=== PATIENT | female | born 1975 | race Caucasian/White ===

== ENCOUNTER 2017-01-20 07:07 | Day surgery (SDC) | payer MEDICAID ==
[2017-01-20] MEDS ORDERED: Propofol 200 MG/20 ML SDV ONE (07:09)
[2017-01-20] MEDS ORDERED: Rocuronium 50 MG/5 ML Vial ONE (07:09)
[2017-01-20] MEDS ORDERED: Lidocaine 1% 4 ML ONE (07:09)
[2017-01-20] MEDS ORDERED: Ondansetron 4 MG/2 ML SDV ONE (07:09)
[2017-01-20] MEDS ORDERED: fentaNYL 250 MCG/5 ML SDV ONE (07:09)
[2017-01-20] MEDS ORDERED: Midazolam 1 MG/ML 2 ML SDV ONE (07:09)
[2017-01-20] MEDS ORDERED: Lactated Ringers 1,000 ML IV SCH (07:15)
[2017-01-20] MEDS ORDERED: Lidocaine 1% 50 ML MDV ONE (07:31)
[2017-01-20] MEDS ORDERED: Bupivacaine 0.5% 30 ML SDV ONE (07:31)
[2017-01-20] MEDS ORDERED: Lidocaine 1% with EPINEPHrine 1:100,000 20 ML MDV ONE (07:32)
[2017-01-20] MEDS ORDERED: Bupivacaine 0.5%/EPINEPHrine 1:200,000 50 ML MDV ONE (07:33)
--- NOTE | 2017-01-20 07:35 | PCM.PREANE ---
Preanesthetic Assessment - Anesthesia/Transfusion/Family Hx Anesthesia History: Prior Anesthesia Without Reaction Family History of Anesthesia Reaction: No Transfusion History: No Prior Transfusion(s) - Review of Systems General: No Symptoms Pulmonary: No Symptoms, Cough (smoker) Cardiovascular: No Symptoms Gastrointestinal: Abdominal pain, Diarrhea, Vomiting (last night- ) Neurological: No Symptoms, Headache (migraines) Other: Reports: Depression, Anxiety - Physical Assessment NPO Status Date: 01/19/17 NPO Status Time: 23:30 Pulse: 94 O2 Sat by Pulse Oximetry: 93 Respiratory Rate: 16 Blood Pressure: 138/79 Temperature: 98.4 F Height: 5 ft 7 in Weight: 108.862 kg ASA Class: 2 Mental Status: Alert & Oriented x3 Dentition: Reports: Normal Dentition Thyro-Mental Finger Breadths: 3 Mouth Opening Finger Breadths: 3 ROM/Head Extension: Full Lungs: Clear to auscultation, Normal respiratory effort Cardiovascular: Regular Rate, Regular Rhythm, No Murmurs - Allergies Allergies/Adverse Reactions: Allergies Allergy/AdvReac Type Severity Reaction Status Date / Time cephalexin monohydrate Allergy Hives Verified 01/16/17 14:40 [From Keflex] prochlorperazine edisylate Allergy Other Verified 01/16/17 14:46 [From Compazine] prochlorperazine maleate Allergy Other Verified 01/16/17 14:46 [From Compazine] shellfish derived Allergy Anaphylactic Verified 01/16/17 14:40 Shock - Blood Blood Available: No - Anesthesia Plan Pre-Op Medication Ordered: None - Acknowledgements Anesthesia Type Planned: General Anesthesia Pt an Appropriate Candidate for the Planned Anesthesia: Yes Alternatives and Risks of Anesthesia Discussed w Pt/Guardian: Yes Pt/Guardian Understands and Agrees with Anesthesia Plan: Yes PreAnesthesia Questionnaire HEENT History: Reports: Sinusitis, Other (see below) Other HEENT History: Pharyngitis, sinus pressure Cardiovascular History: Reports: None Respiratory History: Reports: Other (see below) Other Respiratory History: Cough, hemoptysis, viral URI Gastrointestinal History: Reports: GERD, Other (see below) Other Gastrointestinal History: Hematochezia, external hemorrhoids Genitourinary History: Reports: None 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 Musculoskeletal History: Reports: Gout, Other (see below) Other Musculoskeletal History: Myalgias Neurological History: Reports: Headaches, chronic, Migraines Psychiatric History: Reports: Addiction, Anxiety, Depression, Other (see below) Other Psychiatric History: Insomnia Endocrine/Metabolic History: Reports: None Hematologic History: Reports: None Immunologic History: Reports: None Oncologic (Cancer) History: Reports: None Dermatologic History: Reports: Other (see below) Other Dermatologic History: Hidradenitis suppurativa, open wound to foot, plantar wart to left foot, facial skin lesion - Past Surgical History Head Surgeries/Procedures: Reports: None HEENT Surgical History: Reports: None Cardiovascular Surgical History: Reports: None Respiratory Surgical History: Reports: None GI Surgical History: Reports: Appendectomy Female Surgical History: Reports: Other (see below) Other Female Surgeries/Procedures: Unilateral salpingectomy Endocrine Surgical History: Reports: None Neurological Surgical History: Reports: None Musculoskeletal Surgical History: Reports: None Oncologic Surgical History: Reports: None Dermatological Surgical History: Reports: None - SUBSTANCE USE Smoking Status *Q: Current Every Day Smoker (smoked 23 years -1 ppd) Tobacco Use Within Last Twelve Months: Cigarettes Second Hand Smoke Exposure: Yes Days Per Week of Alcohol Use: 1 (twice a month) Number of Drinks Per Day: 4 Total Drinks Per Week: 4 Date of Last Drink: 01/19/17 Time of Last Drink: 11:30 Recreational Drug Use History: No - HOME MEDS Home Medications: Home Meds Ascorbic Acid [Vitamin C] 1,000 mg PO BID 03/04/15 [History] Omeprazole 20 mg PO ACBRK 03/04/15 [History] Diazepam [Diazepam] 5 mg PO TID 06/24/16 [History] Varenicline [Chantix] 1 mg PO DAILY 06/24/16 [History] Acetaminophen/HYDROcodone [[place] 325-5 MG] 1 tab PO Q6H PRN 01/16/17 [History] Cranberry Fruit Concentrate [Cranberry] 450 mg PO DAILY 01/16/17 [History] Ibuprofen 800 mg PO TID PRN 01/16/17 [History] Ondansetron HCl [Zofran] 4 mg PO Q4H PRN 01/16/17 [History] buPROPion HCl [Wellbutrin Xl] 150 mg PO DAILY 01/16/17 [History] - CURRENT (IN HOUSE) MEDS Current Meds: Current Medications Lactated Ringer's (Ringers, Lactated) 1,000 mls @ 125 mls/hr IV ASDIRECTED LIOR Stop: 01/20/17 23:59 Lidocaine/Sodium Bicarbonate (Buffered Lidocaine 1% In Ns 8.4%) 0.25 ml IV ONETIME ONE Stop: 01/20/17 08:01 Discontinued Medications Bupivacaine HCl (Marcaine 0.5%) Confirm Administered Dose 30 ml .ROUTE .STK-MED ONE Stop: 01/20/17 07:32 Bupivacaine HCl/Epinephrine Bitart (Marcaine 0.5%/Epinephrine 1:200,000) Confirm Administered Dose 50 ml .ROUTE .STK-MED ONE Stop: 01/20/17 07:34 Fentanyl (Sublimaze) Confirm Administered Dose 250 mcg .ROUTE .STK-MED ONE Stop: 01/20/17 07:10 Lidocaine HCl (Xylocaine-Mpf 1%) Confirm Administered Dose 4 mls @ as directed .ROUTE .STK-MED ONE Stop: 01/20/17 07:10 Lidocaine HCl (Xylocaine 1%) Confirm Administered Dose 50 ml .ROUTE .STK-MED ONE Stop: 01/20/17 07:32 Lidocaine/Epinephrine (Xylocaine 1% With Epinephrine 1:100,000) Confirm Administered Dose 20 ml .ROUTE .STK-MED ONE Stop: 01/20/17 07:33 Midazolam HCl (Versed 1 Mg/Ml) Confirm Administered Dose 2 mg .ROUTE .STK-MED ONE Stop: 01/20/17 07:10 Ondansetron HCl (Zofran) Confirm Administered Dose 4 mg .ROUTE .STK-MED ONE Stop: 01/20/17 07:10 Propofol (Diprivan 20 Ml) Confirm Administered Dose 200 mg .ROUTE .STK-MED ONE Stop: 01/20/17 07:10 Rocuronium [place] (Zemuron) Confirm Administered Dose 50 mg .ROUTE .STK-MED ONE Stop: 01/20/17 07:10
[2017-01-20] MEDS ORDERED: Lidocaine 1%/Sod Bicarbonate in NS 8.4% 1 ML Syringe IV ONE (08:00)
[2017-01-20] MEDS ORDERED: Ondansetron 4 MG/2 ML SDV IVPUSH PRN (08:21)
[2017-01-20] MEDS ORDERED: HYDROmorphone 1 MG/ML Syringe ONE (08:22)
[2017-01-20] MEDS ORDERED: Dexamethasone 4 MG/ML 5 ML MDV ONE (08:41)
[2017-01-20] MEDS ORDERED: Vancomycin 1 GM, Vancomycin 500 MG in Sodium Chloride 0.9% 500 ML IV SCH (09:00)
[2017-01-20] MEDS ORDERED: fentaNYL 100 MCG/2 ML SDV ONE (09:04)
[2017-01-20] MEDS ORDERED: Meperidine PF 50 MG/ML Syringe IVPUSH PRN (09:30)
--- NOTE | 2017-01-20 10:10 | PCM.POSTAN ---
POST ANESTHESIA ASSESSMENT - MENTAL STATUS Mental Status: alert, oriented - VITAL SIGNS Pulse Rate: 103 SaO2: 94 Resp Rate: 7 Blood Pressure: 142/86 Temperature: 99.6 F - RESPIRATORY Respiratory Status: respiratory rate WNL, airway patent, O2 saturation stable, supplemental oxygen - CARDIOVASCULAR CV Status: pulse rate WNL, blood pressure stable - GASTROINTESTINAL GI Status: no symptoms - PAIN Pain Score: 2 - POST OP HYDRATION Hydration Status: adequate & stable
--- NOTE | 2017-01-20 10:11 | PCM.OPNOTE ---
- General Post-Op/Procedure Note Date of Surgery/Procedure: 01/20/17 Operative Procedure(s): laparoscopic cholecystectomy Findings: Sub acute and chronic inflammation of the gallbladder. The gallbladder contained a large stone and several smaller stones. They were yellow in color. Pre Op Diagnosis: biliary colic, secondary to cholelithiasis Post-Op Diagnosis: subacute and chronic cholecystitis, secondary to cholelithiasis Anesthesia Technique: General ET tube, Local Primary Surgeon: Kaden Palencia Pathology: gall bladder and contents EBL in mLs: 100 Complications: None Condition: Good Free Text/Narrative:: After adequate general endotracheal tube anesthesia was obtained the patient's abdomen was prepped and draped sterilely for a laparoscopic cholecystectomy. After local analgesia was given above the umbilicus. A curvilinear incision was made, down to the fascia. The fascia was entered sharply, followed by insertion of a 12 mm camera port. CO2 pneumoperitoneum was obtained. Exploration revealed a few adhesions between the omentum and the body of the gallbladder. The gallbladder was slightly distended, and the wall was slightly edematous. 3 working ports were placed along the right costal margin. These ports were 5 mm in size. I grasped the gallbladder and retracted it and the liver in a cephalad direction. I the adhesions between the omentum and the gallbladder away from the body of the gallbladder with the hook cautery. I then grasped Gray's pouch then dissected out the cystic duct and cystic artery with the hook cautery. Somehow I put a hole in the cystic artery (probably because the hook cautery was on 35), which quickly retracted, causing blood loss into the field. I reduced the cautery to 25. I held direct pressure for several minutes, but this didn't slow the bleeding that much for me to safely clip the vessel. I then placed some Surgicel in the site, and held more pressure for a few more minutes. This allowed a coagulum to take, which allowed me to visualize the artery, and I safely placed a 5 mm clip to secure hemostasis. The cystic duct was clipped in continuity with 5 mm clips. This structure was divided with scissors. I irrigated out the field with 750 cc of saline to remove about 100 cc of clotted blood. After achieving hemostasis I took the gallbladder down in a retrograde fashion with the hook cautery and removed the gallbladder in the specimen bag through the umbilicus. During this process I put a hole on the body of the gallbladder wall which spilled its contents. This was irrigated out as well. I placed 3, 5 mm clips over this hole so that no stones would fall out onto the field.The gallbladder bed was hemostatic with no bleeding or bile duct leaks seen. I left the Surgicel in place. The bowel was grossly intact. Air was removed, as I finished the procedure, which she tolerated well. Manufacturing Supervisor 2Nd Shift photographs were taken for the patient and for the record. The supraumbilical port site was closed with a [id number] Vicryl. Subcutaneous tissues and skin were closed with Vicryl as well. Steri-Strips and gauze were used for the dressing.
[2017-01-20] MEDS: fentaNYL 100 MCG/2 ML SDV IVPUSH PRN ×4 (10:23→10:56)
[2017-01-20] MEDS: HYDROmorphone 0.5 MG/0.5 ML Syringe IVPUSH PRN ×2 (10:26→10:41)
[2017-01-20] MEDS ORDERED: Acetaminophen/oxyCODONE 325-5 MG Tab PO SCH (10:30)
[2017-01-20 11:52] VITALS: BP 134/65
--- NOTE | 2017-01-20 12:44 | PCM48HPAN ---
Post Anesthesia Note - EVALUATION WITHIN 48HRS OF ANESTHETIC Vital Signs in Normal Range: Yes Patient Participated in Evaluation: Yes Respiratory Function Stable: Yes Airway Patent: Yes Cardiovascular Function Stable: Yes Hydration Status Stable: Yes Pain Control Satisfactory: Yes Nausea and Vomiting Control Satisfactory: Yes Mental Status Recovered: Yes
== END 2017-01-20 13:25 | disposition home or self-care (01) ==
LOC: JD.SDS 07:07
PROVIDERS: ATTEND Surgery
PROC: 0FT44ZZ Resection of Gallbladder, Percutaneous Endoscopic Approach (ICD-10-PCS; principal; 2017-01-20)
DX: K80.10 Calculus of gallbladder with chronic cholecystitis without obstruction (principal); F41.8 Other specified anxiety disorders; M79.1 Myalgia; F17.210 Nicotine dependence, cigarettes, uncomplicated; K21.9 Gastro-esophageal reflux disease without esophagitis; M10.9 Gout, unspecified; Z88.1 Allergy status to other antibiotic agents; Z88.8 Allergy status to other drugs, medicaments and biological substances; Z91.013 Allergy to seafood; Z79.899 Other long term (current) drug therapy; Z90.49 Acquired absence of other specified parts of digestive tract; Z90.79 Acquired absence of other genital organ(s); Z68.41 Body mass index [BMI] 40.0-44.9, adult
CPT/HCPCS: 47562; 88304; A9270; J1100; J1170; J2250; J2405; J3010; J7120; 00790; J2704

== ENCOUNTER 2017-01-24 23:12 | Emergency (ER) | payer SELFPAY ==
[2017-01-24 23:18] VITALS: BP 161/119
[2017-01-24] MEDS ORDERED: LORazepam 2 MG/ML MDV IVPUSH ONE (23:23)
[2017-01-24] MEDS ORDERED: Sodium Chloride 0.9% 500 ML IV ONE (23:23)
[2017-01-24] MEDS ORDERED: Ondansetron 4 MG/2 ML SDV IVPUSH ONE (23:23)
[2017-01-24] MEDS ORDERED: HYDROmorphone 0.5 MG/0.5 ML Syringe IVPUSH ONE (23:23)
[2017-01-24] MEDS ORDERED: Sodium Chloride 0.9% 10 ML Syringe FLUSH PRN (23:24)
--- NOTE | 2017-01-24 23:28 | EDM.PDOC ---
ED HISTORY OF PRESENT ILLNESS - General Chief Complaint: Chest Pain Stated Complaint: CHEST PAIN/SOB Time Seen by Provider: 01/24/17 23:15 Source of Information: Reports: Patient, RN notes reviewed - History of Present Illness INITIAL COMMENTS - FREE TEXT/NARRATIVE: Patient arrives private vehicle with right upper quadrant abdominal pain radiating to right lower chest and also to the right lateral chest. The pain is sharp, worse with deep breathing. She does have some nausea but no vomiting with this. She did have her gallbladder out laparoscopic surgery 4 days ago. She has been having some discomfort right upper quadrant postsurgical as would be expected but that had been getting better until the onset of sharp discomfort this evening about 30-40 minutes ago. She has not been vomiting. She' s had no fever or chills. She has not been coughing or ill in any other way. No history of cardiac or known pulmonary problems - Related Data Allergies/ADRs: Allergies Allergy/AdvReac Type Severity Reaction Status Date / Time cephalexin monohydrate Allergy Hives Verified 01/24/17 23:14 [From Keflex] prochlorperazine edisylate Allergy Other Verified 01/24/17 23:14 [From Compazine] prochlorperazine maleate Allergy Other Verified 01/24/17 23:14 [From Compazine] shellfish derived Allergy Anaphylactic Verified 01/24/17 23:14 Shock Home Meds: Home Meds Ascorbic Acid [Vitamin C] 1,000 mg PO BID 03/04/15 [History] Omeprazole 20 mg PO ACBRK 03/04/15 [History] Diazepam 5 mg PO TID 06/24/16 [History] Varenicline [Chantix] 1 mg PO DAILY 06/24/16 [History] Acetaminophen/HYDROcodone [[place] 325-5 MG] 1 tab PO Q6H PRN 01/16/17 [History] Cranberry Fruit Concentrate [Cranberry] 450 mg PO DAILY 01/16/17 [History] Ibuprofen 800 mg PO TID PRN 01/16/17 [History] Ondansetron HCl [Zofran] 4 mg PO Q4H PRN 01/16/17 [History] buPROPion HCl [Wellbutrin Xl] 150 mg PO DAILY 01/16/17 [History] Past Medical History HEENT History: Reports: Sinusitis, Other (see below) Other HEENT History: Pharyngitis, sinus pressure Cardiovascular History: Reports: None Respiratory History: Reports: Other (see below) Other Respiratory History: Cough, hemoptysis, viral URI Gastrointestinal History: Reports: GERD, Other (see below) Other Gastrointestinal History: Hematochezia, external hemorrhoids Genitourinary History: Reports: None 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 Musculoskeletal History: Reports: Gout, Other (see below) Other Musculoskeletal History: Myalgias Neurological History: Reports: Headaches, chronic, Migraines Psychiatric History: Reports: Addiction, Anxiety, Depression, Other (see below) Other Psychiatric History: Insomnia Endocrine/Metabolic History: Reports: None Hematologic History: Reports: None Immunologic History: Reports: None Oncologic (Cancer) History: Reports: None Dermatologic History: Reports: Other (see below) Other Dermatologic History: Hidradenitis suppurativa, open wound to foot, plantar wart to left foot, facial skin lesion - Past Surgical History Head Surgeries/Procedures: Reports: None HEENT Surgical History: Reports: None Cardiovascular Surgical History: Reports: None Respiratory Surgical History: Reports: None GI Surgical History: Reports: Appendectomy, Cholecystectomy Female Surgical History: Reports: Other (see below) Other Female Surgeries/Procedures: Unilateral salpingectomy Endocrine Surgical History: Reports: None Neurological Surgical History: Reports: None Musculoskeletal Surgical History: Reports: None Oncologic Surgical History: Reports: None Dermatological Surgical History: Reports: None Social & Family History - Family History Family Medical History: Noncontributory - Tobacco Use Smoking Status *Q: Current Every Day Smoker Years of Tobacco use: 20 Packs/Tins Daily: 0.7 Used Tobacco, but Quit: No Second Hand Smoke Exposure: Yes - Caffeine Use Caffeine Use: Reports: None - Alcohol Use Days Per Week of Alcohol Use: 1 (twice a month) Number of Drinks Per Day: 4 Total Drinks Per Week: 4 - Recreational Drug Use Recreational Drug Use: No Drug Use in Last 12 Months: No - Living Situation & Occupation Living situation: Reports: with family (Mother) ED ROS GENERAL - Review of Systems Review Of Systems: See Below Constitutional: Denies: fever, chills, diaphoresis HEENT: Denies: Sinus problem, Throat pain Respiratory: Reports: Shortness of Breath, Wheezing, Pleuritic Chest Pain Cardiovascular: Reports: Chest pain GI/Abdominal: Reports: Abdominal pain (Right upper quadrant pain) Musculoskeletal: Denies: leg pain, joint pain Skin: Reports: no symptoms Neurological: Denies: Weakness ED EXAM, GENERAL - Physical Exam Exam: See Below Exam Limited By: No limitations General Appearance: alert, severe distress Throat/Mouth: Normal inspection, Normal oropharynx Head: atraumatic. No: facial swelling Neck: normal inspection, supple Respiratory/Chest: respiratory distress (moderate tachypnea). No: rhonchi, wheezing, stridor Cardiovascular: tachycardia GI/Abdominal: tender (RUQ). No: guarding, rebound Back Exam: No: CVA tenderness (L), CVA tenderness (R) Extremities: normal inspection, normal range of motion. No: pedal edema, leg pain Neurological: alert, oriented, no motor/sensory deficits Skin Exam: Warm, Dry, Normal color Course - Vital Signs Last Recorded V/S: Last Vital Signs Temp 97.7 F 01/24/17 23:14 Pulse 109 H 01/24/17 23:14 Resp 15 01/24/17 23:14 BP 161/119 H 01/24/17 23:14 Pulse Ox 96 01/24/17 23:14 - Orders/Labs/Meds Orders: Active Orders 24 hr Category Date Time Status EKG 12 Lead [EKG Documentation Completion] [RC] STAT Care 01/24/17 23:15 Active Peripheral IV Care [RC] . DIRECTED Care 01/24/17 23:24 Active Abdomen Ltd [US] Stat Exams 01/25/17 00:42 Taken Chest 1V Frontal [CR] Stat Exams 01/24/17 23:25 Taken Sodium Chloride 0.9% [Normal Saline] 1,000 ml Med 01/25/17 00:45 Active IV ASDIRECTED Sodium Chloride 0.9% [Saline Flush] Med 01/24/17 23:24 Active 10 ml FLUSH ASDIRECTED PRN Peripheral IV Insertion Adult [OM.PC] Stat Oth 01/24/17 23:23 Ordered Medication Orders Sodium Chloride (Normal Saline) 1,000 mls @ 75 mls/hr IV ASDIRECTED LIOR Sodium Chloride (Saline Flush) 10 ml FLUSH ASDIRECTED PRN PRN Reason: Keep Vein Open Last Admin: 01/24/17 23:38 Dose: 10 ml Labs: Laboratory Tests 01/24/17 01/24/17 01/24/17 Range/Units 23:25 23:25 23:25 WBC 20.13 H (3.98-10.04) K/mm3 RBC 4.52 (3.98-5.22) M/mm3 Hgb 14.0 (11.2-15.7) gm/L Hct 41.1 (34.1-44.9) % MCV 90.9 (79.4-94.8) fl MCH 31.0 (25.6-32.2) pg MCHC 34.1 (32.2-35.5) g/dl RDW Std Deviation 39.8 (36.4-46.3) fL Plt Count 297 (182-369) K/mm3 MPV 10.8 (9.4-12.3) fl Neut % (Auto) 66.1 (34.0-71.1) % Lymph % (Auto) 22.1 (19.3-51.7) % Parke % (Auto) 6.4 (4.7-12.5) % Eos % (Auto) 4.6 (0.7-5.8) Baso % (Auto) 0.3 (0.1-1.2) % Neut # (Auto) 13.30 H (1.56-6.13) K/mm3 Lymph # (Auto) 4.45 H (1.18-3.74) K/mm3 Parke # (Auto) 1.28 H (0.24-0.36) K/mm3 Eos # (Auto) 0.92 H (0.04-0.36) K/mm3 Baso # (Auto) 0.07 (0.01-0.08) K/mm3 Sodium 137 (136-145) mEq/L Potassium 3.9 (3.5-5.1) mEq/L Chloride 104 (98-107) mEq/L Carbon Dioxide 25 (21-32) mEq/L Anion Gap 11.9 (5-15) BUN 12 (7-18) mg/dL Creatinine 0.8 (0.55-1.02) mg/dL Est Cr Clr Drug Dosing 89.99 mL/min Estimated GFR (MDRD) > 60 (>60) mL/min BUN/Creatinine Ratio 15.0 (14-18) Glucose 116 H (74-106) mg/dL Calcium 8.6 (8.5-10.1) mg/dL Total Bilirubin 0.3 (0.2-1.0) mg/dL AST 48 H (15-37) U/L ALT 135 H (14-59) U/L Alkaline Phosphatase 170 H (46-116) U/L Troponin I < 0.017 (0.00-0.056) ng/mL Total Protein 7.5 (6.4-8.2) g/dl Albumin 3.2 L (3.4-5.0) g/dl Globulin 4.3 gm/dL Albumin/Globulin Ratio 0.7 L (1-2) Lipase 75 (73-393) U/L Meds: Medications Generic Name Dose Route Start Last Admin Trade Name Freq PRN Reason Stop Dose Admin Sodium Chloride 1,000 mls @ 75 mls/hr 01/25/17 00:45 Normal Saline IV ASDIRECTED LIOR Sodium Chloride 10 ml 01/24/17 23:24 01/24/17 23:38 Saline Flush FLUSH 10 ml ASDIRECTED PRN Administration Keep Vein Open Discontinued Medications Generic Name Dose Route Start Last Admin Trade Name Freq PRN Reason Stop Dose Admin Hydromorphone HCl 0.5 mg 01/24/17 23:23 01/24/17 23:36 Dilaudid IVPUSH 01/24/17 23:24 0.5 mg ONETIME ONE Administration Sodium Chloride 500 mls @ 999 mls/hr 01/24/17 23:23 01/24/17 23:38 Normal Saline IV 01/24/17 23:53 999 mls/hr .BOLUS ONE Administration Lorazepam 0.5 mg 01/24/17 23:23 01/24/17 23:37 Ativan IVPUSH 01/24/17 23:24 0.5 mg ONETIME ONE Administration Ondansetron HCl 4 mg 01/24/17 23:23 01/24/17 23:35 Zofran IVPUSH 01/24/17 23:24 4 mg ONETIME ONE Administration - Re-Assessments/Exams Free Text/Narrative Re-Assessment/Exam: 01/25/17 01:00. Patient did get good relief of discomfort from Dilaudid 0.5 mg, Ativan 0.5 mg Zofran 4 mg IV. However her white blood count has come back elevated in the 20,000 range, liver enzymes and alkaline phosphatase are very mildly elevated bilirubin is okay at 0.3. We'll check upper abdomen ultrasound primarily to look for any sign of stones, sludge or biliary obstruction. 01/25/17 02:51 US report comes back with no evidence for obstruction, free fluid, possible small hematoma, see report for details. Pt continues to rest comfortably after initial meds. She wants to go home and feels up to that, discharge instr. as documented. Departure - Departure Time of Disposition: 02:43 Disposition: Home, Self-Care 01 Condition: fair Clinical Impression: Abdominal pain Qualifiers: Abdominal location: upper abdomen, unspecified Qualified Code(s): R10.10 - Upper abdominal pain, unspecified Referrals: Kaden Palencia MD [Primary Care Provider] - Forms: ED Department Discharge Additional Instructions: rest, clear liquids and careful bland diet as tolerated, you may continue your pain medication as needed, See Dr Palencia as soon as possible early next week, call Friday for appt.,, return to ED as needed if sx worsening in any way. - My Orders Last 24 Hours: My Active Orders 01/24/17 23:15 EKG 12 Lead [EKG Documentation Completion] [RC] STAT 01/24/17 23:23 Peripheral IV Insertion Adult [OM.PC] Stat 01/24/17 23:24 Peripheral IV Care [RC] . DIRECTED Sodium Chloride 0.9% [Saline Flush] 10 ml FLUSH ASDIRECTED PRN 01/24/17 23:25 Chest 1V Frontal [CR] Stat 01/25/17 00:42 Abdomen Ltd [US] Stat 01/25/17 00:45 Sodium Chloride 0.9% [Normal Saline] 1,000 ml IV ASDIRECTED - Assessment/Plan Last 24 Hours: My Active Orders 01/24/17 23:15 EKG 12 Lead [EKG Documentation Completion] [RC] STAT 01/24/17 23:23 Peripheral IV Insertion Adult [OM.PC] Stat 01/24/17 23:24 Peripheral IV Care [RC] . DIRECTED Sodium Chloride 0.9% [Saline Flush] 10 ml FLUSH ASDIRECTED PRN 01/24/17 23:25 Chest 1V Frontal [CR] Stat 01/25/17 00:42 Abdomen Ltd [US] Stat 04/22/17 00:45 Sodium Chloride 0.9% [Normal Saline] 1,000 ml IV ASDIRECTED
[2017-01-25] MEDS ORDERED: Sodium Chloride 0.9% 1,000 ML IV SCH (00:45)
--- NOTE | 2017-01-26 11:59 | CR ---
Chest: Frontal view of the chest was obtained. Comparison: Previous chest x-ray of 06/24/[address] dated 06/24/16. Heart size and mediastinum are within normal limits. Lungs are clear. Bony structures show minimal scoliosis within the spine. Impression: 1. Nothing acute is seen on frontal chest x-ray. No significant change is seen from prior exam. Diagnostic code #1
--- NOTE | 2017-01-26 11:59 | US ---
Limited abdominal ultrasound: Multiple real-time images of the upper right abdomen were obtained. Comparison: Previous right upper quadrant abdominal ultrasound of 01/08/17. Liver shows no focal abnormality. Liver is slightly echogenic possibly due to mild fatty infiltration. Interval cholecystectomy is seen. There is a slightly echogenic area seen within the gallbladder fossa with hypoechoic rim possibly due to small hematoma measuring around 2.4 cm. Pancreas is within normal limits. No other fluid collections are seen. Right kidney shows no hydronephrosis or mass and has a length of 12.3 cm. Impression: 1. No free fluid is seen. 2. Hyperechoic area within the gallbladder fossa possibly due to small postoperative hematoma. 3. Interval cholecystectomy from prior exam. Agree with preliminary report issued by [employer] (preliminary report dictated on 01/25/17, 2:59 AM Central Time) Diagnostic code #3
== END 2017-01-25 02:55 | disposition home or self-care (01) ==
LOC: JD.ED 23:12
DX: R10.11 Right upper quadrant pain (principal); K21.9 Gastro-esophageal reflux disease without esophagitis; F41.9 Anxiety disorder, unspecified; F32.9 Major depressive disorder, single episode, unspecified; F17.210 Nicotine dependence, cigarettes, uncomplicated; Z79.899 Other long term (current) drug therapy; Z90.49 Acquired absence of other specified parts of digestive tract; Z91.013 Allergy to seafood
CPT/HCPCS: 36415; 71010; 76705; 80053; 83690; 84484; 85025; 93005; 96361; 96374; 96375; 99285; J1170; J2060; J2405; J7040; J7050; 99284

== ENCOUNTER 2017-08-22 22:45 | Emergency (ER) | payer SELFPAY ==
[2017-08-22 23:12] VITALS: BP 157/108
[2017-08-22] MEDS ORDERED: Ketorolac 60 MG/2 ML SDV IM ONE (23:43)
[2017-08-22] MEDS ORDERED: HYDROmorphone 1 MG/ML Syringe IM ONE (23:43)
[2017-08-22] MEDS ORDERED: Metoclopramide 10 MG/2 ML SDV IM ONE (23:43)
--- NOTE | 2017-08-22 23:45 | EDM.PDOC ---
ED HPI GENERAL MEDICAL PROBLEM - General Chief Complaint: Headache Stated Complaint: Migraine Time Seen by Provider: 08/22/17 23:30 Source of Information: Reports: Patient, RN Notes Reviewed History Limitations: Reports: No Limitations - History of Present Illness INITIAL COMMENTS - FREE TEXT/NARRATIVE: 41 year old female presents to the ED today with complaints of migraine headache to the left side with associated nausea, vomiting x3, photophobia, and phonophobia. She has a history of migraine headaches and says this is consistent with her typical headaches. She has taken two doses of 600mg of Ibuprofen and Benadryl prior to arrival with no improvement. She denies neck pain, fever, chills, sinus pressure, weakness in extremities, slurred speech. Headache Pain Score (Numeric/FACES): 10 Left Flank Pain Score (Numeric/FACES): 5 - Related Data Allergies Allergy/AdvReac Type Severity Reaction Status Date / Time cephalexin monohydrate Allergy Hives Verified 01/24/17 23:14 [From Keflex] prochlorperazine edisylate Allergy Other Verified 01/24/17 23:14 [From Compazine] prochlorperazine maleate Allergy Other Verified 01/24/17 23:14 [From Compazine] shellfish derived Allergy Anaphylactic Verified 01/24/17 23:14 Shock Home Meds: Home Meds Ascorbic Acid [Vitamin C] 1,000 mg PO BID 03/04/15 [History] Omeprazole 20 mg PO ACBRK 03/04/15 [History] Diazepam 5 mg PO DAILY 06/24/16 [History] Cranberry Fruit Concentrate [Cranberry] 450 mg PO DAILY 01/16/17 [History] Ibuprofen 800 mg PO TID PRN 01/16/17 [History] Ondansetron HCl [Zofran] 4 mg PO Q4H PRN 01/16/17 [History] buPROPion HCl [Wellbutrin Xl] 150 mg PO DAILY 01/16/17 [History] Past Medical History HEENT History: Reports: Sinusitis, Other (See Below) Other HEENT History: Pharyngitis, sinus pressure Cardiovascular History: Reports: None Respiratory History: Reports: Other (See Below) Other Respiratory History: Cough, hemoptysis, viral URI Gastrointestinal History: Reports: GERD, Other (See Below) Other Gastrointestinal History: Hematochezia, external hemorrhoids Genitourinary History: Reports: UTI, Recurrent 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 Musculoskeletal History: Reports: Gout, Other (See Below) Other Musculoskeletal History: Myalgias Neurological History: Reports: Headaches, Chronic, Migraines Psychiatric History: Reports: Addiction, Anxiety, Depression, Other (See Below) Other Psychiatric History: Insomnia Endocrine/Metabolic History: Reports: None Hematologic History: Reports: None Immunologic History: Reports: None Oncologic (Cancer) History: Reports: None Dermatologic History: Reports: Other (See Below) Other Dermatologic History: Hidradenitis suppurativa, open wound to foot, plantar wart to left foot, facial skin lesion - Infectious Disease History Infectious Disease History: Reports: Chicken Pox - Past Surgical History Head Surgeries/Procedures: Reports: None Cardiovascular Surgical History: Reports: None GI Surgical History: Reports: Appendectomy, Cholecystectomy Endocrine Surgical History: Reports: None Oncologic Surgical History: Reports: None Social & Family History - Family History Family Medical History: Noncontributory - Tobacco Use Smoking Status *Q: Current Every Day Smoker Years of Tobacco use: 20 Packs/Tins Daily: 1 Used Tobacco, but Quit: No Second Hand Smoke Exposure: Yes - Caffeine Use Caffeine Use: Reports: None - Alcohol Use Days Per Week of Alcohol Use: 1 (twice a month) Number of Drinks Per Day: 4 Total Drinks Per Week: 4 - Recreational Drug Use Recreational Drug Use: No Drug Use in Last 12 Months: No - Living Situation & Occupation Living situation: Reports: with Family ED ROS GENERAL - Review of Systems Review Of Systems: See Below Constitutional: Reports: No Symptoms. Denies: Fever, Chills HEENT: Reports: No Symptoms. Denies: Vertigo, Vision Change Respiratory: Reports: No Symptoms. Denies: Shortness of Breath Cardiovascular: Reports: No Symptoms. Denies: Chest Pain GI/Abdominal: Reports: Nausea, Vomiting. Denies: Abdominal Pain Neurological: Reports: Headache. Denies: Confusion, Dizziness, Numbness, Tingling, Difficulty Walking, Weakness - Physical Exam Exam: See Below Exam Limited By: No Limitations General Appearance: Alert, WD/WN, Other (wearing sun glasses, lights off in room ) Eye Exam: Bilateral Eye: EOMI, PERRL Head Exam: Atraumatic, Normocephalic. No: Scalp Tenderness, Sinus Tenderness Neck: Normal Inspection, Supple, Non-Tender, Full Range of Motion. No: Tender Midline Respiratory/Chest: No Respiratory Distress, Lungs Clear Cardiovascular: Regular Rate, Rhythm Neuro Exam (Abbreviated): Alert, Oriented, Normal Cognition, Normal Gait, Other (cerebellar testing intact ) Course - Vital Signs Last Recorded V/S: Last Vital Signs Temp 97.5 F 08/22/17 23:07 Pulse 91 08/22/17 23:07 Resp 18 08/22/17 23:07 BP 157/108 H 08/22/17 23:07 Pulse Ox 96 08/22/17 23:07 - Orders/Labs/Meds Meds: Medications Discontinued Medications Generic Name Dose Route Start Last Admin Trade Name Freq PRN Reason Stop Dose Admin Hydromorphone HCl 1 mg 08/22/17 23:43 08/22/17 23:54 Dilaudid IM 08/22/17 23:44 1 mg ONETIME ONE Administration Ketorolac Tromethamine 60 mg 08/22/17 23:43 08/22/17 23:57 Toradol IM 08/22/17 23:44 60 mg ONETIME ONE Administration Metoclopramide HCl 7.5 mg 08/22/17 23:43 08/22/17 23:59 Reglan IM 08/22/17 23:44 7.5 mg ONETIME ONE Administration - Re-Assessments/Exams Free Text/Narrative Re-Assessment/Exam: Neuro exam is normal. Treated with IM injections of Toradol, Reglan, and Dilaudid. This has worked well for her in the past and no adverse reactions. Patient was discharged home to rest. She has a ride home. Departure - Departure Time of Disposition: 00:15 Disposition: Home, Self-Care 01 Condition: Good Clinical Impression: Migraine - Discharge Information Instructions: Migraine Headache, [id number] Referrals: Heather Canales PA [Primary Care Provider] - Forms: ED Department Discharge Additional Instructions: Go home and rest in a dark, quiet environment Drink plenty of fluids Return to ER with worsening symptoms No driving today due to sedating medications given in the ER Continue over the counter pain relievers as needed
== END 2017-08-23 00:44 | disposition home or self-care (01) ==
LOC: JD.ED 22:45
DX: G43.909 Migraine, unspecified, not intractable, without status migrainosus (principal); F17.210 Nicotine dependence, cigarettes, uncomplicated; Z88.1 Allergy status to other antibiotic agents; Z91.013 Allergy to seafood; Z79.899 Other long term (current) drug therapy
CPT/HCPCS: 96372; 99283; J1170; J1885; J2765

== ENCOUNTER 2017-09-27 09:30 | Emergency (ER) | payer SELFPAY ==
[2017-09-27] MEDS ORDERED: Metoclopramide 10 MG/2 ML SDV IM ONE (09:56)
[2017-09-27] MEDS ORDERED: Ketorolac 60 MG/2 ML SDV IM ONE (09:56)
[2017-09-27] MEDS ORDERED: HYDROmorphone 1 MG/ML Syringe IM ONE (09:56)
--- NOTE | 2017-09-27 10:03 | EDM.PDOC ---
ED HPI GENERAL MEDICAL PROBLEM - General Chief Complaint: Headache Stated Complaint: HEADACHE Time Seen by Provider: 09/27/17 09:57 Source of Information: Reports: Patient History Limitations: Reports: No Limitations - History of Present Illness INITIAL COMMENTS - FREE TEXT/NARRATIVE: 41-year-old female presents the ED with atypical migraine headache. With right hemicranial headache with associated nausea and vomiting. Remains photophobic this morning. Headache is described as constant throbbing and pounding. Very similar to what she's experienced in the past. Emesis is morning was bilious and then dry heaving. No hematemesis. Patient reports she's had good luck with intramuscular injections in the past where she is able to go home and sleep. Last bad headache was about a month ago. Does not appear to be premenstrual. Onset: Today Onset Date: 09/27/17 Onset Time: 07:00 Duration: Hour(s): Location: Reports: Head (Right right hemicranial headache) Quality: Reports: Ache, Throbbing, Other Severity: Severe (Pounding 8 out of 10.) Improves with: Reports: Rest (In dark room.) Worsens with: Reports: Other (Exposure to light), Movement Context: Reports: Other (Awoke with severe right hemicranial headache.). Denies : Activity, Exercise, Lifting, Sick Contact, Trauma Associated Symptoms: Reports: Headaches, Nausea/Vomiting. Denies: Confusion, Chest Pain, Cough, cough w sputum, Diaphoresis, Fever/Chills, Loss of Appetite, Malaise, Rash, Seizure, Shortness of Breath, Syncope Treatments ED TEACHER: Reports: Other (see below) Right Headache Pain Score (Numeric/FACES): 9 - Related Data Allergies Allergy/AdvReac Type Severity Reaction Status Date / Time cephalexin monohydrate Allergy Hives Verified 09/27/17 09:41 [From Keflex] prochlorperazine edisylate Allergy Other Verified 08/23/17 01:52 [From Compazine] prochlorperazine maleate Allergy Other Verified 09/27/17 09:41 [From Compazine] shellfish derived Allergy Anaphylactic Verified 09/27/17 09:41 Shock Home Meds: Home Meds Ascorbic Acid [Vitamin C] 1,000 mg PO BID 03/04/15 [History] Omeprazole 20 mg PO ACBRK 03/04/15 [History] Cranberry Fruit Concentrate [Cranberry] 450 mg PO DAILY 01/16/17 [History] Ibuprofen 800 mg PO TID PRN 01/16/17 [History] buPROPion HCl [Wellbutrin Xl] 150 mg PO DAILY 01/16/17 [History] Cyanocobalamin (Vitamin B-12) [Vitamin B-12] 0 mcg SQ SA 09/27/17 [History] Past Medical History HEENT History: Reports: Sinusitis, Other (See Below) Other HEENT History: Pharyngitis, sinus pressure Cardiovascular History: Reports: None Respiratory History: Reports: Other (See Below) Other Respiratory History: Cough, hemoptysis, viral URI Gastrointestinal History: Reports: GERD, Other (See Below) Other Gastrointestinal History: Hematochezia, external hemorrhoids Genitourinary History: Reports: UTI, Recurrent 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 Musculoskeletal History: Reports: Gout, Other (See Below) Other Musculoskeletal History: Myalgias Neurological History: Reports: Headaches, Chronic, Migraines Psychiatric History: Reports: Addiction, Anxiety, Depression, Other (See Below) Other Psychiatric History: Insomnia Endocrine/Metabolic History: Reports: None Hematologic History: Reports: None Immunologic History: Reports: None Oncologic (Cancer) History: Reports: None Dermatologic History: Reports: Other (See Below) Other Dermatologic History: Hidradenitis suppurativa, open wound to foot, plantar wart to left foot, facial skin lesion - Infectious Disease History Infectious Disease History: Reports: Chicken Pox - Past Surgical History Head Surgeries/Procedures: Reports: None Cardiovascular Surgical History: Reports: None GI Surgical History: Reports: Appendectomy, Cholecystectomy Endocrine Surgical History: Reports: None Oncologic Surgical History: Reports: None Social & Family History - Family History Family Medical History: Noncontributory - Tobacco Use Smoking Status *Q: Current Every Day Smoker Years of Tobacco use: 23 Packs/Tins Daily: 0.5 Used Tobacco, but Quit: No Second Hand Smoke Exposure: No - Caffeine Use Caffeine Use: Reports: Energy Drinks - Alcohol Use Days Per Week of Alcohol Use: 2 Number of Drinks Per Day: 2 Total Drinks Per Week: 4 - Recreational Drug Use Recreational Drug Use: No Drug Use in Last 12 Months: No - Living Situation & Occupation Living situation: Reports: with Family ED ROS GENERAL - Review of Systems Review Of Systems: See Below Constitutional: Denies: Fever, Malaise, Weakness, Fatigue, Decreased Appetite, Weight Loss HEENT: Reports: No Symptoms Respiratory: Reports: No Symptoms Cardiovascular: Reports: No Symptoms Endocrine: Reports: No Symptoms GI/Abdominal: Reports: Nausea, Vomiting : Reports: No Symptoms Musculoskeletal: Reports: No Symptoms Skin: Reports: No Symptoms Neurological: Reports: Headache Psychiatric: Reports: No Symptoms (See history present illness) Hematologic/Lymphatic: Reports: No Symptoms Immunologic: Reports: No Symptoms - Physical Exam Exam: See Below Exam Limited By: No Limitations General Appearance: Mild Distress, Moderate Distress, Other (Examination dark room with dark sunglasses on.) Eye Exam: Bilateral Eye: Normal Inspection, PERRL Neck: Normal Inspection, Supple, Non-Tender, Full Range of Motion, Tender Lateral (Tender right lateral neck paraspinal musculature.). No: Lymphadenopathy (L), Lymphadenopathy (R) Neuro Exam (Abbreviated): Alert, Oriented, CN II-XII Intact, Normal Cognition, Normal Gait, No Motor/Sensory Deficits Extremities: Normal Inspection, Normal Range of Motion, Non-Tender Psychiatric: Normal Affect, Normal Mood Skin Exam: Warm, Dry, Intact, Normal Color Course - Vital Signs Last Recorded V/S: Last Vital Signs Temp 36.6 C 09/27/17 09:40 Pulse 90 09/27/17 09:40 Resp 18 09/27/17 09:40 BP 143/98 H 09/27/17 09:40 Pulse Ox 96 09/27/17 09:40 - Orders/Labs/Meds Orders: Active Orders 24 hr Category Date Time Status HYDROmorphone [Dilaudid] Med 09/27/17 09:56 Once 1 mg IM ONETIME ONE Ketorolac [Toradol] Med 09/27/17 09:56 Once 60 mg IM ONETIME ONE Metoclopramide [Reglan] Med 09/27/17 09:56 Once 10 mg IM ONETIME ONE - Radiology Interpretation Free Text/Narrative:: 41-year-old female presents the ED with a right hemicranial headache that she awoke with this morning. Associated photophobia nausea and vomiting 2 this morning. Last bad headache was about a month ago. She suffers from intermittent migraine headaches. Neurological examination is normal. Plan intramuscular Toradol 60 mg IM. Dilaudid 1 mg IM. Reglan 10 mg IM. This regime is working well for her in the past. She'll then be discharged to home to sleep for the next 4 hours. Her mom is here to drive her home. Departure - Departure Time of Disposition: 10:01 Disposition: Home, Self-Care 01 Condition: Fair Clinical Impression: Migraine headache - Discharge Information Referrals: Heather Canales PA [Primary Care Provider] - Additional Instructions: Evaluation the emergent today in regards to awakening with a severe right hemicranial headache with associated nausea and vomiting. History of migraine headaches with similar presentations. Neurological exam was normal. Therefore treated with intramuscular Toradol 60 mg and Dilaudid 1 mg and Reglan 10 mg IM. Suggest home to sleep and rest for the next 2-3 hours. May then try and resume a regular diet with plenty of fluids today to prevent rebound headache. Diet as tolerated. Avoid all red food dyes. Avoid dark chocolate. Avoid MSG which is found in Phan soups as assault and other junk foods. Avoid to Jalen found and high concentration and aged cheese and red daniela. Any kind of red fruit juice may also be a culprit due to added food dyes such as Cranberry apple , cranberry juice itself. Avoid all nitrates or troponin high concentration smoked meats particularly pepperoni's salami and other smoked meats. These often are precipitants of migraine headaches within 12 hours of ingestion. - My Orders Last 24 Hours: My Active Orders 09/27/17 09:56 HYDROmorphone [Dilaudid] 1 mg IM ONETIME ONE Ketorolac [Toradol] 60 mg IM ONETIME ONE Metoclopramide [Reglan] 10 mg IM ONETIME ONE - Assessment/Plan Last 24 Hours: My Active Orders 09/27/17 09:56 HYDROmorphone [Dilaudid] 1 mg IM ONETIME ONE Ketorolac [Toradol] 60 mg IM ONETIME ONE Metoclopramide [Reglan] 10 mg IM ONETIME ONE
[2017-09-27 10:26] VITALS: BP 120/74
== END 2017-09-27 10:25 | disposition home or self-care (01) ==
LOC: JD.ED 09:30
DX: G43.909 Migraine, unspecified, not intractable, without status migrainosus (principal); F17.210 Nicotine dependence, cigarettes, uncomplicated; Z88.1 Allergy status to other antibiotic agents; Z88.8 Allergy status to other drugs, medicaments and biological substances; Z91.013 Allergy to seafood; Z79.899 Other long term (current) drug therapy
CPT/HCPCS: 96372; 99284; J1170; J1885; J2765; 99283

== ENCOUNTER 2018-01-23 20:24 | Emergency (ER) | payer OTHER ==
[2018-01-23 20:38] VITALS: BP 144/91
[2018-01-23] MEDS ORDERED: HYDROmorphone 0.5 MG/0.5 ML SYRINGE IVPUSH ONE (21:09)
[2018-01-23] MEDS ORDERED: Ondansetron 4 MG/2 ML SDV IVPUSH ONE (21:09)
[2018-01-23] MEDS ORDERED: Alum Hydrox/Mag Hydrox/Simeth 30 ML, Lidocaine 2% 15 ML PO ONE ×2 (21:09)
[2018-01-23] MEDS ORDERED: Sodium Chloride 0.9% 10 ML Syringe FLUSH PRN (21:10)
--- NOTE | 2018-01-23 21:13 | EDM.PDOC ---
ED HPI GENERAL MEDICAL PROBLEM - General Chief Complaint: Chest Pain Stated Complaint: CHEST,JAW AND BACK PAIN Time Seen by Provider: 01/23/18 21:00 Source of Information: Reports: Patient History Limitations: Reports: No Limitations - History of Present Illness INITIAL COMMENTS - FREE TEXT/NARRATIVE: Patient is a 42-year-old female presents to the ED complaining of left-sided chest discomfort located to the left sternal border radiating between her scapula and left side and into her left side her neck and jaw. Patient was clinically medication was occurred. Pain was worse with palpation and taking a deep breath. She also complains of increasing shortness of breath with walking up stairs that evening as well. States the chest discomfort was a little tight. She has a history of anxiety and is concerned that this may related to her heart. She has no previous heart issues in the past. Nor does she states there is anything for screw relatives with heart disease. Upon admission to the ED pain is minimal and reproducible. Left-sided neck discomfort is worse with movement as well. She denies any dyspnea with exertion. There is no lightheadedness, palpitations, presyncope/syncopal episodes. No dizziness. No pain to lower extremities or swelling noted. No history of DVT or PE. 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: Reports: Other (see below) Other 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: motrin at 1730 x 3 tabs Left Chest Pain Score (Numeric/FACES): 7 - Related Data Allergies Allergy/AdvReac Type Severity Reaction Status Date / Time cephalexin monohydrate Allergy Hives Verified 09/27/17 09:41 [From Keflex] prochlorperazine edisylate Allergy Other Verified 08/23/17 01:52 [From Compazine] prochlorperazine maleate Allergy Other Verified 09/27/17 09:41 [From Compazine] shellfish derived Allergy Anaphylactic Verified 09/27/17 09:41 Shock Home Meds: Home Meds Ascorbic Acid [Vitamin C] 1,000 mg PO BID 03/04/15 [History] Omeprazole 20 mg PO ACBRK 03/04/15 [History] Cranberry Fruit Concentrate [Cranberry] 450 mg PO DAILY 01/16/17 [History] Ibuprofen 800 mg PO TID PRN 01/16/17 [History] Cyanocobalamin (Vitamin B-12) [Vitamin B-12] 0 mcg SQ SA 09/27/17 [History] Citalopram Hydrobromide [Celexa] 10 mg PO DAILY 01/23/18 [History] Past Medical History HEENT History: Reports: Sinusitis, Other (See Below) Other HEENT History: Pharyngitis, sinus pressure Cardiovascular History: Reports: None Respiratory History: Reports: Other (See Below) Other Respiratory History: Cough, hemoptysis, viral URI Gastrointestinal History: Reports: GERD, Other (See Below) Other Gastrointestinal History: Hematochezia, external hemorrhoids Genitourinary History: Reports: UTI, Recurrent 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 Musculoskeletal History: Reports: Gout, Other (See Below) Other Musculoskeletal History: Myalgias Neurological History: Reports: Headaches, Chronic, Migraines Psychiatric History: Reports: Addiction, Anxiety, Depression, Other (See Below) Other Psychiatric History: Insomnia Endocrine/Metabolic History: Reports: None Hematologic History: Reports: None Immunologic History: Reports: None Oncologic (Cancer) History: Reports: None Dermatologic History: Reports: Other (See Below) Other Dermatologic History: Hidradenitis suppurativa, open wound to foot, plantar wart to left foot, facial skin lesion - Infectious Disease History Infectious Disease History: Reports: Chicken Pox - Past Surgical History Head Surgeries/Procedures: Reports: None Cardiovascular Surgical History: Reports: None GI Surgical History: Reports: Appendectomy, Cholecystectomy Endocrine Surgical History: Reports: None Oncologic Surgical History: Reports: None Social & Family History - Family History Family Medical History: Noncontributory - Tobacco Use Smoking Status *Q: Current Every Day Smoker Years of Tobacco use: 24 Packs/Tins Daily: 2 Used Tobacco, but Quit: No Second Hand Smoke Exposure: No - Caffeine Use Caffeine Use: Reports: Coffee, Energy Drinks, Soda Other Caffeine Use: one monster daily - Alcohol Use Days Per Week of Alcohol Use: 2 Number of Drinks Per Day: 2 Total Drinks Per Week: 4 - Recreational Drug Use Recreational Drug Use: No Drug Use in Last 12 Months: No - Living Situation & Occupation Living situation: Reports: with Family ED ROS GENERAL - Review of Systems Review Of Systems: See Below Constitutional: Denies: Fever, Chills, Malaise, Decreased Appetite HEENT: Reports: No Symptoms Respiratory: Reports: Pleuritic Chest Pain. Denies: Shortness of Breath, Wheezing, Cough, Sputum, Hemoptysis Cardiovascular: Reports: Chest Pain. Denies: Dyspnea on Exertion, Lightheadedness, Palpitations, Syncope GI/Abdominal: Reports: Nausea. Denies: Abdominal Pain, Constipation, Diarrhea, Decreased Appetite, Vomiting : Reports: No Symptoms Musculoskeletal: Reports: Neck Pain (Left-sided neck discomfort) Skin: Reports: No Symptoms Neurological: Reports: No Symptoms ED EXAM, GENERAL - Physical Exam Exam: See Below Exam Limited By: No Limitations General Appearance: Alert, WD/WN, No Apparent Distress Ears: Hearing Grossly Normal Nose: Normal Inspection Throat/Mouth: Normal Voice, No Airway Compromise Neck: Normal Inspection, Supple, Non-Tender, Full Range of Motion Respiratory/Chest: No Respiratory Distress, Lungs Clear, Normal Breath Sounds, No Accessory Muscle Use, Other (Tenderness noted along the left sternal border approximately fourth through sixth intercostal space. No bruising, swelling, rash, bony abnormalities noted.) Cardiovascular: Normal Peripheral Pulses, Regular Rate, Rhythm, No Murmur Peripheral Pulses: 4+: Radial (L), Radial (R) GI/Abdominal: Normal Bowel Sounds, Soft, Non-Tender, No Organomegaly, No Distention Back Exam: Normal Inspection Extremities: Normal Inspection, Normal Range of Motion, Non-Tender, No Pedal Edema, Normal Capillary Refill Neurological: Alert, Oriented, CN II-XII Intact, Normal Cognition, No Motor/ Sensory Deficits Psychiatric: Normal Affect, Normal Mood Skin Exam: Warm, Dry, Intact, Normal Color Course - Vital Signs Last Recorded V/S: Last Vital Signs Temp 98.2 F 01/23/18 20:35 Pulse 83 01/23/18 20:35 Resp 20 01/23/18 20:35 BP 144/91 H 01/23/18 20:35 Pulse Ox 96 01/23/18 20:35 - Orders/Labs/Meds Labs: Laboratory Tests 01/23/18 01/23/18 01/23/18 Range/Units 21:18 21:18 21:18 WBC 14.40 H (3.98-10.04) K/mm3 RBC 4.76 (3.98-5.22) M/mm3 Hgb 15.0 (11.2-15.7) gm/L Hct 43.3 (34.1-44.9) % MCV 91.0 (79.4-94.8) fl MCH 31.5 (25.6-32.2) pg MCHC 34.6 (32.2-35.5) g/dl RDW Std Deviation 40.0 (36.4-46.3) fL Plt Count 242 (182-369) K/mm3 MPV 11.4 (9.4-12.3) fl Neutrophils % (Manual) 50 (40-60) % Band Neutrophils % 0 (0-10) % Lymphocytes % (Manual) 42 H (20-40) % Atypical Lymphs % 1 % Monocytes % (Manual) 4 (2-10) % Eosinophils % (Manual) 3 (0.7-5.8) % Basophils % (Manual) 0 L (0.1-1.2) Platelet Estimate Adequate Plt Morphology Comment Normal RBC Morph Comment Normal D-Dimer, Quantitative 0.20 (0.19-0.50) mg/L Sodium 139 (136-145) mEq/L Potassium 3.6 (3.5-5.1) mEq/L Chloride 103 (98-107) mEq/L Carbon Dioxide 26 (21-32) mEq/L Anion Gap 13.6 (5-15) BUN 16 (7-18) mg/dL Creatinine 1.1 H (0.55-1.02) mg/dL Est Cr Clr Drug Dosing 64.79 mL/min Estimated GFR (MDRD) 54 (>60) mL/min BUN/Creatinine Ratio 14.5 (14-18) Glucose 127 H (74-106) mg/dL Calcium 8.8 (8.5-10.1) mg/dL Total Bilirubin 0.2 (0.2-1.0) mg/dL AST 19 (15-37) U/L ALT 33 (14-59) U/L Alkaline Phosphatase 103 (46-116) U/L Troponin I < 0.017 (0.00-0.056) ng/mL C-Reactive Protein 0.7 (<1.0) mg/dL Total Protein 7.1 (6.4-8.2) g/dl Albumin 3.3 L (3.4-5.0) g/dl Globulin 3.8 gm/dL Albumin/Globulin Ratio 0.9 L (1-2) Meds: Medications Discontinued Medications Generic Name Dose Route Start Last Admin Trade Name Freq PRN Reason Stop Dose Admin Al Hydroxide/Mg Hydroxide 30 0 ml 01/23/18 21:09 01/23/18 21:17 ml/ Lidocaine HCl 15 ml PO 01/23/18 21:10 45 ml ONETIME ONE Administration Diphenhydramine HCl 25 mg 01/23/18 21:27 01/23/18 21:40 Benadryl IVPUSH 01/23/18 21:28 25 mg ONETIME ONE Administration Hydromorphone HCl 0.5 mg 01/23/18 21:09 01/23/18 21:16 Dilaudid IVPUSH 01/23/18 21:10 0.5 mg ONETIME ONE Administration Lorazepam 0.5 mg 01/23/18 23:10 01/23/18 23:20 Ativan IVPUSH 01/23/18 23:11 0.5 mg ONETIME ONE Administration Ondansetron HCl 4 mg 01/23/18 21:09 01/23/18 21:15 Zofran IVPUSH 01/23/18 21:10 4 mg ONETIME ONE Administration Sodium Chloride 10 ml 01/23/18 21:10 01/23/18 21:30 Saline Flush FLUSH 10 ml ASDIRECTED PRN Administration Keep Vein Open - Re-Assessments/Exams Free Text/Narrative Re-Assessment/Exam: Peripheral IV established with Dilaudid 0.5 mg IVP, Zofran 4 mg IVP, and GI cocktail by mouth. Initial labs and studies include CBC, chem 14, CRP, d-dimer, troponin, chest x- ray, and EKG. 01/23/18 21:51 EKG normal sinus rhythm with no acute ST changes noted. Chest x-ray revealed: reviewed with Dr. Sagastume with no acute findings. Labs reviewed: Labs reviewed: White blood cell count 14.40, hemoglobin 15.0, d- dimer 0.20, creatinine 1.1, glucose 127, troponin less than 0.017, and CRP 0.7. Reassessment, patient states symptoms are improving with the above therapies. Still has a little bit of tightness of the chest. No coughing, no wheezing, or shortness of breath. She does feel anxious which is normal for her. Similar symptoms from previous episodes. She has no heart disease. Will discharge patient home with instructions as documented. Departure - Departure Time of Disposition: 23:11 Disposition: Home, Self-Care 01 Condition: Good Clinical Impression: Chest wall pain, Anxiety Instructions: Chest Wall Pain, [id number] Referrals: Heather Canales PA [Primary Care Provider] - Forms: ED Department Discharge Additional Instructions: Chest x-ray, EKG, and labs were essentially normal. Findings on examination suggest you have chest wall discomfort which is more muscular skeletal nature. This also precipitated by your anxiety. Continue taking all your home medications as prescribed. Do not drive this evening since receiving a sedative medication while in the ED. Follow-up with primary care provider this next week for reevaluation if symptoms persist. Return to the ED if you develop any new or worsening symptoms.
[2018-01-23] MEDS ORDERED: diphenhydrAMINE 50 MG/ML SDV IVPUSH ONE (21:27)
[2018-01-23] MEDS ORDERED: LORazepam 2 MG/ML SDV IVPUSH ONE (23:10)
--- NOTE | 2018-01-25 12:54 | CR ---
Chest: Portable view of the chest was obtained. Comparison: Prior chest x-ray of 01/24/17. Heart size and mediastinum are within normal limits for portable technique. Lungs are clear. Bony structures are grossly intact. Impression: 1. Nothing acute is identified on portable chest x-ray. Diagnostic code #1
== END 2018-01-23 23:29 | disposition home or self-care (01) ==
LOC: JD.ED 20:24
DX: R07.89 Other chest pain (principal); F41.9 Anxiety disorder, unspecified; K21.9 Gastro-esophageal reflux disease without esophagitis; F17.210 Nicotine dependence, cigarettes, uncomplicated; Z88.1 Allergy status to other antibiotic agents; Z91.013 Allergy to seafood; Z88.8 Allergy status to other drugs, medicaments and biological substances; Z79.899 Other long term (current) drug therapy; Z90.49 Acquired absence of other specified parts of digestive tract; Z87.440 Personal history of urinary (tract) infections; F32.9 Major depressive disorder, single episode, unspecified
CPT/HCPCS: 36415; 71045; 80053; 84484; 85025; 85379; 86140; 93005; 99285; A9270; J1170; J1200; J2060; J2405; J7050; 96374; 96375; 99284

== ENCOUNTER 2018-05-22 14:17 | Emergency (ER) | payer MEDICAID ==
[2018-05-22 14:29] VITALS: BP 147/96
--- NOTE | 2018-05-22 14:58 | EDM.PDOC ---
ED HPI GENERAL MEDICAL PROBLEM - General Chief Complaint: Headache Stated Complaint: DIZZINESS Time Seen by Provider: 05/22/18 14:29 Source of Information: Reports: Patient History Limitations: Reports: No Limitations - History of Present Illness INITIAL COMMENTS - FREE TEXT/NARRATIVE: The patient states that she developed the sensation of pressure felt behind her face and forehead, along with a headache, that she cannot characterize, felt in her forehead, around 10:00 this morning. She also developed vertigo, which she is not sure if it is positional or not. She states that she has had both vertigo and migraines in the past, and that the sensations are different. No associated nausea or emesis. She denies recent tinnitus, ear pain, or decreased hearing. No recent tingling, numbness, or weakness. No changes in her vision. No recent illness. She has had recent rhinorrhea. The patient's PCP is Heather Canales. Head Pain Score (Numeric/FACES): 8 - Related Data Allergies Allergy/AdvReac Type Severity Reaction Status Date / Time cephalexin monohydrate Allergy Hives Verified 05/22/18 14:29 [From [email or web address]] prochlorperazine edisylate Allergy Other Verified 05/22/18 14:29 [From Compazine] prochlorperazine maleate Allergy Other Verified 05/22/18 14:29 [From Compazine] shellfish derived Allergy Anaphylactic Verified 05/22/18 14:29 Shock Home Meds: Home Meds Ascorbic Acid [Vitamin C] 1,000 mg PO BID 03/04/15 [History] Omeprazole 20 mg PO ACBRK 03/04/15 [History] Cranberry Fruit Concentrate [Cranberry] 450 mg PO DAILY 01/16/17 [History] Ibuprofen 800 mg PO TID PRN 01/16/17 [History] Escitalopram [Lexapro] 20 mg PO DAILY 05/22/18 [History] Past Medical History HEENT History: Reports: Sinusitis Gastrointestinal History: Reports: GERD, Hemorrhoids (external) 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 Musculoskeletal History: Reports: Gout Neurological History: Reports: Migraines Psychiatric History: Reports: Addiction, Anxiety, Depression, Other (See Below) (Insomnia) Endocrine/Metabolic History: Reports: Obesity/BMI 30+ - Infectious Disease History Infectious Disease History: Reports: Chicken Pox - Past Surgical History GI Surgical History: Reports: Appendectomy, Cholecystectomy (2017) Female Surgical History: Reports: Other (See Below) (Salpingectomy 2 ectopic ) Social & Family History - Family History Family Medical History: Noncontributory - Tobacco Use Smoking Status *Q: Current Some Day Smoker - Caffeine Use Caffeine Use: Reports: Energy Drinks Other Caffeine Use: one monster daily - Alcohol Use Alcohol Use History: Yes Alcohol Use Frequency: Rarely - Recreational Drug Use Recreational Drug Use: No - Living Situation & Occupation Living situation: Reports: , with Significant Other (Boyfriend), with Family (2 kids) Occupation: Employed ([employer]) ED ROS GENERAL - Review of Systems Review Of Systems: ROS reveals no pertinent complaints other than HPI. ED EXAM, DIZZINESS - Physical Exam Exam: See Below Exam Limited By: No Limitations General Appearance: Alert, WD/WN, No Apparent Distress Eye Exam: Bilateral Eye: EOMI, Normal Inspection, PERRL Nystagmus: worsens with head to R (fast component up and to the left, with counter-clockwise torsion), reproducible, reversible, short duration. No: worsens with head to L (none) Ears: Normal External Exam, Normal Canal, Hearing Grossly Normal, Normal TMs Nose: Normal Inspection, Normal Mucosa, No Blood Throat/Mouth: Normal Inspection, Normal Lips, Normal Teeth, Normal Gums, Normal Oropharynx, Normal Voice, No Airway Compromise Head Exam: Atraumatic, Normocephalic Vertigo: worsens with head to R, reproducible, reversible, constant. No: worsens with head to L (none) Neck: Normal Inspection, Supple, Non-Tender, Full Range of Motion. No: Lymphadenopathy (L), Lymphadenopathy (R) Respiratory/Chest: No Respiratory Distress, Lungs Clear, Normal Breath Sounds, No Accessory Muscle Use Cardiovascular: Normal Peripheral Pulses, Regular Rate, Rhythm, No Edema, No Gallop, No JVD, No Murmur, No Rub GI/Abdominal: Normal Bowel Sounds, Soft, Non-Tender, No Organomegaly, No Distention, No Abnormal Bruit, No Mass, Other (Obese) (Female) Exam: Deferred Rectal (Female) Exam: Deferred Neurological: Alert, Normal Dorsiflexion, CN II-XII Intact, Normal Plantar Flexion, No Motor/Sensory Deficits, Oriented x 3 Back Exam: Normal Inspection, Full Range of Motion, NT Extremities: Normal Inspection, Normal Range of Motion, No Pedal Edema, Normal Capillary Refill Psychiatric: Normal Affect Skin Exam: Warm, Dry, Intact, Normal Color, No Rash Course - Vital Signs Last Recorded V/S: Last Vital Signs Temp 36.3 C 05/22/18 14:26 Pulse 84 05/22/18 14:26 Resp 16 05/22/18 14:26 BP 147/96 H 05/22/18 14:26 Pulse Ox 96 05/22/18 14:26 - Re-Assessments/Exams Free Text/Narrative Re-Assessment/Exam: 05/22/18 14:54 The patient had a very strong reaction to Karissa-Hallpike maneuver to the right, confirming that her symptoms are due to BPPV. I offered to prescribe meclizine, however, I noted that it is very similar to Benadryl, and the patient would prefer to take that. Fortunately, the patient does not have nausea associated with her vertigo, therefore Zofran was not needed. I will refer the patient to Dr. Ty Britton for further evaluation and treatment. Departure - Departure Time of Disposition: 14:55 Disposition: Home, Self-Care 01 Condition: Good Clinical Impression: BPPV (benign paroxysmal positional vertigo) - Discharge Information *PRESCRIPTION DRUG MONITORING PROGRAM REVIEWED*: Not Applicable *COPY OF PRESCRIPTION DRUG MONITORING REPORT IN PATIENT ALINA: Not Applicable Instructions: Vertigo, [id number] Referrals: Heather Canales PA [Primary Care Provider] - Ty Britton MD [Ordering Only Provider] - Forms: ED Department Discharge Additional Instructions: You were seen in the emergency room for a pressure sensation behind her face, a headache in your forehead, and vertigo. On evaluation in the ER, you're found to have benign paroxysmal positional vertigo (BPPV), a condition caused by blockage of one of the semicircular canals in your right inner ear. You may take [id number] Benadryl to help relieve your symptoms. If you take Benadryl, you should not drive or operate heavy machinery. Follow-up with the Ear, Nose, and Throat Dr. Ty Britton at the next available appointment. If any other problems, please do not hesitate to return to the ER.
== END 2018-05-22 15:15 | disposition home or self-care (01) ==
LOC: JD.ED 14:17
DX: H81.11 Benign paroxysmal vertigo, right ear (principal); Z91.013 Allergy to seafood; Z79.899 Other long term (current) drug therapy; F17.200 Nicotine dependence, unspecified, uncomplicated; E66.9 Obesity, unspecified; Z88.1 Allergy status to other antibiotic agents; Z88.8 Allergy status to other drugs, medicaments and biological substances
CPT/HCPCS: 99284

== ENCOUNTER 2018-05-26 06:41 | Day surgery (SDC) | payer MEDICAID ==
[~2018-05-26 06:41] MED LIST: Lactated Ringers 1,000 ML IV SCH; Lidocaine 1%/Sod Bicarbonate in NS 8.4% 1 ML Syringe IDERM PRN; Sodium Chloride 0.9% 10 ML Syringe FLUSH PRN
[2018-05-26] MEDS ORDERED: Clindamycin Phosphate 600 MG in Sodium Chloride 0.9% 100 ML IV ONE (06:44)
[2018-05-26] MEDS ORDERED: Propofol 200 MG/20 ML SDV ONE (06:57)
[2018-05-26] MEDS ORDERED: Dexamethasone 4 MG/ML 5 ML MDV ONE (06:57)
[2018-05-26] MEDS ORDERED: Ketorolac 30 MG/ML SDV ONE (06:57)
[2018-05-26] MEDS ORDERED: HYDROmorphone 0.5 MG/0.5 ML Syringe ONE ×2 (06:57→11:09)
[2018-05-26] MEDS ORDERED: Lidocaine 1% 4 ML ONE (06:57)
[2018-05-26] MEDS ORDERED: Ondansetron 4 MG/2 ML SDV ONE (06:57)
[2018-05-26] MEDS ORDERED: Lactated Ringers 1,000 ML ONE (06:57)
[2018-05-26] MEDS ORDERED: Rocuronium 50 MG/5 ML Vial ONE (06:57)
[2018-05-26] MEDS ORDERED: fentaNYL 250 MCG/5 ML SDV ONE (06:58)
[2018-05-26] MEDS ORDERED: Midazolam 1 MG/ML 2 ML SDV ONE (06:58)
[2018-05-26] MEDS ORDERED: Clindamycin Phosphate 900 MG in Sodium Chloride 0.9% 100 ML IV ONE (07:23)
[2018-05-26] MEDS ORDERED: Scopolamine 1.5 MG Transdermal Patch TRDERM ONE (07:27)
[2018-05-26] MEDS ORDERED: Sodium Chloride 0.9% 50 ML SDV ONE ×2 (07:31→07:36)
[2018-05-26] MEDS ORDERED: Lidocaine 1% with EPINEPHrine 1:100,000 20 ML MDV ONE ×2 (07:31→07:36)
[2018-05-26] MEDS ORDERED: Bupivacaine 0.5% 30 ML SDV ONE ×2 (07:31→07:36)
--- NOTE | 2018-05-26 07:40 | PCM.PREANE ---
Preanesthetic Assessment - Anesthesia/Transfusion/Family Hx Anesthesia History: Prior Anesthesia Without Reaction Type of Anesthesia Reaction: Excessive Nausea/Vomiting Family History of Anesthesia Reaction: No Transfusion History: No Prior Transfusion(s) Intubation History: Unknown - Review of Systems General: No Symptoms Pulmonary: No Symptoms (quit smoking 2 months ago/ 1pk/day times 24 years.) Cardiovascular: No Symptoms Gastrointestinal: No Symptoms (GERD) Neurological: No Symptoms (Vertigo), Dizziness, Headache Other: Reports: Sinus Problem, Depression, Anxiety - Physical Assessment NPO Status Date: 05/25/18 NPO Status Time: 23:00 Pulse: 82 O2 Sat by Pulse Oximetry: 96 Respiratory Rate: 16 Blood Pressure: 145/89 Temperature: 37.5 C Height: 1.7 m Weight: 117 kg ASA Class: 2 Mental Status: Alert & Oriented x3 Airway Class: Mallampati = 3 Dentition: Reports: Normal Dentition, Caries Thyro-Mental Finger Breadths: 3 Mouth Opening Finger Breadths: 3 ROM/Head Extension: Full Lungs: Clear to Auscultation, Normal Respiratory Effort Cardiovascular: Regular Rate, Regular Rhythm, No Murmurs - Lab Values: Laboratory Last Values WBC 15.46 K/mm3 (3.98-10.04) H 05/26/18 07:10 RBC 4.44 M/mm3 (3.98-5.22) 05/26/18 07:10 Hgb 14.1 gm/L (11.2-15.7) 05/26/18 07:10 Hct 40.5 % (34.1-44.9) 05/26/18 07:10 MCV 91.2 fl (79.4-94.8) 05/26/18 07:10 MCH 31.8 pg (25.6-32.2) 05/26/18 07:10 MCHC 34.8 g/dl (32.2-35.5) 05/26/18 07:10 RDW Std Deviation 40.0 fL (36.4-46.3) 05/26/18 07:10 Plt Count 263 K/mm3 (182-369) 05/26/18 07:10 MPV 11.2 fl (9.4-12.3) 05/26/18 07:10 Neut % (Auto) 61.6 % (34.0-71.1) 05/26/18 07:10 Lymph % (Auto) 28.8 % (19.3-51.7) 05/26/18 07:10 [place] % (Auto) 7.2 % (4.7-12.5) 05/26/18 07:10 Eos % (Auto) 1.8 (0.7-5.8) 05/26/18 07:10 Baso % (Auto) 0.3 % (0.1-1.2) 05/26/18 07:10 Neut # (Auto) 9.53 K/mm3 (1.56-6.13) H 05/26/18 07:10 Lymph # (Auto) 4.45 K/mm3 (1.18-3.74) H 05/26/18 07:10 [place] # (Auto) 1.11 K/mm3 (0.24-0.36) H 05/26/18 07:10 Eos # (Auto) 0.28 K/mm3 (0.04-0.36) 05/26/18 07:10 Baso # (Auto) 0.04 K/mm3 (0.01-0.08) 05/26/18 07:10 Above labs reviewed and noted. - Imaging/EKG Impressions: EKG: NSR rate= 74, no acute ST,T changes or ischemia noted. CXR: unremarkable - Allergies Allergies/Adverse Reactions: Allergies Allergy/AdvReac Type Severity Reaction Status Date / Time cephalexin monohydrate Allergy Hives Verified 05/25/18 15:40 [From Keflex] prochlorperazine edisylate Allergy Other Verified 05/25/18 15:40 [From Compazine] prochlorperazine maleate Allergy Other Verified 05/25/18 15:40 [From Compazine] shellfish derived Allergy Anaphylactic Verified 05/25/18 15:40 Shock - Anesthesia Plan Pre-Op Medication Ordered: None - Acknowledgements Anesthesia Type Planned: General Anesthesia Pt an Appropriate Candidate for the Planned Anesthesia: Yes Alternatives and Risks of Anesthesia Discussed w Pt/Guardian: Yes Pt/Guardian Understands and Agrees with Anesthesia Plan: Yes PreAnesthesia Questionnaire HEENT History: Reports: Other (See Below) Other HEENT History: acute pharyngitis, sinus pressure Cardiovascular History: Reports: None Respiratory History: Reports: Other (See Below) Other Respiratory History: cough Gastrointestinal History: Reports: GERD, Hemorrhoids, Other (See Below) Other Gastrointestinal History: hematochezia, nausea, vomiting Genitourinary History: Reports: UTI, Recurrent [employer]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: , Other (See Below) Other OB/BYN History: , SAB, breast asymmetry, CINI, CINII, heavy menses, LGSIL Musculoskeletal History: Reports: Gout, Other (See Below) Other Musculoskeletal History: myalgia Neurological History: Reports: Headaches, Chronic, Other (See Below) Other Neuro History: dizziness Psychiatric History: Reports: Anxiety, Depression, Other (See Below) Other Psychiatric History: insomnia Endocrine/Metabolic History: Reports: Obesity/BMI 30+ Hematologic History: Reports: None Immunologic History: Reports: None Oncologic (Cancer) History: Reports: None Dermatologic History: Reports: Other (See Below) Other Dermatologic History: hidradenitis supprativa, left foot plantar wart, skin lesion, skin tag - Infectious Disease History Infectious Disease History: Reports: Chicken Pox - Past Surgical History Head Surgeries/Procedures: Reports: None Cardiovascular Surgical History: Reports: None Respiratory Surgical History: Reports: None GI Surgical History: Reports: Appendectomy, Cholecystectomy Female Surgical History: Reports: Other (See Below) Other Female Surgeries/Procedures: colposcopy Endocrine Surgical History: Reports: None Neurological Surgical History: Reports: None Musculoskeletal Surgical History: Reports: None Oncologic Surgical History: Reports: None - SUBSTANCE USE Smoking Status *Q: Never Smoker Recreational Drug Use History: No - HOME MEDS Home Medications: Home Meds Ascorbic Acid [Vitamin C] 1,000 mg PO BID 03/04/15 [History] Omeprazole 20 mg PO DAILY 03/04/15 [History] Cranberry Fruit Concentrate [Cranberry] 450 mg PO DAILY 01/16/17 [History] Ibuprofen 800 mg PO TID PRN 01/16/17 [History] Escitalopram [Lexapro] 20 mg PO DAILY 05/22/18 [History] Clindamycin Phos/Benzoyl Perox [Clinda-Benzoyl Perox 1-5% Pump] 1 dose TOP BID PRN 05/25/18 [History] EPINEPHrine [Epipen] 1 dose IM ONETIME PRN 05/25/18 [History] Varenicline Tartrate [Chantix] 1 mg PO BID 05/25/18 [History] diazePAM [Valium] 5 mg PO BID PRN 05/25/18 [History] - CURRENT (IN HOUSE) MEDS Current Meds: Current Medications Lactated Ringer's (Ringers, Lactated) 1,000 mls @ 125 mls/hr IV ASDIRECTED LIOR Stop: 05/26/18 23:00 Clindamycin Phosphate 900 mg/ (Sodium Chloride) 106 mls @ 101.923 mls/hr IV ONETIME ONE Stop: 05/26/18 07:46 Lidocaine/Sodium Bicarbonate (Buffered Lidocaine 1% In Ns 8.4%) 0.25 ml IDERM ONETIME PRN PRN Reason: Prior to IV Start Stop: 05/26/18 18:00 Sodium Chloride (Saline Flush) 10 ml FLUSH ASDIRECTED PRN PRN Reason: Keep Vein Open Stop: 05/26/18 18:00 Discontinued Medications Dexamethasone (Dexamethasone) Confirm Administered Dose 20 mg .ROUTE .STK-MED ONE Stop: 05/26/18 06:58 Fentanyl (Sublimaze) Confirm Administered Dose 250 mcg .ROUTE .STK-MED ONE Stop: 05/26/18 06:59 Hydromorphone HCl (Dilaudid) Confirm Administered Dose 0.5 mg .ROUTE .STK-MED ONE Stop: 05/26/18 06:58 Clindamycin Phosphate 600 mg/ (Sodium Chloride) 104 mls @ 100 mls/hr IV ONETIME ONE Stop: 05/26/18 07:46 Lidocaine HCl (Xylocaine-Mpf 1%) Confirm Administered Dose 4 mls @ as directed .ROUTE .STK-MED ONE Stop: 05/26/18 06:58 Lactated Ringer's (Ringers, Lactated) Confirm Administered Dose 1,000 mls @ as directed .ROUTE .STK-MED ONE Stop: 05/26/18 06:58 Ketorolac Tromethamine (Toradol) Confirm Administered Dose 30 mg .ROUTE .STK- MED ONE Stop: 05/26/18 06:58 Midazolam HCl (Versed 1 Mg/Ml) Confirm Administered Dose 2 mg .ROUTE .STK-MED ONE Stop: 05/26/18 06:59 Ondansetron HCl (Zofran) Confirm Administered Dose 4 mg .ROUTE .STK-MED ONE Stop: 05/26/18 06:58 Propofol (Diprivan 20 Ml) Confirm Administered Dose 200 mg .ROUTE .STK-MED ONE Stop: 05/26/18 06:58 Rocuronium [place] (Zemuron) Confirm Administered Dose 50 mg .ROUTE .STK-MED ONE Stop: 05/26/18 06:58 Scopolamine (Transderm-Scop) 1.5 mg TRDERM ONETIME ONE Stop: 05/26/18 07:28
[2018-05-26] MEDS ORDERED: Succinylcholine/Normal Saline 100 MG/5 ML Syringe ONE (07:54)
[2018-05-26] MEDS ORDERED: diphenhydrAMINE 50 MG/ML SDV ONE (08:11)
[2018-05-26] MEDS ORDERED: Ondansetron 4 MG/2 ML SDV IVPUSH PRN (08:24)
[2018-05-26] MEDS ORDERED: Albuterol 0.083% 2.5 MG/3 ML Neb Soln NEB PRN (08:24)
[2018-05-26] MEDS ORDERED: Midazolam 1 MG/ML 2 ML SDV IVPUSH PRN (08:24)
[2018-05-26] MEDS ORDERED: ePHEDrine 50 MG/ML SDV IVPUSH PRN (08:24)
[2018-05-26] MEDS ORDERED: Haloperidol Lactate 5 MG/ML SDV IVPUSH ONE (08:24)
[2018-05-26] MEDS ORDERED: Phenylephrine 1 MG in Sodium Chloride 0.9% 10 ML IV SCH (08:30)
[2018-05-26] MEDS ORDERED: Neostigmine Methylsulfate 1 MG/ML 5 ML Syringe ONE (08:57)
--- NOTE | 2018-05-26 09:20 | PCM.POSTAN ---
POST ANESTHESIA ASSESSMENT - MENTAL STATUS Mental Status: Alert - VITAL SIGNS Pulse Rate: 109 SaO2: 94 Resp Rate: 12 Blood Pressure: 145/86 Temperature: 37.3 C - RESPIRATORY Respiratory Status: Respiratory Rate WNL, Airway Patent, O2 Saturation Stable, Supplemental Oxygen - CARDIOVASCULAR CV Status: Pulse Rate WNL, Blood Pressure Stable - GASTROINTESTINAL GI Status: No Symptoms - POST OP HYDRATION Hydration Status: Adequate & Stable
--- NOTE | 2018-05-26 09:22 | PCM.OPNOTE ---
- General Post-Op/Procedure Note Date of Surgery/Procedure: 05/26/18 Operative Procedure(s): Total vaginal hysterectomy ( no tubal tissue identified none removed) Pre Op Diagnosis: MEMO-2, heavy menses, menometrorrhagia Post-Op Diagnosis: Same Anesthesia Technique: General ET Tube Primary Surgeon: Nick Rocha Secondary Surgeon: Juan José Figueredo Anesthesia Provider: Amanda Vega Cranberry Sorter: Esperanza Clemente (PA2) Reason Cranberry Sorter Was Necessary: Retraction, difficult surgery, decrease comorbidity and mortality. Role of Cranberry Sorter: Retraction, difficult surgery, decrease comorbidity and mortality. Fluid Replacement, Intraop: 1,400 Output, Urine Amount: 55 EBL in mLs: 150 Drain/Tube Comments:: None Complications: None Condition: Good Free Text/Narrative:: Patient was transported to the operating room and placed under general anesthesia in the low dorsal lithotomy position and prepared and draped in a sterile fashion using non-iodine preparation because of her shellfish allergy. SCDs in place and functioning prior surgery. Ancef 2 g given intravenously prior surgery. Examination under anesthesia revealed a small uterus with normal amount of descensus decision was made to not perform the laparoscope assisted vaginal hysterectomy but proceed directly with total vaginal hysterectomy. Timeout performed confirming name, date of , and procedure. The uterus was grasped and injecting 20 mL of 0.25% lidocaine with epinephrine and multiple confluent areas around the cervix. The cervix was circumscribed. Posterior colpotomy was performed without difficulty. Utilizing the Enseal crossclamping the uterosacral cardinal bundle activating and incising same procedure carried out on the opposite side and proceeding cephalad alternating sides crossclamping activating and incising until the triple pedicles approximated the uterus was inverted and the pedicles were crossclamped with Kamille clamps. The uterus removed intact along with the cervix. Both ovaries appeared normal there was no tubal tissue able to be identified thus no salpingectomy performed. Crossclamping the triple pedicles with Enseal activating and incising hemostasis was normal. The posterior vaginal cuff was closed with running locking suture of 0 Monocryl. Reevaluation of both adnexa showed no bleeding both ovaries appeared normal and no tubal tissue again identified. Sponge needle pack instrument and sharp count correct 2 and the vaginal cuff was closed anterior to posterior with running locking suture of 0 Monocryl no blood transfusions required patient transported postanesthesia care unit in satisfactory condition.
[2018-05-26] MEDS: HYDROmorphone 0.5 MG/0.5 ML Syringe IVPUSH PRN ×2 (09:41→11:10)
[2018-05-26] MEDS: fentaNYL 100 MCG/2 ML SDV IVPUSH PRN ×3 (09:51→10:13)
[2018-05-26] MEDS ORDERED: HYDROmorphone 0.5 MG/0.5 ML Syringe IVPUSH ONE (11:30)
[2018-05-26] MEDS ORDERED: Acetaminophen/oxyCODONE 325-5 MG Tab PO PRN ×2 (11:44→13:18)
[2018-05-26] MEDS ORDERED: Ibuprofen 200 MG Tab PO PRN (13:06)
[2018-05-26] MEDS: Acetaminophen/oxyCODONE 325-5 MG Tab PO PRN ×2 (13:26→18:20)
--- NOTE | 2018-05-26 15:23 | PCM.SN ---
- Free Text/Narrative Note: Will keep overnight on extended floor recovery. Having problems keeping O2 normal off oxygen. No heavy vaginal bleeding.
[2018-05-26] MEDS: Ibuprofen 600 MG Tab PO PRN (16:31)
[2018-05-26] MEDS ORDERED: hydrOXYzine HCl 25 MG Tab PO ONE (20:02)
[2018-05-26] MEDS ORDERED: Famotidine 20 MG Tab PO SCH (21:00)
[2018-05-26] MEDS ORDERED: Cyclobenzaprine 10 MG Tab PO SCH (21:00)
[2018-05-27] MEDS: Acetaminophen/oxyCODONE 325-5 MG Tab PO PRN (03:39)
[2018-05-27] MEDS: Ibuprofen 600 MG Tab PO PRN (06:15)
--- NOTE | 2018-05-27 08:30 | PCM.DCSUM1 ---
Discharge Summary - Hospital Course Free Text/Narrative:: [facility] Post-Op/Procedure Note Patient Name: ALBINO RIOJAS Date of : 75 Patient Status: Surgical Day Care Attending Provider: Nick Rohca Date: 05/26/18 09:16 Initialization Date: 05/26/18 09:16 - General Post-Op/Procedure Note Date of Surgery/Procedure: 05/26/18 Operative Procedure(s): Total vaginal hysterectomy ( no tubal tissue identified none removed) Pre Op Diagnosis: MEMO-2, heavy menses, menometrorrhagia Post-Op Diagnosis: Same Anesthesia Technique: General ET Tube Primary Surgeon: Nick Rocha Secondary Surgeon: Juan José Figueredo Anesthesia Provider: Amanda Vega Software Clerk: Esperanza Clemente (PA2) Reason Software Clerk Was Necessary: Retraction, difficult surgery, decrease comorbidity and mortality. Role of Software Clerk: Retraction, difficult surgery, decrease comorbidity and mortality. Fluid Replacement, Intraop: 1,400 Output, Urine Amount: 55 EBL in mLs: 150 Drain/Tube Comments:: None Complications: None Condition: Good Free Text/Narrative:: Patient was transported to the operating room and placed under general anesthesia in the low dorsal lithotomy position and prepared and draped in a sterile fashion using non-iodine preparation because of her shellfish allergy. SCDs in place and functioning prior surgery. Ancef 2 g given intravenously prior surgery. Examination under anesthesia revealed a small uterus with normal amount of descensus decision was made to not perform the laparoscope assisted vaginal hysterectomy but proceed directly with total vaginal hysterectomy. Timeout performed confirming name, date of , and procedure. The uterus was grasped and injecting 20 mL of 0.25% lidocaine with epinephrine and multiple confluent areas around the cervix. The cervix was circumscribed. Posterior colpotomy was performed without difficulty. Utilizing the Enseal crossclamping the uterosacral cardinal bundle activating and incising same procedure carried out on the opposite side and proceeding cephalad alternating sides crossclamping activating and incising until the triple pedicles approximated the uterus was inverted and the pedicles were crossclamped with Kamille clamps. The uterus removed intact along with the cervix. Both ovaries appeared normal there was no tubal tissue able to be identified thus no salpingectomy performed. Crossclamping the triple pedicles with Enseal activating and incising hemostasis was normal. The posterior vaginal cuff was closed with running locking suture of 0 Monocryl. Reevaluation of both adnexa showed no bleeding both ovaries appeared normal and no tubal tissue again identified. Sponge needle pack instrument and sharp count correct 2 and the vaginal cuff was closed anterior to posterior with running locking suture of 0 Monocryl no blood transfusions required patient transported postanesthesia care unit in satisfactory condition. HPI Initial Comments: [facility] Post-Op/Procedure Note Patient Name: ALBINO RIOJAS Date of : 75 Patient Status: Surgical Day Care Attending Provider: Nick Rocha Date: 05/26/18 09:16 Initialization Date: 05/26/18 09:16 - General Post-Op/Procedure Note Date of Surgery/Procedure: 05/26/18 Operative Procedure(s): Total vaginal hysterectomy ( no tubal tissue identified none removed) Pre Op Diagnosis: MEMO-2, heavy menses, menometrorrhagia Post-Op Diagnosis: Same Anesthesia Technique: General ET Tube Primary Surgeon: Nick Rocha Secondary Surgeon: Juan José Figueredo Anesthesia Provider: Amanda Vega Software Clerk: Esperanza Clemente (PA2) Reason Software Clerk Was Necessary: Retraction, difficult surgery, decrease comorbidity and mortality. Role of Software Clerk: Retraction, difficult surgery, decrease comorbidity and mortality. Fluid Replacement, Intraop: 1,400 Output, Urine Amount: 55 EBL in mLs: 150 Drain/Tube Comments:: None Complications: None Condition: Good Free Text/Narrative:: Patient was transported to the operating room and placed under general anesthesia in the low dorsal lithotomy position and prepared and draped in a sterile fashion using non-iodine preparation because of her shellfish allergy. SCDs in place and functioning prior surgery. Ancef 2 g given intravenously prior surgery. Examination under anesthesia revealed a small uterus with normal amount of descensus decision was made to not perform the laparoscope assisted vaginal hysterectomy but proceed directly with total vaginal hysterectomy. Timeout performed confirming name, date of , and procedure. The uterus was grasped and injecting 20 mL of 0.25% lidocaine with epinephrine and multiple confluent areas around the cervix. The cervix was circumscribed. Posterior colpotomy was performed without difficulty. Utilizing the Enseal crossclamping the uterosacral cardinal bundle activating and incising same procedure carried out on the opposite side and proceeding cephalad alternating sides crossclamping activating and incising until the triple pedicles approximated the uterus was inverted and the pedicles were crossclamped with Kamille clamps. The uterus removed intact along with the cervix. Both ovaries appeared normal there was no tubal tissue able to be identified thus no salpingectomy performed. Crossclamping the triple pedicles with Enseal activating and incising hemostasis was normal. The posterior vaginal cuff was closed with running locking suture of 0 Monocryl. Reevaluation of both adnexa showed no bleeding both ovaries appeared normal and no tubal tissue again identified. Sponge needle pack instrument and sharp count correct 2 and the vaginal cuff was closed anterior to posterior with running locking suture of 0 Monocryl no blood transfusions required patient transported postanesthesia care unit in satisfactory condition. Brief History: [facility] . Post-Op/Procedure Note. Patient Name: ALBINO RIOJAS [facility] Record Number: [id number]. Date of : Patient Status: Surgical Day Care. Attending Provider: Nick Rochaount Number: [id number]. Date: 05/26/18 09:16Initialization Date: 09:16. - General Post-Op/Procedure Note. Date of Surgery/Procedure: . Operative Procedure(s): Total vaginal hysterectomy ( no tubal tissue identified none removed). Pre Op Diagnosis: MEMO-2, heavy menses, menometrorrhagia. Post-Op Diagnosis: Same. Anesthesia Technique: General ET Tube. Primary Surgeon: Nick Rocha. Secondary Surgeon: Juan José Figueredo. Anesthesia Provider: Amanda Vega. Software Clerk: Esperanza Clemente (PA2). Reason Software Clerk Was Necessary: Retraction, difficult surgery, decrease comorbidity and mortality. Role of Software Clerk: Retraction, difficult surgery, decrease comorbidity and mortality. Fluid Replacement, Intraop: 1,400. Output , Urine Amount: 55. EBL in mLs: 150. Drain/Tube Comments:: None. Complications: None. Condition: Good. Free Text/Narrative:: Patient was transported to the operating room and placed under general anesthesia in the low dorsal lithotomy position and prepared and draped in a sterile fashion using non-iodine preparation because of her shellfish allergy. SCDs in place and functioning prior surgery. Ancef 2 g given intravenously prior surgery. Examination under anesthesia revealed a small uterus with normal amount of descensus decision was made to not perform the laparoscope assisted vaginal hysterectomy but proceed directly with total vaginal hysterectomy. Timeout performed confirming name, date of , and procedure. The uterus was grasped and injecting 20 mL of 0.25% lidocaine with epinephrine and multiple confluent areas around the cervix. The cervix was circumscribed. Posterior colpotomy was performed without difficulty. Utilizing the Enseal crossclamping the uterosacral cardinal bundle activating and incising same procedure carried out on the opposite side and proceeding cephalad alternating sides crossclamping activating and incising until the triple pedicles approximated the uterus was inverted and the pedicles were crossclamped with Kamille clamps. The uterus removed intact along with the cervix. Both ovaries appeared normal there was no tubal tissue able to be identified thus no salpingectomy performed. Crossclamping the triple pedicles with Enseal activating and incising hemostasis was normal. The posterior vaginal cuff was closed with running locking suture of 0 Monocryl. Reevaluation of both adnexa showed no bleeding both ovaries appeared normal and no tubal tissue again identified. Sponge needle pack instrument and sharp count correct 2 and the vaginal cuff was closed anterior to posterior with running locking suture of 0 Monocryl no blood transfusions required patient transported postanesthesia care unit in satisfactory condition. Diagnosis: Stroke: No - Discharge Data Discharge Date: 05/27/18 Discharge Disposition: Home, Self-Care 01 Condition: Good - Discharge Diagnosis/Problem(s) (1) Excessive and frequent menstruation with irregular cycle SNOMED Code(s): 841892010 ICD Code: N92.1 - EXCESSIVE AND FREQUENT MENSTRUATION WITH IRREGULAR CYCLE Status: Acute Current Visit: Yes (2) Heavy menses SNOMED Code(s): 120317660 ICD Code: N92.0 - EXCESSIVE AND FREQUENT MENSTRUATION WITH REGULAR CYCLE Status: Acute Current Visit: Yes Qualifiers: Menorrahagia type: with irregular cycle Qualified Code(s): N92.1 - Excessive and frequent menstruation with irregular cycle (3) Moderate cervical dysplasia SNOMED Code(s): 523111133 ICD Code: N87.1 - MODERATE CERVICAL DYSPLASIA Status: Acute Current Visit : Yes - Patient Summary/Data Operative Procedure(s) Performed: Total vaginal hysterectomy ( no tubal tissue identified none removed) Complications: None Consults: None Hospital Course: Uneventful - Patient Instructions Diet: Regular Diet as Tolerated Driving: Do Not Drive (48 hours or for 48 hours after last dose of Percocet) Showering/Bathing: May Shower, No Tub Bathing/Swimming (6 weeks) Notify Provider of: Fever, Increased Pain, Swelling and Redness, Drainage, Nausea and/or Vomiting - Discharge Plan *PRESCRIPTION DRUG MONITORING PROGRAM REVIEWED*: Yes *COPY OF PRESCRIPTION DRUG MONITORING REPORT IN PATIENT ALINA: Yes Prescriptions/Med Rec: Ibuprofen [Motrin] 200 - 600 mg PO Q6H PRN #50 tab PRN Reason: Pain oxyCODONE HCl/Acetaminophen [Percocet 5-325 mg Tablet] 1 each PO Q6H #15 tablet Home Medications: Home Meds Ascorbic Acid [Vitamin C] 1,000 mg PO BID 03/04/15 [History] Omeprazole 20 mg PO DAILY 03/04/15 [History] Cranberry Fruit Concentrate [Cranberry] 450 mg PO DAILY 01/16/17 [History] Ibuprofen 800 mg PO TID PRN 01/16/17 [History] Escitalopram [Lexapro] 20 mg PO DAILY 05/22/18 [History] Clindamycin Phos/Benzoyl Perox [Clinda-Benzoyl Perox 1-5% Pump] 1 dose TOP BID PRN 05/25/18 [History] EPINEPHrine [Epipen] 1 dose IM ONETIME PRN 05/25/18 [History] Varenicline Tartrate [Chantix] 1 mg PO BID 05/25/18 [History] diazePAM [Valium] 5 mg PO BID PRN 05/25/18 [History] Ibuprofen [Motrin] 200 - 600 mg PO Q6H PRN #50 tab 05/26/18 [Rx] oxyCODONE HCl/Acetaminophen [Percocet 5-325 mg Tablet] 1 each PO Q6H #15 tablet 05/26/18 [Rx] Patient Handouts: Vaginal Hysterectomy, Care After Referrals: Nick Rocha MD [Physician] - 06/09/18 3:30 pm (Has appointment in 2 weeks. Follow up appointment scheduled for Saturday, June 09, 2018 at 3:30 pm [facility] Please come 15 minutes early ) - Discharge Summary/Plan Comment DC Time >30 min.: No - Patient Data Vitals - Most Recent: Last Vital Signs Temp 97.8 F 05/27/18 04:00 Pulse 80 05/27/18 04:00 Resp 14 05/27/18 04:00 BP 104/80 05/27/18 04:00 Pulse Ox 97 05/27/18 04:00 Weight - Most Recent: 257 lb 15.053 oz I&O - Last 24 hours: Intake & Output 05/26/18 05/27/18 05/27/18 22:59 06:59 14:59 Output Total 900 Balance -900 Med Orders - Current: Current Medications Cyclobenzaprine HCl (Flexeril) 10 mg PO BID [facility] Last Admin: 05/26/18 20:15 Dose: 10 mg Famotidine (Pepcid) 20 mg PO BID [facility] Last Admin: 05/26/18 20:15 Dose: 20 mg Ibuprofen (Motrin) 600 mg PO Q6H PRN PRN Reason: Cramping Last Admin: 05/27/18 06:15 Dose: 600 mg Oxycodone/Acetaminophen (Percocet 325-5 Mg) 1 - 2 tab PO Q4H PRN PRN Reason: Pain Last Admin: 05/27/18 03:39 Dose: 2 tab Discontinued Medications Albuterol (Proventil Neb Soln) 2.5 mg NEB ONETIME PRN PRN Reason: improve oxygenation Stop: 05/26/18 20:00 Bupivacaine HCl (Marcaine 0.5%) Confirm Administered Dose 30 ml .ROUTE .STK-MED ONE Stop: 05/26/18 07:32 Bupivacaine HCl (Marcaine 0.5%) Confirm Administered Dose 30 ml .ROUTE .STK-MED ONE Stop: 05/26/18 07:37 Dexamethasone (Dexamethasone) Confirm Administered Dose 20 mg .ROUTE .STK-MED ONE Stop: 05/26/18 06:58 Diphenhydramine HCl (Benadryl) Confirm Administered Dose 50 mg .ROUTE .STK-MED ONE Stop: 05/26/18 08:12 Ephedrine Sulfate (Ephedrine Sulfate) 5 mg IVPUSH ASDIRECTED PRN PRN Reason: Hypotension Stop: 05/26/18 20:00 Fentanyl (Sublimaze) Confirm Administered Dose 250 mcg .ROUTE .STK-MED ONE Stop: 05/26/18 06:59 Fentanyl (Sublimaze) 50 mcg IVPUSH Q5M PRN PRN Reason: Pain Stop: 05/26/18 20:00 Last Admin: 05/26/18 10:13 Dose: 50 mcg Glycopyrrolate () Confirm Administered Dose 1 mg .ROUTE .STK-MED ONE Stop: 05/26/18 08:57 Haloperidol Lactate (Haldol) 1 mg IVPUSH ONETIME ONE Stop: 05/26/18 08:25 Last Admin: 05/26/18 18:22 Dose: Not Given Hydromorphone HCl (Dilaudid) Confirm Administered Dose 0.5 mg .ROUTE .STK-MED ONE Stop: 05/26/18 06:58 Hydromorphone HCl (Dilaudid) 0.5 mg IVPUSH ONETIME PRN PRN Reason: Pain Stop: 05/26/18 20:00 Last Admin: 05/26/18 11:10 Dose: 0.5 mg Hydromorphone HCl (Dilaudid) Confirm Administered Dose 0.5 mg .ROUTE .STK-MED ONE Stop: 05/26/18 11:10 Last Admin: 05/26/18 11:32 Dose: Not Given Hydromorphone HCl (Dilaudid) 0.5 mg IVPUSH ONETIME ONE Stop: 05/26/18 11:31 Last Admin: 05/26/18 18:23 Dose: Not Given Hydroxyzine HCl (Atarax) 25 mg PO ONETIME ONE Stop: 05/26/18 20:03 Last Admin: 05/26/18 21:24 Dose: 25 mg Lactated Ringer's (Ringers, Lactated) 1,000 mls @ 125 mls/hr IV ASDIRECTED LIOR Stop: 05/26/18 23:00 Last Infusion: 05/26/18 16:24 Dose: Infused Clindamycin Phosphate 600 mg/ (Sodium Chloride) 104 mls @ 100 mls/hr IV ONETIME ONE Stop: 05/26/18 07:46 Lidocaine HCl (Xylocaine-Mpf 1%) Confirm Administered Dose 4 mls @ as directed .ROUTE .STK-MED ONE Stop: 05/26/18 06:58 Lactated Ringer's (Ringers, Lactated) Confirm Administered Dose 1,000 mls @ as directed .ROUTE .STK-MED ONE Stop: 05/26/18 06:58 Clindamycin Phosphate 900 mg/ (Sodium Chloride) 106 mls @ 101.923 mls/hr IV ONETIME ONE Stop: 05/26/18 07:46 Last Admin: 05/26/18 07:30 Dose: 101.923 mls/hr Phenylephrine HCl 1 mg/ Sodium (Chloride) 10.1 mls @ 1 mls/sec IV TITRATE LIOR; Protocol Stop: 05/26/18 20:00 Ibuprofen (Motrin) 200 - 300 mg PO Q6H PRN PRN Reason: Pain Ketorolac Tromethamine (Toradol) Confirm Administered Dose 30 mg .ROUTE .STK- MED ONE Stop: 05/26/18 06:58 Lidocaine/Epinephrine (Xylocaine 1% With Epinephrine 1:100,000) Confirm Administered Dose 20 ml .ROUTE .STK-MED ONE Stop: 05/26/18 07:32 Lidocaine/Epinephrine (Xylocaine 1% With Epinephrine 1:100,000) Confirm Administered Dose 20 ml .ROUTE .STK-MED ONE Stop: 05/26/18 07:37 Last Admin: 05/26/18 08:19 Dose: 4 ml Lidocaine/Sodium Bicarbonate (Buffered Lidocaine 1% In Ns 8.4%) 0.25 ml IDERM ONETIME PRN PRN Reason: Prior to IV Start Stop: 05/26/18 18:00 Last Admin: 05/26/18 07:09 Dose: 0.25 ml Midazolam HCl (Versed 1 Mg/Ml) Confirm Administered Dose 2 mg .ROUTE .STK-MED ONE Stop: 05/26/18 06:59 Midazolam HCl (Versed 1 Mg/Ml) 2 mg IVPUSH ONETIME PRN PRN Reason: Sedation Stop: 05/26/18 20:00 Neostigmine Methylsulfate (Neostigmine) Confirm Administered Dose 5 mg .ROUTE .STK-MED ONE Stop: 05/26/18 08:58 Ondansetron HCl (Zofran) Confirm Administered Dose 4 mg .ROUTE .STK-MED ONE Stop: 05/26/18 06:58 Ondansetron HCl (Zofran) 4 mg IVPUSH ONETIME PRN PRN Reason: Nausea/Vomiting Stop: 05/26/18 20:00 Oxycodone/Acetaminophen (Percocet 325-5 Mg) 1 tab PO Q6H PRN PRN Reason: Pain Last Admin: 05/26/18 12:00 Dose: 1 tab Oxycodone/Acetaminophen (Percocet 325-5 Mg) 1 - 2 tab PO Q4H PRN PRN Reason: Pain Propofol (Diprivan 20 Ml) Confirm Administered Dose 200 mg .ROUTE .STK-MED ONE Stop: 05/26/18 06:58 Rocuronium Granite (Zemuron) Confirm Administered Dose 50 mg .ROUTE .STK-MED ONE Stop: 05/26/18 06:58 Scopolamine (Transderm-Scop) 1.5 mg TRDERM ONETIME ONE Stop: 05/26/18 07:28 Last Admin: 05/26/18 07:39 Dose: 1.5 mg Sodium Chloride (Saline Flush) 10 ml FLUSH ASDIRECTED PRN PRN Reason: Keep Vein Open Stop: 05/26/18 18:00 Last Admin: 05/26/18 16:23 Dose: 10 ml Sodium Chloride (Normal Saline) Confirm Administered Dose 50 ml .ROUTE .STK-MED ONE Stop: 05/26/18 07:32 Last Admin: 05/26/18 08:19 Dose: 11 ml Sodium Chloride (Normal Saline) Confirm Administered Dose 50 ml .ROUTE .STK-MED ONE Stop: 05/26/18 07:37 Succinylcholine Chloride (Succinylcholine In Ns Pf) Confirm Administered Dose 100 mg .ROUTE .STK-MED ONE Stop: 05/26/18 07:55
[2018-05-27 09:58] VITALS: BP 115/61
== END 2018-05-27 10:00 | disposition home or self-care (01) ==
LOC: JD.SDS 06:41 → JD.OB 06:41 → JD.SDS 05-27 10:00
PROVIDERS: ATTEND Obstetrics & Gynecology
DX: N87.0 Mild cervical dysplasia (principal); D25.9 Leiomyoma of uterus, unspecified; N80.0 Endometriosis of uterus; E66.9 Obesity, unspecified; Z68.41 Body mass index [BMI] 40.0-44.9, adult; F41.8 Other specified anxiety disorders; Z87.891 Personal history of nicotine dependence; Z79.899 Other long term (current) drug therapy; Z91.013 Allergy to seafood; Z88.1 Allergy status to other antibiotic agents; Z88.8 Allergy status to other drugs, medicaments and biological substances
CPT/HCPCS: 36415; 81001; 81025; 84702; 85025; 86850; 86900; 86901; A9270-GY; J0330; J1100; J1170; J1200; J1885; J2001; J2250; J2405; J2704; J2710; J3010; J3490; J7030; J7050; J7120

== ENCOUNTER 2018-05-29 20:01 | Emergency (ER) | payer MEDICAID ==
[2018-05-29 20:17] VITALS: BP 135/91
[2018-05-29] MEDS ORDERED: Ondansetron 4 MG/2 ML SDV IVPUSH ONE (20:34)
[2018-05-29] MEDS ORDERED: Ketorolac 30 MG/ML SDV IM ONE (20:35)
[2018-05-29] MEDS ORDERED: diphenhydrAMINE 50 MG/ML SDV IVPUSH ONE (20:35)
[2018-05-29] MEDS ORDERED: LORazepam 2 MG/ML SDV IVPUSH ONE (20:36)
[2018-05-29] MEDS ORDERED: Sodium Chloride 0.9% 1,000 ML IV SCH (20:45)
[2018-05-29] MEDS ORDERED: Sodium Chloride 0.9% 1,000 ML ONE (20:50)
[2018-05-29] MEDS ORDERED: Aluminum Hydroxide/Magnesium Hydroxide/Simethicone Susp 30 ML Cup PO ONE (21:03)
--- NOTE | 2018-05-29 21:06 | EDM.PDOC ---
ED HPI GENERAL MEDICAL PROBLEM - General Chief Complaint: Headache Stated Complaint: HEADACHE Time Seen by Provider: 05/29/18 20:17 Source of Information: Reports: Patient History Limitations: Reports: No Limitations - History of Present Illness INITIAL COMMENTS - FREE TEXT/NARRATIVE: This is a 42-year-old female. Last Friday she had a vaginal hysterectomy. They left her ovaries. She has a history of having migraine headaches just prior to having her menstrual cycle. Today she had onset of her typical migraine type headache starting on the right side top of her head about midmorning. She has been nauseated and light sensitive. She comes to the ER for evaluation. She states that her next menstrual cycle would have been no weak and this is typical of her headache cycle. Normally when she comes to the ER they give her IV medications and that normally takes care of it. She denies any other acute symptoms other than lower abdominal soreness from the surgery. She denies any urinary tract type symptoms. No cough and she has had some mild congestion but no fever no chills. When asked the patient if this was typical of her migraine she stated yes and then I asked her if there was any need for us to get a CAT scan of her head just in case this was not typical and she said no she doesn't need a CT scan of her head. Treatments PASTOR: Reports: Other (see below) Other Treatments PASTOR: percocet,motrin tylenol Right Headache Pain Score (Numeric/FACES): 9 - Related Data Allergies Allergy/AdvReac Type Severity Reaction Status Date / Time cephalexin monohydrate Allergy Hives Verified 05/25/18 15:40 [From Keflex] chlorhexidine Allergy Hives Verified 05/26/18 07:37 prochlorperazine edisylate Allergy Other Verified 05/25/18 15:40 [From Compazine] prochlorperazine maleate Allergy Other Verified 05/25/18 15:40 [From Compazine] shellfish derived Allergy Anaphylactic Verified 05/25/18 15:40 Shock Home Meds: Home Meds Ascorbic Acid [Vitamin C] 1,000 mg PO BID 03/04/15 [History] Omeprazole 20 mg PO DAILY 03/04/15 [History] Cranberry Fruit Concentrate [Cranberry] 450 mg PO DAILY 01/16/17 [History] Escitalopram [Lexapro] 20 mg PO DAILY 05/22/18 [History] Clindamycin Phos/Benzoyl Perox [Clinda-Benzoyl Perox 1-5% Pump] 1 dose TOP BID PRN 05/25/18 [History] EPINEPHrine [Epipen] 1 dose IM ONETIME PRN 05/25/18 [History] Varenicline Tartrate [Chantix] 1 mg PO BID 05/25/18 [History] diazePAM [Valium] 5 mg PO BID PRN 05/25/18 [History] Ibuprofen [Motrin] 200 - 600 mg PO Q6H PRN #50 tab 05/26/18 [Rx] oxyCODONE HCl/Acetaminophen [Percocet 5-325 mg Tablet] 1 each PO Q6H #15 tablet 05/26/18 [Rx] Ciprofloxacin HCl [Cipro] 500 mg PO DAILY 05/29/18 [History] Past Medical History HEENT History: Reports: Sinusitis Other HEENT History: Pharyngitis, sinus pressure Cardiovascular History: Reports: None Respiratory History: Reports: Other (See Below) Other Respiratory History: Cough, hemoptysis, viral URI Gastrointestinal History: Reports: GERD, Hemorrhoids Other Gastrointestinal History: Hematochezia, external hemorrhoids Genitourinary History: Reports: UTI, Recurrent MEDICAL OFFICE SPECIALIST History: Reports: Ectopic Other MEDICAL OFFICE SPECIALIST History: , SAB, breast asymmetry, CINI, CINII, heavy menses, LGSIL Musculoskeletal History: Reports: Gout Other Musculoskeletal History: Myalgias Neurological History: Reports: Migraines, Other (See Below) Other Neuro History: vertigo Psychiatric History: Reports: Addiction, Anxiety, Depression, Other (See Below) Other Psychiatric History: Insomnia Endocrine/Metabolic History: Reports: Obesity/BMI 30+ Hematologic History: Reports: None Immunologic History: Reports: None Oncologic (Cancer) History: Reports: None Dermatologic History: Reports: Other (See Below) Other Dermatologic History: Hidradenitis suppurativa, open wound to foot, plantar wart to left foot, facial skin lesion - Infectious Disease History Infectious Disease History: Reports: Chicken Pox - Past Surgical History Head Surgeries/Procedures: Reports: None Cardiovascular Surgical History: Reports: None Female Surgical History: Reports: Hysterectomy Other Female Surgeries/Procedures: Unilateral salpingectomy Endocrine Surgical History: Reports: None Oncologic Surgical History: Reports: None Social & Family History - Family History Family Medical History: Noncontributory - Tobacco Use Smoking Status *Q: Former Smoker Used Tobacco, but Quit: Yes Month/Year Tobacco Last Used: 2 months - Caffeine Use Caffeine Use: Reports: Energy Drinks Other Caffeine Use: one monster daily - Recreational Drug Use Recreational Drug Use: No - Living Situation & Occupation Living situation: Reports: , with Significant Other (Boyfriend), with Family (2 kids) Occupation: Employed ([employer]) ED ROS GENERAL - Review of Systems Review Of Systems: See Below Constitutional: Reports: Fatigue. Denies: Fever, Chills HEENT: Reports: Rhinitis Respiratory: Denies: Shortness of Breath, Cough Cardiovascular: Reports: No Symptoms Endocrine: Reports: No Symptoms GI/Abdominal: Reports: Abdominal Pain, Nausea. Denies: Vomiting : Reports: No Symptoms Musculoskeletal: Reports: No Symptoms Skin: Reports: No Symptoms Neurological: Reports: Headache Psychiatric: Reports: No Symptoms Hematologic/Lymphatic: Reports: No Symptoms - Physical Exam Exam: See Below Exam Limited By: No Limitations General Appearance: Alert, WD/WN, No Apparent Distress Eye Exam: Bilateral Eye: Normal Inspection (Mild light sensitivity) Ears: Normal External Exam Nose: Normal Inspection Throat/Mouth: Normal Inspection, Normal Lips, Normal Voice, No Airway Compromise Head Exam: Normocephalic Neck: Supple Respiratory/Chest: No Respiratory Distress, Lungs Clear, Normal Breath Sounds Cardiovascular: Regular Rate, Rhythm, No Murmur GI/Abdominal: Soft, Other (There is no palpation of her lower abdomen due to sensitivity from her surgery) Neuro Exam (Abbreviated): Alert, Oriented, Normal Cognition Back Exam: Full Range of Motion Extremities: Normal Inspection, Normal Range of Motion Psychiatric: Normal Affect, Normal Mood Skin Exam: Warm, Dry Course - Vital Signs Last Recorded V/S: Last Vital Signs Temp 100.1 F 05/29/18 20:15 Pulse 99 05/29/18 20:15 Resp 20 05/29/18 20:15 BP 135/91 H 05/29/18 20:15 Pulse Ox 95 05/29/18 20:15 - Orders/Labs/Meds Orders: Active Orders 24 hr Category Date Time Status Sodium Chloride 0.9% [Normal Saline] 1,000 ml Med 05/29/18 20:45 Active IV ASDIRECTED Medication Orders Sodium Chloride (Normal Saline) 1,000 mls @ 1,000 mls/hr IV ASDIRECTED LIOR Last Admin: 05/29/18 20:52 Dose: 1,000 mls/hr Meds: Medications Generic Name Dose Route Start Last Admin Trade Name Freq PRN Reason Stop Dose Admin Sodium Chloride 1,000 mls @ 1,000 mls/hr 05/29/18 20:45 05/29/18 20:52 Normal Saline IV 1,000 mls/hr ASDIRECTED LIOR Administration Discontinued Medications Generic Name Dose Route Start Last Admin Trade Name Freq PRN Reason Stop Dose Admin Al Hydroxide/Mg Hydroxide 30 ml 05/29/18 21:03 05/29/18 21:25 Mag-Al Plus PO 05/29/18 21:04 30 ml ONETIME ONE Administration Diphenhydramine HCl 25 mg 05/29/18 20:35 05/29/18 20:53 Benadryl IVPUSH 05/29/18 20:36 25 mg ONETIME ONE Administration Sodium Chloride Confirm 05/29/18 20:50 Normal Saline Administered 05/29/18 20:51 Dose 1,000 mls @ as directed .ROUTE .STK-MED ONE Ketorolac Tromethamine 30 mg 05/29/18 20:35 05/29/18 20:53 Toradol IM 05/29/18 20:36 30 mg ONETIME ONE Administration Lorazepam 0.5 mg 05/29/18 20:36 05/29/18 20:52 Ativan IVPUSH 05/29/18 20:37 0.5 mg ONETIME ONE Administration Ondansetron HCl 4 mg 05/29/18 20:34 05/29/18 20:53 Zofran IVPUSH 05/29/18 20:35 4 mg ONETIME ONE Administration - Re-Assessments/Exams Free Text/Narrative Re-Assessment/Exam: 05/29/18 22:06 The patient is feeling much better after the medications and the fluids and she wants to go home. Departure - Departure Time of Disposition: 22:06 Disposition: Home, Self-Care 01 Condition: Good Clinical Impression: Migraine headache Qualifiers: Migraine type: unspecified Status migrainosus presence: without status migrainosus Intractability: not intractable Qualified Code(s): G43.909 - Migraine, unspecified, not intractable, without status migrainosus - Discharge Information *PRESCRIPTION DRUG MONITORING PROGRAM REVIEWED*: Not Applicable *COPY OF PRESCRIPTION DRUG MONITORING REPORT IN PATIENT ALINA: Not Applicable Referrals: Heather Canales PA [Primary Care Provider] - Forms: ED Department Discharge Additional Instructions: When you get home do the things you normally due to resolve your headache, sleep as much as you can, recheck with your doctor this week as needed and return to the ER if needed - My Orders Last 24 Hours: My Active Orders 05/29/18 20:45 Sodium Chloride 0.9% [Normal Saline] 1,000 ml IV ASDIRECTED - Assessment/Plan Last 24 Hours: My Active Orders 05/29/18 20:45 Sodium Chloride 0.9% [Normal Saline] 1,000 ml IV ASDIRECTED
== END 2018-05-29 22:14 | disposition home or self-care (01) ==
LOC: JD.ED 20:01
DX: G43.909 Migraine, unspecified, not intractable, without status migrainosus (principal); E66.9 Obesity, unspecified; Z88.1 Allergy status to other antibiotic agents; Z88.8 Allergy status to other drugs, medicaments and biological substances; Z90.710 Acquired absence of both cervix and uterus; Z90.721 Acquired absence of ovaries, unilateral; Z91.013 Allergy to seafood; Z79.899 Other long term (current) drug therapy
CPT/HCPCS: 96361; 96372; 96374; 96375; 99283; A9270; J1200; J1885; J2060; J2405; J7040; 99284

== ENCOUNTER 2018-11-16 01:56 | Emergency (ER) | payer MEDICAID ==
[2018-11-16 02:05] VITALS: BP 166/104
[2018-11-16] MEDS ORDERED: HYDROmorphone 1 MG/ML Syringe IVPUSH ONE ×2 (02:22→03:49)
[2018-11-16] MEDS ORDERED: Metoclopramide 10 MG/2 ML SDV IVPUSH ONE (02:22)
--- NOTE | 2018-11-16 02:29 | EDM.PDOC ---
ED HPI GENERAL MEDICAL PROBLEM - General Chief Complaint: Genitourinary Problem Stated Complaint: LEFT KIDNEY PAIN Time Seen by Provider: 11/16/18 02:24 Source of Information: Reports: Patient History Limitations: Reports: No Limitations - History of Present Illness INITIAL COMMENTS - FREE TEXT/NARRATIVE: 42-year-old female presents the ED with acute onset of left flank pain since about 2030 hrs. last night. States the pain is constant with occasional colicky component radiate slightly to the upper abdomen on the left side. She's had one kidney stone in the past not identified by CT exam but identified clinically and then she found the stone i.e. when she passed it. She believes this is on the left side as well. Associated nausea without vomiting. No increased bowel function. Bowels are usually in the low side since she had her gallbladder out. Patient has had previous laparoscopic cholecystectomy laparoscopic assisted vaginal hysterectomy and an appendectomy. He has been following the ketogenic diet as of recent. Her pain is 9 out of 10. Onset: Sudden Onset Date: 11/16/18 Onset Time: 08:30 Duration: Hour(s): Location: Reports: Abdomen, Back (Left flank) Quality: Reports: Ache (Mild pain left upper abdomen starting in the left flank and radiating around), Pressure Severity: Moderate Improves with: Reports: None Worsens with: Reports: None Context: Denies: Activity, Exercise, Lifting, Sick Contact, Trauma, Other Associated Symptoms: Reports: Loss of Appetite, Nausea/Vomiting (Nausea times with no vomiting). 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 (see below) (Took diazepam 5 mg at bedtime with no relief as well as 600 mg of Motrin) Left Flank Pain Score (Numeric/FACES): 9 - Related Data Allergies Allergy/AdvReac Type Severity Reaction Status Date / Time cephalexin monohydrate Allergy Hives Verified 05/25/18 15:40 [From Keflex] chlorhexidine Allergy Hives Verified 05/26/18 07:37 prochlorperazine edisylate Allergy Other Verified 05/25/18 15:40 [From Compazine] prochlorperazine maleate Allergy Other Verified 05/25/18 15:40 [From Compazine] shellfish derived Allergy Anaphylactic Verified 05/25/18 15:40 Shock Home Meds: Home Meds Omeprazole 20 mg PO DAILY 03/04/15 [History] Cranberry Fruit Concentrate [Cranberry] 450 mg PO DAILY 01/16/17 [History] Escitalopram [Lexapro] 20 mg PO DAILY 05/22/18 [History] EPINEPHrine [Epipen] 1 dose IM ONETIME PRN 05/25/18 [History] Varenicline Tartrate [Chantix] 1 mg PO BID 05/25/18 [History] diazePAM [Valium] 5 mg PO BID PRN 05/25/18 [History] buPROPion [Wellbutrin] 100 mg PO DAILY 11/16/18 [History] oxyCODONE HCl/Acetaminophen [Percocet 5-325 mg Tablet] 1 - 2 each PO Q4H PRN # 16 tablet 11/16/18 [Rx] Past Medical History HEENT History: Reports: Sinusitis Other HEENT History: Pharyngitis, sinus pressure Cardiovascular History: Reports: None Respiratory History: Reports: Other (See Below) Other Respiratory History: Cough, hemoptysis, viral URI Gastrointestinal History: Reports: GERD, Hemorrhoids Other Gastrointestinal History: Hematochezia, external hemorrhoids Genitourinary History: Reports: Renal Calculus, UTI, Recurrent LABELER History: Reports: Ectopic Other LABELER History: , SAB, breast asymmetry, CINI, CINII, heavy menses, LGSIL Musculoskeletal History: Reports: Gout Other Musculoskeletal History: Myalgias Neurological History: Reports: Migraines, Other (See Below) Other Neuro History: vertigo Psychiatric History: Reports: Addiction, Anxiety, Depression, Other (See Below) Other Psychiatric History: Insomnia Endocrine/Metabolic History: Reports: Obesity/BMI 30+ Hematologic History: Reports: None Immunologic History: Reports: None Oncologic (Cancer) History: Reports: None Dermatologic History: Reports: Other (See Below) Other Dermatologic History: Hidradenitis suppurativa, open wound to foot, plantar wart to left foot, facial skin lesion - Infectious Disease History Infectious Disease History: Reports: Chicken Pox - Past Surgical History Head Surgeries/Procedures: Reports: None Cardiovascular Surgical History: Reports: None Female Surgical History: Reports: Hysterectomy Other Female Surgeries/Procedures: Unilateral salpingectomy Endocrine Surgical History: Reports: None Oncologic Surgical History: Reports: None Social & Family History - Family History Family Medical History: Noncontributory - Tobacco Use Smoking Status *Q: Former Smoker Used Tobacco, but Quit: Yes Month/Year Tobacco Last Used: 2018 - Caffeine Use Caffeine Use: Reports: Coffee, Energy Drinks, Soda Other Caffeine Use: one monster daily - Recreational Drug Use Recreational Drug Use: No - Living Situation & Occupation Living situation: Reports: , with Significant Other (Boyfriend), with Family (2 kids) Occupation: Employed ([employer]) ED ROS GENERAL - Review of Systems Review Of Systems: See Below Constitutional: Reports: Decreased Appetite. Denies: Fever, Chills, Malaise, Weakness, Fatigue HEENT: Reports: No Symptoms Respiratory: Reports: No Symptoms Cardiovascular: Reports: No Symptoms Endocrine: Reports: No Symptoms GI/Abdominal: Reports: Abdominal Pain (mild left upper quadrant abdominal discomfort), Diarrhea (Chronic diarrhea since having her gallbladder removed i.e. bile salt induced catharsis with anywhere between 4 and 8 bowel movements per day.) : Reports: Flank Pain ( referred from the left flank area). Denies: Frequency , Incontinence, Irregular Menses, Pain, Urgency, Urinary Retention Musculoskeletal: Reports: Back Pain Skin: Reports: No Symptoms Neurological: Reports: No Symptoms Psychiatric: Reports: No Symptoms Hematologic/Lymphatic: Reports: No Symptoms Immunologic: Reports: No Symptoms ED EXAM, GI/ABD - Physical Exam Exam: See Below Exam Limited By: No Limitations General Appearance: Alert, WD/WN, Moderate Distress Eyes: Bilateral: Normal Appearance Respiratory/Chest: No Respiratory Distress, Lungs Clear, Normal Breath Sounds, No Accessory Muscle Use Cardiovascular: Normal Peripheral Pulses, Regular Rate, Rhythm, No Edema, No Gallop, No Murmur, No Rub GI/Abdominal Exam: Normal Bowel Sounds, Soft, No Organomegaly, No Distention, No Abnormal Bruit, No Mass, Pelvis Stable, Tender Back Exam: Normal Inspection, Full Range of Motion. No: CVA Tenderness (L), CVA Tenderness (R) Extremities: Normal Inspection, Normal Range of Motion, Non-Tender, No Pedal Edema Neurological: Alert, Oriented, CN II-XII Intact, Normal Cognition, Normal Gait Psychiatric: Normal Affect, Normal Mood Skin Exam: Warm, Dry, Intact, Normal Color, No Rash Course - Vital Signs Last Recorded V/S: Last Vital Signs Temp 36.2 C 11/16/18 02:02 Pulse 81 11/16/18 02:02 Resp 18 11/16/18 02:02 BP 166/104 H 11/16/18 02:02 Pulse Ox 97 11/16/18 02:02 - Orders/Labs/Meds Orders: Active Orders 24 hr Category Date Time Status Abdomen Pelvis w Cont [CT] Stat Exams 11/16/18 03:50 Taken Abdomen Pelvis wo Cont [CT] Stat Exams 11/16/18 02:29 Taken Labs: Laboratory Tests 11/16/18 11/16/18 11/16/18 Range/Units 02:04 02:30 02:30 WBC 14.81 H (3.98-10.04) K/mm3 RBC 4.89 (3.98-5.22) M/mm3 Hgb 14.9 (11.2-15.7) gm/L Hct 43.6 (34.1-44.9) % MCV 89.2 (79.4-94.8) fl MCH 30.5 (25.6-32.2) pg MCHC 34.2 (32.2-35.5) g/dl RDW Std Deviation 40.2 (36.4-46.3) fL Plt Count 284 (182-369) K/mm3 MPV 11.0 (9.4-12.3) fl Neutrophils % (Manual) 53 (40-60) % Band Neutrophils % 0 (0-10) % Lymphocytes % (Manual) 35 (20-40) % Atypical Lymphs % 0 % Monocytes % (Manual) 8 (2-10) % Eosinophils % (Manual) 1 (0.7-5.8) % Basophils % (Manual) 3 H (0.1-1.2) Toxic Granulation 1+ slight Platelet Estimate Adequate Plt Morphology Comment Normal RBC Morph Comment Normal Sodium 138 (136-145) mEq/L Potassium 3.6 (3.5-5.1) mEq/L Chloride 100 (98-107) mEq/L Carbon Dioxide 25 (21-32) mEq/L Anion Gap 16.6 H (5-15) BUN 12 (7-18) mg/dL Creatinine 0.7 (0.55-1.02) mg/dL Est Cr Clr Drug Dosing 101.81 mL/min Estimated GFR (MDRD) > 60 (>60) mL/min BUN/Creatinine Ratio 18.6 H (14-18) Glucose 110 H (74-106) mg/dL Calcium 8.7 (8.5-10.1) mg/dL Total Bilirubin 0.2 (0.2-1.0) mg/dL AST 36 (15-37) U/L ALT 67 H (14-59) U/L Alkaline Phosphatase 129 H (46-116) U/L C-Reactive Protein 1.0 (<1.0) mg/dL Total Protein 7.9 (6.4-8.2) g/dl Albumin 3.7 (3.4-5.0) g/dl Globulin 4.2 gm/dL Albumin/Globulin Ratio 0.9 L (1-2) Lipase (73-393) U/L Urine Color Light yellow (Yellow) Urine Appearance Clear (Clear) Urine pH 6.0 (5.0-8.0) Ur Specific [place] 1.015 (1.005-1.030) Urine Protein Negative (Negative) Urine Glucose (UA) Negative (Negative) Urine Ketones 1+ H (Negative) Urine Occult Blood Trace-lysed H (Negative) Urine Nitrite Negative (Negative) Urine Bilirubin Negative (Negative) Urine Urobilinogen 0.2 (0.2-1.0) Ur Leukocyte Esterase Negative (Negative) Urine RBC 0-5 (0-5) /hpf Urine WBC Not seen (0-5) /hpf Ur Epithelial Cells 0-5 (0-5) /hpf Urine Bacteria Few (FEW) /hpf Urine Mucus Not seen (FEW) /hpf 11/16/18 Range/Units 02:30 WBC (3.98-10.04) K/mm3 RBC (3.98-5.22) M/mm3 Hgb (11.2-15.7) gm/L Hct (34.1-44.9) % MCV (79.4-94.8) fl MCH (25.6-32.2) pg MCHC (32.2-35.5) g/dl RDW Std Deviation (36.4-46.3) fL Plt Count (182-369) K/mm3 MPV (9.4-12.3) fl Neutrophils % (Manual) (40-60) % Band Neutrophils % (0-10) % Lymphocytes % (Manual) (20-40) % Atypical Lymphs % % Monocytes % (Manual) (2-10) % Eosinophils % (Manual) (0.7-5.8) % Basophils % (Manual) (0.1-1.2) Toxic Granulation Platelet Estimate Plt Morphology Comment RBC Morph Comment Sodium (136-145) mEq/L Potassium (3.5-5.1) mEq/L Chloride (98-107) mEq/L Carbon Dioxide (21-32) mEq/L Anion Gap (5-15) BUN (7-18) mg/dL Creatinine (0.55-1.02) mg/dL Est Cr Clr Drug Dosing mL/min Estimated GFR (MDRD) (>60) mL/min BUN/Creatinine Ratio (14-18) Glucose (74-106) mg/dL Calcium (8.5-10.1) mg/dL Total Bilirubin (0.2-1.0) mg/dL AST (15-37) U/L ALT (14-59) U/L Alkaline Phosphatase (46-116) U/L C-Reactive Protein (<1.0) mg/dL Total Protein (6.4-8.2) g/dl Albumin (3.4-5.0) g/dl Globulin gm/dL Albumin/Globulin Ratio (1-2) Lipase 82 (73-393) U/L Urine Color (Yellow) Urine Appearance (Clear) Urine pH (5.0-8.0) Ur Specific [place] (1.005-1.030) Urine Protein (Negative) Urine Glucose (UA) (Negative) Urine Ketones (Negative) Urine Occult Blood (Negative) Urine Nitrite (Negative) Urine Bilirubin (Negative) Urine Urobilinogen (0.2-1.0) Ur Leukocyte Esterase (Negative) Urine RBC (0-5) /hpf Urine WBC (0-5) /hpf Ur Epithelial Cells (0-5) /hpf Urine Bacteria (FEW) /hpf Urine Mucus (FEW) /hpf Meds: Medications Discontinued Medications Generic Name Dose Route Start Last Admin Trade Name Freq PRN Reason Stop Dose Admin Hydromorphone HCl 1 mg 11/16/18 02:22 11/16/18 02:39 Dilaudid IVPUSH 11/16/18 02:23 1 mg ONETIME ONE Administration Hydromorphone HCl 1 mg 11/16/18 03:49 11/16/18 04:02 Dilaudid IVPUSH 11/16/18 03:50 1 mg ONETIME ONE Administration Sodium Chloride 1,000 mls @ 150 mls/hr 11/16/18 02:30 11/16/18 02:38 Normal Saline IV 150 mls/hr ASDIRECTED LIOR Administration Iopamidol 100 ml 11/16/18 04:11 11/16/18 04:25 Isovue-300 (61%) IVPUSH 11/16/18 04:12 100 ml ONETIME ONE Administration Metoclopramide HCl 7.5 mg 11/16/18 02:22 11/16/18 02:37 Reglan IVPUSH 11/16/18 02:23 7.5 mg ONETIME ONE Administration - Radiology Interpretation Free Text/Narrative:: 42-year-old female presents the ED with acute onset of left flank pain yesterday morning which she's been putting up with all day. Her pain is 9/ 10There is constant pain with a colicky component. She's had renal colic once in the past. She believes on the left side as well. She has not noticed appreciable change in the color of her urine. She has loose stool at times since having her gallbladder removed. Associated nausea without vomiting. Benign abdominal examination benign chest examination. Plan routine labs including urinalysis. IV will be normal saline at 150 mils per hour. Given Dilaudid 1 mg IV with Reglan 10 mg IV for nausea pain relief . CT the abdomen will be done - Re-Assessments/Exams Free Text/Narrative Re-Assessment/Exam: 11/16/18 03:20 White count is elevated at 14.81 with a normal differential with 53% neutrophils and no band cells reported. Hemoglobin is 14.9 with hematocrit of 43.6. Platelet count is normal 284,000. Urinalysis shows 1+ ketones and trace of lysed occult blood. The slide does not show any red cells. 11/16/18 03:28 Chemistry shows a sodium 138 and a potassium of 3.6. Chloride 100 with bicarbonate 25. Anion gap is mildly elevated at 16.6. Creatinine is 0.7. GFR remains greater than 60. Glucose is 110 with a calcium of 8.7 bilirubin is 0.2 with an AST of 36 ALT mildly elevated at 67. Alk phosphatase is 129. C-reactive protein is 1.0. Total protein is 7.9 with an albumin fraction of 3.7. CT of the abdomen was performed per renal protocol. She is a very small hiatal hernia. Visualized portions of the lung bases are normal. Liver appears to be normal with previous evidence of cholecystectomy. Pancreas is normal slightly dilated bile duct compatible with cholecystectomy. Stomach is within normal limits. There is scattered stool throughout the transverse colon and parts of the right hemicolon. Both kidneys appear to be normal with no stones evident. Particular the left side I could find no signs of renal obstruction. There are several phleboliths in the pelvis or surrounding the bladder but I don't believe that she has any obstructing stone. There is no signs of any diverticulitis. Therefore the cause of her left flank pain is unclear. 11/16/18 03:51 patient is still having significant left flank pain. Still [address] radiology read agrees with no signs of stone in the kidney or hydro- nephrosis or hydroureter in either side. Concern is therefore for potential renal infarct. Patient clinically is in sinus rhythm however. Will pursue CT of the abdomen pelvis with IV contrast only. Repeat Dilaudid 1 mg IV for pain relief. 11/16/18 04:[address] of the abdomen was performed with IV contrast only to rule out a renal infarct since her pain seemed to be so intense in this area. No abnormalities were identified on repeat CT with IV contrast in the liver or kidneys or any other tissues. Serum lipase is now back and is normal at 82. Departure - Departure Time of Disposition: 04:43 Disposition: Home, Self-Care 01 Condition: Fair Clinical Impression: Acute left flank pain, Constipation by delayed colonic transit, Mild dehydration, History of chronic diarrhea - Discharge Information *PRESCRIPTION DRUG MONITORING PROGRAM REVIEWED*: Not Applicable *COPY OF PRESCRIPTION DRUG MONITORING REPORT IN PATIENT ALINA: Not Applicable Prescriptions: oxyCODONE HCl/Acetaminophen [Percocet 5-325 mg Tablet] 1 - 2 each PO Q4H PRN # 16 tablet PRN Reason: pain relief. Instructions: Constipation, Adult, [id number], Dehydration, Adult, Easy-to- Read Referrals: Dany Canales PA [Primary Care Provider] - Forms: ED Department Discharge, ED Return to Work/School Form Additional Instructions: Evaluation the emergency room this morning in regards to persistent left flank and low back pain for the last 20hrs. . Concern was for possible kidney stone or urinary tract infection Urinalysis proved to be negative for any infective process or signs of kidney stone. Lab work also revealed a mildly elevated white blood cell count with no signs of active systemic infection. His appears to be secondary to pain response. Kidney, liver and pancreas tests also proved to be normal. CT scan of the abdomen was done per renal protocol due to history of previous left renal stone and history and physical examination compatible with a kidney stone. However the kidney appears to be normal with no signs of stones in either kidney dilated ureter to suggest obstruction of the urinary tract system. Small left ovarian cyst identified uterus is absent. Gallbladder is absent and the only other finding was a small to moderate sized hiatal hernia which will give you quite a bit of gastroesophageal reflux at times. Due to persistence of your pain in spite of adequate analgesia will be CT scan of the abdomen was performed with IV contrast to make sure that there was no lack of blood supply to the left kidney which we call a renal infarct. The second CT also proved to be within normal limits showing no sign of abnormalities within the liver either kidney or the spleen or any other intra-abdominal organs. Lab work did suggest mild dehydration which can sometimes cause pressure discomfort in the distribution of the kidneys but this was corrected with intravenous fluids while in the ED. no specific cause could be identified for her left flank pain at this time. Positive viral illnesses there are several small lymph nodes in the mesentery defined on CT exam. This is always a viral infection. Treatment is therefore time to get better. Diet and fluids as tolerated. Continue Motrin 600 mg every 6 hours for fever and/or pain relief. May use Percocet tablets 5/325 mg one or 2 every 4-6 hours as necessary for pain not controlled by Motrin alone. If not markedly improved in 36-48 hours you should be reviewed by physician again. As we discussed she could use Colestid 1 g at bedtime and in the morning for first week and then once at bedtime only for another week to see if this will bring your chronic diarrhea under control which is likely secondary to bile salt catharsis after having her gallbladder removed. If this improves her diarrhea pattern follow-up with your personal physician for refill of medication. - My Orders Last 24 Hours: My Active Orders 11/16/18 02:29 Abdomen Pelvis wo Cont [CT] Stat 11/16/18 03:50 Abdomen Pelvis w Cont [CT] Stat - Assessment/Plan Last 24 Hours: My Active Orders 11/16/18 02:29 Abdomen Pelvis wo Cont [CT] Stat 11/16/18 03:50 Abdomen Pelvis w Cont [CT] Stat
[2018-11-16] MEDS ORDERED: Sodium Chloride 0.9% 1,000 ML IV SCH (02:30)
[2018-11-16] MEDS ORDERED: Iopamidol 612 MG/ML 100 ML Bottle IVPUSH ONE (04:11)
--- NOTE | 2018-11-16 07:25 | CT ---
CT abdomen and pelvis Technique: Multiple axial sections were obtained from above the dome of the diaphragm inferiorly through the pubic symphysis. Intravenous contrast was utilized. No oral contrast was given. Comparison: Previous study performed earlier on the same day (3:01 AM). Findings: Small portion of the visualized lung bases shows nothing acute. Liver shows mild fatty infiltration. Surgical clips are seen from prior cholecystectomy. Spleen appears within normal limits. Adrenal glands show no nodule. Kidney show symmetric contrast enhancement without hydronephrosis or mass. Pancreas is normal. Aorta shows no aneurysm. No retroperitoneal adenopathy is seen. Previous appendectomy is noted. Heterogeneous left ovary is seen most likely due to physiologic cysts and follicles. This ovary is not midline with no CT evidence of torsion. No pelvic mass or adenopathy is seen. No free fluid or inflammatory change is seen. Bone window settings were reviewed which appear within normal limits for the patient's age. Incidental note of fat-containing umbilical hernia as well as second fat-containing small hernia above the umbilicus. Impression: 1. Incidental findings. Nothing acute is seen on CT study of the abdomen and pelvis. Left ovarian findings are seen which are felt to be incidental. Diagnostic code #2 I agree with preliminary report from [facility], finalized on 11/16/18, 6:01 AM Central Time
--- NOTE | 2018-11-16 07:25 | CT ---
CT abdomen and pelvis Technique: Multiple axial sections were obtained from above the dome of the diaphragm inferiorly through the pubic symphysis. Intravenous and oral contrast was not utilized. Study has been performed as a ureteral stone protocol. Comparison: Prior noncontrast CT exam of 10/07/18. Findings: Small portion of the visualized lung bases are clear. Liver shows diffuse fatty infiltration without focal abnormality. Spleen appears within normal limits. Surgical clips noted from prior cholecystectomy. Adrenal glands show no nodule. Pancreas appears within normal limits. Aorta shows no aneurysm. No retroperitoneal adenopathy is seen. No mesenteric abnormalities are seen. Surgical material is seen next to the tip of the cecum most likely from prior appendectomy. Small cyst is noted within the left ovary believed to be physiologic. No pelvic mass or adenopathy is seen. Both kidneys show no hydronephrosis. No renal calculi or ureteral dilatation is seen. No ureteral calculi are seen. Bone window settings were reviewed which appear within normal limits for the patient's age. Impression: 1. Fatty infiltration within the liver. 2. Other incidental findings. No renal calculi, ureteral stone or hydronephrosis is seen. 3. Nothing acute is identified. Diagnostic code #2 I agree with preliminary report from [facility], finalized on 11/16/18, 4:42 AM Central Time
== END 2018-11-16 06:17 | disposition home or self-care (01) ==
LOC: JD.ED 01:56
DX: K59.01 Slow transit constipation (principal); E86.0 Dehydration; K52.9 Noninfective gastroenteritis and colitis, unspecified; K21.9 Gastro-esophageal reflux disease without esophagitis; Z88.1 Allergy status to other antibiotic agents; Z88.8 Allergy status to other drugs, medicaments and biological substances; Z79.899 Other long term (current) drug therapy; Z87.891 Personal history of nicotine dependence
CPT/HCPCS: 36415; 74176; 74177; 80053; 81001; 83690; 85007; 85027; 86140; 96361; 96374; 96375; 96376; 99284; J1170; J2765; J7040; Q9967

== ENCOUNTER 2018-12-17 10:44 | Emergency (ER) | payer MEDICAID ==
--- NOTE | 2018-12-17 11:46 | EDM.PDOC ---
ED HPI GENERAL MEDICAL PROBLEM - General Chief Complaint: Neurological Problem Stated Complaint: NUMBNESS IN BOTH ARM/LEG Time Seen by Provider: 12/17/18 11:04 Source of Information: Reports: Patient, RN Notes Reviewed History Limitations: Reports: No Limitations - History of Present Illness INITIAL COMMENTS - FREE TEXT/NARRATIVE: Patient is a 43-year-old female who presents to the ED today for the evaluation of numbness and tingling in her arms and legs. She states that she has been dealing with the numbness and tingling in her arms for around 6 months now. She states that the numbness and tingling is worse on her left forearm with some associated burning muscle pain. She states that she did see her primary care provider, Dany Canales PA-C and she said that she thought it was an ulnar neuropathy in her arms. She states that her PCP is setting her up with an appointment for Neurology. She states that around 6 or 7PM last night she noticed some numbness and tingling in her legs, with some associated lightheadedness. She states that she does have a history of vertigo and she denies any vertigo-type symptoms, she states the the room is not spinning about around, it is just lightheadedness feeling. She states that the lightheadedness is not aggravated by any certain positions or timing, she states that it is there pretty much all the time. She denies any pain in her legs, just the numbness and tingling that started last night. She further denies any weakness in either limb, however she states that last week when she was driving to or from [employer] at one point she states that she thought she had a harder time grasping the steering wheel with her left hand. She also states that she was helping her mother hanging some curtains the other day and this aggravated the numbness and tingling in her arms. 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 She states she is a former smoker, she use to smoke one pack per day since she was 18 and she quit this last September. She states that she is an occasional social drinker and denies further drug use. She has not started any new medications or supplements that she can recall. She denies any type of headache, loss of vision, blurred vision, fevers/chills, recent illness. She states that she does have a history of migraines as well. - Related Data Allergies Allergy/AdvReac Type Severity Reaction Status Date / Time cephalexin monohydrate Allergy Hives Verified 12/17/18 10:49 [From Keflex] chlorhexidine Allergy Hives Verified 12/17/18 10:49 prochlorperazine edisylate Allergy Other Verified 12/17/18 10:49 [From Compazine] prochlorperazine maleate Allergy Other Verified 12/17/18 10:49 [From Compazine] shellfish derived Allergy Anaphylactic Verified 12/17/18 10:49 Shock Home Meds: Home Meds Omeprazole 20 mg PO DAILY 03/04/15 [History] Cranberry Fruit Concentrate [Cranberry] 450 mg PO DAILY 01/16/17 [History] Escitalopram [Lexapro] 20 mg PO DAILY 05/22/18 [History] EPINEPHrine [Epipen] 1 dose IM ONETIME PRN 05/25/18 [History] Varenicline Tartrate [Chantix] 1 mg PO BID 05/25/18 [History] buPROPion [Wellbutrin] 100 mg PO DAILY 11/16/18 [History] Past Medical History HEENT History: Reports: Impaired Vision, Sinusitis Other HEENT History: Pharyngitis, sinus pressure Cardiovascular History: Reports: None Respiratory History: Reports: Other (See Below) Other Respiratory History: Cough, hemoptysis, viral URI Gastrointestinal History: Reports: GERD, Hemorrhoids Other Gastrointestinal History: Hematochezia, external hemorrhoids Genitourinary History: Reports: Renal Calculus, UTI, Recurrent QUALITY ASSURANCE ASSESSOR History: Reports: Ectopic , Other QUALITY ASSURANCE ASSESSOR History: , SAB, breast asymmetry, CINI, CINII, heavy menses, LGSIL Musculoskeletal History: Reports: Gout, Other (See Below) Other Musculoskeletal History: Myalgias Neurological History: Reports: Migraines Other Neuro History: vertigo Psychiatric History: Reports: Addiction, Anxiety, Depression Other Psychiatric History: Insomnia Endocrine/Metabolic History: Reports: Obesity/BMI 30+ Hematologic History: Reports: None Immunologic History: Reports: None Oncologic (Cancer) History: Reports: None Dermatologic History: Reports: Other (See Below) Other Dermatologic History: Hidradenitis suppurativa, open wound to foot, plantar wart to left foot, facial skin lesion - Infectious Disease History Infectious Disease History: Reports: Chicken Pox, Shingles - Past Surgical History Head Surgeries/Procedures: Reports: None HEENT Surgical History: Reports: Oral Surgery Cardiovascular Surgical History: Reports: None GI Surgical History: Reports: Cholecystectomy Female Surgical History: Reports: Hysterectomy Other Female Surgeries/Procedures: Unilateral salpingectomy Endocrine Surgical History: Reports: None Oncologic Surgical History: Reports: None Social & Family History - Family History Family Medical History: Noncontributory HEENT: Reports: None Cardiac: Reports: None Respiratory: Reports: None GI: Reports: None : Reports: None OBGYN: Reports: None Musculoskeletal: Reports: None Neurological: Reports: None Psychiatric: Reports: None Endocrine/Metabolic: Reports: Diabetes Mellitus, Type 3c Hematologic: Reports: None Oncologic: Reports: Breast - Tobacco Use Smoking Status *Q: Former Smoker Tobacco Use Within Last Twelve Months: Cigarettes Used Tobacco, but Quit: Yes Month/Year Tobacco Last Used: 09/22 - Caffeine Use Caffeine Use: Reports: Energy Drinks Other Caffeine Use: one monster daily - Alcohol Use Alcohol Use History: Yes Alcohol Use Frequency: Socially - Recreational Drug Use Recreational Drug Use: No - Living Situation & Occupation Living situation: Reports: , with Significant Other (Boyfriend), with Family (2 kids) Occupation: Employed ([employer] ED ROS GENERAL - Review of Systems Review Of Systems: See Below Constitutional: Denies: Fever, Chills, Weakness HEENT: Denies: Hearing Loss, Vertigo, Vision Change Respiratory: Reports: No Symptoms Cardiovascular: Reports: No Symptoms Endocrine: Reports: No Symptoms GI/Abdominal: Reports: No Symptoms : Reports: No Symptoms Musculoskeletal: Reports: Arm Pain (left arm > right arm, but just numbness/ tingling, not very painful) Skin: Reports: No Symptoms Neurological: Reports: Dizziness (lightheadedness), Numbness, Tingling. Denies : Headache, Paresthesia, Pre-Existing Deficit, Seizure, Difficulty Walking, Weakness, Change in Speech, Gait Disturbance Psychiatric: Reports: No Symptoms Hematologic/Lymphatic: Reports: No Symptoms Immunologic: Reports: No Symptoms ED EXAM, NEURO - Physical Exam Exam: See Below Exam Limited By: No Limitations General Appearance: Alert, WD/WN, No Apparent Distress Eye Exam: Bilateral Eye: EOMI, Normal Inspection, PERRL Ears: Normal External Exam Nose: Normal Inspection Throat/Mouth: Normal Inspection, Normal Teeth, Normal Oropharynx, No Airway Compromise Head Exam: Atraumatic, Normocephalic Neck: Normal Inspection, Supple, Non-Tender, Full Range of Motion Respiratory/Chest: No Respiratory Distress, Lungs Clear, Normal Breath Sounds, No Accessory Muscle Use, Chest Non-Tender Cardiovascular: Normal Peripheral Pulses, Regular Rate, Rhythm, No Edema, No JVD , No Murmur GI/Abdominal: Normal Bowel Sounds, Soft, Non-Tender, No Distention, No Mass Neurological: Alert, Normal Mood/Affect, Normal Dorsiflexion, CN II-XII Intact, Normal Plantar Flexion, Normal Gait, Normal Reflexes, No Motor/Sensory Deficits , Oriented x 3 Back Exam: Normal Inspection, Full Range of Motion Extremities: Normal Inspection, Normal Range of Motion, Non-Tender, No Pedal Edema, Normal Capillary Refill Psychiatric: Normal Affect, Normal Mood Skin Exam: Warm, Dry, Intact, Normal Color, No Rash Course - Vital Signs Last Recorded V/S: Last Vital Signs Temp 97.7 F 12/17/18 10:55 Pulse 99 12/17/18 10:55 Resp 16 12/17/18 10:55 BP 145/97 H 12/17/18 10:55 Pulse Ox 99 12/17/18 10:55 Orthostatic Blood Pressure [ 144/98 Standing] Orthostatic Blood Pressure [ 140/100 Sitting] Orthostatic Blood Pressure [ 145/97 Supine] - Orders/Labs/Meds Labs: Laboratory Tests 12/17/18 12/17/18 Range/Units 11:45 11:45 WBC 12.28 H (3.98-10.04) K/mm3 RBC 4.78 (3.98-5.22) M/mm3 Hgb 14.4 (11.2-15.7) gm/L Hct 43.0 (34.1-44.9) % MCV 90.0 (79.4-94.8) fl MCH 30.1 (25.6-32.2) pg MCHC 33.5 (32.2-35.5) g/dl RDW Std Deviation 41.4 (36.4-46.3) fL Plt Count 250 (182-369) K/mm3 MPV 11.1 (9.4-12.3) fl Neutrophils % (Manual) 58 (40-60) % Band Neutrophils % 0 (0-10) % Lymphocytes % (Manual) 37 (20-40) % Atypical Lymphs % 0 % Monocytes % (Manual) 2 (2-10) % Eosinophils % (Manual) 1 (0.7-5.8) % Basophils % (Manual) 1 (0.1-1.2) Promyelocytes % 1 Platelet Estimate Adequate Plt Morphology Comment Normal RBC Morph Comment Normal Sodium 139 (136-145) mEq/L Potassium 3.8 (3.5-5.1) mEq/L Chloride 105 (98-107) mEq/L Carbon Dioxide 25 (21-32) mEq/L Anion Gap 12.8 (5-15) BUN 12 (7-18) mg/dL Creatinine 0.7 (0.55-1.02) mg/dL Est Cr Clr Drug Dosing 100.77 mL/min Estimated GFR (MDRD) > 60 (>60) mL/min BUN/Creatinine Ratio 17.1 (14-18) Glucose 97 (74-106) mg/dL Calcium 9.2 (8.5-10.1) mg/dL Total Bilirubin 0.3 (0.2-1.0) mg/dL AST 38 H (15-37) U/L ALT 60 H (14-59) U/L Alkaline Phosphatase 112 (46-116) U/L Total Protein 7.6 (6.4-8.2) g/dl Albumin 3.3 L (3.4-5.0) g/dl Globulin 4.3 gm/dL Albumin/Globulin Ratio 0.8 L (1-2) TSH 3rd Generation 0.794 (0.358-3.74) uIU/mL - Re-Assessments/Exams Free Text/Narrative Re-Assessment/Exam: 12/17/18 11:54 Patient presents to the ED for the evaluation of numbness and tingling in her arms and legs. I did order a CBC, CMP, TSH for further evaluation. I am wondering however this isn't some sort of anemia causing part of her numbness. The leg numbness/tingling developing last night is suspicious for increased anxiety over having to see neurology about her upper extremity numbness/ tingling. Her neuro exam is within normal limits at this time. 12/17/18 12:46 Patient's labs have returned and are essentially within normal limits and unremarkable. Her TSH is normal her white blood cell count is slightly elevated which suggest may be a stress reaction versus any type of bacterial infection. We will recommend that she follow up with neurology as suggested by her primary care provider. There is no definite explanation as to what is causing the pain right now but she'll be educated on return precautions. Departure - Departure Time of Disposition: 12:56 Disposition: Home, Self-Care 01 Condition: Fair Clinical Impression: Tingling of both upper extremities, Numbness and tingling of both lower extremities - Discharge Information *PRESCRIPTION DRUG MONITORING PROGRAM REVIEWED*: No *COPY OF PRESCRIPTION DRUG MONITORING REPORT IN PATIENT ALINA: No Instructions: Paresthesia, [id number] Referrals: Dany Canales PA [Primary Care Provider] - Forms: ED Department Discharge Additional Instructions: You have been evaluated in the ED today for your numbness and tingling in your extremities. Your lab work was essentially within normal limits and there is no overt reason for why you're having increased numbness and tingling in your legs. Please follow up with your primary care and get your appointment scheduled with your neurologist as soon as able to further manage your symptoms. If you should develop any increased weakness, blurred vision/double vision, headaches, increased pain this would be cause for concern to return immediately for re-evaluation. You may try some exercises that can be found online for Thoracic outlet syndrome , This is not felt to be the exact cause of your numbness and tingling in your arms, but may provide some relief of the numbness/tingling. Please return to the ED if your symptoms change or worsen.
[2018-12-17 13:09] VITALS: BP 136/84
== END 2018-12-17 13:05 | disposition home or self-care (01) ==
LOC: JD.ED 10:44
DX: R20.2 Paresthesia of skin (principal); R20.0 Anesthesia of skin; K21.9 Gastro-esophageal reflux disease without esophagitis; Z87.891 Personal history of nicotine dependence; Z79.899 Other long term (current) drug therapy
CPT/HCPCS: 36415; 80053; 84443; 85007; 85027; 99283; 99284

== ENCOUNTER 2019-01-28 21:49 | Emergency (ER) | payer MEDICAID ==
[2019-01-28 22:06] VITALS: BP 146/93
[2019-01-28] MEDS ORDERED: Alum Hydrox/Mag Hydrox/Simeth 30 ML, Lidocaine 2% 15 ML PO ONE ×2 (22:18)
[2019-01-28] MEDS ORDERED: Ketorolac 30 MG/ML SDV IM ONE (22:54)
[2019-01-28] MEDS ORDERED: LORazepam 1 MG Tab PO ONE (22:54)
--- NOTE | 2019-01-28 22:54 | EDM.PDOC ---
ED HPI GENERAL MEDICAL PROBLEM - General Chief Complaint: Back Pain or Injury Stated Complaint: CHEST PAINS Time Seen by Provider: 01/28/19 22:06 Source of Information: Reports: Patient History Limitations: Reports: No Limitations - History of Present Illness INITIAL COMMENTS - FREE TEXT/NARRATIVE: 43 y/o female presents to ER with cc chest pain. She reports the pain started earlier this afternoon and has since increased and has spread to her jaw and both arms. She states she has a history of PSPD and anxiety. "She states she took Valium 5 mg a couple of hours prior to arrival but continues to have the pain. She denies SOB, fever, nausea or vomiting. She has no family history of sudden cardiac . She has had a appendectomy and cholecystectomy in the past. Onset: Today Onset Date: 01/28/19 Onset Time: 12:00 Duration: Getting Worse Location: Reports: Chest Quality: Reports: Ache Severity: Mild Improves with: Reports: None Worsens with: Reports: None Associated Symptoms: Reports: Chest Pain. Denies: Confusion, Cough, Diaphoresis , Fever/Chills, Nausea/Vomiting, Rash, Shortness of Breath, Syncope Left Chest Pain Score (Numeric/FACES): 7 - Related Data Allergies Allergy/AdvReac Type Severity Reaction Status Date / Time cephalexin monohydrate Allergy Hives Verified 12/17/18 10:49 [From Keflex] chlorhexidine Allergy Hives Verified 12/17/18 10:49 prochlorperazine edisylate Allergy Other Verified 12/17/18 10:49 [From Compazine] prochlorperazine maleate Allergy Other Verified 12/17/18 10:49 [From Compazine] shellfish derived Allergy Anaphylactic Verified 12/17/18 10:49 Shock Home Meds: Home Meds Omeprazole 20 mg PO DAILY 03/04/15 [History] Cranberry Fruit Concentrate [Cranberry] 450 mg PO DAILY 01/16/17 [History] Escitalopram [Lexapro] 20 mg PO DAILY 05/22/18 [History] EPINEPHrine [Epipen] 1 dose IM ONETIME PRN 05/25/18 [History] Varenicline Tartrate [Chantix] 1 mg PO BID 05/25/18 [History] buPROPion [Wellbutrin] 100 mg PO DAILY 11/16/18 [History] Past Medical History HEENT History: Reports: Impaired Vision, Sinusitis Other HEENT History: Pharyngitis, sinus pressure Cardiovascular History: Reports: None Respiratory History: Reports: Other (See Below) Other Respiratory History: Cough, hemoptysis, viral URI Gastrointestinal History: Reports: GERD, Hemorrhoids Other Gastrointestinal History: Hematochezia, external hemorrhoids Genitourinary History: Reports: Renal Calculus, UTI, Recurrent CORE FILER History: Reports: Ectopic , Other CORE FILER History: , SAB, breast asymmetry, CINI, CINII, heavy menses, LGSIL Musculoskeletal History: Reports: Gout, Other (See Below) Other Musculoskeletal History: Myalgias Neurological History: Reports: Migraines Other Neuro History: vertigo Psychiatric History: Reports: Addiction, Anxiety, Depression Other Psychiatric History: Insomnia Endocrine/Metabolic History: Reports: Obesity/BMI 30+ Hematologic History: Reports: None Immunologic History: Reports: None Oncologic (Cancer) History: Reports: None Dermatologic History: Reports: Other (See Below) Other Dermatologic History: Hidradenitis suppurativa, open wound to foot, plantar wart to left foot, facial skin lesion - Infectious Disease History Infectious Disease History: Reports: Chicken Pox, Shingles - Past Surgical History Head Surgeries/Procedures: Reports: None HEENT Surgical History: Reports: Oral Surgery Cardiovascular Surgical History: Reports: None GI Surgical History: Reports: Cholecystectomy Female Surgical History: Reports: Hysterectomy Other Female Surgeries/Procedures: Unilateral salpingectomy Endocrine Surgical History: Reports: None Oncologic Surgical History: Reports: None Social & Family History - Family History Family Medical History: Noncontributory HEENT: Reports: None Cardiac: Reports: None Respiratory: Reports: None GI: Reports: None : Reports: None OBGYN: Reports: None Musculoskeletal: Reports: None Neurological: Reports: None Psychiatric: Reports: None Endocrine/Metabolic: Reports: Diabetes Mellitus, Type 3c Hematologic: Reports: None Oncologic: Reports: Breast - Tobacco Use Smoking Status *Q: Never Smoker - Caffeine Use Caffeine Use: Reports: Coffee, Soda Other Caffeine Use: one monster daily - Recreational Drug Use Recreational Drug Use: No - Living Situation & Occupation Living situation: Reports: , with Significant Other (Boyfriend), with Family (2 kids) Occupation: Employed ([employer] [facility] GENERAL - Review of Systems Review Of Systems: See Below Constitutional: Denies: Fever, Chills HEENT: Reports: Glasses Respiratory: Denies: Shortness of Breath Cardiovascular: Reports: Chest Pain Endocrine: Reports: Fatigue GI/Abdominal: Denies: Abdominal Pain : Reports: No Symptoms Musculoskeletal: Reports: No Symptoms Skin: Reports: No Symptoms Neurological: Reports: No Symptoms Psychiatric: Reports: Anxiety, Other (PSPD) Hematologic/Lymphatic: Reports: No Symptoms Immunologic: Reports: No Symptoms ED EXAM,LOWER BACK PAIN/INJURY - Physical Exam Exam: See Below General Appearance: Alert, WD/WN, No Apparent Distress Neck: Normal Inspection, Supple, Non-Tender, Full Range of Motion Respiratory/Chest: No Respiratory Distress, Lungs Clear, Normal Breath Sounds, No Accessory Muscle Use, Chest Non-Tender Cardiovascular: Normal Peripheral Pulses, Regular Rate, Rhythm, No Edema, No Gallop, No JVD, No Murmur, No Rub Back Exam: Normal Inspection, Full Range of Motion Extremities: Normal Inspection, Normal Range of Motion, Non-Tender, No Pedal Edema Neurological: Alert, Normal Mood/Affect, Normal Gait, Oriented x 3 Psychiatric: Normal Affect, Normal Mood, Anxious Skin Exam: Warm, Dry, Intact, Normal Color, No Rash Lymphatic: No Adenopathy EKG INTERPRETATION EKG Date: 01/28/19 Time: 22:13 Rhythm: NSR [place]: Normal P-Wave: Present ST-T: Normal QT: Normal Course - Vital Signs Last Recorded V/S: Last Vital Signs Temp 97.8 F 01/28/19 21:55 Pulse 83 01/28/19 21:55 Resp 20 01/28/19 21:55 BP 146/93 H 01/28/19 21:55 Pulse Ox 100 01/28/19 21:55 - Orders/Labs/Meds Orders: Active Orders 24 hr Category Date Time Status EKG Documentation Completion [RC] STAT Care 01/28/19 22:17 Active Chest 1V Frontal [CR] Stat Exams 01/28/19 22:17 Taken CKMB [CHEM] Stat Lab 01/28/19 22:30 Received COMPREHENSIVE METABOLIC PN,CMP [CHEM] Stat Lab 01/28/19 22:30 Received TROPONIN I [CHEM] Stat Lab 01/28/19 22:30 Received Labs: Laboratory Tests 01/28/19 Range/Units 22:30 WBC 14.52 H (3.98-10.04) K/mm3 RBC 4.78 (3.98-5.22) M/mm3 Hgb 14.5 (11.2-15.7) gm/L Hct 42.7 (34.1-44.9) % MCV 89.3 (79.4-94.8) fl MCH 30.3 (25.6-32.2) pg MCHC 34.0 (32.2-35.5) g/dl RDW Std Deviation 40.6 (36.4-46.3) fL Plt Count 312 (182-369) K/mm3 MPV 10.6 (9.4-12.3) fl Neut % (Auto) 62.8 (34.0-71.1) % Lymph % (Auto) 27.6 (19.3-51.7) % Rock % (Auto) 6.8 (4.7-12.5) % Eos % (Auto) 2.2 (0.7-5.8) Baso % (Auto) 0.3 (0.1-1.2) % Neut # (Auto) 9.11 H (1.56-6.13) K/mm3 Lymph # (Auto) 4.01 H (1.18-3.74) K/mm3 Rock # (Auto) 0.99 H (0.24-0.36) K/mm3 Eos # (Auto) 0.32 (0.04-0.36) K/mm3 Baso # (Auto) 0.04 (0.01-0.08) K/mm3 Meds: Medications Discontinued Medications Generic Name Dose Route Start Last Admin Trade Name Freq PRN Reason Stop Dose Admin Al Hydroxide/Mg Hydroxide 30 0 ml 01/28/19 22:18 01/28/19 22:25 ml/ Lidocaine HCl 15 ml PO 01/28/19 22:19 45 ml ONETIME ONE Administration Ketorolac Tromethamine 60 mg 01/28/19 22:54 01/28/19 23:06 Toradol IM 01/28/19 22:55 60 mg ONETIME ONE Administration Lorazepam 1 mg 01/28/19 22:54 01/28/19 23:05 Ativan PO 01/28/19 22:55 1 mg ONETIME ONE Administration - Re-Assessments/Exams Free Text/Narrative Re-Assessment/Exam: 01/28/19 22:55 chest x-ray revealed no acute findings. EKG reveals NSR without ectopy. WBC 14.52 I feel this is due to stress response. RBC 4.78 H & H 14.5/42.7 plt count 312. chemistry and troponin pending. 01/28/19 23:14 Patient is resting comfortably states she feels better after receiving Toradol and Ativan. Na + 139 K + 3.4 chl 104 co2 24 bun 14 creatine 0.8 troponin 0.017 ck mb 0.5. I do not feel her pain is cardiac in nature. I will discharge home with instructions to follow up with her PCP for further evaluation and treatment of her anxiety. Instructed to return to the ER for any new or acute worsening symptoms. Patient verbalized understanding and is comfortable with plan for discharge. She is stable at time of discharge. Departure - Departure Time of Disposition: 23:28 Disposition: Home, Self-Care 01 Condition: Good Clinical Impression: Atypical chest pain - Discharge Information *PRESCRIPTION DRUG MONITORING PROGRAM REVIEWED*: Not Applicable *COPY OF PRESCRIPTION DRUG MONITORING REPORT IN PATIENT ALINA: Not Applicable Instructions: Nonspecific Chest Pain, [id number], Generalized Anxiety Disorder, Adult Forms: ED Department Discharge Additional Instructions: You have been diagnosis with atypical chest pain. Your EKG showed normal sinus rhythm. Your blood studies were unremarkable. Your chest x-ray was unremarkable. I recommend you follow up with your PCP. Return to the ER for any new or acute worsening symptoms. - My Orders Last 24 Hours: My Active Orders 01/28/19 22:17 EKG Documentation Completion [RC] STAT Chest 1V Frontal [CR] Stat 01/28/19 22:30 CKMB [CHEM] Stat COMPREHENSIVE METABOLIC PN,CMP [CHEM] Stat TROPONIN I [CHEM] Stat - Assessment/Plan Last 24 Hours: My Active Orders 01/28/19 22:17 EKG Documentation Completion [RC] STAT Chest 1V Frontal [CR] Stat 01/28/19 22:30 CKMB [CHEM] Stat COMPREHENSIVE METABOLIC PN,CMP [CHEM] Stat TROPONIN I [CHEM] Stat
--- NOTE | 2019-01-29 05:58 | CR ---
Chest: Portable view of the chest was obtained. Comparison: Prior chest x-ray of 06/24/16. Heart size and mediastinum are within normal limits for portable technique. Lungs are clear with no acute parenchymal change. Bony structures are grossly intact. Impression: 1. Nothing acute is seen on portable chest x-ray. Diagnostic code #1
== END 2019-01-28 23:37 | disposition home or self-care (01) ==
LOC: JD.ED 21:49
DX: R07.89 Other chest pain (principal); Z88.1 Allergy status to other antibiotic agents; Z88.8 Allergy status to other drugs, medicaments and biological substances; Z79.899 Other long term (current) drug therapy
CPT/HCPCS: 36415; 71045; 80053; 82553; 84484; 85025; 93005; 96372; 99285; A9270; J1885

== ENCOUNTER 2019-07-15 09:03 | Day surgery (SDC) | payer MEDICAID ==
[2019-07-15] MEDS ORDERED: Lidocaine 1% 30 ML SDV ONE (09:39)
[2019-07-15] MEDS ORDERED: Clindamycin Phosphate in D5W 900 MG in Premix Bag 1 BAG IV ONE ×2 (09:44)
[2019-07-15] MEDS ORDERED: Bupivacaine 0.25% 10 ML SDV ONE ×2 (09:45→10:27)
[2019-07-15] MEDS ORDERED: Scopolamine 1.5 MG Transdermal Patch TOP SCH (10:10)
--- NOTE | 2019-07-15 10:20 | PCM.PREANE ---
Preanesthetic Assessment - Anesthesia/Transfusion/Family Hx Anesthesia History: Prior Anesthesia Reaction Type of Anesthesia Reaction: Excessive Nausea/Vomiting Family History of Anesthesia Reaction: No Transfusion History: No Prior Transfusion(s) Intubation History: Unknown - Review of Systems General: No Symptoms Pulmonary: No Symptoms (Smokin/2 ppd 25 years off and on. Last cigarette on Friday07/13/2019), Cough (mild-seasonal allergies) Cardiovascular: No Symptoms, Dyspnea on Exertion, Edema (chronic in nature) Gastrointestinal: No Symptoms (Left sided lower back pain with sciatica history of/ GERD) Neurological: No Symptoms (history of vertigo, history of motion sickness), Headache, Tingling (Right hand) Other: Reports: Liver Problems (History of elevated liver enzymes), Sinus Problem, Depression, Anxiety (history of PTSD) - Physical Assessment NPO Status Date: 07/15/19 NPO Status Time: 23:15 Vital Signs: HR: 100 BP: 127/98 Resp: 16 Temp: 97.5F Sat: 95% Height: 1.7 m Weight: 124.284 kg ASA Class: 2 Mental Status: Alert & Oriented x3 Airway Class: Mallampati = 2 Dentition: Reports: Normal Dentition, Caries Thyro-Mental Finger Breadths: 3 Mouth Opening Finger Breadths: 3 ROM/Head Extension: Full Lungs: Clear to Auscultation, Normal Respiratory Effort Cardiovascular: Regular Rate, Regular Rhythm, No Murmurs - Lab Values: Laboratory Last Values MRSA (PCR) Negative 07/14/19 15:17 All labs reviewed and noted and within acceptable ranges to proceed with scheduled procedure. - Imaging/EKG Impressions: EKG: SR rate=91, R Wave progression anterior leads. CXR: negative. - Allergies Allergies/Adverse Reactions: Allergies Allergy/AdvReac Type Severity Reaction Status Date / Time cephalexin monohydrate Allergy Hives Verified 07/14/19 15:52 [From Keflex] chlorhexidine Allergy Hives Verified 07/14/19 15:52 prochlorperazine edisylate Allergy Other Verified 07/14/19 15:52 [From Compazine] prochlorperazine maleate Allergy Other Verified 07/14/19 15:52 [From Compazine] shellfish derived Allergy Anaphylactic Verified 07/14/19 15:52 Shock - Anesthesia Plan Pre-Op Medication Ordered: None - Acknowledgements Anesthesia Type Planned: General Anesthesia Pt an Appropriate Candidate for the Planned Anesthesia: Yes Alternatives and Risks of Anesthesia Discussed w Pt/Guardian: Yes Pt/Guardian Understands and Agrees with Anesthesia Plan: Yes PreAnesthesia Questionnaire HEENT History: Reports: Impaired Vision, Sinusitis Other HEENT History: Pharyngitis, sinus pressure Cardiovascular History: Reports: Hypertension Respiratory History: Reports: Other (See Below) Other Respiratory History: Cough, hemoptysis, viral URI Gastrointestinal History: Reports: GERD, Hemorrhoids Other Gastrointestinal History: Hematochezia, external hemorrhoids, elevated LFTs, hematochezia Genitourinary History: Reports: Renal Calculus, UTI, Recurrent, Other (See Below ) Other Genitourinary History: LGSIL, CINI, CINII, polydipsia, dense breasts [employer]GER History: Reports: Ectopic , Other OB/BYN History: , SAB, breast asymmetry, CINI, CINII, heavy menses, LGSIL Musculoskeletal History: Reports: Gout, Other (See Below) Other Musculoskeletal History: Myalgias Neurological History: Reports: Migraines, Vertigo Other Neuro History: hand numbness Psychiatric History: Reports: Addiction, Anxiety, Depression Other Psychiatric History: Insomnia Endocrine/Metabolic History: Reports: Obesity/BMI 30+ Hematologic History: Reports: None Immunologic History: Reports: None Oncologic (Cancer) History: Reports: None Dermatologic History: Reports: Other (See Below) Other Dermatologic History: Hidradenitis suppurativa, open wound to foot, plantar wart to left foot, facial skin lesion - Infectious Disease History Infectious Disease History: Reports: Chicken Pox, Shingles - Past Surgical History Head Surgeries/Procedures: Reports: None HEENT Surgical History: Reports: Oral Surgery Cardiovascular Surgical History: Reports: None Respiratory Surgical History: Reports: None GI Surgical History: Reports: Appendectomy, Cholecystectomy Female Surgical History: Reports: Hysterectomy Other Female Surgeries/Procedures: Unilateral salpingectomy Endocrine Surgical History: Reports: None Neurological Surgical History: Reports: None Musculoskeletal Surgical History: Reports: None Oncologic Surgical History: Reports: None Dermatological Surgical History: Reports: None - SUBSTANCE USE Smoking Status *Q: Former Smoker Recreational Drug Use History: No - HOME MEDS Home Medications: Home Meds Omeprazole 20 mg PO DAILY 03/04/15 [History] Cranberry Fruit Concentrate [Cranberry] 450 mg PO DAILY 01/16/17 [History] Escitalopram [Lexapro] 20 mg PO DAILY 05/22/18 [History] EPINEPHrine [Epipen] 1 dose IM ONETIME PRN 05/25/18 [History] Ascorbic Acid [Vitamin C] 250 mg PO DAILY 07/14/19 [History] Cholecalciferol (Vitamin D3) [Vitamin D3] 2,000 unit PO DAILY 07/14/19 [History] Clindamycin Phos/Benzoyl Perox [Clinda-Benzoyl Perox 1-5% Pump] 1 dose TOP BID 07/14/19 [History] Ibuprofen 800 mg PO TID PRN 07/14/19 [History] LORazepam 0.5 mg PO BEDTIME PRN 07/14/19 [History] buPROPion HCl [Wellbutrin Xl] 150 mg PO DAILY 07/14/19 [History] busPIRone HCl [Buspirone HCl] 7.5 mg PO BID 07/14/19 [History] Acetaminophen/HYDROcodone [[place] 325-5 MG] 1 - 2 tab PO Q6H PRN #30 tablet 07/15 [Rx] Ondansetron [Zofran] 4 mg PO Q6H PRN #10 tab 07/15/19 [Rx] - CURRENT (IN HOUSE) MEDS Current Meds: Current Medications Lactated Ringer's (Ringers, Lactated) 1,000 mls @ 125 mls/hr IV ASDIRECTED LIOR Stop: 07/15/19 23:00 Lidocaine/Sodium Bicarbonate (Buffered Lidocaine 1% In Ns 8.4%) 0.25 ml IDERM ONETIME PRN PRN Reason: Prior to IV Start Stop: 07/15/19 18:00 Scopolamine (Transderm-Scop) 1.5 mg TOP ONETIME LIOR Sodium Chloride (Saline Flush) 10 ml FLUSH ASDIRECTED PRN PRN Reason: Keep Vein Open Stop: 07/15/19 18:00 Discontinued Medications Bupivacaine HCl (Sensorcaine-Mpf 0.25%) Confirm Administered Dose 30 ml .ROUTE .STK-MED ONE Stop: 07/15/19 09:46 Clindamycin Phosphate 900 mg/ (Premix) 50 mls @ 100 mls/hr IV ONETIME ONE Stop: 07/15/19 10:13 Lidocaine HCl (Xylocaine-Mpf 1%) Confirm Administered Dose 30 ml .ROUTE .Apofore- Resilinc ONE Stop: 07/15/19 09:40
[2019-07-15] MEDS ORDERED: Lidocaine 1% 6 ML ONE (11:01)
[2019-07-15] MEDS ORDERED: Ondansetron 4 MG/2 ML SDV ONE (11:01)
[2019-07-15] MEDS ORDERED: Rocuronium 50 MG/5 ML Vial ONE (11:01)
[2019-07-15] MEDS ORDERED: Dexamethasone 4 MG/ML 5 ML MDV ONE (11:01)
[2019-07-15] MEDS ORDERED: diphenhydrAMINE 50 MG/ML SDV ONE (11:01)
[2019-07-15] MEDS ORDERED: HYDROmorphone 0.5 MG/0.5 ML Syringe ONE ×2 (11:01→11:19)
[2019-07-15] MEDS ORDERED: Lactated Ringers 1,000 ML ONE (11:01)
[2019-07-15] MEDS ORDERED: Ketorolac 30 MG/ML SDV ONE (11:01)
[2019-07-15] MEDS ORDERED: Propofol 200 MG/20 ML SDV ONE (11:02)
[2019-07-15] MEDS ORDERED: Midazolam 1 MG/ML 2 ML SDV ONE (11:03)
[2019-07-15] MEDS ORDERED: fentaNYL 250 MCG/5 ML SDV ONE (11:03)
[2019-07-15] MEDS ORDERED: Neostigmine Methylsulfate 1 MG/ML 5 ML Syringe ONE (11:21)
[2019-07-15] MEDS ORDERED: Phenylephrine/Normal Saline 100 MCG/ML 10 ML Syringe ONE (11:24)
[2019-07-15] MEDS ORDERED: HYDROmorphone 0.5 MG/0.5 ML Syringe IVPUSH PRN (11:25)
[2019-07-15] MEDS ORDERED: Albuterol 0.083% 2.5 MG/3 ML Neb Soln NEB PRN (11:25)
[2019-07-15] MEDS ORDERED: ePHEDrine 50 MG/ML SDV IVPUSH PRN (11:25)
[2019-07-15] MEDS ORDERED: fentaNYL 100 MCG/2 ML SDV IVPUSH PRN (11:25)
[2019-07-15] MEDS ORDERED: Ondansetron 4 MG/2 ML SDV IVPUSH PRN (11:25)
[2019-07-15] MEDS ORDERED: Phenylephrine 1 MG in Sodium Chloride 0.9% 10 ML IV SCH (11:30)
[2019-07-15] MEDS ORDERED: Haloperidol Lactate 5 MG/ML SDV IVPUSH ONE (12:00)
[2019-07-15] MEDS ORDERED: Albuterol 0.083% 2.5 MG/3 ML Neb Soln ONE (12:27)
--- NOTE | 2019-07-15 12:31 | PCM.POSTAN ---
POST ANESTHESIA ASSESSMENT - MENTAL STATUS Mental Status: Alert - VITAL SIGNS Vital Signs: Last Vital Signs Temp 98.2f 07/15/19 1219 Pulse 111 07/15/19 1219 Resp 19 07/15/19 1219 BP 135/83 07/15/19 1219 Pulse Ox 95 07/15/19 1219 - RESPIRATORY Respiratory Status: Respiratory Rate WNL, Airway Patent, O2 Saturation Stable, Supplemental Oxygen - CARDIOVASCULAR CV Status: Pulse Rate WNL, Blood Pressure Stable - GASTROINTESTINAL GI Status: No Symptoms - POST OP HYDRATION Hydration Status: Adequate & Stable
[2019-07-15] MEDS ORDERED: Acetaminophen/HYDROcodone 325-5 MG Tab PO PRN (13:19)
--- NOTE | 2019-07-15 13:54 | PCM48HPAN ---
Post Anesthesia Note - EVALUATION WITHIN 48HRS OF ANESTHETIC Vital Signs in Normal Range: Yes Patient Participated in Evaluation: Yes Respiratory Function Stable: Yes Airway Patent: Yes Cardiovascular Function Stable: Yes Hydration Status Stable: Yes Pain Control Satisfactory: Yes Nausea and Vomiting Control Satisfactory: Yes Mental Status Recovered: Yes Vital Signs: Last Vital Signs Temp 37.1 C 07/15/19 13:45 Pulse 100 07/15/19 09:55 Resp 12 07/15/19 13:45 BP 145/64 H 07/15/19 13:45 Pulse Ox 90 L 07/15/19 13:45
[2019-07-15 18:12] VITALS: BP 114/60; PULSE 105
--- NOTE | 2019-07-19 10:58 | PCM.OPNOTE ---
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
--- NOTE | 2019-07-19 11:28 | OR ---
DATE OF OPERATION: 07/15/2019 SURGEON: Gabriel James MD OPERATION PERFORMED: Right ulnar nerve decompression. 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 ANESTHESIA: General LMA with local. ANESTHESIA PROVIDER: Amanda Vega CRNA. INTAKE CLINICIAN: Sun Panchal PA-C ESTIMATED BLOOD LOSS: 5 mL. COMPLICATIONS: None. CONDITION: Stable. DESCRIPTION OF PROCEDURE: The patient was identified in the preop holding area. Proper site was marked and identified by the surgeon. The patient was taken back to the operating theater where after adequate anesthesia, the patient's right upper extremity was sterilely prepped and draped in the usual sterile fashion. OR time-out was performed. The patient received 2 g IV Ancef. Sterile tourniquet was then applied to the right upper extremity and right upper extremity was exsanguinated. Tourniquet was insufflated to 225 mmHg. A standard curvilinear incision was done centered over the cubital tunnel up to the triceps, intermuscular septum, and down distally to the flexor forearm mass. This was taken down. Then, blunt dissection was done to identify the nerve near the intermuscular septum. This was identified and the nerve was then decompressed. The patient was noted to have a significant amount of scar tissue near Frazier's ligament at the elbow which was significantly noted to have return of blood flow once this was decompressed in that region. This was taken down to the cubital tunnel under direct visualization. Using a tenotomy scissors and a Curtice blade, the scar tissue was resected over the top of the nerve. It was decompressed all the way distally to the forearm fascia making sure that there were no other tight bands. At this time, the patient's elbow was brought through a range of motion and there was no subluxation of the nerve. Adequate saline was irrigated through the wound. 2-0 Vicryl was used subcutaneously. Milad were used for the skin. The patient was placed in a sterile soft dressing and a posterior slab splint and sent to PACU in stable condition. MMODAL /[id number]
== END 2019-07-15 18:32 | disposition home or self-care (01) ==
LOC: JD.SDS 09:03
PROVIDERS: ATTEND Orthopaedic Surgery
DX: G56.21 Lesion of ulnar nerve, right upper limb (principal); F41.8 Other specified anxiety disorders; K21.9 Gastro-esophageal reflux disease without esophagitis; M10.9 Gout, unspecified; E66.01 Morbid (severe) obesity due to excess calories; Z68.41 Body mass index [BMI] 40.0-44.9, adult; Z87.891 Personal history of nicotine dependence; Z91.013 Allergy to seafood; Z88.8 Allergy status to other drugs, medicaments and biological substances; Z88.1 Allergy status to other antibiotic agents; Z79.899 Other long term (current) drug therapy
CPT/HCPCS: 64718; 87641; 94640; A9270; J1100; J1170; J1200; J1885; J2001; J2250; J2370; J2405; J2704; J2710; J3010; J3490; J7120; 01710

== ENCOUNTER 2019-09-03 12:44 | Emergency (ER) | payer MEDICAID ==
[2019-09-03 13:02] VITALS: BP 165/114; PULSE 83
[2019-09-03] MEDS ORDERED: Sodium Chloride 0.9% 10 ML Syringe FLUSH PRN (13:06)
[2019-09-03] MEDS ORDERED: diphenhydrAMINE 50 MG/ML SDV IVPUSH ONE (13:07)
[2019-09-03] MEDS ORDERED: Metoclopramide 10 MG/2 ML SDV IVPUSH ONE (13:07)
--- NOTE | 2019-09-03 13:46 | EDM.PDOC ---
ED HPI GENERAL MEDICAL PROBLEM - General Chief Complaint: Headache Stated Complaint: MIGRAINE Time Seen by Provider: 09/03/19 13:01 Source of Information: Reports: Patient History Limitations: Reports: No Limitations - History of Present Illness INITIAL COMMENTS - FREE TEXT/NARRATIVE: The patient presents with a headache. She has a history of migraines. This started yesterday and if feels like her normal migraines. The headache started in the back of her head and has extended to both sides of her head. She has photophobia. She has nausea and vomiting. She has no numbness or weakness. Onset: Gradual Duration: Day(s): (Yesterday) Location: Reports: Head Quality: Reports: Sharp Severity: Severe Improves with: Reports: None Worsens with: Reports: None Associated Symptoms: Reports: Headaches, Nausea/Vomiting. Denies: Chest Pain, Cough, Fever/Chills, Shortness of Breath Headache Pain Score (Numeric/FACES): 10 - Related Data Allergies Allergy/AdvReac Type Severity Reaction Status Date / Time cephalexin monohydrate Allergy Hives Verified 07/14/19 15:52 [From Keflex] chlorhexidine Allergy Hives Verified 07/14/19 15:52 prochlorperazine edisylate Allergy Other Verified 07/14/19 15:52 [From Compazine] prochlorperazine maleate Allergy Other Verified 07/14/19 15:52 [From Compazine] shellfish derived Allergy Anaphylactic Verified 07/14/19 15:52 Shock Home Meds: Home Meds Omeprazole 20 mg PO DAILY 03/04/15 [History] Cranberry Fruit Concentrate [Cranberry] 450 mg PO DAILY 01/16/17 [History] Escitalopram [Lexapro] 20 mg PO DAILY 05/22/18 [History] EPINEPHrine [Epipen] 1 dose IM ONETIME PRN 05/25/18 [History] Ascorbic Acid [Vitamin C] 250 mg PO DAILY 07/14/19 [History] Cholecalciferol (Vitamin D3) [Vitamin D3] 2,000 unit PO DAILY 07/14/19 [History] Clindamycin Phos/Benzoyl Perox [Clinda-Benzoyl Perox 1-5% Pump] 1 dose TOP BID 07/14/19 [History] Ibuprofen 800 mg PO TID PRN 07/14/19 [History] LORazepam 0.5 mg PO BEDTIME PRN 07/14/19 [History] buPROPion HCl [Wellbutrin Xl] 150 mg PO DAILY 07/14/19 [History] busPIRone HCl [Buspirone HCl] 7.5 mg PO BID 07/14/19 [History] Ondansetron [Zofran] 4 mg PO Q6H PRN #10 tab 07/15/19 [Rx] hydroCHLOROthiazide [Hydrochlorothiazide] 25 mg PO DAILY 09/03/19 [History] Past Medical History HEENT History: Reports: Impaired Vision, Sinusitis Other HEENT History: Pharyngitis, sinus pressure Cardiovascular History: Reports: Hypertension Respiratory History: Reports: Other (See Below) Other Respiratory History: past Cough, hemoptysis, viral URI Gastrointestinal History: Reports: GERD, Hemorrhoids Other Gastrointestinal History: Hematochezia, external hemorrhoids, elevated LFTs, hematochezia Genitourinary History: Reports: Renal Calculus, UTI, Recurrent, Other (See Below ) Other Genitourinary History: LGSIL, CINI, CINII, polydipsia, dense breasts [place] History: Reports: Ectopic , Other [place] History: , SAB, breast asymmetry, CINI, CINII, heavy menses, LGSIL Musculoskeletal History: Reports: Gout, Other (See Below) Other Musculoskeletal History: Myalgias Neurological History: Reports: Migraines, Vertigo Other Neuro History: hand numbness Psychiatric History: Reports: Addiction, Anxiety, Depression Other Psychiatric History: Insomnia Endocrine/Metabolic History: Reports: Obesity/BMI 30+ Hematologic History: Reports: None Immunologic History: Reports: None Oncologic (Cancer) History: Reports: None Dermatologic History: Reports: Other (See Below) Other Dermatologic History: Hidradenitis suppurativa, open wound to foot, plantar wart to left foot, facial skin lesion - Infectious Disease History Infectious Disease History: Reports: Chicken Pox, Shingles - Past Surgical History HEENT Surgical History: Reports: Oral Surgery GI Surgical History: Reports: Appendectomy, Cholecystectomy Female Surgical History: Reports: Hysterectomy Other Female Surgeries/Procedures: Unilateral salpingectomy Endocrine Surgical History: Reports: None Neurological Surgical History: Reports: None Other Musculoskeletal Surgeries/Procedures:: ulner transposition Dermatological Surgical History: Reports: None Social & Family History - Family History Family Medical History: Noncontributory HEENT: Reports: None Cardiac: Reports: None Respiratory: Reports: None GI: Reports: None : Reports: None OBGYN: Reports: None Musculoskeletal: Reports: None Neurological: Reports: None Psychiatric: Reports: None Endocrine/Metabolic: Reports: Diabetes Mellitus, Type 3c Hematologic: Reports: None Oncologic: Reports: Breast - Tobacco Use Smoking Status *Q: Current Some Day Smoker Years of Tobacco use: 25 Packs/Tins Daily: 0.5 - Caffeine Use Caffeine Use: Reports: Coffee Other Caffeine Use: one monster daily Caffeine Use Comment: rarely - Recreational Drug Use Recreational Drug Use: No - Living Situation & Occupation Living situation: Reports: , with Significant Other (Boyfriend), with Family (2 kids) Occupation: Employed ([employer]) ED ROS GENERAL - Review of Systems Review Of Systems: See Below Constitutional: Reports: No Symptoms HEENT: Reports: No Symptoms Respiratory: Reports: No Symptoms Cardiovascular: Reports: No Symptoms Endocrine: Reports: No Symptoms GI/Abdominal: Reports: Nausea, Vomiting. Denies: Abdominal Pain : Reports: No Symptoms Musculoskeletal: Reports: No Symptoms - Physical Exam Exam: See Below Exam Limited By: No Limitations General Appearance: Alert, No Apparent Distress Ears: Normal External Exam Nose: Normal Inspection Head Exam: Atraumatic, Normocephalic Neck: Normal Inspection Respiratory/Chest: No Respiratory Distress, Lungs Clear, Normal Breath Sounds Cardiovascular: Regular Rate, Rhythm, No Edema, No Murmur GI/Abdominal: Soft, Non-Tender, No Organomegaly, No Mass Neuro Exam (Abbreviated): Alert, Oriented, No Motor/Sensory Deficits Course - Vital Signs Last Recorded V/S: Last Vital Signs Temp 98.7 F 09/03/19 12:57 Pulse 83 09/03/19 12:57 Resp 16 09/03/19 12:57 BP 165/114 H 09/03/19 12:57 Pulse Ox 97 09/03/19 12:57 - Orders/Labs/Meds Orders: Active Orders 24 hr Category Date Time Status Peripheral IV Care [RC] . DIRECTED Care 09/03/19 13:07 Active Sodium Chloride 0.9% [Saline Flush] Med 09/03/19 13:06 Active 10 ml FLUSH ASDIRECTED PRN Peripheral IV Insertion Adult [OM.PC] Routine Oth 09/03/19 13:06 Ordered Medication Orders Sodium Chloride (Saline Flush) 10 ml FLUSH ASDIRECTED PRN PRN Reason: Keep Vein Open Last Admin: 09/03/19 13:53 Dose: 10 ml Meds: Medications Generic Name Dose Route Start Last Admin Trade Name Devorah PRN Reason Stop Dose Admin Sodium Chloride 10 ml 09/03/19 13:06 09/03/19 13:53 Saline Flush FLUSH 10 ml ASDIRECTED PRN Administration Keep Vein Open Discontinued Medications Generic Name Dose Route Start Last Admin Trade Name Freq PRN Reason Stop Dose Admin Diphenhydramine HCl 50 mg 09/03/19 13:07 09/03/19 13:52 Benadryl IVPUSH 09/03/19 13:08 50 mg ONETIME ONE Administration Hydromorphone HCl 1 mg 09/03/19 14:48 09/03/19 14:53 Dilaudid IVPUSH 09/03/19 14:49 1 mg ONETIME ONE Administration Metoclopramide HCl 10 mg 09/03/19 13:07 09/03/19 13:53 Reglan IVPUSH 09/03/19 13:08 10 mg ONETIME ONE Administration - Re-Assessments/Exams Free Text/Narrative Re-Assessment/Exam: 09/03/19 13:45 I ordered an IV saline lock, reglan 10mg IV, benadryl 50mg IV and toradol 30mg IV. 09/03/19 15:27 She still had pain earlier to I ordered some dilaudid 1m IV. She feels better now. I will discharge her home. Departure - Departure Time of Disposition: 15:30 Disposition: Home, Self-Care 01 Condition: Good Clinical Impression: Migraine - Discharge Information *PRESCRIPTION DRUG MONITORING PROGRAM REVIEWED*: No *COPY OF PRESCRIPTION DRUG MONITORING REPORT IN PATIENT ALINA: No Referrals: Radha Olmos PA-C [Primary Care Provider] - Forms: ED Department Discharge Additional Instructions: Go home and rest. Please return if you are worse. - My Orders Last 24 Hours: My Active Orders 09/03/19 13:06 Sodium Chloride 0.9% [Saline Flush] 10 ml FLUSH ASDIRECTED PRN Peripheral IV Insertion Adult [OM.PC] Routine 09/03/19 13:07 Peripheral IV Care [RC] . DIRECTED - Assessment/Plan Last 24 Hours: My Active Orders 09/03/19 13:06 Sodium Chloride 0.9% [Saline Flush] 10 ml FLUSH ASDIRECTED PRN Peripheral IV Insertion Adult [OM.PC] Routine 09/03/19 13:07 Peripheral IV Care [RC] . DIRECTED
[2019-09-03] MEDS ORDERED: HYDROmorphone 1 MG/ML Syringe IVPUSH ONE (14:48)
== END 2019-09-03 15:44 | disposition home or self-care (01) ==
LOC: JD.ED 12:44
DX: G43.909 Migraine, unspecified, not intractable, without status migrainosus (principal); I10 Essential (primary) hypertension; K21.9 Gastro-esophageal reflux disease without esophagitis; F41.9 Anxiety disorder, unspecified; F32.9 Major depressive disorder, single episode, unspecified; F17.210 Nicotine dependence, cigarettes, uncomplicated; E66.9 Obesity, unspecified; Z68.41 Body mass index [BMI] 40.0-44.9, adult; Z88.1 Allergy status to other antibiotic agents; Z88.8 Allergy status to other drugs, medicaments and biological substances; Z91.013 Allergy to seafood; Z79.899 Other long term (current) drug therapy
CPT/HCPCS: 96374; 96375; 99283; J1170; J1200; J2765

== ENCOUNTER 2019-11-17 18:13 | Emergency (ER) | payer MEDICAID ==
[2019-11-17 18:26] VITALS: PULSE 83
[2019-11-17] MEDS ORDERED: Metoclopramide 10 MG/2 ML SDV IVPUSH ONE (18:31)
[2019-11-17] MEDS ORDERED: diphenhydrAMINE 50 MG/ML SDV IVPUSH ONE (18:31)
[2019-11-17] MEDS ORDERED: Sodium Chloride 0.9% 10 ML Syringe FLUSH PRN (18:31)
[2019-11-17] MEDS ORDERED: Ketorolac 30 MG/ML SDV IVPUSH ONE (18:31)
[2019-11-17] MEDS ORDERED: Sodium Chloride 0.9% 1,000 ML IV SCH (18:45)
--- NOTE | 2019-11-17 19:02 | EDM.PDOC ---
ED HPI GENERAL MEDICAL PROBLEM - General Chief Complaint: Headache Stated Complaint: HEAD ACHE Time Seen by Provider: 11/17/19 18:22 Source of Information: Reports: Patient, Old Records, RN Notes Reviewed History Limitations: Reports: No Limitations - History of Present Illness INITIAL COMMENTS - FREE TEXT/NARRATIVE: Patient is a 43-year-old female who presents to the ED for the evaluation of her migraine headache. Patient states that this started this morning. Has progressively gotten worse throughout the day. She did take 800 mg ibuprofen at 9AM and again at 1 PM for management, she states this does not really help much. She feels as if this is a typical migraine for her, she states she is light sensitive but not sound sensitivity she does not have any spots or seeing anything in her field of vision. She is not complaining of any blurred vision or double vision. She would not characterize this as the worst headache of her life. She states that she did have 2 episodes of vomiting today as well. This headache is located mostly on the right posterior portion of her head, she states this is common for her migraines originate. She states she does not have any migraine prophylaxis medications at home, as she states there is not really anything that is worked for her, and she gets them very sporadically. 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 Pain Score (Numeric/FACES): 8 - Related Data Allergies Allergy/AdvReac Type Severity Reaction Status Date / Time cephalexin monohydrate Allergy Hives Verified 11/17/19 18:26 [From Keflex] chlorhexidine Allergy Hives Verified 11/17/19 18:26 prochlorperazine edisylate Allergy Other Verified 11/17/19 18:26 [From Compazine] prochlorperazine maleate Allergy Other Verified 11/17/19 18:26 [From Compazine] shellfish derived Allergy Anaphylactic Verified 11/17/19 18:26 Shock Home Meds: Home Meds Omeprazole 20 mg PO DAILY 03/04/15 [History] Cranberry Fruit Concentrate [Cranberry] 450 mg PO DAILY 01/16/17 [History] Escitalopram [Lexapro] 20 mg PO DAILY 05/22/18 [History] EPINEPHrine [Epipen] 1 dose IM ONETIME PRN 05/25/18 [History] Ascorbic Acid [Vitamin C] 250 mg PO DAILY 07/14/19 [History] Cholecalciferol (Vitamin D3) [Vitamin D3] 2,000 unit PO DAILY 07/14/19 [History] Clindamycin Phos/Benzoyl Perox [Clinda-Benzoyl Perox 1-5% Pump] 1 dose TOP BID 07/14/19 [History] Ibuprofen 800 mg PO TID PRN 07/14/19 [History] LORazepam 0.5 mg PO BEDTIME PRN 07/14/19 [History] busPIRone HCl [Buspirone HCl] 7.5 mg PO BID 07/14/19 [History] hydroCHLOROthiazide [Hydrochlorothiazide] 25 mg PO DAILY 09/03/19 [History] Past Medical History HEENT History: Reports: Impaired Vision, Sinusitis Other HEENT History: Pharyngitis, sinus pressure Cardiovascular History: Reports: Hypertension Respiratory History: Reports: Other (See Below) Other Respiratory History: past Cough, hemoptysis, viral URI Gastrointestinal History: Reports: GERD, Hemorrhoids Other Gastrointestinal History: Hematochezia, external hemorrhoids, elevated LFTs, hematochezia Genitourinary History: Reports: Renal Calculus, UTI, Recurrent, Other (See Below ) Other Genitourinary History: LGSIL, CINI, CINII, polydipsia, dense breasts 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 , 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: , SAB, breast asymmetry, CINI, CINII, heavy menses, LGSIL Musculoskeletal History: Reports: Gout, Other (See Below) Other Musculoskeletal History: Myalgias Neurological History: Reports: Migraines, Vertigo Other Neuro History: hand numbness Psychiatric History: Reports: Addiction, Anxiety, Depression Other Psychiatric History: Insomnia Endocrine/Metabolic History: Reports: Obesity/BMI 30+ Dermatologic History: Reports: Other (See Below) Other Dermatologic History: Hidradenitis suppurativa, open wound to foot, plantar wart to left foot, facial skin lesion - Infectious Disease History Infectious Disease History: Reports: Chicken Pox, Shingles - Past Surgical History Head Surgeries/Procedures: Reports: None HEENT Surgical History: Reports: Oral Surgery GI Surgical History: Reports: Appendectomy, Cholecystectomy Female Surgical History: Reports: Hysterectomy Other Female Surgeries/Procedures: Unilateral salpingectomy Endocrine Surgical History: Reports: None Neurological Surgical History: Reports: None Other Musculoskeletal Surgeries/Procedures:: ulner transposition Dermatological Surgical History: Reports: None Social & Family History - Family History Family Medical History: Noncontributory HEENT: Reports: None Cardiac: Reports: None Respiratory: Reports: None GI: Reports: None : Reports: None OBGYN: Reports: None Musculoskeletal: Reports: None Neurological: Reports: None Psychiatric: Reports: None Endocrine/Metabolic: Reports: Diabetes Mellitus, Type 3c Hematologic: Reports: None Oncologic: Reports: Breast - Tobacco Use Smoking Status *Q: Current Every Day Smoker Years of Tobacco use: 25 Packs/Tins Daily: 0.5 - Caffeine Use Caffeine Use: Reports: Soda Other Caffeine Use: one monster daily Caffeine Use Comment: rarely - Recreational Drug Use Recreational Drug Use: No - Living Situation & Occupation Living situation: Reports: , with Significant Other (Boyfriend), with Family (2 kids) Occupation: Employed ([employer]) ED ROS GENERAL - Review of Systems Review Of Systems: See Below Constitutional: Reports: Chills. Denies: Fever HEENT: Denies: Eye Pain, Rhinitis, Vision Change Respiratory: Denies: Shortness of Breath Cardiovascular: Denies: Chest Pain GI/Abdominal: Reports: Nausea, Vomiting. Denies: Abdominal Pain Musculoskeletal: Denies: Back Pain Neurological: Reports: Headache. Denies: Confusion, Numbness, Tingling, Trouble Speaking, Difficulty Walking - Physical Exam Exam: See Below Exam Limited By: No Limitations General Appearance: Alert, WD/WN, No Apparent Distress Eye Exam: Bilateral Eye: EOMI, Normal Inspection, PERRL Ears: Normal External Exam Nose: Normal Inspection Throat/Mouth: Normal Inspection, Normal Lips, Normal Teeth, Normal Gums, Normal Oropharynx, Normal Voice, No Airway Compromise Head Exam: Atraumatic, Normocephalic Respiratory/Chest: No Respiratory Distress, Lungs Clear, Normal Breath Sounds, No Accessory Muscle Use, Chest Non-Tender Cardiovascular: Normal Peripheral Pulses, Regular Rate, Rhythm, No Edema, No Murmur GI/Abdominal: Normal Bowel Sounds, Soft, Non-Tender, No Distention, No Mass Neuro Exam (Abbreviated): Alert, Oriented, Normal Cognition, No Motor/Sensory Deficits Extremities: Normal Inspection, Normal Capillary Refill Psychiatric: Normal Affect, Normal Mood Skin Exam: Warm, Dry, Intact, Normal Color, No Rash Course - Vital Signs Last Recorded V/S: Last Vital Signs Temp 96 F L 11/17/19 18:21 Pulse 83 11/17/19 18:21 Resp 20 11/17/19 18:21 BP Pulse Ox 94 L 11/17/19 18:21 - Orders/Labs/Meds Orders: Active Orders 24 hr Category Date Time Status Peripheral IV Care [RC] . DIRECTED Care 11/17/19 18:31 Ordered Sodium Chloride 0.9% @ 125 MLS/HR (1000ml Bag) Med 11/17/19 18:45 Ordered Sodium Chloride 0.9% [Normal Saline] 1,000 ml IV ASDIRECTED Sodium Chloride 0.9% [Saline Flush] Med 11/17/19 18:31 Ordered 10 ml FLUSH ASDIRECTED PRN Peripheral IV Insertion Adult [OM.PC] Routine Oth 11/17/19 18:31 Ordered Medication Orders Sodium Chloride (Normal Saline) 1,000 mls @ 125 mls/hr IV ASDIRECTED LIOR Last Admin: 11/17/19 18:48 Dose: 125 mls/hr Sodium Chloride (Saline Flush) 10 ml FLUSH ASDIRECTED PRN PRN Reason: Keep Vein Open Last Admin: 11/17/19 18:49 Dose: 10 ml Meds: Medications Generic Name Dose Route Start Last Admin Trade Name Freq PRN Reason Stop Dose Admin Sodium Chloride 1,000 mls @ 125 mls/hr 11/17/19 18:45 11/17/19 18:48 Normal Saline IV 125 mls/hr ASDIRECTED LIOR Administration Sodium Chloride 10 ml 11/17/19 18:31 11/17/19 18:49 Saline Flush FLUSH 10 ml ASDIRECTED PRN Administration Keep Vein Open Discontinued Medications Generic Name Dose Route Start Last Admin Trade Name Freq PRN Reason Stop Dose Admin Diphenhydramine HCl 25 mg 11/17/19 18:31 11/17/19 18:49 Benadryl IVPUSH 11/17/19 18:32 25 mg ONETIME ONE Administration Ketorolac Tromethamine 30 mg 11/17/19 18:31 11/17/19 18:48 Toradol IVPUSH 11/17/19 18:32 30 mg ONETIME ONE Administration Metoclopramide HCl 10 mg 11/17/19 18:31 11/17/19 18:50 Reglan IVPUSH 11/17/19 18:32 10 mg ONETIME ONE Administration - Re-Assessments/Exams Free Text/Narrative Re-Assessment/Exam: 11/17/19 19:13 Patient presents to the ED for the evaluation of a migraine headache. I did order IV to be placed with some IV fluids, 10 mg of Reglan, 25 mg Benadryl and 30 mg Toradol for nausea management. Will reassess after the patient has gotten his medications and fluids. Departure - Departure Time of Disposition: 20:05 Disposition: Home, Self-Care 01 Condition: Fair Clinical Impression: Headache Qualifiers: Headache type: other headache syndrome Qualified Code(s): G44.89 - Other headache syndrome - Discharge Information *PRESCRIPTION DRUG MONITORING PROGRAM REVIEWED*: No *COPY OF PRESCRIPTION DRUG MONITORING REPORT IN PATIENT ALINA: No Instructions: Migraine Headache, [id number] Referrals: Radha Olmos PA-C [Primary Care Provider] - Forms: ED Department Discharge Additional Instructions: You were evaluated in the ED for your headache. You were given a combination of medications and IV fluid for management. This did seem to provide you pretty good relief of your symptoms. Recommend that you go home and rest in a quiet, darkened room. Try also to keep well hydrated. Please return to the ED if your symptoms should change or worsen. Sepsis Event Note - Evaluation Sepsis Screening Result: No Definite Risk - Focused Exam Vital Signs: Vital Signs Temp Pulse Resp Pulse Ox 11/17/19 18:21 96 F L 83 20 94 L Date Exam was Performed: 11/17/19 Time Exam was Performed: 20:05 - My Orders Last 24 Hours: My Active Orders 11/17/19 18:31 Peripheral IV Care [RC] . DIRECTED Sodium Chloride 0.9% [Saline Flush] 10 ml FLUSH ASDIRECTED PRN Peripheral IV Insertion Adult [OM.PC] Routine 11/17/19 18:45 Sodium Chloride 0.9% @ 125 MLS/HR (1000ml Bag) Sodium Chloride 0.9% [Normal Saline] 1,000 ml IV ASDIRECTED - Assessment/Plan Last 24 Hours: My Active Orders 11/17/19 18:31 Peripheral IV Care [RC] . DIRECTED Sodium Chloride 0.9% [Saline Flush] 10 ml FLUSH ASDIRECTED PRN Peripheral IV Insertion Adult [OM.PC] Routine 02/12/20 18:45 Sodium Chloride 0.9% @ 125 MLS/HR (1000ml Bag) Sodium Chloride 0.9% [Normal Saline] 1,000 ml IV ASDIRECTED
== END 2019-11-17 20:20 | disposition home or self-care (01) ==
LOC: JD.ED 18:13
DX: I10 Essential (primary) hypertension (principal); K21.9 Gastro-esophageal reflux disease without esophagitis; E66.9 Obesity, unspecified; F41.9 Anxiety disorder, unspecified; F32.9 Major depressive disorder, single episode, unspecified; F17.210 Nicotine dependence, cigarettes, uncomplicated; Z79.899 Other long term (current) drug therapy; Z88.1 Allergy status to other antibiotic agents; Z88.3 Allergy status to other anti-infective agents; Z91.013 Allergy to seafood
CPT/HCPCS: 96361; 96374; 96375; 99284; J1200; J1885; J2765; J7030

== ENCOUNTER 2019-11-20 19:45 | Emergency (ER) | payer MEDICAID ==
[2019-11-20 20:08] VITALS: BP 155/95; PULSE 84
[2019-11-20] MEDS ORDERED: Sodium Chloride 0.9% 1,000 ML IV STA (20:21)
[2019-11-20] MEDS ORDERED: Metoclopramide 10 MG/2 ML SDV IVPUSH ONE (20:21)
[2019-11-20] MEDS ORDERED: Sodium Chloride 0.9% 10 ML Syringe FLUSH PRN (20:21)
[2019-11-20] MEDS ORDERED: HYDROmorphone 1 MG/ML Syringe IVPUSH ONE (20:22)
[2019-11-20] MEDS ORDERED: diphenhydrAMINE 50 MG/ML SDV IVPUSH ONE (20:22)
[2019-11-20] MEDS ORDERED: Ketorolac 30 MG/ML SDV IVPUSH ONE (20:22)
--- NOTE | 2019-11-20 20:47 | EDM.PDOC ---
ED HPI GENERAL MEDICAL PROBLEM - General Chief Complaint: Headache Stated Complaint: MIGRAINE Time Seen by Provider: 11/20/19 20:03 Source of Information: Reports: Patient History Limitations: Reports: No Limitations - History of Present Illness INITIAL COMMENTS - FREE TEXT/NARRATIVE: The patient presents with a migraine. This has been going on for a few days. She was seen here a few days ago. She did get a little better. The pain came back yesterday and it is bad. She as nausea and vomiting. She has photophobia. She has no numbness or weakness. She has a history of migraines. Onset: Gradual Duration: Day(s): Location: Reports: Head Quality: Reports: Sharp Severity: Severe Improves with: Reports: None Worsens with: Reports: None Associated Symptoms: Reports: Headaches, Nausea/Vomiting. Denies: Chest Pain, Cough, Fever/Chills, Shortness of Breath Headache Pain Score (Numeric/FACES): 8 - Related Data Allergies Allergy/AdvReac Type Severity Reaction Status Date / Time cephalexin monohydrate Allergy Hives Verified 11/20/19 20:03 [From eMeter] chlorhexidine Allergy Hives Verified 11/20/19 20:03 prochlorperazine edisylate Allergy Other Verified 11/20/19 20:03 [From Compazine] prochlorperazine maleate Allergy Other Verified 11/20/19 20:03 [From Compazine] shellfish derived Allergy Anaphylactic Verified 11/20/19 20:03 Shock Home Meds: Home Meds Omeprazole 20 mg PO DAILY 03/04/15 [History] Cranberry Fruit Concentrate [Cranberry] 450 mg PO DAILY 01/16/17 [History] Escitalopram [Lexapro] 20 mg PO DAILY 05/22/18 [History] EPINEPHrine [Epipen] 1 dose IM ONETIME PRN 05/25/18 [History] Ascorbic Acid [Vitamin C] 250 mg PO DAILY 07/14/19 [History] Cholecalciferol (Vitamin D3) [Vitamin D3] 2,000 unit PO DAILY 07/14/19 [History] Clindamycin Phos/Benzoyl Perox [Clinda-Benzoyl Perox 1-5% Pump] 1 dose TOP BID 07/14/19 [History] Ibuprofen 800 mg PO TID PRN 07/14/19 [History] LORazepam 0.5 mg PO BEDTIME PRN 07/14/19 [History] busPIRone HCl [Buspirone HCl] 7.5 mg PO BID 07/14/19 [History] hydroCHLOROthiazide [Hydrochlorothiazide] 25 mg PO DAILY 09/03/19 [History] Past Medical History HEENT History: Reports: Impaired Vision, Sinusitis Other HEENT History: Pharyngitis, sinus pressure Cardiovascular History: Reports: Hypertension Respiratory History: Reports: Other (See Below) Other Respiratory History: past Cough, hemoptysis, viral URI Gastrointestinal History: Reports: GERD, Hemorrhoids Other Gastrointestinal History: Hematochezia, external hemorrhoids, elevated LFTs, hematochezia Genitourinary History: Reports: Renal Calculus, UTI, Recurrent, Other (See Below ) Other Genitourinary History: LGSIL, CINI, CINII, polydipsia, dense breasts 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 , 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: , SAB, breast asymmetry, CINI, CINII, heavy menses, LGSIL Musculoskeletal History: Reports: Gout, Other (See Below) Other Musculoskeletal History: Myalgias Neurological History: Reports: Migraines, Vertigo Other Neuro History: hand numbness Psychiatric History: Reports: Addiction, Anxiety, Depression Other Psychiatric History: Insomnia Endocrine/Metabolic History: Reports: Obesity/BMI 30+ Hematologic History: Reports: None Immunologic History: Reports: None Oncologic (Cancer) History: Reports: None Dermatologic History: Reports: Other (See Below) Other Dermatologic History: Hidradenitis suppurativa, open wound to foot, plantar wart to left foot, facial skin lesion - Infectious Disease History Infectious Disease History: Reports: Chicken Pox, Shingles - Past Surgical History Head Surgeries/Procedures: Reports: None HEENT Surgical History: Reports: Oral Surgery GI Surgical History: Reports: Appendectomy, Cholecystectomy Female Surgical History: Reports: Hysterectomy Other Female Surgeries/Procedures: Unilateral salpingectomy Endocrine Surgical History: Reports: None Neurological Surgical History: Reports: None Other Musculoskeletal Surgeries/Procedures:: ulner transposition Dermatological Surgical History: Reports: None Social & Family History - Family History Family Medical History: Noncontributory HEENT: Reports: None Cardiac: Reports: None Respiratory: Reports: None GI: Reports: None : Reports: None OBGYN: Reports: None Musculoskeletal: Reports: None Neurological: Reports: None Psychiatric: Reports: None Endocrine/Metabolic: Reports: Diabetes Mellitus, Type 3c Hematologic: Reports: None Oncologic: Reports: Breast - Tobacco Use Smoking Status *Q: Current Every Day Smoker Years of Tobacco use: 25 Packs/Tins Daily: 0.5 - Caffeine Use Caffeine Use: Reports: Soda Other Caffeine Use: one monster daily Caffeine Use Comment: rarely - Recreational Drug Use Recreational Drug Use: No - Living Situation & Occupation Living situation: Reports: , with Significant Other (Boyfriend), with Family (2 kids) Occupation: Employed ([employer]) ED ROS GENERAL - Review of Systems Review Of Systems: See Below Constitutional: Reports: No Symptoms HEENT: Reports: No Symptoms Respiratory: Reports: No Symptoms Cardiovascular: Reports: No Symptoms Endocrine: Reports: No Symptoms GI/Abdominal: Reports: Nausea, Vomiting. Denies: Abdominal Pain : Reports: No Symptoms Musculoskeletal: Reports: No Symptoms Skin: Reports: No Symptoms Neurological: Reports: Headache - Physical Exam Exam: See Below Exam Limited By: No Limitations General Appearance: Alert, No Apparent Distress Ears: Normal External Exam Nose: Normal Inspection Head Exam: Atraumatic, Normocephalic Neck: Normal Inspection, Supple, Non-Tender Respiratory/Chest: No Respiratory Distress, Lungs Clear, Normal Breath Sounds Cardiovascular: Regular Rate, Rhythm, No Edema, No Murmur GI/Abdominal: Soft, Non-Tender, No Organomegaly, No Mass Neuro Exam (Abbreviated): Alert, Oriented, No Motor/Sensory Deficits Course - Vital Signs Last Recorded V/S: Last Vital Signs Temp 98.0 F 11/20/19 20:05 Pulse 84 11/20/19 20:05 Resp 18 11/20/19 20:05 BP 155/95 H 11/20/19 20:05 Pulse Ox 94 L 11/20/19 20:05 - Orders/Labs/Meds Orders: Active Orders 24 hr Category Date Time Status Peripheral IV Care [RC] . DIRECTED Care 11/20/19 20:21 Active Sodium Chloride 0.9% [Saline Flush] Med 11/20/19 20:21 Active 10 ml FLUSH ASDIRECTED PRN Peripheral IV Insertion Adult [OM.PC] Stat Oth 11/20/19 20:21 Ordered Medication Orders Sodium Chloride (Saline Flush) 10 ml FLUSH ASDIRECTED PRN PRN Reason: Keep Vein Open Last Admin: 11/20/19 21:11 Dose: 10 ml Meds: Medications Generic Name Dose Route Start Last Admin Trade Name Devorah PRN Reason Stop Dose Admin Sodium Chloride 10 ml 11/20/19 20:21 11/20/19 21:11 Saline Flush FLUSH 10 ml ASDIRECTED PRN Administration Keep Vein Open Discontinued Medications Generic Name Dose Route Start Last Admin Trade Name Freq PRN Reason Stop Dose Admin Diphenhydramine HCl 50 mg 11/20/19 20:22 11/20/19 21:09 Benadryl IVPUSH 11/20/19 20:23 50 mg ONETIME ONE Administration Hydromorphone HCl 1 mg 11/20/19 20:22 11/20/19 21:10 Dilaudid IVPUSH 11/20/19 20:23 1 mg ONETIME ONE Administration Sodium Chloride 1,000 mls @ 1,000 mls/hr 11/20/19 20:21 11/20/19 21:07 Normal Saline IV 11/20/19 21:20 1,000 mls/hr .BOLUS STA Administration Ketorolac Tromethamine 30 mg 11/20/19 20:22 11/20/19 21:09 Toradol IVPUSH 11/20/19 20:23 30 mg ONETIME ONE Administration Metoclopramide HCl 10 mg 11/20/19 20:21 11/20/19 21:07 Reglan IVPUSH 11/20/19 20:22 10 mg ONETIME ONE Administration - Re-Assessments/Exams Free Text/Narrative Re-Assessment/Exam: 11/20/19 20:47 I ordered an IV NS 1L bolus, reglan 10mg IV, toradol 30mg IV, benadryl 50mg IV and dilaudid 1mg IV. 11/20/19 21:37 She feels much better and would like to go. I will discharge her home. Departure - Departure Time of Disposition: 21:40 Disposition: Home, Self-Care 01 Condition: Good Clinical Impression: Migraine - Discharge Information *PRESCRIPTION DRUG MONITORING PROGRAM REVIEWED*: Not Applicable *COPY OF PRESCRIPTION DRUG MONITORING REPORT IN PATIENT ALINA: Not Applicable Referrals: Radha Olmos PA-C [Primary Care Provider] - 1 Week Forms: ED Department Discharge Additional Instructions: Go home and rest. Please return if you are worse. Sepsis Event Note - Evaluation Sepsis Screening Result: No Definite Risk - Focused Exam Vital Signs: Vital Signs Temp Pulse Resp BP Pulse Ox 11/20/19 20:05 98.0 F 84 18 155/95 H 94 L Date Exam was Performed: 11/20/19 Time Exam was Performed: 21:37 - My Orders Last 24 Hours: My Active Orders 11/20/19 20:21 Peripheral IV Care [RC] . DIRECTED Sodium Chloride 0.9% [Saline Flush] 10 ml FLUSH ASDIRECTED PRN Peripheral IV Insertion Adult [OM.PC] Stat - Assessment/Plan Last 24 Hours: My Active Orders 11/20/19 20:21 Peripheral IV Care [RC] . DIRECTED Sodium Chloride 0.9% [Saline Flush] 10 ml FLUSH ASDIRECTED PRN Peripheral IV Insertion Adult [OM.PC] Stat
== END 2019-11-20 21:53 | disposition home or self-care (01) ==
LOC: JD.ED 19:45
DX: G43.909 Migraine, unspecified, not intractable, without status migrainosus (principal); I10 Essential (primary) hypertension; K21.9 Gastro-esophageal reflux disease without esophagitis; M10.9 Gout, unspecified; F41.9 Anxiety disorder, unspecified; F32.9 Major depressive disorder, single episode, unspecified; E66.9 Obesity, unspecified; Z68.41 Body mass index [BMI] 40.0-44.9, adult; F17.210 Nicotine dependence, cigarettes, uncomplicated; Z88.1 Allergy status to other antibiotic agents; Z88.8 Allergy status to other drugs, medicaments and biological substances; Z91.013 Allergy to seafood; Z79.899 Other long term (current) drug therapy
CPT/HCPCS: 96361; 96374; 96375; 99283; J1170; J1200; J1885; J2765; J7030

== ENCOUNTER 2019-12-02 14:30 | Emergency (ER) | payer MEDICAID ==
[2019-12-02 15:04] VITALS: BP 176/106; PULSE 91
[2019-12-02] MEDS ORDERED: Metoclopramide 10 MG/2 ML SDV IVPUSH ONE (15:12)
[2019-12-02] MEDS ORDERED: diphenhydrAMINE 50 MG/ML SDV IVPUSH ONE (15:12)
[2019-12-02] MEDS ORDERED: Ketorolac 30 MG/ML SDV IVPUSH ONE (15:12)
[2019-12-02] MEDS ORDERED: HYDROmorphone 1 MG/ML Syringe IVPUSH ONE (15:12)
[2019-12-02] MEDS ORDERED: Sodium Chloride 0.9% 10 ML Syringe FLUSH PRN (15:12)
--- NOTE | 2019-12-02 16:34 | EDM.PDOC ---
ED HPI GENERAL MEDICAL PROBLEM - General Chief Complaint: Headache Stated Complaint: MIGRAINE Time Seen by Provider: 12/02/19 14:59 Source of Information: Reports: Patient History Limitations: Reports: No Limitations - History of Present Illness INITIAL COMMENTS - FREE TEXT/NARRATIVE: The patient presents with a migraine. This started at 1pm today. She has light sensitivity, nausea and vomiting. She has a history of migraines. She has no numbness or weakness. Onset: Gradual Duration: Hour(s): Location: Reports: Head Quality: Reports: Sharp Severity: Severe Improves with: Reports: None Worsens with: Reports: None Associated Symptoms: Reports: Headaches, Nausea/Vomiting. Denies: Chest Pain, Cough, Fever/Chills, Shortness of Breath Posterior Headache Pain Score (Numeric/FACES): 8 - Related Data Allergies Allergy/AdvReac Type Severity Reaction Status Date / Time cephalexin monohydrate Allergy Hives Verified 12/02/19 14:57 [From Keflex] chlorhexidine Allergy Hives Verified 12/02/19 14:57 prochlorperazine edisylate Allergy Other Verified 12/02/19 14:57 [From Compazine] prochlorperazine maleate Allergy Other Verified 12/02/19 14:57 [From Compazine] shellfish derived Allergy Anaphylactic Verified 12/02/19 14:57 Shock Home Meds: Home Meds Omeprazole 20 mg PO DAILY 03/04/15 [History] Cranberry Fruit Concentrate [Cranberry] 450 mg PO DAILY 01/16/17 [History] Escitalopram [Lexapro] 20 mg PO DAILY 05/22/18 [History] EPINEPHrine [Epipen] 1 dose IM ONETIME PRN 05/25/18 [History] Ascorbic Acid [Vitamin C] 250 mg PO DAILY 07/14/19 [History] Cholecalciferol (Vitamin D3) [Vitamin D3] 2,000 unit PO DAILY 07/14/19 [History] Clindamycin Phos/Benzoyl Perox [Clinda-Benzoyl Perox 1-5% Pump] 1 dose TOP BID 07/14/19 [History] Ibuprofen 800 mg PO TID PRN 07/14/19 [History] LORazepam 0.5 mg PO BEDTIME PRN 07/14/19 [History] busPIRone HCl [Buspirone HCl] 7.5 mg PO BID 07/14/19 [History] hydroCHLOROthiazide [Hydrochlorothiazide] 25 mg PO DAILY 09/03/19 [History] Past Medical History HEENT History: Reports: Impaired Vision, Sinusitis Other HEENT History: Pharyngitis, sinus pressure Cardiovascular History: Reports: Hypertension Respiratory History: Reports: Sleep Apnea, Other (See Below) Other Respiratory History: past Cough, hemoptysis, viral URI Gastrointestinal History: Reports: GERD, Hemorrhoids Other Gastrointestinal History: Hematochezia, external hemorrhoids, elevated LFTs, hematochezia Genitourinary History: Reports: Renal Calculus, UTI, Recurrent, Other (See Below ) Other Genitourinary History: LGSIL, CINI, CINII, polydipsia, dense breasts 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 , Other BORDER PATROL OFFICER History: , SAB, breast asymmetry, CINI, CINII, heavy menses, LGSIL Musculoskeletal History: Reports: Gout, Other (See Below) Other Musculoskeletal History: Myalgias Neurological History: Reports: Migraines, Vertigo Other Neuro History: hand numbness Psychiatric History: Reports: Addiction, Anxiety, Depression Other Psychiatric History: Insomnia Endocrine/Metabolic History: Reports: Obesity/BMI 30+ Hematologic History: Reports: None Immunologic History: Reports: None Oncologic (Cancer) History: Reports: None Dermatologic History: Reports: Other (See Below) Other Dermatologic History: Hidradenitis suppurativa, open wound to foot, plantar wart to left foot, facial skin lesion - Infectious Disease History Infectious Disease History: Reports: Chicken Pox, Shingles - Past Surgical History Head Surgeries/Procedures: Reports: None HEENT Surgical History: Reports: Oral Surgery GI Surgical History: Reports: Appendectomy, Cholecystectomy Female Surgical History: Reports: Hysterectomy Other Female Surgeries/Procedures: Unilateral salpingectomy Endocrine Surgical History: Reports: None Neurological Surgical History: Reports: None Other Musculoskeletal Surgeries/Procedures:: ulner transposition Dermatological Surgical History: Reports: None Social & Family History - Family History Family Medical History: Noncontributory HEENT: Reports: None Cardiac: Reports: None Respiratory: Reports: None GI: Reports: None : Reports: None OBGYN: Reports: None Musculoskeletal: Reports: None Neurological: Reports: None Psychiatric: Reports: None Endocrine/Metabolic: Reports: Diabetes Mellitus, Type 3c Hematologic: Reports: None Oncologic: Reports: Breast - Tobacco Use Smoking Status *Q: Current Every Day Smoker Years of Tobacco use: 25 Packs/Tins Daily: 0.5 - Caffeine Use Caffeine Use: Reports: None Other Caffeine Use: one monster daily Caffeine Use Comment: rarely - Recreational Drug Use Recreational Drug Use: No - Living Situation & Occupation Living situation: Reports: , with Significant Other (Boyfriend), with Family (2 kids) Occupation: Employed ([employer]) ED ROS GENERAL - Review of Systems Review Of Systems: See Below Constitutional: Reports: No Symptoms HEENT: Reports: No Symptoms Respiratory: Reports: No Symptoms Cardiovascular: Reports: No Symptoms Endocrine: Reports: No Symptoms GI/Abdominal: Reports: Nausea, Vomiting. Denies: Abdominal Pain : Reports: No Symptoms Musculoskeletal: Reports: No Symptoms Neurological: Reports: Headache - Physical Exam Exam: See Below Exam Limited By: No Limitations General Appearance: Alert, No Apparent Distress Ears: Normal External Exam Nose: Normal Inspection Head Exam: Atraumatic, Normocephalic Neck: Normal Inspection Respiratory/Chest: No Respiratory Distress, Lungs Clear, Normal Breath Sounds Cardiovascular: Regular Rate, Rhythm, No Edema, No Murmur GI/Abdominal: Soft, Non-Tender, No Organomegaly, No Mass Neuro Exam (Abbreviated): Alert, Oriented, No Motor/Sensory Deficits Course - Vital Signs Last Recorded V/S: Last Vital Signs Temp 97.6 F 12/02/19 15:00 Pulse 91 12/02/19 15:00 Resp 16 12/02/19 15:00 BP 176/106 H 12/02/19 15:00 Pulse Ox 95 12/02/19 15:00 - Orders/Labs/Meds Orders: Active Orders 24 hr Category Date Time Status Peripheral IV Care [RC] . DIRECTED Care 12/02/19 15:12 Active Sodium Chloride 0.9% [Saline Flush] Med 12/02/19 15:12 Active 10 ml FLUSH ASDIRECTED PRN Peripheral IV Insertion Adult [OM.PC] Routine Oth 12/02/19 15:12 Ordered Medication Orders Sodium Chloride (Saline Flush) 10 ml FLUSH ASDIRECTED PRN PRN Reason: Keep Vein Open Last Admin: 12/02/19 16:02 Dose: 10 ml Meds: Medications Generic Name Dose Route Start Last Admin Trade Name Freq PRN Reason Stop Dose Admin Sodium Chloride 10 ml 02/27/20 15:12 12/02/19 16:02 Saline Flush FLUSH 10 ml ASDIRECTED PRN Administration Keep Vein Open Discontinued Medications Generic Name Dose Route Start Last Admin Trade Name Devorah PRN Reason Stop Dose Admin Diphenhydramine HCl 50 mg 12/02/19 15:12 12/02/19 15:59 Benadryl IVPUSH 12/02/19 15:13 50 mg ONETIME ONE Administration Hydromorphone HCl 1 mg 12/02/19 15:12 12/02/19 15:53 Dilaudid IVPUSH 12/02/19 15:13 1 mg ONETIME ONE Administration Ketorolac Tromethamine 30 mg 12/02/19 15:12 12/02/19 15:55 Toradol IVPUSH 12/02/19 15:13 30 mg ONETIME ONE Administration Metoclopramide HCl 10 mg 12/02/19 15:12 12/02/19 15:57 Reglan IVPUSH 12/02/19 15:13 10 mg ONETIME ONE Administration - Re-Assessments/Exams Free Text/Narrative Re-Assessment/Exam: 12/02/19 16:33 I ordered an IV saline lock, dilaudid 1mg IV, toradol 30mg IV, reglan 10mg IV, and benadryl 50mg IV. She feels better. I will discharge her home. Departure - Departure Time of Disposition: 16:35 Disposition: Home, Self-Care 01 Condition: Good Clinical Impression: Migraine - Discharge Information *PRESCRIPTION DRUG MONITORING PROGRAM REVIEWED*: Not Applicable *COPY OF PRESCRIPTION DRUG MONITORING REPORT IN PATIENT ALINA: Not Applicable Referrals: Radha Olmos PA-C [Primary Care Provider] - Additional Instructions: Go home and rest in a quiet, dark room. Please return if you are worse. Sepsis Event Note - Evaluation Sepsis Screening Result: No Definite Risk - Focused Exam Vital Signs: Vital Signs Temp Pulse Resp BP Pulse Ox 12/02/19 15:00 97.6 F 91 16 176/106 H 95 Date Exam was Performed: 12/02/19 Time Exam was Performed: 16:30 - My Orders Last 24 Hours: My Active Orders 12/02/19 15:12 Peripheral IV Care [RC] . DIRECTED Sodium Chloride 0.9% [Saline Flush] 10 ml FLUSH ASDIRECTED PRN Peripheral IV Insertion Adult [OM.PC] Routine - Assessment/Plan Last 24 Hours: My Active Orders 12/02/19 15:12 Peripheral IV Care [RC] . DIRECTED Sodium Chloride 0.9% [Saline Flush] 10 ml FLUSH ASDIRECTED PRN Peripheral IV Insertion Adult [OM.PC] Routine
== END 2019-12-02 17:00 | disposition home or self-care (01) ==
LOC: JD.ED 14:30
DX: G43.909 Migraine, unspecified, not intractable, without status migrainosus (principal); I10 Essential (primary) hypertension; K21.9 Gastro-esophageal reflux disease without esophagitis; F41.9 Anxiety disorder, unspecified; F32.9 Major depressive disorder, single episode, unspecified; F17.210 Nicotine dependence, cigarettes, uncomplicated; E66.9 Obesity, unspecified; Z91.040 Latex allergy status; Z88.1 Allergy status to other antibiotic agents; Z68.41 Body mass index [BMI] 40.0-44.9, adult
CPT/HCPCS: 96374; 96375; 99283; J1170; J1200; J1885; J2765

== ENCOUNTER 2020-06-28 16:09 | Emergency (ER) | payer MEDICAID ==
[2020-06-28] MEDS ORDERED: Metoclopramide 10 MG/2 ML SDV IVPUSH ONE (16:51)
[2020-06-28] MEDS ORDERED: Ketorolac 30 MG/ML SDV IVPUSH ONE (16:51)
[2020-06-28] MEDS ORDERED: HYDROmorphone 0.5 MG/0.5 ML Syringe IVPUSH ONE (16:51)
[2020-06-28] MEDS ORDERED: Sodium Chloride 0.9% 1,000 ML IV STA (16:51)
[2020-06-28] MEDS ORDERED: diphenhydrAMINE 50 MG/ML SDV IVPUSH ONE (16:52)
--- NOTE | 2020-06-28 17:10 | EDM.PDOC ---
ED HPI GENERAL MEDICAL PROBLEM - General Chief Complaint: Headache Stated Complaint: MIGRAINE Time Seen by Provider: 06/28/20 16:21 Source of Information: Reports: Patient History Limitations: Reports: No Limitations - History of Present Illness INITIAL COMMENTS - FREE TEXT/NARRATIVE: Patient is a 44-year-old female presenting to the emergency department with complaints of a migraine headache for the last 2 days. She describes photosensitivity, nausea, and vomiting. She is also had a cough for the last week. She was tested for COVID 2 days ago, however she has not received results thus far. Patient has a long history of migraines and states that this feels like a typical. She has been seen in this emergency department previously for migraines as well. She states that she has tried a number of migraine medications, however they have not found one that works for her. She took Motrin around 230 with no relief. Treatments ASSISTANT CENTER DIRECTOR: Reports: NSAIDS Other Treatments ASSISTANT CENTER DIRECTOR: 1430 Headache Pain Score (Numeric/FACES): 8 - Related Data Allergies Allergy/AdvReac Type Severity Reaction Status Date / Time cephalexin monohydrate Allergy Hives Verified 06/28/20 16:21 [From Keflex] chlorhexidine Allergy Hives Verified 06/28/20 16:21 prochlorperazine edisylate Allergy Other Verified 06/28/20 16:21 [From Compazine] prochlorperazine maleate Allergy Other Verified 06/28/20 16:21 [From Compazine] shellfish derived Allergy Anaphylactic Verified 06/28/20 16:21 Shock Home Meds: Home Meds Cranberry Fruit Concentrate [Cranberry] 450 mg PO DAILY 01/16/17 [History] EPINEPHrine [Epipen] 1 dose IM ONETIME PRN 05/25/18 [History] Ascorbic Acid [Vitamin C] 250 mg PO DAILY 07/14/19 [History] Cholecalciferol (Vitamin D3) [Vitamin D3] 2,000 unit PO DAILY 07/14/19 [History] Clindamycin Phos/Benzoyl Perox [Clinda-Benzoyl Perox 1-5% Pump] 1 dose TOP BID 07/14/19 [History] Ibuprofen 800 mg PO TID PRN 07/14/19 [History] LORazepam 0.5 mg PO BEDTIME PRN 07/14/19 [History] busPIRone HCl [Buspirone HCl] 7.5 mg PO BID 07/14/19 [History] hydroCHLOROthiazide [Hydrochlorothiazide] 25 mg PO DAILY 09/03/19 [History] FLUoxetine HCl [Prozac] 20 mg PO DAILY 06/28/20 [History] Past Medical History HEENT History: Reports: Impaired Vision, Sinusitis Other HEENT History: Pharyngitis, sinus pressure Cardiovascular History: Reports: Hypertension Respiratory History: Reports: Sleep Apnea, Other (See Below) Other Respiratory History: past Cough, hemoptysis, viral URI Gastrointestinal History: Reports: GERD, Hemorrhoids Other Gastrointestinal History: Hematochezia, external hemorrhoids, elevated LFTs, hematochezia Genitourinary History: Reports: Renal Calculus, UTI, Recurrent, Other (See Below) Other Genitourinary History: LGSIL, CINI, CINII, polydipsia, dense breasts 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 , Other IN STORE 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: , SAB, breast asymmetry, CINI, CINII, heavy menses, LGSIL Musculoskeletal History: Reports: Gout, Other (See Below) Other Musculoskeletal History: Myalgias Neurological History: Reports: Migraines, Vertigo Other Neuro History: hand numbness Psychiatric History: Reports: Addiction, Anxiety, Depression Other Psychiatric History: Insomnia Endocrine/Metabolic History: Reports: Obesity/BMI 30+ Hematologic History: Reports: None Immunologic History: Reports: None Oncologic (Cancer) History: Reports: None Dermatologic History: Reports: Other (See Below) Other Dermatologic History: Hidradenitis suppurativa, open wound to foot, plantar wart to left foot, facial skin lesion - Infectious Disease History Infectious Disease History: 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 Other Infectious Disease History: [id number] - Past Surgical History Head Surgeries/Procedures: Reports: None HEENT Surgical History: Reports: Oral Surgery GI Surgical History: Reports: Appendectomy, Cholecystectomy Female Surgical History: Reports: Hysterectomy Other Female Surgeries/Procedures: Unilateral salpingectomy Endocrine Surgical History: Reports: None Neurological Surgical History: Reports: None Other Musculoskeletal Surgeries/Procedures:: ulner transposition Dermatological Surgical History: Reports: None Social & Family History - Family History Family Medical History: Noncontributory HEENT: Reports: None Cardiac: Reports: None Respiratory: Reports: None GI: Reports: None : Reports: None OBGYN: Reports: None Musculoskeletal: Reports: None Neurological: Reports: None Psychiatric: Reports: None Endocrine/Metabolic: Reports: Diabetes Mellitus, Type 3c Hematologic: Reports: None Oncologic: Reports: Breast - Tobacco Use Smoking Status *Q: Former Smoker Used Tobacco, but Quit: Yes Month/Year Tobacco Last Used: 2019 - Caffeine Use Caffeine Use: Reports: Energy Drinks Other Caffeine Use: one monster daily Caffeine Use Comment: rarely - Recreational Drug Use Recreational Drug Use: No - Living Situation & Occupation Living situation: Reports: , with Significant Other (Boyfriend), with Family (2 kids) Occupation: Employed ([employer]) ED ROS GENERAL - Review of Systems Review Of Systems: See Below Constitutional: Reports: No Symptoms. Denies: Fever, Chills, Weakness HEENT: Reports: No Symptoms Respiratory: Reports: Cough. Denies: Shortness of Breath, Wheezing Cardiovascular: Reports: No Symptoms Endocrine: Reports: No Symptoms GI/Abdominal: Reports: Diarrhea, Nausea, Vomiting : Reports: No Symptoms Musculoskeletal: Reports: No Symptoms Skin: Reports: No Symptoms Neurological: Reports: Headache, Other (Photosensitivity) Psychiatric: Reports: No Symptoms Hematologic/Lymphatic: Reports: No Symptoms Immunologic: Reports: No Symptoms - Physical Exam Exam: See Below General Appearance: Alert, WD/WN, No Apparent Distress Eye Exam: Bilateral Eye: Normal Inspection, PERRL Respiratory/Chest: No Respiratory Distress, Lungs Clear, Normal Breath Sounds, No Accessory Muscle Use, Chest Non-Tender Cardiovascular: Normal Peripheral Pulses, Regular Rate, Rhythm, No Edema, No Gallop, No JVD, No Murmur, No Rub Neuro Exam (Abbreviated): Alert, Oriented, CN II-XII Intact, Normal Cognition, Normal Gait, Normal Reflexes, No Motor/Sensory Deficits Psychiatric: Normal Affect, Normal Mood Skin Exam: Warm, Dry, Intact, Normal Color, No Rash Course - Vital Signs Last Recorded V/S: Last Vital Signs Temp 98.0 F 06/28/20 16:17 Pulse 95 06/28/20 16:17 Resp 18 06/28/20 16:17 BP 148/106 H 06/28/20 16:17 Pulse Ox 95 06/28/20 16:17 - Orders/Labs/Meds Meds: Medications Discontinued Medications Generic Name Dose Route Start Last Admin Trade Name Devorah PRN Reason Stop Dose Admin Diphenhydramine HCl 50 mg 06/28/20 16:52 06/28/20 17:25 Benadryl IVPUSH 06/28/20 16:53 50 mg ONETIME ONE Administration Hydromorphone HCl 0.5 mg 06/28/20 16:51 06/28/20 17:24 Dilaudid IVPUSH 06/28/20 16:52 0.5 mg ONETIME ONE Administration Sodium Chloride 1,000 mls @ 999 mls/hr 06/28/20 16:51 06/28/20 17:18 Normal Saline IV 06/28/20 17:51 999 mls/hr NOW STA Administration Ketorolac Tromethamine 30 mg 06/28/20 16:51 06/28/20 17:22 Toradol IVPUSH 06/28/20 16:52 30 mg ONETIME ONE Administration Metoclopramide HCl 7.5 mg 06/28/20 16:51 06/28/20 17:19 Reglan IVPUSH 06/28/20 16:52 7.5 mg ONETIME ONE Administration - Re-Assessments/Exams Free Text/Narrative Re-Assessment/Exam: 06/28/20 18:30 Pt is feeling much better better after the medications given. She is ready to go home. Discharge instruction as documented. Departure - Departure Time of Disposition: 18:30 Disposition: Home, Self-Care 01 Condition: Good Clinical Impression: Migraine - Discharge Information *PRESCRIPTION DRUG MONITORING PROGRAM REVIEWED*: No *COPY OF PRESCRIPTION DRUG MONITORING REPORT IN PATIENT ALINA: No Instructions: Migraine Headache, [id number] Referrals: Radha Olmos PA-C [Primary Care Provider] - Forms: ED Department Discharge Additional Instructions: You were seen in the emergency department today for a migraine headache the last 2 days. While in the ER, you received a liter of IV fluids, Reglan, Toradol, Dilaudid, and Benadryl. This did significantly improve your headache. Recommend that you go home and rest in a quiet dark room. Continue to use [id number] Tylenol and ibuprofen as needed for pain. Return to the ER as needed. Sepsis Event Note (ED) - Evaluation Sepsis Screening Result: No Definite Risk - Focused Exam Vital Signs: Vital Signs Temp Pulse Resp BP Pulse Ox 06/28/20 16:17 98.0 F 95 18 148/106 H 95
[2020-06-28 18:37] VITALS: BP 154/107; PULSE 83
== END 2020-06-28 18:50 | disposition home or self-care (01) ==
LOC: JD.ED 16:09
DX: G43.909 Migraine, unspecified, not intractable, without status migrainosus (principal); I10 Essential (primary) hypertension; F41.9 Anxiety disorder, unspecified; F32.9 Major depressive disorder, single episode, unspecified; E66.9 Obesity, unspecified; Z88.1 Allergy status to other antibiotic agents; Z91.013 Allergy to seafood; Z88.8 Allergy status to other drugs, medicaments and biological substances; Z79.899 Other long term (current) drug therapy; Z90.49 Acquired absence of other specified parts of digestive tract; Z90.710 Acquired absence of both cervix and uterus; Z87.891 Personal history of nicotine dependence; Z68.41 Body mass index [BMI] 40.0-44.9, adult
CPT/HCPCS: 96361; 96374; 96375; 99283; J1170; J1200; J1885; J2765; J7030

== ENCOUNTER 2020-07-01 13:20 | Emergency (ER) | payer MEDICAID ==
[2020-07-01 13:38] VITALS: BP 155/116; PULSE 82
[2020-07-01] MEDS ORDERED: Metoclopramide 10 MG/2 ML SDV IVPUSH ONE (13:40)
[2020-07-01] MEDS ORDERED: diphenhydrAMINE 50 MG/ML SDV IVPUSH ONE (13:40)
[2020-07-01] MEDS ORDERED: Sodium Chloride 0.9% 1,000 ML IV ONE (13:40)
[2020-07-01] MEDS ORDERED: Sodium Chloride 0.9% 10 ML Syringe FLUSH PRN (13:40)
[2020-07-01] MEDS ORDERED: Ketorolac 30 MG/ML SDV IVPUSH ONE (13:40)
--- NOTE | 2020-07-01 13:56 | EDM.PDOC ---
ED HPI GENERAL MEDICAL PROBLEM - General Chief Complaint: Headache Stated Complaint: HEADACHE Time Seen by Provider: 07/01/20 13:40 Source of Information: Reports: Patient, RN Notes Reviewed History Limitations: Reports: No Limitations - History of Present Illness INITIAL COMMENTS - FREE TEXT/NARRATIVE: Patient is a 44-year-old female who presents to the ED for evaluation of her ongoing headache, and cold-like symptoms. Patient notes she has been having these symptoms for about a week now. She states that she was seen at the walk- in clinic on Friday, was tested for COVID-19, and was made aware that it was negative this last . She was diagnosed with a viral bronchitis, and given some promethazine and codeine cough syrup and sent home. She was also seen in the ER, for a migraine on Friday, given some medications and that seemed to help. She states however the migraine has returned again, and these migraines are typical for her, and this does feel like her typical migraine that she is having. She notes that it is in the left occiput of her head, she is feeling nauseous has no appetite no energy, has nasal congestion chest congestion she states that her nasal secretions are now yellow. She also states that she had a chest x-ray done on Friday, this was negative for without acute findings. She has not had any fevers or chills, she does have a cough, mild shortness of breath, sore throat, chest congestion, nasal congestion. She has tried [id number] cold/flu remedies, with little to no relief. 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: cold and sinus; promethazine with codeine Headache Pain Score (Numeric/FACES): 8 - Related Data Allergies Allergy/AdvReac Type Severity Reaction Status Date / Time cephalexin monohydrate Allergy Severe Hives Verified 07/01/20 13:46 [From Keflex] chlorhexidine Allergy Severe Hives Verified 07/01/20 13:46 prochlorperazine edisylate Allergy Severe Other Verified 07/01/20 13:46 [From Compazine] prochlorperazine maleate Allergy Severe Other Verified 07/01/20 13:46 [From Compazine] shellfish derived Allergy Severe Anaphylactic Verified 07/01/20 13:46 Shock Home Meds: Home Meds Cranberry Fruit Concentrate [Cranberry] 450 mg PO DAILY 01/16/17 [History] EPINEPHrine [Epipen] 1 dose IM ONETIME PRN 05/25/18 [History] Ascorbic Acid [Vitamin C] 250 mg PO DAILY 07/14/19 [History] Cholecalciferol (Vitamin D3) [Vitamin D3] 2,000 unit PO DAILY 07/14/19 [History] Clindamycin Phos/Benzoyl Perox [Clinda-Benzoyl Perox 1-5% Pump] 1 dose TOP BID 07/14/19 [History] Ibuprofen 800 mg PO TID PRN 07/14/19 [History] LORazepam 0.5 mg PO BEDTIME PRN 07/14/19 [History] busPIRone HCl [Buspirone HCl] 7.5 mg PO BID 07/14/19 [History] hydroCHLOROthiazide [Hydrochlorothiazide] 25 mg PO DAILY 09/03/19 [History] FLUoxetine HCl [Prozac] 20 mg PO DAILY 06/28/20 [History] Azithromycin 250 mg PO ASDIRECTED #6 tablet 07/01/20 [Rx] Promethazine HCl/Codeine [Prometh-Codein 6.25-10 mg/5 ml] 5 ml PO Q4H PRN #120 ml 07/01/20 [Rx] Past Medical History HEENT History: Reports: Impaired Vision, Sinusitis Other HEENT History: Pharyngitis, sinus pressure Cardiovascular History: Reports: Hypertension Respiratory History: Reports: Sleep Apnea, Other (See Below) Other Respiratory History: past Cough, hemoptysis, viral URI Gastrointestinal History: Reports: GERD, Hemorrhoids Other Gastrointestinal History: Hematochezia, external hemorrhoids, elevated LFTs, hematochezia Genitourinary History: Reports: Renal Calculus, UTI, Recurrent, Other (See Below) Other Genitourinary History: LGSIL, CINI, CINII, polydipsia, dense breasts WEB KNITTER History: Reports: Ectopic , Other WEB KNITTER History: , SAB, breast asymmetry, CINI, CINII, heavy menses, LGSIL Musculoskeletal History: Reports: Gout, Other (See Below) Other Musculoskeletal History: Myalgias Neurological History: Reports: Migraines, Vertigo Other Neuro History: hand numbness Psychiatric History: Reports: Addiction, Anxiety, Depression Other Psychiatric History: Insomnia Endocrine/Metabolic History: Reports: Obesity/BMI 30+ Hematologic History: Reports: None Immunologic History: Reports: None Oncologic (Cancer) History: Reports: None Dermatologic History: Reports: Other (See Below) Other Dermatologic History: Hidradenitis suppurativa, open wound to foot, plantar wart to left foot, facial skin lesion - Infectious Disease History Infectious Disease History: 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 Other Infectious Disease History: [id number] - Past Surgical History Head Surgeries/Procedures: Reports: None HEENT Surgical History: Reports: Oral Surgery GI Surgical History: Reports: Appendectomy, Cholecystectomy Female Surgical History: Reports: Hysterectomy Other Female Surgeries/Procedures: Unilateral salpingectomy Endocrine Surgical History: Reports: None Neurological Surgical History: Reports: None Other Musculoskeletal Surgeries/Procedures:: ulner transposition Dermatological Surgical History: Reports: None Social & Family History - Family History Family Medical History: Noncontributory HEENT: Reports: None Cardiac: Reports: None Respiratory: Reports: None GI: Reports: None : Reports: None OBGYN: Reports: None Musculoskeletal: Reports: None Neurological: Reports: None Psychiatric: Reports: None Endocrine/Metabolic: Reports: Diabetes Mellitus, Type 3c Hematologic: Reports: None Oncologic: Reports: Breast - Tobacco Use Smoking Status *Q: Former Smoker Used Tobacco, but Quit: Yes Month/Year Tobacco Last Used: 3 months - Caffeine Use Caffeine Use: Reports: Energy Drinks Other Caffeine Use: one monster daily Caffeine Use Comment: rarely - Recreational Drug Use Recreational Drug Use: No - Living Situation & Occupation Living situation: Reports: , with Significant Other (Boyfriend), with Family (2 kids) Occupation: Employed ([employer]) ED ROS GENERAL - Review of Systems Review Of Systems: Comprehensive ROS is negative, except as noted in HPI. - Physical Exam Exam: See Below Exam Limited By: No Limitations General Appearance: Alert, WD/WN, No Apparent Distress Nose: Normal Inspection, No Blood, Other (bilateral injected turbinates) Respiratory/Chest: No Respiratory Distress, Lungs Clear, Normal Breath Sounds, No Accessory Muscle Use, Chest Non-Tender Cardiovascular: Normal Peripheral Pulses, Regular Rate, Rhythm, No Murmur GI/Abdominal: Normal Bowel Sounds, Soft, Non-Tender, No Distention, No Mass Neuro Exam (Abbreviated): Alert, Oriented, Normal Cognition, No Motor/Sensory Deficits Extremities: Normal Inspection, Normal Capillary Refill Psychiatric: Normal Affect, Normal Mood Skin Exam: Warm, Dry, Intact, Normal Color, No Rash Course - Vital Signs Last Recorded V/S: Last Vital Signs Temp 97.8 F 07/01/20 13:51 Pulse 82 07/01/20 13:37 Resp 20 07/01/20 13:37 BP 155/116 H 07/01/20 13:37 Pulse Ox 96 07/01/20 13:37 - Orders/Labs/Meds Orders: Active Orders 24 hr Category Date Time Status Peripheral IV Care [RC] . DIRECTED Care 07/01/20 13:40 Ordered HYDROmorphone [Dilaudid] Med 07/01/20 15:48 Once 0.5 mg IVPUSH ONETIME ONE Sodium Chloride 0.9% [Saline Flush] Med 07/01/20 13:40 Ordered 10 ml FLUSH ASDIRECTED PRN Peripheral IV Insertion Adult [OM.PC] Routine Oth 07/01/20 13:40 Ordered Medication Orders Hydromorphone HCl (Dilaudid) 0.5 mg IVPUSH ONETIME ONE Stop: 07/01/20 15:49 Sodium Chloride (Saline Flush) 10 ml FLUSH ASDIRECTED PRN PRN Reason: Keep Vein Open Last Admin: 07/01/20 14:03 Dose: 10 ml Documented by: TY Labs: Laboratory Tests 07/01/20 07/01/20 07/01/20 Range/Units 14:23 14:23 14:23 WBC 12.11 H (3.98-10.04) K/mm3 RBC 4.80 (3.98-5.22) M/mm3 Hgb 15.2 (11.2-15.7) gm/dl Hct 43.8 (34.1-44.9) % MCV 91.3 (79.4-94.8) fl MCH 31.7 (25.6-32.2) pg MCHC 34.7 (32.2-35.5) g/dl RDW Std Deviation 40.1 (36.4-46.3) fL Plt Count 281 (182-369) K/mm3 MPV 10.5 (9.4-12.3) fl Neut % (Auto) 66.9 (34.0-71.1) % Lymph % (Auto) 23.1 (19.3-51.7) % Benton % (Auto) 7.3 (4.7-12.5) % Eos % (Auto) 2.0 (0.7-5.8) Baso % (Auto) 0.4 (0.1-1.2) % Neut # (Auto) 8.09 H (1.56-6.13) K/mm3 Lymph # (Auto) 2.80 (1.18-3.74) K/mm3 Benton # (Auto) 0.89 H (0.24-0.36) K/mm3 Eos # (Auto) 0.24 (0.04-0.36) K/mm3 Baso # (Auto) 0.05 (0.01-0.08) K/mm3 Manual Slide Review Normal smear Sodium 138 (136-145) mEq/L Potassium 3.3 L (3.5-5.1) mEq/L Chloride 101 (98-107) mEq/L Carbon Dioxide 26 (21-32) mEq/L Anion Gap 14.3 (5-15) BUN 9 (7-18) mg/dL Creatinine 0.6 (0.55-1.02) mg/dL Est Cr Clr Drug Dosing 116.35 mL/min Estimated GFR (MDRD) > 60 (>60) mL/min BUN/Creatinine Ratio 15.0 (14-18) Glucose 84 (74-106) mg/dL Calcium 8.3 L (8.5-10.1) mg/dL Magnesium 1.8 (1.8-2.4) mg/dl Ferritin 203 (8-252) ng/ml Total Bilirubin 0.3 (0.2-1.0) mg/dL AST 39 H (15-37) U/L ALT 57 (14-59) U/L Alkaline Phosphatase 111 (46-116) U/L Lactate Dehydrogenase 161 (81-234) U/L C-Reactive Protein 2.6 H* (<1.0) mg/dL Total Protein 7.6 (6.4-8.2) g/dl Albumin 3.3 L (3.4-5.0) g/dl Globulin 4.3 gm/dL Albumin/Globulin Ratio 0.8 L (1-2) Meds: Medications Generic Name Dose Route Start Last Admin Trade Name Freq PRN Reason Stop Dose Admin Hydromorphone HCl 0.5 mg 07/01/20 15:48 Dilaudid IVPUSH 07/01/20 15:49 ONETIME ONE Sodium Chloride 10 ml 07/01/20 13:40 07/01/20 14:03 Saline Flush FLUSH 10 ml ASDIRECTED PRN Administration Keep Vein Open Discontinued Medications Generic Name Dose Route Start Last Admin Trade Name Freq PRN Reason Stop Dose Admin Diphenhydramine HCl 25 mg 07/01/20 13:40 07/01/20 14:00 Benadryl IVPUSH 07/01/20 13:41 25 mg ONETIME ONE Administration Sodium Chloride 1,000 mls @ 999 mls/hr 07/01/20 13:40 07/01/20 14:00 Normal Saline IV 07/01/20 14:40 999 mls/hr ASDIRECTED ONE Administration Ketorolac Tromethamine 30 mg 07/01/20 13:40 07/01/20 14:02 Toradol IVPUSH 07/01/20 13:41 30 mg ONETIME ONE Administration Metoclopramide HCl 10 mg 07/01/20 13:40 07/01/20 14:01 Reglan IVPUSH 07/01/20 13:41 10 mg ONETIME ONE Administration - Re-Assessments/Exams Free Text/Narrative Re-Assessment/Exam: 07/01/20 13:56 Patient presents to the ED for the evaluation of her headache, and cold-like symptoms. She was COVID negative, and her oxygen level is 96% on room air, she appears to be in no respiratory distress, but she does appear as if she is not feeling very well. I do likely believe she is suffering from viral bronchitis. Patient will have a repeat chest x-ray, will be given some medications for her headache, and some baseline labs will be taken for further evaluation. 07/01/20 14:30 Chest x-ray demonstrates no acute changes, this was compared to a chest x-ray done on June 26, 2020. Is more likely that she is suffering from the viral bronchitis as noted above. Which is reassuring. Departure - Departure Time of Disposition: 15:50 Disposition: Home, Self-Care 01 Condition: Good Clinical Impression: Bronchitis Migraine Qualifiers: Migraine type: unspecified Status migrainosus presence: without status migrainosus Intractability: not intractable Qualified Code(s): G43.909 - Migraine, unspecified, not intractable, without status migrainosus - Discharge Information *PRESCRIPTION DRUG MONITORING PROGRAM REVIEWED*: Yes *COPY OF PRESCRIPTION DRUG MONITORING REPORT IN PATIENT ALINA: No Prescriptions: Azithromycin 250 mg PO ASDIRECTED #6 tablet Promethazine HCl/Codeine [Prometh-Codein 6.25-10 mg/5 ml] 5 ml PO Q4H PRN #120 ml PRN Reason: Cough Instructions: Migraine Headache, [id number] Referrals: Radha Olmos PA-C [Primary Care Provider] - Forms: ED Department Discharge Additional Instructions: You were evaluated in the ED for your headache/ ongoing respiratory symptoms. You were given a combination of medications and IV fluid for management. This did seem to provide you pretty good relief of your symptoms. Recommend that you go home and rest in a quiet, darkened room. Try also to keep well hydrated. You were given a refill of your cough medicine, and some oral antibiotics, please take these as directed for further relief of symptoms. You may continue the other [id number] medications for further symptomatic relief. Please return to the ED if your symptoms should change or worsen. Sepsis Event Note (ED) - Evaluation Sepsis Screening Result: No Definite Risk - Focused Exam Vital Signs: Vital Signs Temp Pulse Resp BP Pulse Ox 07/01/20 13:51 97.8 F 07/01/20 13:37 9.8 F L 82 20 155/116 H 96 - My Orders Last 24 Hours: My Active Orders 07/01/20 13:40 Peripheral IV Care [RC] . DIRECTED Sodium Chloride 0.9% [Saline Flush] 10 ml FLUSH ASDIRECTED PRN Peripheral IV Insertion Adult [OM.PC] Routine 07/01/20 15:48 HYDROmorphone [Dilaudid] 0.5 mg IVPUSH ONETIME ONE - Assessment/Plan Last 24 Hours: My Active Orders 07/01/20 13:40 Peripheral IV Care [RC] . DIRECTED Sodium Chloride 0.9% [Saline Flush] 10 ml FLUSH ASDIRECTED PRN Peripheral IV Insertion Adult [OM.PC] Routine 07/01/20 15:48 HYDROmorphone [Dilaudid] 0.5 mg IVPUSH ONETIME ONE
--- NOTE | 2020-07-01 14:28 | CR ---
Chest: Portable view of the chest was obtained. Comparison: Prior chest x-ray of 06/26/20. Heart size and mediastinum are normal. Lungs are clear with no acute parenchymal change. Bony structures are grossly intact. Impression: 1. Nothing acute is seen on portable chest x-ray. Diagnostic code #1 This report was dictated in MDT
[2020-07-01] MEDS ORDERED: HYDROmorphone 0.5 MG/0.5 ML Syringe IVPUSH ONE (15:48)
== END 2020-07-01 16:42 | disposition home or self-care (01) ==
LOC: JD.ED 13:20
DX: G43.909 Migraine, unspecified, not intractable, without status migrainosus (principal); J40 Bronchitis, not specified as acute or chronic; I10 Essential (primary) hypertension; F41.9 Anxiety disorder, unspecified; F32.9 Major depressive disorder, single episode, unspecified; E66.9 Obesity, unspecified; Z68.41 Body mass index [BMI] 40.0-44.9, adult; Z90.49 Acquired absence of other specified parts of digestive tract; Z90.710 Acquired absence of both cervix and uterus; Z88.1 Allergy status to other antibiotic agents; Z91.013 Allergy to seafood; Z88.8 Allergy status to other drugs, medicaments and biological substances; Z79.899 Other long term (current) drug therapy; Z87.891 Personal history of nicotine dependence; Z20.828 Contact with and (suspected) exposure to other viral communicable diseases
CPT/HCPCS: 36415; 71045; 80053; 82728; 83615; 83735; 85025; 86140; 96361; 96374; 96375; 99284; J1170; J1200; J1885; J2765; J7030; 99283

== ENCOUNTER 2020-12-18 23:03 | Emergency (ER) | payer MEDICAID ==
[2020-12-18 23:29] VITALS: PULSE 73
--- NOTE | 2020-12-18 23:39 | EDM.PDOC ---
ED HPI GENERAL MEDICAL PROBLEM - General Chief Complaint: Headache Stated Complaint: HEADACHE Time Seen by Provider: 12/18/20 23:29 Source of Information: Reports: Patient History Limitations: Reports: No Limitations - History of Present Illness INITIAL COMMENTS - FREE TEXT/NARRATIVE: 45-year-old female presents to the ED with a severe headache which she gets quite frequently. She suffers from migraines. She awoke with this headache this morning. At present it is bilateral and bitemporal and retrobulbar. Feels like her head is in a vice. Associated intermittent nausea and vomiting throughout the day with inability keep down any solids or fluids. Photophobic and sensitive to sound. This headache is no different than what she has experienced several times in the past. Just that she cannot keep down any of her oral medications due to the vomiting. She has been lying in a dark room most of the day. Onset: Today Onset Date: 12/18/20 Onset Time: 07:00 Duration: Hour(s):, Constant Location: Reports: Head (Underlies severe headache.) Quality: Reports: Ache, Throbbing, Other (Setting both occipital and temporal aspects of the skull.) Severity: Severe (No neck pain 10 out of 10) Improves with: Reports: Other (I am very still in a dark room with her eyes closed helps a bit.) Worsens with: Reports: Other, Movement Context: Denies: Activity, Exercise, Lifting (Exposure to bright light or loud sounds), Sick Contact, Trauma, Other Associated Symptoms: Reports: Loss of Appetite, Nausea/Vomiting. Denies: Confusion, Chest Pain, cough w sputum, Diaphoresis, Fever/Chills, Headaches, Malaise, Rash, Seizure (Has not kept anything down today.), Shortness of Breath, Syncope Treatments HOG HANDLER: Reports: Other (see below) (Nothing will stay down.) Headache Pain Score (Numeric/FACES): 9 - Related Data Allergies Allergy/AdvReac Type Severity Reaction Status Date / Time cephalexin monohydrate Allergy Severe Hives Verified 12/18/20 23:24 [From Keflex] chlorhexidine Allergy Severe Hives Verified 12/18/20 23:24 prochlorperazine edisylate Allergy Severe Other Verified 12/18/20 23:24 [From Compazine] prochlorperazine maleate Allergy Severe Other Verified 12/18/20 23:24 [From Compazine] shellfish derived Allergy Severe Anaphylactic Verified 12/18/20 23:24 Shock Home Meds: Home Meds Ibuprofen 800 mg PO TID PRN 07/14/19 [History] FLUoxetine HCl [Prozac] 20 mg PO DAILY 06/28/20 [History] Pantoprazole [ProTONIX] 40 mg PO DAILY 12/18/20 [History] Past Medical History HEENT History: Reports: Impaired Vision, Sinusitis Other HEENT History: Pharyngitis, sinus pressure Cardiovascular History: Reports: Hypertension Respiratory History: Reports: Sleep Apnea, Other (See Below) Other Respiratory History: past Cough, hemoptysis, viral URI Gastrointestinal History: Reports: GERD, Hemorrhoids Other Gastrointestinal History: Hematochezia, external hemorrhoids, elevated LFTs, hematochezia Genitourinary History: Reports: Renal Calculus, UTI, Recurrent, Other (See Below) Other Genitourinary History: LGSIL, CINI, CINII, polydipsia, dense breasts GRANTS OFFICER History: Reports: Ectopic , Other GRANTS OFFICER History: , SAB, breast asymmetry, CINI, CINII, heavy menses, LGSIL Musculoskeletal History: Reports: Gout, Other (See Below) Other Musculoskeletal History: Myalgias Neurological History: Reports: Migraines, Vertigo Other Neuro History: hand numbness Psychiatric History: Reports: Addiction, Anxiety, Depression Other Psychiatric History: Insomnia Endocrine/Metabolic History: Reports: Obesity/BMI 30+ Hematologic History: Reports: None Immunologic History: Reports: None Oncologic (Cancer) History: Reports: None Dermatologic History: Reports: Other (See Below) Other Dermatologic History: Hidradenitis suppurativa, open wound to foot, plantar wart to left foot, facial skin lesion - Infectious Disease History Infectious Disease History: 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 Other Infectious Disease History: [id number] - Past Surgical History Head Surgeries/Procedures: Reports: None HEENT Surgical History: Reports: Oral Surgery Cardiovascular Surgical History: Reports: None Respiratory Surgical History: Reports: None GI Surgical History: Reports: Appendectomy, Cholecystectomy Female Surgical History: Reports: Hysterectomy Other Female Surgeries/Procedures: Unilateral salpingectomy Endocrine Surgical History: Reports: None Neurological Surgical History: Reports: None Musculoskeletal Surgical History: Reports: None Other Musculoskeletal Surgeries/Procedures:: ulner transposition Oncologic Surgical History: Reports: None Dermatological Surgical History: Reports: None - History Comment History Comment: Apparently suffered a severe dystonic reaction to Compazine in the past. Social & Family History - Family History Family Medical History: No Pertinent Family History HEENT: Reports: None Cardiac: Reports: None Respiratory: Reports: None GI: Reports: None : Reports: None OBGYN: Reports: None Musculoskeletal: Reports: None Neurological: Reports: None Psychiatric: Reports: None Endocrine/Metabolic: Reports: Diabetes Mellitus, Type 3c Hematologic: Reports: None Oncologic: Reports: Breast - Tobacco Use Tobacco Use Status *Q: Never Tobacco User - Caffeine Use Caffeine Use: Reports: Energy Drinks Other Caffeine Use: one monster daily Caffeine Use Comment: rarely - Recreational Drug Use Recreational Drug Use: No - Living Situation & Occupation Living situation: Reports: , with Significant Other (Boyfriend), with Family (2 kids) Occupation: Employed ([employer]) ED ROS GENERAL - Review of Systems Review Of Systems: See Below Constitutional: Reports: Fatigue, Decreased Appetite. Denies: Fever, Chills HEENT: Reports: Glasses, Other (Is her sense of delayed with the associated headache.) Respiratory: Reports: No Symptoms Cardiovascular: Reports: No Symptoms Endocrine: Reports: Fatigue GI/Abdominal: Reports: Diarrhea (Occasional loose stools after gastric bypass surgery.) : Reports: No Symptoms Musculoskeletal: Reports: Back Pain Skin: Reports: No Symptoms Neurological: Reports: Headache Psychiatric: Reports: Anxiety, Depression Hematologic/Lymphatic: Reports: No Symptoms Immunologic: Reports: No Symptoms - Physical Exam Exam: See Below Exam Limited By: No Limitations General Appearance: Alert, WD/WN, Mild Distress, Other ([place] in a darkened exam room. She is alert oriented answers all questions quite appropriately. Temperature is 36.3 with a heart rate of 73 and sinus. Respiratory 16 with an O2 sat of 99% room air BP mildly elevated at 179 111.) Eye Exam: Bilateral Eye: Normal Inspection, PERRL (Scleral icterus or blepharal pallor.) Throat/Mouth: Normal Inspection, Normal Lips, Normal Teeth, Normal Oropharynx Head Exam: Atraumatic, Normocephalic Neck: Normal Inspection, Supple, Non-Tender, Full Range of Motion. No: Lymphadenopathy (L), Lymphadenopathy (R) Respiratory/Chest: No Respiratory Distress, Lungs Clear, Normal Breath Sounds, No Accessory Muscle Use Cardiovascular: Normal Peripheral Pulses, Regular Rate, Rhythm, No Edema, No Gallop, No Murmur, No Rub Neuro Exam (Abbreviated): Alert, Oriented, CN II-XII Intact, Normal Cognition, No Motor/Sensory Deficits Extremities: Normal Inspection, Normal Range of Motion, Non-Tender, No Pedal Edema Psychiatric: Normal Affect, Normal Mood Skin Exam: Warm, Dry, Intact, Normal Color, No Rash Course - Vital Signs Last Recorded V/S: Last Vital Signs Temp 36.3 C 12/18/20 23:26 Pulse 73 12/18/20 23:26 Resp 16 12/18/20 23:26 BP 179/111 H 12/18/20 23:26 Pulse Ox 99 12/18/20 23:26 - Orders/Labs/Meds Orders: Active Orders 24 hr Category Date Time Status Dextrose 5%-0.9% NaCl [Dextrose 5%-Normal Saline] 1,000 Med 12/18/20 23:45 Active ml IV ASDIRECTED Medication Orders Dextrose/Sodium Chloride (Dextrose 5%-Normal Saline) 1,000 mls @ 999 mls/hr IV ASDIRECTED LIOR Last Admin: 12/19/20 00:03 Dose: 999 mls/hr Documented by: LESTER Meds: Medications Generic Name Dose Route Start Last Admin Trade Name Freq PRN Reason Stop Dose Admin Dextrose/Sodium Chloride 1,000 mls @ 999 mls/hr 12/18/20 23:45 12/19/20 00:03 Dextrose 5%-Normal Saline IV 999 mls/hr ASDIRECTED LIOR Administration Discontinued Medications Generic Name Dose Route Start Last Admin Trade Name Freq PRN Reason Stop Dose Admin Diphenhydramine HCl 50 mg 12/18/20 23:38 12/19/20 00:02 Diphenhydramine 50 Mg/Ml Sdv IVPUSH 12/18/20 23:39 50 mg ONETIME ONE Administration Hydromorphone HCl 1 mg 12/18/20 23:38 12/18/20 23:52 Hydromorphone 1 Mg/Ml Syringe IVPUSH 12/18/20 23:39 Not Given ONETIME ONE Hydromorphone HCl 0.5 mg 12/18/20 23:40 12/19/20 00:02 Hydromorphone 0.5 Mg/0.5 Ml Syringe IVPUSH 12/18/20 23:41 0.5 mg ONETIME ONE Administration Ketorolac Tromethamine 30 mg 12/18/20 23:45 Ketorolac 30 Mg/Ml Sdv IVPUSH ONETIME LIOR Metoclopramide HCl 7.5 mg 12/18/20 23:38 12/19/20 00:02 Metoclopramide 10 Mg/2 Ml Sdv IVPUSH 12/18/20 23:39 7.5 mg ONETIME ONE Administration - Radiology Interpretation Free Text/Narrative:: 45-year-old female presents to the ED with a generalized severe headache. Associated nausea and vomiting. She known to suffer from recurrent migraine headaches often 2/week. Awoke with this headache and is unable to keep down any food fluids or medication today. Neuro exam is otherwise normal. She reports this headache is no different than what she is experienced many times in the past. Plan IV D5 normal saline at open. Will give Toradol 30 mg IV with Reglan 7.5 mg IV Benadryl 50 mg IV and Dilaudid 0.5 mg IV. - Re-Assessments/Exams Free Text/Narrative Re-Assessment/Exam: 12/19/20 00:20 patient declined the Toradol intravenously due to history of gastric bypass in the past. It is relatively contraindicated on a long-term basis but short-term it would not be of any significance. 12/19/20 00:23 blood pressure is currently down to 149/95. 12/19/20 00:29 and firm questioning her headache is 80% better at this time. Going to let her have a little bit more IV fluids since she is only had about 500 mils so far before discharge. Departure - Departure Time of Disposition: 00:48 Disposition: Home, Self-Care 01 Condition: Fair Clinical Impression: Migraine headache Qualifiers: Migraine type: unspecified Status migrainosus presence: without status migrainosus Intractability: not intractable Qualified Code(s): G43.909 - Migraine, unspecified, not intractable, without status migrainosus - Discharge Information *PRESCRIPTION DRUG MONITORING PROGRAM REVIEWED*: No *COPY OF PRESCRIPTION DRUG MONITORING REPORT IN PATIENT ALINA: No Instructions: Recurrent Migraine Headache, [id number] Referrals: Radha Olmos PA-C [Primary Care Provider] - Forms: ED Department Discharge Additional Instructions: Evaluation in the emergency room tonight in regards to a persistent diffuse headache all day long today associate with nausea and vomiting and inability to retain food or fluids or medications. You were therefore treated with intravenous fluids i.e. D5 normal saline x1 L. You received medications Dilaudid 0.5 mg IV with Benadryl 50 mg IV and Reglan 7.5 mg IV for headache relief. You could receive Toradol on intermittent basis intravenously in spite of having gastric bypass surgery. NSAIDs are relatively contraindicated from this type of surgery especially if taken on a daily basis they can cause ulceration. Just home to rest/sleep. If you are hungry try a few soda crackers or bread with jam on it prior to going to bed. Sepsis Event Note (ED) - Evaluation Sepsis Screening Result: No Definite Risk - Focused Exam Vital Signs: Vital Signs Temp Pulse Resp BP Pulse Ox 12/18/20 23:26 36.3 C 73 16 179/111 H 99 - My Orders Last 24 Hours: My Active Orders 12/18/20 23:45 Dextrose 5%-0.9% NaCl [Dextrose 5%-Normal Saline] 1,000 ml IV ASDIRECTED - Assessment/Plan Last 24 Hours: My Active Orders 12/18/20 23:45 Dextrose 5%-0.9% NaCl [Dextrose 5%-Normal Saline] 1,000 ml IV ASDIRECTED
[2020-12-18] MEDS ORDERED: Ketorolac 30 MG/ML SDV IVPUSH SCH (23:45)
[2020-12-18] MEDS: HYDROmorphone 1 MG/ML Syringe IVPUSH ONE (23:52)
[2020-12-19] MEDS: diphenhydrAMINE 50 MG/ML SDV IVPUSH ONE (00:02)
[2020-12-19] MEDS: HYDROmorphone 0.5 MG/0.5 ML Syringe IVPUSH ONE (00:02)
[2020-12-19] MEDS: Metoclopramide 10 MG/2 ML SDV IVPUSH ONE (00:02)
[2020-12-19] MEDS: Dextrose 5%-0.9% NaCl 1,000 ML IV SCH (00:03)
[2020-12-19 01:04] VITALS: BP 145/91
== END 2020-12-19 01:03 | disposition home or self-care (01) ==
LOC: SUPCPDRO 23:03 → JD.ED 23:03
DX: G43.909 Migraine, unspecified, not intractable, without status migrainosus (principal); I10 Essential (primary) hypertension; K21.9 Gastro-esophageal reflux disease without esophagitis; E66.9 Obesity, unspecified; Z88.1 Allergy status to other antibiotic agents; Z88.8 Allergy status to other drugs, medicaments and biological substances; Z91.013 Allergy to seafood; Z79.899 Other long term (current) drug therapy
CPT/HCPCS: 96374; 96375; 99283; J1170; J1200; J2765; J7042; 99284

== ENCOUNTER 2021-01-25 08:57 | Day surgery (SDC) | payer MEDICAID ==
[~2021-01-25 08:57] MED LIST changes: +Clindamycin Phosphate in D5W 900 MG in Premix Bag 1 BAG IV SCH; +Lidocaine 1% 4 ML ONE; +Midazolam 1 MG/ML 2 ML SDV ONE; +Propofol 200 MG/20 ML SDV ONE; +fentaNYL 100 MCG/2 ML SDV ONE
[2021-01-25] MEDS ORDERED: Bupivacaine 0.25% 10 ML SDV ONE (09:02)
--- NOTE | 2021-01-25 09:11 | PCM.PREANE ---
Preanesthetic Assessment - Anesthesia/Transfusion/Family Hx Anesthesia History: Prior Anesthesia Reaction (LUIS ENRIQUE) Family History of Anesthesia Reaction: No Transfusion History: No Prior Transfusion(s) Intubation History: Unknown - Review of Systems General: No Symptoms Pulmonary: No Symptoms Cardiovascular: No Symptoms Gastrointestinal: No Symptoms Neurological: No Symptoms Other: Reports: None - Physical Assessment NPO Status Date: 01/24/21 NPO Status Time: 23:30 ASA Class: 2 Mental Status: Alert & Oriented x3 Airway Class: Mallampati = 2 Dentition: Reports: Normal Dentition Thyro-Mental Finger Breadths: 3 Mouth Opening Finger Breadths: 3 ROM/Head Extension: Full Lungs: Clear to Auscultation, Normal Respiratory Effort Cardiovascular: Regular Rate, Regular Rhythm - Lab Values: Laboratory Last Values MRSA (PCR) Negative 01/19/21 09:46 - Allergies Allergies/Adverse Reactions: Allergies Allergy/AdvReac Type Severity Reaction Status Date / Time shellfish derived Allergy Severe Anaphylactic Verified 01/24/21 16:45 Shock cephalexin monohydrate Allergy Intermediate Hives Verified 01/24/21 16:45 [From Keflex] chlorhexidine Allergy Intermediate Hives Verified 01/24/21 16:45 prochlorperazine edisylate AdvReac Intermediate Other Verified 01/24/21 16:45 [From Compazine] prochlorperazine maleate AdvReac Intermediate Other Verified 01/24/21 16:45 [From Compazine] - Acknowledgements Anesthesia Type Planned: General Anesthesia Pt an Appropriate Candidate for the Planned Anesthesia: Yes Alternatives and Risks of Anesthesia Discussed w Pt/Guardian: Yes Pt/Guardian Understands and Agrees with Anesthesia Plan: Yes PreAnesthesia Questionnaire HEENT History: Reports: Impaired Vision, Sinusitis Other HEENT History: Pharyngitis, sinus pressure, nasal congestion Cardiovascular History: Reports: Hypertension Respiratory History: Reports: Sleep Apnea (No CPAP since gastric sleeve surgery in August), Other (See Below) Other Respiratory History: cough, snoring, wheezing, hemoptysis Gastrointestinal History: Reports: Chronic Diarrhea, GERD, Hemorrhoids, Other (See Below) Other Gastrointestinal History: Hematochezia, external hemorrhoids, elevated LFTs, hematochezia, c diff Genitourinary History: Reports: Renal Calculus, UTI, Recurrent, Other (See Below) Other Genitourinary History: LGSIL, CINI, CINII, polydipsia, dense breasts, breast abcess and asymmetry, cloudy urine, dysuria FOOD BROKER History: Reports: Ectopic , Other OB/BYN History: , SAB, breast asymmetry, CINI, CINII, heavy menses, LGSIL, vagina cuff granulation tissue Musculoskeletal History: Reports: Gout, Other (See Below) Other Musculoskeletal History: Myalgias, carpal tunnel syndrome, cubital tunnel syndrome, lumbago, right knee pain, weakness Neurological History: Reports: Migraines, Vertigo Other Neuro History: hand numbness Psychiatric History: Reports: Addiction, Anxiety, Depression, Panic Attack, PTSD Other Psychiatric History: Insomnia Endocrine/Metabolic History: Reports: Obesity/BMI 30+ Hematologic History: Reports: None Immunologic History: Reports: None Oncologic (Cancer) History: Reports: None Dermatologic History: Reports: Other (See Below) Other Dermatologic History: Hidradenitis suppurativa, open wound to foot, plantar wart to left foot, facial skin lesion, cold sores - Infectious Disease History Infectious Disease History: 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 Other Infectious Disease History: [id number] - Past Surgical History Head Surgeries/Procedures: Reports: None HEENT Surgical History: Reports: Oral Surgery Cardiovascular Surgical History: Reports: None Respiratory Surgical History: Reports: None GI Surgical History: Reports: Appendectomy, Bariatric Procedure, Cholecystectomy Female Surgical History: Reports: Hysterectomy Other Female Surgeries/Procedures: Unilateral salpingectomy Endocrine Surgical History: Reports: None Neurological Surgical History: Reports: None Musculoskeletal Surgical History: Reports: None Other Musculoskeletal Surgeries/Procedures:: ulner transposition Oncologic Surgical History: Reports: None Dermatological Surgical History: Reports: None - History Comment History Comment: Apparently suffered a severe dystonic reaction to Compazine in the past. - SUBSTANCE USE Tobacco Use Status *Q: Current Every Day Tobacco User Recreational Drug Use History: No - HOME MEDS Home Medications: Home Meds Ascorbate Calcium [Vitamin C] 500 mg PO DAILY 01/24/21 [History] Biotin 10 mg PO DAILY 01/24/21 [History] Cholecalciferol (Vitamin D3) [Vitamin D3] 2,000 unit PO DAILY 01/24/21 [History] Clindamycin Phos/Benzoyl Perox [Clindamycin-Benzoyl Perox 1-5%] 1 dose TOP BID 01/24/21 [History] EPINEPHrine [Epipen] 1 dose IM ONETIME PRN 01/24/21 [History] FLUoxetine [PROzac] 40 mg PO DAILY 01/24/21 [History] Multivit-Min/Iron/Folic Acid/K [Bariatric Mv-Iron 45 mg Cap] 1 tab PO DAILY 01/24/21 [History] Pantoprazole Sodium [Protonix] 20 mg PO DAILY 01/24/21 [History] Prazosin [Minpress] 1 mg PO BEDTIME 01/24/21 [History] busPIRone [Buspar] 7.5 mg PO BID 01/24/21 [History] diazePAM [Valium.] 5 mg PO BEDTIME PRN 01/24/21 [History] oxyCODONE 5 - 10 mg PO Q6H PRN #24 tab 01/25/21 [Rx] - CURRENT (IN HOUSE) MEDS Current Meds: Current Medications Lactated Ringer's (Ringers, Lactated) 1,000 mls @ 125 mls/hr IV ASDIRECTED LIOR Stop: 01/25/21 23:00 Clindamycin Phosphate 900 mg/ (Premix) 50 mls @ 100 mls/hr IV ONETIME LIOR Stop: 01/25/21 12:00 Lidocaine/Sodium Bicarbonate (Lidocaine 1%/Sod Bicarbonate In Ns 8.4% 1 Ml Syringe) 0.25 ml IDERM ONETIME PRN PRN Reason: Prior to IV Start Stop: 01/25/21 18:00 Sodium Chloride (Sodium Chloride 0.9% 10 Ml Syringe) 10 ml FLUSH ASDIRECTED PRN PRN Reason: Keep Vein Open Stop: 01/25/21 18:00 Discontinued Medications Bupivacaine HCl (Bupivacaine 0.25% 10 Ml Sdv) Confirm Administered Dose 20 ml .ROUTE .STK-MED ONE Stop: 01/25/21 09:03 Fentanyl (Fentanyl 100 Mcg/2 Ml Sdv) Confirm Administered Dose 100 mcg .ROUTE .STK-MED ONE Stop: 01/25/21 08:49 Lidocaine HCl (Xylocaine-Mpf 1%) Confirm Administered Dose 4 mls @ as directed .ROUTE .STK-MED ONE Stop: 01/25/21 08:48 Midazolam HCl (Midazolam 1 Mg/Ml 2 Ml Sdv) Confirm Administered Dose 2 mg .ROUTE .STK-MED ONE Stop: 01/25/21 08:48 Propofol (Propofol 200 Mg/20 Ml Sdv) Confirm Administered Dose 200 mg .ROUTE .[facility] ONE Stop: 01/25/21 08:48
[2021-01-25] MEDS ORDERED: Scopolamine 1.5 MG Transdermal Patch TOP ONE (09:14)
[2021-01-25] MEDS ORDERED: fentaNYL 100 MCG/2 ML SDV ONE ×2 (09:54→11:15)
--- NOTE | 2021-01-25 10:57 | PCM.POSTAN ---
POST ANESTHESIA ASSESSMENT - MENTAL STATUS Mental Status: Alert, Oriented - RESPIRATORY Respiratory Status: Respiratory Rate WNL, Airway Patent, O2 Saturation Stable - CARDIOVASCULAR CV Status: Pulse Rate WNL, Blood Pressure Stable - GASTROINTESTINAL GI Status: No Symptoms - PAIN Pain Score: 0 - POST OP HYDRATION Hydration Status: Adequate & Stable
[2021-01-25] MEDS ORDERED: Ondansetron 4 MG/2 ML SDV IVPUSH PRN (11:12)
[2021-01-25] MEDS ORDERED: HYDROmorphone 0.5 MG/0.5 ML Syringe IVPUSH PRN (11:12)
[2021-01-25] MEDS ORDERED: diphenhydrAMINE 50 MG/ML SDV IVPUSH PRN (11:12)
--- NOTE | 2021-01-25 11:14 | PCM.POSTAN ---
POST ANESTHESIA ASSESSMENT - MENTAL STATUS Mental Status: Alert, Oriented - VITAL SIGNS Vital Signs: Last Vital Signs Temp 36.2 C 01/25/21 10:52 Pulse 81 01/25/21 08:50 Resp 14 01/25/21 11:00 BP 134/88 01/25/21 11:00 Pulse Ox 94 L 01/25/21 11:07 - RESPIRATORY Respiratory Status: Respiratory Rate WNL, Airway Patent, O2 Saturation Stable - CARDIOVASCULAR CV Status: Pulse Rate WNL, Blood Pressure Stable - GASTROINTESTINAL GI Status: No Symptoms - POST OP HYDRATION Hydration Status: Adequate & Stable
--- NOTE | 2021-01-25 11:14 | PCM48HPAN ---
Post Anesthesia Note - EVALUATION WITHIN 48HRS OF ANESTHETIC Vital Signs in Normal Range: Yes Patient Participated in Evaluation: Yes Respiratory Function Stable: Yes Airway Patent: Yes Cardiovascular Function Stable: Yes Hydration Status Stable: Yes Pain Control Satisfactory: Yes Nausea and Vomiting Control Satisfactory: Yes Mental Status Recovered: Yes Vital Signs: Last Vital Signs Temp 36.2 C 01/25/21 10:52 Pulse 81 01/25/21 08:50 Resp 14 01/25/21 11:00 BP 134/88 01/25/21 11:00 Pulse Ox 94 L 01/25/21 11:07
[2021-01-25] MEDS: fentaNYL 100 MCG/2 ML SDV IVPUSH PRN ×2 (11:17→11:45)
[2021-01-25] MEDS ORDERED: oxyCODONE 5 MG Tab PO PRN (11:47)
[2021-01-25 13:15] VITALS: BP 137/79; PULSE 69
--- NOTE | 2021-02-01 07:51 | PCM.OPNOTE ---
- General Post-Op/Procedure Note Date of Surgery/Procedure: 01/25/21 Operative Procedure(s): revision right ulnar nerve decompression with transposition Pre Op Diagnosis: right ulnar nerve neuropathy Post-Op Diagnosis: Same Anesthesia Technique: General LMA, Local Primary Surgeon: Gabriel James Anesthesia Provider: Mechelle Ricardo Glucose And Syrup Weigher: Sun Panchal in mLs: 5 Complications: None Condition: Good
--- NOTE | 2021-02-01 08:15 | OR ---
DATE OF OPERATION: 01/25/2021 SURGEON: Gabriel James MD OPERATION PERFORMED: Revision right ulnar nerve decompression with transposition. PREOPERATIVE DIAGNOSIS: Right ulnar nerve neuropathy. POSTOPERATIVE DIAGNOSIS: Right ulnar nerve neuropathy. ANESTHESIA: General LMA with local. ANESTHESIA PROVIDER: Mechelle Ricardo CRNA WEB APPLICATION DEVELOPER: Sun Panchal PA-C ESTIMATED BLOOD LOSS: Less than 5 mL. COMPLICATIONS: None. CONDITION: Stable. DESCRIPTION OF PROCEDURE: The patient was identified in the preoperative holding area. Proper site was marked and identified by the surgeon. The patient was taken back to the operative theater, where after adequate anesthesia, the patient's right upper extremity was sterilely prepped and draped in the usual sterile fashion. OR time-out was performed. The patient received 2 g IV Ancef. At this time, a sterile tourniquet was applied to the right upper extremity. Right upper extremity was exsanguinated. Tourniquet was insufflated to 220 mmHg. The previous curvilinear incision was incised through the skin throughout all the way down to finding the nerve up at the triceps. The patient had severe scar tissue with tight bands all over from severe scar tissue. It was very tedious trying to get to the nerve, and then once I was at the nerve working from the triceps fascia down to the ulnar nerve groove, it was very tedious and much more difficult than normal secondary to the amount of scar tissue the patient had formed. At this time, I was able to get vessel loops around the backside of the ulnar nerve up near the triceps fascia, and working with a tenotomy as well as a Lathrop blade, I was able to release all the scar tissue as well as soft tissue from the nerve all the way through the fossa distally to the forearm flexors making sure to protect the motor branch of the ulnar nerve. Once I was able to freely mobilize it, the small flap was made of the fascia from the forearm flexors on the medial epicondylar region. This was then moved anteriorly and a small sling of tissue was used to tie with 0 Vicryl very loosely the ulnar nerve. It was found to have no tension throughout range of motion to full flexion, extension, pronation, or supination on the nerve. At this time, adequate saline was irrigated through the wound. 0.25% Marcaine was injected subcutaneously. 2-0 Vicryl was used subcutaneously, and annmarie were used for closure of the skin. The patient was placed in a sterile soft dressing and a posterior slab splint and sent to the PACU in stable condition. ARA /[id number]
== END 2021-01-25 13:00 | disposition home or self-care (01) ==
LOC: JD.SDS 08:57
PROVIDERS: ATTEND Orthopaedic Surgery
DX: G56.21 Lesion of ulnar nerve, right upper limb (principal); I10 Essential (primary) hypertension; G47.33 Obstructive sleep apnea (adult) (pediatric); E66.9 Obesity, unspecified; Z68.33 Body mass index [BMI] 33.0-33.9, adult; F17.210 Nicotine dependence, cigarettes, uncomplicated; Z88.8 Allergy status to other drugs, medicaments and biological substances; Z91.013 Allergy to seafood; Z79.899 Other long term (current) drug therapy; Z98.890 Other specified postprocedural states
CPT/HCPCS: 64718; 87641; A9270; J1170; J2250; J2704; J3010; J3490; J7120; 01810

== ENCOUNTER 2021-03-08 08:38 | Emergency (ER) | payer MEDICAID ==
[2021-03-08] MEDS ORDERED: Sodium Chloride 0.9% 10 ML Syringe FLUSH PRN ×2 (08:56→10:41)
--- NOTE | 2021-03-08 09:27 | CR ---
Chest: PA and lateral views of the chest were obtained. Comparison: Prior chest x-ray of 07/01/20. Heart size and mediastinum are within normal limits. Lungs are clear with no acute parenchymal change. Bony structures appear within normal limits for the patient's age. Surgical clips are seen from prior cholecystectomy. Impression: 1. Nothing acute is appreciated on 2 view chest x-ray. Diagnostic code #2
[2021-03-08] MEDS ORDERED: Iopamidol 755 Mg/ML 100 ML Bottle IVPUSH ONE (10:41)
[2021-03-08] MEDS ORDERED: Sodium Chloride 0.9% 100 ML IV SCH (10:45)
--- NOTE | 2021-03-08 11:25 | CT ---
Head CT Technique: Multiple axial sections through the brain were obtained. Intravenous contrast was not utilized. Reconstructed coronal and sagittal images were obtained. Comparison: Prior head CT study of 03/04/15. Findings: Ventricles along with basal cisterns and sulci over the convexities appear within normal limits for the patient's age. No abnormal parenchymal densities are seen. No evidence of intracranial hemorrhage. No midline shift or mass-effect is seen. Bone window settings were reviewed which show no acute calvarial abnormality. Visualized mastoid sinuses and paranasal sinuses show nothing acute. Impression: 1. Nothing acute is appreciated on noncontrast head CT study. 2. No significant change is seen from prior head CT exam. Diagnostic code #1
--- NOTE | 2021-03-08 11:58 | CT ---
CT angiogram of the brain Technique: Multiple axial sections through the brain were obtained. Intravenous contrast was utilized. Study has been performed as a CT angiogram protocol. Multiple MIP images were also obtained. Comparison: Head CT study performed on the same day. Findings: Visualized vertebral arteries and basilar arteries are patent. Right posterior cerebral artery originates off the basilar artery. Left posterior cerebral artery originates off the anterior circulation which is a normal variant. Anterior and middle cerebral arteries are within normal limits. There is no focal stenosis or mass-effect being seen. No discrete aneurysm is seen. Impression: 1. Nothing acute is seen on CT angiogram of the brain. Diagnostic code #1
--- NOTE | 2021-03-08 12:21 | EDM.PDOC ---
ED HPI GENERAL MEDICAL PROBLEM - General Chief Complaint: General Stated Complaint: NECK AND SHOULDER PAIN /SOB Time Seen by Provider: 03/08/21 08:46 Source of Information: Reports: Patient History Limitations: Reports: No Limitations - History of Present Illness INITIAL COMMENTS - FREE TEXT/NARRATIVE: The patient presents with dizziness, back pain, neck pain, and reflux. This started just prior to arrival. She was out watering her lawn. She has no fever, chills, cough, abdominal pain, nausea or vomiting. She has no history of heart problems. She has no history of PE or DVT. She does smoke. She describes the dizziness as being lightheaded. She does have some dizziness. Onset: Gradual Duration: Minutes: Location: Reports: Neck, Back Quality: Reports: Sharp Severity: Moderate Improves with: Reports: None Worsens with: Reports: None Associated Symptoms: Reports: Headaches, Nausea/Vomiting. Denies: Chest Pain, Cough, Fever/Chills, Shortness of Breath Back Pain Score (Numeric/FACES): 7 - Related Data Allergies Allergy/AdvReac Type Severity Reaction Status Date / Time shellfish derived Allergy Severe Anaphylactic Verified 03/08/21 08:57 Shock cephalexin monohydrate Allergy Intermediate Hives Verified 03/08/21 08:57 [From Keflex] chlorhexidine Allergy Intermediate Hives Verified 03/08/21 08:57 prochlorperazine edisylate AdvReac Intermediate Other Verified 03/08/21 08:57 [From Compazine] prochlorperazine maleate AdvReac Intermediate Other Verified 03/08/21 08:57 [From Compazine] Home Meds: Home Meds Ascorbate Calcium [Vitamin C] 500 mg PO DAILY 01/24/21 [History] Biotin 10 mg PO DAILY 01/24/21 [History] Cholecalciferol (Vitamin D3) [Vitamin D3] 2,000 unit PO DAILY 01/24/21 [History] EPINEPHrine [Epipen] 1 dose IM ONETIME PRN 01/24/21 [History] FLUoxetine [PROzac] 40 mg PO DAILY 01/24/21 [History] Multivit-Min/Iron/Folic Acid/K [Bariatric Mv-Iron 45 mg Cap] 1 tab PO DAILY 01/24/21 [History] Pantoprazole Sodium [Protonix] 20 mg PO DAILY 01/24/21 [History] diazePAM [Valium.] 5 mg PO BEDTIME PRN 01/24/21 [History] Past Medical History HEENT History: Reports: Impaired Vision, Sinusitis Other HEENT History: Pharyngitis, sinus pressure, nasal congestion Cardiovascular History: Reports: Hypertension Respiratory History: Reports: Sleep Apnea, Other (See Below) Other Respiratory History: cough, snoring, wheezing, hemoptysis Gastrointestinal History: Reports: Chronic Diarrhea, GERD, Hemorrhoids, Other (See Below) Other Gastrointestinal History: Hematochezia, external hemorrhoids, elevated LFTs, hematochezia, c diff Genitourinary History: Reports: Renal Calculus, UTI, Recurrent, Other (See Below) Other Genitourinary History: LGSIL, CINI, CINII, polydipsia, dense breasts, breast abcess and asymmetry, cloudy urine, dysuria 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 History: Reports: Ectopic , Other BREAD DISTRIBUTOR History: , SAB, breast asymmetry, CINI, CINII, heavy menses, LGSIL, vagina cuff granulation tissue Musculoskeletal History: Reports: Gout, Other (See Below) Other Musculoskeletal History: Myalgias, carpal tunnel syndrome, cubital tunnel syndrome, lumbago, right knee pain, weakness Neurological History: Reports: Migraines, Vertigo Other Neuro History: hand numbness Psychiatric History: Reports: Addiction, Anxiety, Depression, Panic Attack, PTSD Other Psychiatric History: Insomnia Endocrine/Metabolic History: Reports: Obesity/BMI 30+ Hematologic History: Reports: None Immunologic History: Reports: None Oncologic (Cancer) History: Reports: None Dermatologic History: Reports: Other (See Below) Other Dermatologic History: Hidradenitis suppurativa, open wound to foot, plantar wart to left foot, facial skin lesion, cold sores - Infectious Disease History Infectious Disease History: 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 Other Infectious Disease History: [id number] - Past Surgical History HEENT Surgical History: Reports: Oral Surgery Respiratory Surgical History: Reports: None GI Surgical History: Reports: Appendectomy, Bariatric Procedure, Cholecystectomy, Other (See Below) Other GI Surgeries/Procedures: gastric sleeve Female Surgical History: Reports: Hysterectomy Other Female Surgeries/Procedures: Unilateral salpingectomy Other Musculoskeletal Surgeries/Procedures:: ulner transposition - History Comment History Comment: Apparently suffered a severe dystonic reaction to Compazine in the past. Social & Family History - Family History Family Medical History: No Pertinent Family History HEENT: Reports: None Cardiac: Reports: None Respiratory: Reports: None GI: Reports: None : Reports: None OBGYN: Reports: None Musculoskeletal: Reports: None Neurological: Reports: None Psychiatric: Reports: None Endocrine/Metabolic: Reports: Diabetes Mellitus, Type 3c Hematologic: Reports: None Oncologic: Reports: Breast - Tobacco Use Tobacco Use Status *Q: Current Every Day Tobacco User Years of Tobacco use: 27 Packs/Tins Daily: 0.5 - Caffeine Use Caffeine Use: Reports: None Other Caffeine Use: one monster daily Caffeine Use Comment: rarely - Recreational Drug Use Recreational Drug Use: No - Living Situation & Occupation Living situation: Reports: , with Significant Other (Boyfriend), with Family (2 kids) Occupation: Employed ([employer]) ED ROS GENERAL - Review of Systems Review Of Systems: See Below Constitutional: Reports: No Symptoms HEENT: Reports: No Symptoms Respiratory: Reports: No Symptoms Cardiovascular: Reports: No Symptoms Endocrine: Reports: No Symptoms GI/Abdominal: Reports: Nausea. Denies: Abdominal Pain, Vomiting Musculoskeletal: Reports: Neck Pain, Back Pain ED EXAM, GENERAL - Physical Exam Exam: See Below Exam Limited By: No Limitations General Appearance: Alert, No Apparent Distress Ears: Normal External Exam Nose: Normal Inspection Throat/Mouth: Normal Inspection Head: Atraumatic, Normocephalic Neck: Normal Inspection Respiratory/Chest: No Respiratory Distress, Lungs Clear, Normal Breath Sounds Cardiovascular: Regular Rate, Rhythm, No Edema, No Murmur GI/Abdominal: Soft, Non-Tender, No Organomegaly, No Mass Back Exam: Normal Inspection Extremities: Normal Inspection #1 Interpretation EKG Date: 03/08/21 Time: 08:43 Rhythm: NSR Rate (Beats/Min): 80 Pooler: Normal P-Wave: Present QRS: Normal ST-T: Normal QT: Normal EKG Interpretation Comments: PVC Course - Vital Signs Last Recorded V/S: Last Vital Signs Temp 97.7 F 03/08/21 08:45 Pulse 73 03/08/21 08:45 Resp 16 03/08/21 08:45 BP 150/96 H 03/08/21 08:45 Pulse Ox 96 03/08/21 08:45 - Orders/Labs/Meds Orders: Active Orders 24 hr Category Date Time Status Cardiac Monitoring [RC] . DIRECTED Care 03/08/21 08:56 Active EKG Documentation Completion [RC] STAT Care 03/08/21 08:56 Active Peripheral IV Care [RC] . DIRECTED Care 03/08/21 08:56 Active Sodium Chloride 0.9% [Normal Saline] 100 ml Med 03/08/21 10:45 Active IV ASDIRECTED Sodium Chloride 0.9% [Saline Flush] Med 03/08/21 08:56 Active 10 ml FLUSH ASDIRECTED PRN Sodium Chloride 0.9% [Saline Flush] Med 03/08/21 10:41 Active 10 ml FLUSH ONETIME PRN Peripheral IV Insertion Adult [OM.PC] Stat Oth 03/08/21 08:56 Ordered Medication Orders Sodium Chloride (Normal Saline) 100 mls @ 75 mls/hr IV ASDIRECTED LIOR Last Admin: 03/08/21 11:30 Dose: 75 mls/hr Documented by: BUTCH Sodium Chloride (Sodium Chloride 0.9% 10 Ml Syringe) 10 ml FLUSH ASDIRECTED PRN PRN Reason: Keep Vein Open Last Admin: 03/08/21 09:27 Dose: 10 ml Documented by: KRISTIN Sodium Chloride (Sodium Chloride 0.9% 10 Ml Syringe) 10 ml FLUSH ONETIME PRN PRN Reason: IV FLUSH Last Admin: 03/08/21 11:30 Dose: 10 ml Documented by: BUTCH Labs: Laboratory Tests 03/08/21 03/08/21 03/08/21 Range/Units 08:54 08:54 08:54 WBC 10.29 H (3.98-10.04) K/mm3 RBC 5.00 (3.98-5.22) M/mm3 Hgb 15.6 (11.2-15.7) gm/dl Hct 46.1 H (34.1-44.9) % MCV 92.2 (79.4-94.8) fl MCH 31.2 (25.6-32.2) pg MCHC 33.8 (32.2-35.5) g/dl RDW Std Deviation 42.6 (36.4-46.3) fL Plt Count 260 (182-369) K/mm3 MPV 11.4 (9.4-12.3) fl Neut % (Auto) 65.1 (34.0-71.1) % Lymph % (Auto) 26.6 (19.3-51.7) % [place] % (Auto) 6.1 (4.7-12.5) % Eos % (Auto) 1.7 (0.7-5.8) Baso % (Auto) 0.3 (0.1-1.2) % Neut # (Auto) 6.69 H (1.56-6.13) K/mm3 Lymph # (Auto) 2.74 (1.18-3.74) K/mm3 [place] # (Auto) 0.63 H (0.24-0.36) K/mm3 Eos # (Auto) 0.18 (0.04-0.36) K/mm3 Baso # (Auto) 0.03 (0.01-0.08) K/mm3 D-Dimer, Quantitative 0.24 (0.19-0.50) mg/L Sodium 140 (136-145) mEq/L Potassium 3.3 L (3.5-5.1) mEq/L Chloride 105 (98-107) mEq/L Carbon Dioxide 25 (21-32) mEq/L Anion Gap 13.3 (5-15) BUN 14 (7-18) mg/dL Creatinine 0.7 (0.55-1.02) mg/dL Est Cr Clr Drug Dosing 98.69 mL/min Estimated GFR (MDRD) > 60 (>60) mL/min BUN/Creatinine Ratio 20.0 H (14-18) Glucose 89 (70-99) mg/dL Calcium 8.4 L (8.5-10.1) mg/dL Total Bilirubin 0.4 (0.2-1.0) mg/dL AST 27 (15-37) U/L ALT 36 (14-59) U/L Alkaline Phosphatase 109 (46-116) U/L Troponin I < 0.017 (0.00-0.056) ng/mL C-Reactive Protein 0.9 (<1.0) mg/dL Total Protein 7.4 (6.4-8.2) g/dl Albumin 3.5 (3.4-5.0) g/dl Globulin 3.9 gm/dL Albumin/Globulin Ratio 0.9 L (1-2) Meds: Medications Generic Name Dose Route Start Last Admin Trade Name Freq PRN Reason Stop Dose Admin Sodium Chloride 100 mls @ 75 mls/hr 03/08/21 10:45 03/08/21 11:30 Normal Saline IV 75 mls/hr ASDIRECTED LIOR Administration Sodium Chloride 10 ml 03/08/21 08:56 03/08/21 09:27 Sodium Chloride 0.9% 10 Ml Syringe FLUSH 10 ml ASDIRECTED PRN Administration Keep Vein Open Sodium Chloride 10 ml 03/08/21 10:41 03/08/21 11:30 Sodium Chloride 0.9% 10 Ml Syringe FLUSH 10 ml ONETIME PRN Administration IV FLUSH Discontinued Medications Generic Name Dose Route Start Last Admin Trade Name Devorah PRN Reason Stop Dose Admin Iopamidol 100 ml 03/08/21 10:41 03/08/21 11:30 Iopamidol 755 Mg/Ml 100 Ml Bottle IVPUSH 03/08/21 10:42 100 ml ONETIME ONE Administration Meclizine HCl 25 mg 03/08/21 09:12 03/08/21 09:27 Meclizine 25 Mg Tab.Chew PO 03/08/21 09:13 25 mg ONETIME ONE Administration - Re-Assessments/Exams Free Text/Narrative Re-Assessment/Exam: 03/08/21 12:18 I ordered an IV saline lock, EKG, CXR, labs and antivert 25mg IV. Her EKG shows a NSR with no acute changes. Her CXR looks good. Her WBC is elevated at 10.29 . Her D-dimer is negative. Her K is low at 3.3. Her troponin is negative. Her CRP is negative. I ordered a CT of her head and an angio of her head. Both CTs look good. She feels a little better. She did have some PVCs in her tracing. I will go a holter monitor 48. Departure - Departure Time of Disposition: 12:30 Disposition: Home, Self-Care 01 Condition: Good Clinical Impression: Neck pain, Upper back pain, Dizziness Headache Qualifiers: Headache type: other headache syndrome Qualified Code(s): G44.89 - Other headache syndrome - Discharge Information *PRESCRIPTION DRUG MONITORING PROGRAM REVIEWED*: Not Applicable *COPY OF PRESCRIPTION DRUG MONITORING REPORT IN PATIENT ALINA: Not Applicable Referrals: Radha Olmos PA-C [Primary Care Provider] - 1 Week Additional Instructions: Wear the holter monitor for 48 hours. Follow up with Bri Olmos within a week. Take tylenol or motrin for pain. Please return if you are worse. Sepsis Event Note (ED) - Evaluation Sepsis Screening Result: No Definite Risk - Focused Exam Vital Signs: Vital Signs Temp Pulse Resp BP Pulse Ox 03/08/21 08:45 97.7 F 73 16 150/96 H 96 - My Orders Last 24 Hours: My Active Orders 03/08/21 08:56 Cardiac Monitoring [RC] . DIRECTED EKG Documentation Completion [RC] STAT Peripheral IV Care [RC] . DIRECTED Sodium Chloride 0.9% [Saline Flush] 10 ml FLUSH ASDIRECTED PRN Peripheral IV Insertion Adult [OM.PC] Stat 03/08/21 10:41 Sodium Chloride 0.9% [Saline Flush] 10 ml FLUSH ONETIME PRN 03/08/21 10:45 Sodium Chloride 0.9% [Normal Saline] 100 ml IV ASDIRECTED - Assessment/Plan Last 24 Hours: My Active Orders 03/08/21 08:56 Cardiac Monitoring [RC] . DIRECTED EKG Documentation Completion [RC] STAT Peripheral IV Care [RC] . DIRECTED Sodium Chloride 0.9% [Saline Flush] 10 ml FLUSH ASDIRECTED PRN Peripheral IV Insertion Adult [OM.PC] Stat 03/08/21 10:41 Sodium Chloride 0.9% [Saline Flush] 10 ml FLUSH ONETIME PRN 03/08/21 10:45 Sodium Chloride 0.9% [Normal Saline] 100 ml IV ASDIRECTED
[2021-03-08 12:36] VITALS: BP 139/84; PULSE 86
== END 2021-03-08 12:52 | disposition home or self-care (01) ==
LOC: JD.ED 08:38
DX: M54.6 Pain in thoracic spine (principal); G44.89 Other headache syndrome; M54.2 Cervicalgia; R42 Dizziness and giddiness; I10 Essential (primary) hypertension; K21.9 Gastro-esophageal reflux disease without esophagitis; E66.9 Obesity, unspecified; Z68.30 Body mass index [BMI] 30.0-30.9, adult; Z79.899 Other long term (current) drug therapy; Z91.013 Allergy to seafood; Z88.1 Allergy status to other antibiotic agents; Z88.8 Allergy status to other drugs, medicaments and biological substances
CPT/HCPCS: 36415; 70450; 70496; 71046; 80053; 84484; 85025; 85379; 86140; 93005; 93225; 93226; 99284; A9270; Q9967; 93010

== ENCOUNTER 2021-03-31 14:48 | Emergency (ER) | payer MEDICAID ==
[2021-03-31 15:15] VITALS: BP 127/85; PULSE 68
[2021-03-31] MEDS ORDERED: HYDROmorphone 0.5 MG/0.5 ML Syringe IVPUSH ONE ×2 (15:20→16:51)
[2021-03-31] MEDS ORDERED: Ketorolac 30 MG/ML SDV IVPUSH ONE (15:20)
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
[2021-03-31] MEDS ORDERED: Sodium Chloride 0.9% 1,000 ML IV STA (15:54)
[2021-03-31] MEDS ORDERED: diphenhydrAMINE 50 MG/ML SDV IVPUSH ONE (15:54)
--- NOTE | 2021-04-01 08:39 | CR ---
Right elbow: 4 views of the right elbow were obtained. Comparison: No prior elbow study is available. No joint effusion is seen. No acute fracture, dislocation or other bony abnormality is appreciated. Minimal soft tissue swelling is noted. Impression: 1. Minimal soft tissue swelling. 2. No acute osseous abnormality is seen on right elbow study. Diagnostic code #2
== END 2021-03-31 17:25 | disposition home or self-care (01) ==
LOC: SUPCPDRO 14:48 → JD.ED 14:48
DX: M25.521 Pain in right elbow (principal); I10 Essential (primary) hypertension; K21.9 Gastro-esophageal reflux disease without esophagitis; E66.9 Obesity, unspecified; Z68.31 Body mass index [BMI] 31.0-31.9, adult; Z88.1 Allergy status to other antibiotic agents; Z88.8 Allergy status to other drugs, medicaments and biological substances; Z91.013 Allergy to seafood; Z79.899 Other long term (current) drug therapy
CPT/HCPCS: 73080; 96374; 96375; 96376; 99283; J1170; J1200; J1885; J7030

== ENCOUNTER 2021-05-17 23:17 | Emergency (ER) | payer MEDICAID ==
[2021-05-17 23:37] VITALS: BP 173/100; PULSE 87
--- NOTE | 2021-05-17 23:37 | EDM.PDOC ---
ED HPI GENERAL MEDICAL PROBLEM - General Chief Complaint: Upper Extremity Injury/Pain Stated Complaint: SEVERE PAIN IN RIGHT ELBOW Time Seen by Provider: 05/17/21 23:34 - History of Present Illness INITIAL COMMENTS - FREE TEXT/NARRATIVE: 45-year-old female presents the emergency room with right elbow pain. Back in January the patient had a relocation of the right ulnar nerve. She has had a lot of problems since this. She has been informed that it will take roughly a year for this to completely heal up and know what she is got. At times the pain gets so severe she can hardly handle it. She is very careful not to apply any pressure to it. Tonight the pain is abdomen normally worse for her. Right Elbow Pain Score (Numeric/FACES): 9 - Related Data Allergies Allergy/AdvReac Type Severity Reaction Status Date / Time cephalexin monohydrate Allergy Severe Hives Verified 05/17/21 23:37 [From Keflex] chlorhexidine Allergy Severe Hives Verified 05/17/21 23:37 shellfish derived Allergy Severe Anaphylactic Verified 05/17/21 23:37 Shock prochlorperazine edisylate AdvReac Severe Other Verified 05/17/21 23:37 [From Compazine] prochlorperazine maleate AdvReac Severe Other Verified 05/17/21 23:37 [From Compazine] Home Meds: Home Meds Ascorbate Calcium [Vitamin C] 500 mg PO DAILY 01/24/21 [History] Biotin 10 mg PO DAILY 01/24/21 [History] Cholecalciferol (Vitamin D3) [Vitamin D3] 2,000 unit PO DAILY 01/24/21 [History] EPINEPHrine [Epipen] 1 dose IM ONETIME PRN 01/24/21 [History] FLUoxetine [PROzac] 40 mg PO DAILY 01/24/21 [History] Multivit-Min/Iron/Folic Acid/K [Bariatric Mv-Iron 45 mg Cap] 1 tab PO DAILY 01/24/21 [History] Pantoprazole Sodium [Protonix] 20 mg PO DAILY 01/24/21 [History] diazePAM [Valium.] 5 mg PO BEDTIME PRN 01/24/21 [History] oxyCODONE 5 - 10 mg PO Q6H PRN #15 tab 03/31/21 [Rx] oxyCODONE 5 mg PO DAILY PRN #15 tab 05/18/21 [Rx] Past Medical History HEENT History: Reports: Impaired Vision, Sinusitis Other HEENT History: Pharyngitis, sinus pressure, nasal congestion Cardiovascular History: Reports: Hypertension Respiratory History: Reports: Sleep Apnea, Other (See Below) Other Respiratory History: cough, snoring, wheezing, hemoptysis;uses C-PAP Gastrointestinal History: Reports: GERD, Hemorrhoids, Other (See Below) Other Gastrointestinal History: Hematochezia, external hemorrhoids, elevated LFTs, hematochezia, c diff Genitourinary History: Reports: Renal Calculus, UTI, Recurrent, Other (See Below) Other Genitourinary History: LGSIL, CINI, CINII, polydipsia, dense breasts, breast abcess and asymmetry, cloudy urine, dysuria CLINICAL DOCUMENTATION DEVELOPER History: Reports: Ectopic , Other CLINICAL DOCUMENTATION DEVELOPER History: , SAB, breast asymmetry, CINI, CINII, heavy menses, LGSIL, vagina cuff granulation tissue Musculoskeletal History: Reports: Gout, Other (See Below) Other Musculoskeletal History: Myalgias, carpal tunnel syndrome, cubital tunnel syndrome, lumbago, right knee pain, weakness Neurological History: Reports: Migraines, Vertigo Other Neuro History: hand numbness Psychiatric History: Reports: Addiction, Anxiety, Depression, Panic Attack, PTSD Other Psychiatric History: Insomnia Endocrine/Metabolic History: Reports: Obesity/BMI 30+ Hematologic History: Reports: None Immunologic History: Reports: None Oncologic (Cancer) History: Reports: None Dermatologic History: Reports: Other (See Below) Other Dermatologic History: Hidradenitis suppurativa, open wound to foot, plantar wart to left foot, facial skin lesion, cold sores - Infectious Disease History Infectious Disease History: 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 Other Infectious Disease History: [id number] - Past Surgical History Head Surgeries/Procedures: Reports: None HEENT Surgical History: Reports: Oral Surgery Cardiovascular Surgical History: Reports: None Respiratory Surgical History: Reports: None GI Surgical History: Reports: Appendectomy, Bariatric Procedure, Cholecystectomy, Other (See Below) Other GI Surgeries/Procedures: gastric sleeve Female Surgical History: Reports: Hysterectomy Other Female Surgeries/Procedures: Unilateral salpingectomy Endocrine Surgical History: Reports: None Neurological Surgical History: Reports: None Musculoskeletal Surgical History: Reports: None Other Musculoskeletal Surgeries/Procedures:: ulner transposition Oncologic Surgical History: Reports: None Dermatological Surgical History: Reports: None - History Comment History Comment: Apparently suffered a severe dystonic reaction to Compazine in the past. Social & Family History - Family History Family Medical History: No Pertinent Family History HEENT: Reports: None Cardiac: Reports: None Respiratory: Reports: None GI: Reports: None : Reports: None OBGYN: Reports: None Musculoskeletal: Reports: None Neurological: Reports: None Psychiatric: Reports: None Endocrine/Metabolic: Reports: Diabetes Mellitus, Type 3c Hematologic: Reports: None Oncologic: Reports: Breast - Caffeine Use Caffeine Use: Reports: Energy Drinks Other Caffeine Use: one monster daily Caffeine Use Comment: rarely - Living Situation & Occupation Living situation: Reports: , with Significant Other (Boyfriend), with Family (2 kids) Occupation: Employed ([employer]) Review of Systems - Review of Systems Review Of Systems: See Below Constitutional: Reports: No Symptoms Respiratory: Reports: No Symptoms Cardiovascular: Reports: No Symptoms GI/Abdominal: Reports: No Symptoms ED EXAM, GENERAL - Physical Exam Exam: See Below Exam Limited By: No Limitations General Appearance: Alert, No Apparent Distress Respiratory/Chest: No Respiratory Distress, Lungs Clear, Normal Breath Sounds Cardiovascular: Regular Rate, Rhythm, No Edema, No Murmur Extremities: Other (Lamination of the right elbow reveals well healed surgery site but the area is exquisitely tender over the course of the ulnar nerve) Course - Vital Signs Last Recorded V/S: Last Vital Signs Temp 36.6 C 05/17/21 23:32 Pulse 87 05/17/21 23:32 Resp 18 05/17/21 23:32 BP 173/100 H 05/17/21 23:32 Pulse Ox 99 05/17/21 23:32 - Re-Assessments/Exams Free Text/Narrative Re-Assessment/Exam: 05/17/21 23:57 We will give the patient a few Percocet. I explained to the patient that if she has these it will help with the anxiety of knowing that she can do something about it. Is is and put to sedated that she will use 1 on bad nights 1-3 times a week. Patient verbalizes understanding with this. 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 Follow-up with your regular healthcare provider this next week. I have given you prescription for oxycodone 5 mg #15 use 1 on the really bad nights. Allow 12 hours after using this medication before driving or returning to work. Sepsis Event Note (ED) - Focused Exam Vital Signs: Vital Signs Temp Pulse Resp BP Pulse Ox 05/17/21 23:32 36.6 C 87 18 173/100 H 99
[2021-05-17] MEDS ORDERED: Acetaminophen/oxyCODONE 325-5 MG Tab PO ONE (23:55)
== END 2021-05-18 00:10 | disposition home or self-care (01) ==
LOC: JD.ED 23:17
DX: G58.8 Other specified mononeuropathies (principal); I10 Essential (primary) hypertension; K21.9 Gastro-esophageal reflux disease without esophagitis; M10.9 Gout, unspecified; E66.9 Obesity, unspecified; Z68.30 Body mass index [BMI] 30.0-30.9, adult; Z88.1 Allergy status to other antibiotic agents; Z88.8 Allergy status to other drugs, medicaments and biological substances; Z91.013 Allergy to seafood; Z79.899 Other long term (current) drug therapy
CPT/HCPCS: 99283; A9270

== ENCOUNTER 2021-07-28 22:29 | Emergency (ER) | payer MEDICAID ==
[2021-07-28 22:48] VITALS: BP 156/88; PULSE 86
[2021-07-28] MEDS ORDERED: Acetaminophen/Butalbital/Caffeine 325-50-40 MG Tab PO ONE (23:15)
--- NOTE | 2021-07-28 23:17 | EDM.PDOC ---
ED HPI GENERAL MEDICAL PROBLEM - General Chief Complaint: Respiratory Problem Stated Complaint: COUGH/HEADACHE/BODY ACHE Time Seen by Provider: 07/28/21 22:47 Source of Information: Reports: Patient History Limitations: Reports: No Limitations - History of Present Illness INITIAL COMMENTS - FREE TEXT/NARRATIVE: Ms. Cavanaugh is a pleasant 45-year-old woman who now presents the ED stating that she developed generalized body aches, chills without a fever, a sore throat, nasal congestion, a headache, and a nonproductive cough around 19:00 tonight. No recent fever, nausea, vomiting, constipation, diarrhea, or urinary symptoms. The patient states that she took a generic cold and sinus medicine, and some acetaminophen, which have not helped her symptoms. Here in the ED, the patient's initial BP is found to be modestly elevated at 156/88, otherwise, she is hemodynamically stable, afebrile, saturating 97% on room air. She appears to be somewhat anxious, although in no acute distress. Prior to this evening, the patient denies having a recent fever, chills, sore throat, ear pain, nasal or sinus congestion, cough, dyspnea, chest pain, palpitations, nausea, vomiting, constipation, diarrhea, abdominal pain, urinary symptoms, recent weight gain or weight loss, recent bloody bowel movements or black bowel movements, recent joint aches, headaches, or rashes. The patient's PCP is FATIMAH Duran. She has not received a COVID vaccination or an influenza vaccination this season. Generalized Pain Score (Numeric/FACES): 6 - Related Data Allergies Allergy/AdvReac Type Severity Reaction Status Date / Time shellfish derived Allergy Severe Anaphylactic Verified 07/28/21 22:48 Shock cephalexin monohydrate Allergy Intermediate Hives Verified 07/28/21 22:48 [From Keflex] chlorhexidine Allergy Intermediate Hives Verified 07/28/21 22:48 prochlorperazine edisylate AdvReac Intermediate Other Verified 07/28/21 22:48 [From Compazine] prochlorperazine maleate AdvReac Intermediate Other Verified 07/28/21 22:48 [From Compazine] Home Meds: Home Meds Ascorbate Calcium [Vitamin C] 500 mg PO DAILY 01/24/21 [History] Biotin 10 mg PO DAILY 01/24/21 [History] Cholecalciferol (Vitamin D3) [Vitamin D3] 2,000 unit PO DAILY 01/24/21 [History] FLUoxetine [PROzac] 40 mg PO DAILY 01/24/21 [History] Multivit-Min/Iron/Folic Acid/K [Bariatric Mv-Iron 45 mg Cap] 1 tab PO DAILY 01/24/21 [History] Pantoprazole Sodium [Protonix] 20 mg PO DAILY 01/24/21 [History] oxyCODONE 5 mg PO DAILY PRN #15 tab 05/18/21 [Rx] Past Medical History HEENT History: Reports: Impaired Vision Cardiovascular History: Reports: Hypertension (untreated) Respiratory History: Reports: Sleep Apnea (resolved after weight loss) Gastrointestinal History: Reports: GERD, Hemorrhoids Genitourinary History: Reports: Renal Calculus 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: Ectopic (x 1) Musculoskeletal History: Reports: Gout (suspected, not confirmed) Psychiatric History: Reports: Addiction (opioids), Anxiety, Depression, Panic Attack, PTSD, Other (See Below) (Insomnia) - Infectious Disease History Infectious Disease History: 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, Herpes - Past Surgical History HEENT Surgical History: Reports: Oral Surgery (dental extractions) GI Surgical History: Reports: Appendectomy, Bariatric Procedure (laparoscopic sleeve gastrectomy Aug 2020), Cholecystectomy (2018) Female Surgical History: Reports: Hysterectomy (partial), Other (See Below) (Unilateral salpingectomy) Musculoskeletal Surgical History: Reports: Other (See Below) (Right ulner transposition) - History Comment History Comment: Apparently suffered a severe dystonic reaction to Compazine in the past. Social & Family History - Tobacco Use Tobacco Use Status *Q: Current Every Day Tobacco User Years of Tobacco use: 27 Packs/Tins Daily: 0.5 Packs/Tins Daily Comment: Down from 1 ppd Tobacco Use Comment: Started smoking 1993 - Caffeine Use Caffeine Use: Reports: Energy Drinks Other Caffeine Use: one monster daily Caffeine Use Comment: rarely - Alcohol Use Alcohol Use History: Yes Alcohol Use Frequency: Rarely - Recreational Drug Use Recreational Drug Use: No - Living Situation & Occupation Living situation: Reports: , with Family (2 kids) Occupation: Unemployed ED ROS GENERAL - Review of Systems Review Of Systems: Comprehensive ROS is negative, except as noted in HPI. ED EXAM, GENERAL - Physical Exam Exam: See Below Exam Limited By: No Limitations General Appearance: Alert, WD/WN, No Apparent Distress Eye Exam: Bilateral Eye: EOMI, Normal Inspection Ears: Normal External Exam, Normal Canal, Hearing Grossly Normal, Normal TMs Nose: Normal Inspection, Normal Mucosa, No Blood Throat/Mouth: Normal Inspection, Normal Lips, Normal Teeth, Normal Gums, Normal Oropharynx (No erythema or swelling. Tonsils anatomically small, with no erythema or exudate.), Normal Voice, No Airway Compromise Head: Atraumatic, Normocephalic Neck: Normal Inspection, Supple, Non-Tender, Full Range of Motion. No: Limited Range of Motion, Lymphadenopathy (L) Respiratory/Chest: No Respiratory Distress, Lungs Clear, Normal Breath Sounds, No Accessory Muscle Use. No: Decreased Breath Sounds, Crackles, Rhonchi, Wheezing, Stridor, Prolonged Expiration Cardiovascular: Normal Peripheral Pulses, Regular Rate, Rhythm, No Edema, No Gallop, No JVD, No Murmur, No Rub Peripheral Pulses: 3+: Radial (L), Radial (R) GI/Abdominal: Normal Bowel Sounds, Soft, Non-Tender, No Organomegaly, No Distention, No Abnormal Bruit, No Mass Back Exam: Normal Inspection, Full Range of Motion, NT Extremities: Normal Inspection, Normal Range of Motion, No Pedal Edema, Normal Capillary Refill Neurological: Alert, Oriented, Normal Cognition, No Motor/Sensory Deficits Psychiatric: Normal Affect Skin Exam: Warm, Dry, Intact, Normal Color, No Rash Course - Vital Signs Last Recorded V/S: Last Vital Signs Temp 37.0 C 07/28/21 22:45 Pulse 86 07/28/21 22:45 Resp 18 07/28/21 22:45 BP 156/88 H 07/28/21 22:45 Pulse Ox 97 07/28/21 22:45 - Orders/Labs/Meds Orders: Active Orders 24 hr Category Date Time Status Chest 1V Frontal [CR] Stat Exams 07/28/21 23:13 Taken Isolation [COMM] Routine Oth 07/28/21 23:12 Ordered Labs: Laboratory Tests 07/28/21 07/28/21 07/28/21 Range/Units 22:43 23:08 23:27 WBC 18.68 H (3.98-10.04) K/mm3 RBC 4.78 (3.98-5.22) M/mm3 Hgb 15.2 (11.2-15.7) gm/dl Hct 44.0 (34.1-44.9) % MCV 92.1 (79.4-94.8) fl MCH 31.8 (25.6-32.2) pg MCHC 34.5 (32.2-35.5) g/dl RDW Std Deviation 40.5 (36.4-46.3) fL Plt Count 212 (182-369) K/mm3 MPV 11.2 (9.4-12.3) fl Neutrophils % (Manual) 70 H (40-60) % Band Neutrophils % 0 (0-10) % Lymphocytes % (Manual) 21 (20-40) % Atypical Lymphs % 0 % Monocytes % (Manual) 6 (2-10) % Eosinophils % (Manual) 2 (0.7-5.8) % Basophils % (Manual) 1 (0.1-1.2) Platelet Estimate Adequate RBC Morph Comment Normal Sodium (136-145) mEq/L Potassium (3.5-5.1) mEq/L Chloride (98-107) mEq/L Carbon Dioxide (21-32) mEq/L Anion Gap (5-15) BUN (7-18) mg/dL Creatinine (0.55-1.02) mg/dL Est Cr Clr Drug Dosing Estimated GFR (MDRD) (>60) mL/min BUN/Creatinine Ratio (14-18) Glucose (70-99) mg/dL Calcium (8.5-10.1) mg/dL Total Bilirubin (0.2-1.0) mg/dL AST (15-37) U/L ALT (14-59) U/L Alkaline Phosphatase (46-116) U/L C-Reactive Protein (<1.0) mg/dL Total Protein (6.4-8.2) g/dl Albumin (3.4-5.0) g/dl Globulin gm/dL Albumin/Globulin Ratio (1-2) SARS-CoV-2 RNA (RANDY) Positive H (NEGATIVE) Group A Strep (PCR) Not detected (NOT DETECT) 07/28/21 Range/Units 23:27 WBC (3.98-10.04) K/mm3 RBC (3.98-5.22) M/mm3 Hgb (11.2-15.7) gm/dl Hct (34.1-44.9) % MCV (79.4-94.8) fl MCH (25.6-32.2) pg MCHC (32.2-35.5) g/dl RDW Std Deviation (36.4-46.3) fL Plt Count (182-369) K/mm3 MPV (9.4-12.3) fl Neutrophils % (Manual) (40-60) % Band Neutrophils % (0-10) % Lymphocytes % (Manual) (20-40) % Atypical Lymphs % % Monocytes % (Manual) (2-10) % Eosinophils % (Manual) (0.7-5.8) % Basophils % (Manual) (0.1-1.2) Platelet Estimate RBC Morph Comment Sodium 140 (136-145) mEq/L Potassium 3.4 L (3.5-5.1) mEq/L Chloride 105 (98-107) mEq/L Carbon Dioxide 25 (21-32) mEq/L Anion Gap 13.4 (5-15) BUN 11 (7-18) mg/dL Creatinine 0.7 (0.55-1.02) mg/dL Est Cr Clr Drug Dosing TNP Estimated GFR (MDRD) > 60 (>60) mL/min BUN/Creatinine Ratio 15.7 (14-18) Glucose 101 H (70-99) mg/dL Calcium 8.5 (8.5-10.1) mg/dL Total Bilirubin 0.4 (0.2-1.0) mg/dL AST 59 H (15-37) U/L ALT 72 H (14-59) U/L Alkaline Phosphatase 139 H (46-116) U/L C-Reactive Protein <0.2 (<1.0) mg/dL Total Protein 7.5 (6.4-8.2) g/dl Albumin 3.7 (3.4-5.0) g/dl Globulin 3.8 gm/dL Albumin/Globulin Ratio 1.0 (1-2) SARS-CoV-2 RNA (RANDY) (NEGATIVE) Group A Strep (PCR) (NOT DETECT) Meds: Medications Discontinued Medications Generic Name Dose Route Start Last Admin Trade Name Freq PRN Reason Stop Dose Admin Acetaminophen/Butalbital/Caffeine 1 tab 07/28/21 23:15 07/28/21 23:40 Acetaminophen/Butalbital/Caffeine 325-50-40 Mg Tab PO 07/28/21 23:16 1 tab ONETIME ONE Administration - Re-Assessments/Exams Free Text/Narrative Re-Assessment/Exam: 07/28/21 23:14 A swab for the SARS-CoV-2 virus was obtained at triage. I have added influenza A + B viruses. I swabbed the patient for a group A strep by PCR test. I have additionally ordered several blood tests and a portable chest x-ray. In the meantime, the patient will be given a tablet of Fioricet to treat her headache. 07/28/21 23:33 Portable chest radiograph appears to be grossly normal. The cardiac silhouette is within normal limits. No pulmonary vascular congestion. No pleural effusions seen on this AP view. No focal infiltrate. No pneumothorax. Surgical clips in the right upper quadrant consistent with prior cholecystectomy. Formal read per the Radiologist pending. 07/29/21 00:02 The patient's CBC is remarkable for leukocytosis of 18.68, but with 0% bandemia, and the remainder of her CBC being unremarkable. Her CMP is remarkable for slight hypokalemia 3.4, slight hyperglycemia of 101, and AST/ALT elevated at 59/72, respectively, and a mildly elevated alkaline phosphatase of 139, with remainder of her CMP being unremarkable. Her CRP is undetectably low. Her swab for the SARS-CoV-2 virus is positive. Her swab for influenza A + B viruses is negative. 07/29/21 00:08 Test results discussed with the patient. As above, because the patient's CRP is so low, that is a good prognostic indicator that she will not likely suffer severe consequences from COVID-19, therefore I am not recommending treatment with monoclonal antibodies at this time. The patient states that she completely understands and agrees. For the patient's symptoms, I recommended that she stay adequately hydrated and take OTC ibuprofen as needed for discomfort. She stated that she is not supposed to take ibuprofen due to her laparoscopic sleeve gastrectomy, therefore I recommended acetaminophen, even though it will not likely work as well. I advised against her taking any pebv-mrr-gntvnty cough or cold remedies, as they have been shown to be of no benefit, but do have side effects, such as an upset stomach. The patient will need to strictly isolate for 10 days before getting retested. She stated that her boyfriend is not COVID vaccinated, but that he has previously had COVID-19. I explained that a person can reacquire COVID, and that, because they live together, he is at high risk of being reinfected. I therefore recommended that both of them strictly isolate, preferably separately. Departure - Departure Time of Disposition: 00:11 Disposition: Home, Self-Care 01 Condition: Good Clinical Impression: COVID-19 - Discharge Information *PRESCRIPTION DRUG MONITORING PROGRAM REVIEWED*: Not Applicable *COPY OF PRESCRIPTION DRUG MONITORING REPORT IN PATIENT ALINA: Not Applicable Referrals: Radha Olmos PA-C [Primary Care Provider] - Forms: ED Department Discharge Additional Instructions: You were seen in the emergency room after developing generalized body aches, chills, sore throat, nasal congestion, headache, and a dry cough. Work-up in the ER included several blood tests, a swab for the SARS-CoV-2 virus and influenza A + B viruses, a swab for strep throat, and a chest x-ray. Your swab for the SARS-CoV-2 virus returned positive, meaning that you have COVID-19. The remainder of your work-up was unremarkable. Because your CRP, a measure of inflammation, was undetectably low, that is a good prognostic indicator that you will not likely suffer severe consequences from COVID-19. For that reason, treatment with monoclonal antibodies was not offered. We recommend that you stay adequately hydrated and take cxib-ldp-kqgxovy acetaminophen (Tylenol) as needed for discomfort. We do not recommend that you take any dsrj-fcl-ozhvyqq cough or cold remedies, as they have been shown to be of no benefit, but do have side effects, such as an upset stomach. As discussed, it is imperative that you strictly isolate for 10 days, before getting retested for the SARS-CoV-2 virus. As discussed, we recommend that you and your boyfriend isolate separately. If you are still positive after 10 days, you need to continue to isolate until you test negative. If any other problems, please do not hesitate to return to the ER. Sepsis Event Note (ED) - Evaluation Sepsis Screening Result: No Definite Risk - Focused Exam Vital Signs: Vital Signs Temp Pulse Resp BP Pulse Ox 07/28/21 22:45 37.0 C 86 18 156/88 H 97 - My Orders Last 24 Hours: My Active Orders 07/28/21 23:12 Isolation [COMM] Routine 07/28/21 23:13 Chest 1V Frontal [CR] Stat - Assessment/Plan Last 24 Hours: My Active Orders 07/28/21 23:12 Isolation [COMM] Routine 07/28/21 23:13 Chest 1V Frontal [CR] Stat
--- NOTE | 2021-07-29 07:13 | CR ---
Chest: Frontal view of the chest was obtained. Comparison: Prior chest x-ray of 03/08/21. Heart size and mediastinum are within normal limits. Lungs show no acute parenchymal change. Bony structures show nothing acute. Impression: 1. Nothing acute is seen on frontal chest x-ray. Diagnostic code #1
== END 2021-07-29 00:20 | disposition home or self-care (01) ==
LOC: JD.ED 22:29
DX: U07.1 COVID-19 (principal); I10 Essential (primary) hypertension; K21.9 Gastro-esophageal reflux disease without esophagitis; F17.210 Nicotine dependence, cigarettes, uncomplicated; Z91.013 Allergy to seafood; Z88.1 Allergy status to other antibiotic agents; Z88.8 Allergy status to other drugs, medicaments and biological substances; Z79.899 Other long term (current) drug therapy
CPT/HCPCS: 36415; 71045; 80053; 85007; 85027; 86140; 87635; 87651; 87804; 99283; A9270; U0002

== ENCOUNTER 2021-07-29 18:01 | Emergency (ER) | payer MEDICAID ==
[2021-07-29 18:23] VITALS: BP 122/91; PULSE 94
[2021-07-29] MEDS ORDERED: diphenhydrAMINE 50 MG/ML SDV IVPUSH ONE (19:07)
[2021-07-29] MEDS ORDERED: Sodium Chloride 0.9% 10 ML Syringe FLUSH PRN (19:07)
[2021-07-29] MEDS ORDERED: Famotidine 20 MG/2 ML SDV IVPUSH PRN (19:08)
[2021-07-29] MEDS ORDERED: Ketorolac 30 MG/ML SDV IVPUSH ONE (19:08)
[2021-07-29] MEDS ORDERED: Metoclopramide 10 MG/2 ML SDV IVPUSH ONE (19:08)
[2021-07-29] MEDS ORDERED: methylPREDNISolone Sodium Succinate 125 MG/2 ML SDV IVPUSH PRN (19:08)
[2021-07-29] MEDS ORDERED: HYDROmorphone 0.5 MG/0.5 ML Syringe IVPUSH ONE (19:08)
[2021-07-29] MEDS ORDERED: EPINEPHrine 1 MG/ML SDV IM PRN (19:08)
[2021-07-29] MEDS ORDERED: diphenhydrAMINE 50 MG/ML SDV IVPUSH PRN (19:08)
[2021-07-29] MEDS ORDERED: Sodium Chloride 0.9% 10 ML Syringe FLUSH SCH (19:15)
[2021-07-29] MEDS ORDERED: Sodium Chloride 0.9% 1,000 ML IV SCH (19:15)
--- NOTE | 2021-07-29 19:18 | EDM.PDOC ---
ED HPI GENERAL MEDICAL PROBLEM - General Chief Complaint: Headache Stated Complaint: covid+ HEADACHE Time Seen by Provider: 07/29/21 18:54 Source of Information: Reports: Patient History Limitations: Reports: No Limitations - History of Present Illness INITIAL COMMENTS - FREE TEXT/NARRATIVE: The patient presents with a migraine and COVID. She was seen here last night into transmitter engineer in charge and she was found to have COVID. She developed a headache a couple days ago. She does have a history of migraines and this feels like her other migraines. She also has a fever, chills, cough, nausea but no diarrhea. She has not have any numbness or weakness. She has a history of hypertension. Onset: Gradual Duration: Day(s): Location: Reports: Head Quality: Reports: Sharp Severity: Severe Improves with: Reports: None Worsens with: Reports: None Associated Symptoms: Reports: Cough, Headaches, Nausea/Vomiting. Denies: Chest Pain, Fever/Chills, Shortness of Breath Headache Pain Score (Numeric/FACES): 9 - Related Data Allergies Allergy/AdvReac Type Severity Reaction Status Date / Time shellfish derived Allergy Severe Anaphylactic Verified 07/29/21 18:24 Shock cephalexin monohydrate Allergy Intermediate Hives Verified 07/29/21 18:24 [From Keflex] chlorhexidine Allergy Intermediate Hives Verified 07/29/21 18:24 prochlorperazine edisylate AdvReac Intermediate Other Verified 07/29/21 18:24 [From Compazine] prochlorperazine maleate AdvReac Intermediate Other Verified 07/29/21 18:24 [From Compazine] Home Meds: Home Meds Ascorbate Calcium [Vitamin C] 500 mg PO DAILY 01/24/21 [History] Biotin 10 mg PO DAILY 01/24/21 [History] Cholecalciferol (Vitamin D3) [Vitamin D3] 2,000 unit PO DAILY 01/24/21 [History] FLUoxetine [PROzac] 40 mg PO DAILY 01/24/21 [History] Multivit-Min/Iron/Folic Acid/K [Bariatric Mv-Iron 45 mg Cap] 1 tab PO DAILY 0 01/24/21 [History] Pantoprazole Sodium [Protonix] 20 mg PO DAILY 01/24/21 [History] oxyCODONE 5 mg PO DAILY PRN #15 tab 05/18/21 [Rx] dexAMETHasone [Dexamethasone] 6 mg PO Q6H #12 tab 07/29/21 [Rx] Past Medical History HEENT History: Reports: Impaired Vision Other HEENT History: Pharyngitis, sinus pressure, nasal congestion Cardiovascular History: Reports: Hypertension Respiratory History: Reports: Sleep Apnea Other Respiratory History: cough, snoring, wheezing, hemoptysis;uses C-PAP Gastrointestinal History: Reports: GERD, Hemorrhoids Other Gastrointestinal History: Hematochezia, external hemorrhoids, elevated LFTs, hematochezia, c diff Genitourinary History: Reports: Renal Calculus Other Genitourinary History: LGSIL, CINI, CINII, polydipsia, dense breasts, breast abcess and asymmetry, cloudy urine, dysuria ENGINEERING AID History: Reports: Ectopic Other ENGINEERING AID History: , SAB, breast asymmetry, CINI, CINII, heavy menses, LGSIL, vagina cuff granulation tissue Musculoskeletal History: Reports: Gout Other Musculoskeletal History: Myalgias, carpal tunnel syndrome, cubital tunnel syndrome, lumbago, right knee pain, weakness Neurological History: Reports: Migraines, Vertigo Other Neuro History: hand numbness Psychiatric History: Reports: Addiction, Anxiety, Depression, Panic Attack, PTSD, Other (See Below) Other Psychiatric History: Insomnia Endocrine/Metabolic History: Reports: Obesity/BMI 30+ Hematologic History: Reports: None Immunologic History: Reports: None Oncologic (Cancer) History: Reports: None Dermatologic History: Reports: Other (See Below) Other Dermatologic History: Hidradenitis suppurativa, open wound to foot, plantar wart to left foot, facial skin lesion, cold sores - Infectious Disease History Infectious Disease History: 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, Herpes, Novel Coronavirus Other Infectious Disease History: [id number] - Past Surgical History Head Surgeries/Procedures: Reports: None HEENT Surgical History: Reports: Oral Surgery Cardiovascular Surgical History: Reports: None Respiratory Surgical History: Reports: None GI Surgical History: Reports: Appendectomy, Bariatric Procedure, Cholecystectomy Other GI Surgeries/Procedures: gastric sleeve Female Surgical History: Reports: Hysterectomy, Other (See Below) Other Female Surgeries/Procedures: Unilateral salpingectomy Endocrine Surgical History: Reports: None Neurological Surgical History: Reports: None Musculoskeletal Surgical History: Reports: Other (See Below) Other Musculoskeletal Surgeries/Procedures:: ulner transposition Oncologic Surgical History: Reports: None Dermatological Surgical History: Reports: None - History Comment History Comment: Apparently suffered a severe dystonic reaction to Compazine in the past. Social & Family History - Family History Family Medical History: No Pertinent Family History HEENT: Reports: None Cardiac: Reports: None Respiratory: Reports: None GI: Reports: None : Reports: None OBGYN: Reports: None Musculoskeletal: Reports: None Neurological: Reports: None Psychiatric: Reports: None Endocrine/Metabolic: Reports: Diabetes Mellitus, Type 3c Hematologic: Reports: None Oncologic: Reports: Breast - Tobacco Use Tobacco Use Status *Q: Current Every Day Tobacco User Years of Tobacco use: 28 Packs/Tins Daily: 0.5 - Caffeine Use Caffeine Use: Reports: Energy Drinks Other Caffeine Use: one monster daily Caffeine Use Comment: rarely - Recreational Drug Use Recreational Drug Use: No - Living Situation & Occupation Living situation: Reports: , with Family (2 kids) Occupation: Unemployed ED ROS GENERAL - Review of Systems Review Of Systems: See Below Constitutional: Reports: Fever, Chills, Malaise, Weakness, Fatigue HEENT: Reports: No Symptoms Respiratory: Reports: Cough. Denies: Shortness of Breath Cardiovascular: Reports: No Symptoms Endocrine: Reports: No Symptoms GI/Abdominal: Reports: Nausea. Denies: Abdominal Pain, Vomiting : Reports: No Symptoms Musculoskeletal: Reports: No Symptoms - Physical Exam Exam: See Below Exam Limited By: No Limitations General Appearance: Alert, No Apparent Distress Ears: Normal External Exam Nose: Normal Inspection Head Exam: Atraumatic, Normocephalic Neck: Normal Inspection Respiratory/Chest: No Respiratory Distress, Lungs Clear, Normal Breath Sounds Cardiovascular: Regular Rate, Rhythm, No Edema, No Murmur GI/Abdominal: Soft, Non-Tender, No Organomegaly, No Mass Neuro Exam (Abbreviated): Alert, Oriented, No Motor/Sensory Deficits Course - Vital Signs Last Recorded V/S: Last Vital Signs Temp 98.6 F 07/29/21 18:22 Pulse 94 07/29/21 18:22 Resp 18 07/29/21 18:22 BP 122/91 H 07/29/21 18:22 Pulse Ox 97 07/29/21 18:22 - Orders/Labs/Meds Orders: Active Orders 24 hr Category Date Time Status Cardiac Monitoring [RC] . DIRECTED Care 07/29/21 19:07 Active Peripheral IV Care [RC] . DIRECTED Care 07/29/21 19:07 Active Vital Signs [RC] Q15M Care 07/29/21 19:09 Active EPINEPHrine [Adrenalin] Med 07/29/21 19:08 Active 0.3 mg IM ASDIRECTED PRN Famotidine [Pepcid] Med 07/29/21 19:08 Active 20 mg IVPUSH ASDIRECTED PRN Sodium Chloride 0.9% [Normal Saline] 1,000 ml Med 07/29/21 19:15 Active IV .BOLUS Sodium Chloride 0.9% [Saline Flush] Med 07/29/21 19:07 Active 10 ml FLUSH ASDIRECTED PRN Sodium Chloride 0.9% [Saline Flush] Med 07/29/21 19:15 Active 30 ml FLUSH ASDIRECTED diphenhydrAMINE [Benadryl] Med 07/29/21 19:08 Active 50 mg IVPUSH ASDIRECTED PRN methylPREDNISolone Sod Succ [Solu-MEDROL] Med 07/29/21 19:08 Active 125 mg IVPUSH ASDIRECTED PRN Peripheral IV Insertion Adult [OM.PC] Stat Oth 07/29/21 19:07 Ordered Medication Orders Diphenhydramine HCl (Diphenhydramine 50 Mg/Ml Sdv) 50 mg IVPUSH ASDIRECTED PRN PRN Reason: hypersensitivity reaction Epinephrine HCl (Epinephrine 1 Mg/Ml Sdv) 0.3 mg IM ASDIRECTED PRN PRN Reason: hypersensitivity reaction Famotidine (Famotidine 20 Mg/2 Ml Sdv) 20 mg IVPUSH ASDIRECTED PRN PRN Reason: hypersensitivity reaction Sodium Chloride (Normal Saline) 1,000 mls @ 1,000 mls/hr IV .BOLUS LIOR Last Admin: 07/29/21 19:23 Dose: 1,000 mls/hr Documented by: LESTER Methylprednisolone Sodium Succinate (Methylprednisolone Sodium Succinate 125 Mg/2 Ml Sdv) 125 mg IVPUSH ASDIRECTED PRN PRN Reason: hypersensitivity reaction Sodium Chloride (Sodium Chloride 0.9% 10 Ml Syringe) 30 ml FLUSH ASDIRECTED LIOR Sodium Chloride (Sodium Chloride 0.9% 10 Ml Syringe) 10 ml FLUSH ASDIRECTED PRN PRN Reason: Keep Vein Open Meds: Medications Generic Name Dose Route Start Last Admin Trade Name Freq PRN Reason Stop Dose Admin Diphenhydramine HCl 50 mg 07/29/21 19:08 Diphenhydramine 50 Mg/Ml Sdv IVPUSH ASDIRECTED PRN hypersensitivity reaction Epinephrine HCl 0.3 mg 07/29/21 19:08 Epinephrine 1 Mg/Ml Sdv IM ASDIRECTED PRN hypersensitivity reaction Famotidine 20 mg 07/29/21 19:08 Famotidine 20 Mg/2 Ml Sdv IVPUSH ASDIRECTED PRN hypersensitivity reaction Sodium Chloride 1,000 mls @ 1,000 mls/hr 07/29/21 19:15 07/29/21 19:23 Normal Saline IV 1,000 mls/hr .BOLUS LIOR Administration Methylprednisolone Sodium Succinate 125 mg 07/29/21 19:08 Methylprednisolone Sodium Succinate 125 Mg/2 Ml Sdv IVPUSH ASDIRECTED PRN hypersensitivity reaction Sodium Chloride 30 ml 07/29/21 19:15 Sodium Chloride 0.9% 10 Ml Syringe FLUSH ASDIRECTED LIOR Sodium Chloride 10 ml 07/29/21 19:07 Sodium Chloride 0.9% 10 Ml Syringe FLUSH ASDIRECTED PRN Keep Vein Open Discontinued Medications Generic Name Dose Route Start Last Admin Trade Name Freq PRN Reason Stop Dose Admin Diphenhydramine HCl 50 mg 07/29/21 19:07 07/29/21 19:23 Diphenhydramine 50 Mg/Ml Sdv IVPUSH 07/29/21 19:08 50 mg ONETIME ONE Administration Hydromorphone HCl 0.5 mg 07/29/21 19:08 07/29/21 19:44 Hydromorphone 0.5 Mg/0.5 Ml Syringe IVPUSH 07/29/21 19:09 0.5 mg ONETIME ONE Administration CASIRIVIMAB/IMDEVIMAB 10 ml/ 110 mls @ 220 mls/hr 07/29/21 19:08 07/29/21 19:44 Sodium Chloride IV 07/29/21 19:37 220 mls/hr ONETIME ONE Administration Ketorolac Tromethamine 30 mg 07/29/21 19:08 07/29/21 19:23 Ketorolac 30 Mg/Ml Sdv IVPUSH 07/29/21 19:09 30 mg ONETIME ONE Administration Metoclopramide HCl 10 mg 07/29/21 19:08 07/29/21 19:23 Metoclopramide 10 Mg/2 Ml Sdv IVPUSH 07/29/21 19:09 10 mg ONETIME ONE Administration - Re-Assessments/Exams Free Text/Narrative Re-Assessment/Exam: 07/29/21 19:17 I ordered an IV NS 1L bolus, reglan 10mg IV, benadryl 50mg IV, toradol 30mg IV, dilaudid 0.5mg IV and Regeneron. 07/29/21 21:10 She feels better. I will discharge her home on some dexamethasone. Departure - Departure Time of Disposition: 21:15 Disposition: Home, Self-Care 01 Condition: Good Clinical Impression: COVID-19 Migraine headache Qualifiers: Migraine type: unspecified Status migrainosus presence: without status migrainosus Intractability: not intractable Qualified Code(s): G43.909 - Migraine, unspecified, not intractable, without status migrainosus - Discharge Information *PRESCRIPTION DRUG MONITORING PROGRAM REVIEWED*: Not Applicable *COPY OF PRESCRIPTION DRUG MONITORING REPORT IN PATIENT ALINA: Not Applicable Prescriptions: dexAMETHasone [Dexamethasone] 6 mg PO Q6H #12 tab Referrals: Radha Olmos PA-C [Primary Care Provider] - 1 Week Forms: ED Department Discharge Additional Instructions: Drink plenty of fluids. Take tylenol or motrin as needed for pain or fever. Take the dexamethasone 1.5 pills daily until gone. Try to lay on your stomach. That will help oxygenate more lung tissue. Please return if you are worse. Sepsis Event Note (ED) - Focused Exam Vital Signs: Vital Signs Temp Pulse Resp BP Pulse Ox 07/29/21 18:22 98.6 F 94 18 122/91 H 97 - My Orders Last 24 Hours: My Active Orders 07/29/21 19:07 Cardiac Monitoring [RC] . DIRECTED Peripheral IV Care [RC] . DIRECTED Sodium Chloride 0.9% [Saline Flush] 10 ml FLUSH ASDIRECTED PRN Peripheral IV Insertion Adult [OM.PC] Stat 07/29/21 19:08 EPINEPHrine [Adrenalin] 0.3 mg IM ASDIRECTED PRN Famotidine [Pepcid] 20 mg IVPUSH ASDIRECTED PRN diphenhydrAMINE [Benadryl] 50 mg IVPUSH ASDIRECTED PRN methylPREDNISolone Sod Succ [Solu-MEDROL] 125 mg IVPUSH ASDIRECTED PRN 07/29/21 19:09 Vital Signs [RC] Q15M 07/29/21 19:15 Sodium Chloride 0.9% [Normal Saline] 1,000 ml IV .BOLUS Sodium Chloride 0.9% [Saline Flush] 30 ml FLUSH ASDIRECTED - Assessment/Plan Last 24 Hours: My Active Orders 07/29/21 19:07 Cardiac Monitoring [RC] . DIRECTED Peripheral IV Care [RC] . DIRECTED Sodium Chloride 0.9% [Saline Flush] 10 ml FLUSH ASDIRECTED PRN Peripheral IV Insertion Adult [OM.PC] Stat 07/29/21 19:08 EPINEPHrine [Adrenalin] 0.3 mg IM ASDIRECTED PRN Famotidine [Pepcid] 20 mg IVPUSH ASDIRECTED PRN diphenhydrAMINE [Benadryl] 50 mg IVPUSH ASDIRECTED PRN methylPREDNISolone Sod Succ [Solu-MEDROL] 125 mg IVPUSH ASDIRECTED PRN 07/29/21 19:09 Vital Signs [RC] Q15M 07/29/21 19:15 Sodium Chloride 0.9% [Normal Saline] 1,000 ml IV .BOLUS Sodium Chloride 0.9% [Saline Flush] 30 ml FLUSH ASDIRECTED
== END 2021-07-29 21:23 | disposition home or self-care (01) ==
LOC: JD.ED 18:01
DX: G43.909 Migraine, unspecified, not intractable, without status migrainosus (principal); U07.1 COVID-19; I10 Essential (primary) hypertension; E66.9 Obesity, unspecified; Z88.1 Allergy status to other antibiotic agents; Z91.013 Allergy to seafood; Z88.8 Allergy status to other drugs, medicaments and biological substances; Z72.0 Tobacco use; Z68.1 Body mass index [BMI] 19.9 or less, adult
CPT/HCPCS: 96374; 96375; 99283; J1170; J1200; J1885; J2765; J7030; M0243; Q0243

== ENCOUNTER 2021-07-31 09:20 | Emergency (ER) | payer MEDICAID ==
[2021-07-31 10:07] VITALS: BP 137/91; PULSE 85
--- NOTE | 2021-07-31 11:44 | EDM.PDOC ---
ED HPI GENERAL MEDICAL PROBLEM - General Chief Complaint: Headache Stated Complaint: COVID + \ VISION LOSS Time Seen by Provider: 07/31/21 11:44 - History of Present Illness INITIAL COMMENTS - FREE TEXT/NARRATIVE: 45-year-old female presents the emergency room with a migraine, however, now she is developing some vision changes. Patient was recently diagnosed with Covid she has received monoclonal antibody treatment. She has developed recurrent migraine and now has some vision changes associated with this this is been going on for almost 24 hours. The vision changes include fuzziness in the peripheral soriano. Patient has not had vision changes with her migraines in the past. She has some nausea no significant vomiting she is not drinking adequate fluids and her urine is getting dark. Patient has not had the vaccine. She has had no shortness of breath does have a cough that is nonproductive. She has been feverish. She is taking dexamethasone. Headache Pain Score (Numeric/FACES): 9 - Related Data Allergies Allergy/AdvReac Type Severity Reaction Status Date / Time cephalexin monohydrate Allergy Severe Hives Verified 07/31/21 10:08 [From Keflex] chlorhexidine Allergy Severe Hives Verified 07/31/21 10:08 shellfish derived Allergy Severe Anaphylactic Verified 07/31/21 10:08 Shock prochlorperazine edisylate AdvReac Severe Other Verified 07/31/21 10:08 [From Compazine] prochlorperazine maleate AdvReac Severe Other Verified 07/31/21 10:08 [From Compazine] Home Meds: Home Meds Ascorbate Calcium [Vitamin C] 500 mg PO DAILY 01/24/21 [History] Biotin 10 mg PO DAILY 01/24/21 [History] Cholecalciferol (Vitamin D3) [Vitamin D3] 2,000 unit PO DAILY 01/24/21 [History] FLUoxetine [PROzac] 40 mg PO DAILY 01/24/21 [History] Multivit-Min/Iron/Folic Acid/K [Bariatric Mv-Iron 45 mg Cap] 1 tab PO DAILY 01/24/21 [History] Pantoprazole Sodium [Protonix] 20 mg PO DAILY 01/24/21 [History] oxyCODONE 5 mg PO DAILY PRN #15 tab 05/18/21 [Rx] dexAMETHasone [Dexamethasone] 6 mg PO Q6H #12 tab 07/29/21 [Rx] Past Medical History HEENT History: Reports: Impaired Vision Other HEENT History: Pharyngitis, sinus pressure, nasal congestion Cardiovascular History: Reports: Hypertension Respiratory History: Reports: Sleep Apnea Other Respiratory History: cough, snoring, wheezing, hemoptysis;uses C-PAP Gastrointestinal History: Reports: GERD, Hemorrhoids Other Gastrointestinal History: Hematochezia, external hemorrhoids, elevated LFTs, hematochezia, c diff Genitourinary History: Reports: Renal Calculus Other Genitourinary History: LGSIL, CINI, CINII, polydipsia, dense breasts, breast abcess and asymmetry, cloudy urine, dysuria 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 Other SIGNALING DESIGN ENGINEER History: , SAB, breast asymmetry, CINI, CINII, heavy menses, LGSIL, vagina cuff granulation tissue Musculoskeletal History: Reports: Gout Other Musculoskeletal History: Myalgias, carpal tunnel syndrome, cubital tunnel syndrome, lumbago, right knee pain, weakness Neurological History: Reports: Migraines, Vertigo Other Neuro History: hand numbness Psychiatric History: Reports: Addiction, Anxiety, Depression, Panic Attack, PTSD, Other (See Below) Other Psychiatric History: Insomnia Endocrine/Metabolic History: Reports: Obesity/BMI 30+ Hematologic History: Reports: None Immunologic History: Reports: None Oncologic (Cancer) History: Reports: None Dermatologic History: Reports: Other (See Below) Other Dermatologic History: Hidradenitis suppurativa, open wound to foot, plantar wart to left foot, facial skin lesion, cold sores - Infectious Disease History Infectious Disease History: 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, Herpes, Novel Coronavirus Other Infectious Disease History: [id number] - Past Surgical History HEENT Surgical History: Reports: Oral Surgery GI Surgical History: Reports: Appendectomy, Bariatric Procedure, Cholecystectomy Other GI Surgeries/Procedures: gastric sleeve Female Surgical History: Reports: Hysterectomy, Other (See Below) Other Female Surgeries/Procedures: Unilateral salpingectomy Musculoskeletal Surgical History: Reports: Other (See Below) Other Musculoskeletal Surgeries/Procedures:: ulner transposition - History Comment History Comment: Apparently suffered a severe dystonic reaction to Compazine in the past. Social & Family History - Family History Family Medical History: No Pertinent Family History HEENT: Reports: None Cardiac: Reports: None Respiratory: Reports: None GI: Reports: None : Reports: None OBGYN: Reports: None Musculoskeletal: Reports: None Neurological: Reports: None Psychiatric: Reports: None Endocrine/Metabolic: Reports: Diabetes Mellitus, Type 3c Hematologic: Reports: None Oncologic: Reports: Breast - Tobacco Use Tobacco Use Status *Q: Current Every Day Tobacco User Years of Tobacco use: 27 Packs/Tins Daily: 0.5 - Caffeine Use Caffeine Use: Reports: Energy Drinks Other Caffeine Use: one monster daily Caffeine Use Comment: rarely - Recreational Drug Use Recreational Drug Use: No - Living Situation & Occupation Living situation: Reports: , with Family (2 kids) Occupation: Unemployed ED ROS GENERAL - Review of Systems Review Of Systems: See Below Constitutional: Reports: Fever, Chills HEENT: Reports: No Symptoms Respiratory: Reports: Cough. Denies: Sputum, Hemoptysis Cardiovascular: Denies: Chest Pain Endocrine: Reports: No Symptoms GI/Abdominal: Reports: Nausea. Denies: Abdominal Pain, Diarrhea, Vomiting : Reports: No Symptoms Musculoskeletal: Reports: No Symptoms Skin: Reports: No Symptoms Neurological: Reports: No Symptoms Psychiatric: Reports: No Symptoms ED EXAM, GENERAL - Physical Exam Exam: See Below Exam Limited By: No Limitations General Appearance: Alert, No Apparent Distress Eye Exam: Bilateral Eye: Normal Inspection, PERRL Ears: Normal External Exam, Normal Canal, Hearing Grossly Normal, Normal TMs Nose: Normal Inspection, Normal Mucosa, No Blood Throat/Mouth: Normal Inspection, Normal Lips, Normal Teeth, Normal Gums, Normal Oropharynx, Normal Voice, No Airway Compromise Head: Atraumatic, Normocephalic Neck: Normal Inspection, Supple, Non-Tender, Full Range of Motion Respiratory/Chest: No Respiratory Distress, Lungs Clear, Normal Breath Sounds, No Accessory Muscle Use, Chest Non-Tender Cardiovascular: Regular Rate, Rhythm, No Edema, No Murmur GI/Abdominal: Normal Bowel Sounds, Soft, Non-Tender Back Exam: Normal Inspection. No: CVA Tenderness (L), CVA Tenderness (R) Extremities: Normal Inspection, No Pedal Edema Neurological: Alert, Oriented, CN II-XII Intact, Normal Cognition, No Motor/Sensory Deficits Skin Exam: Warm, Dry, Intact Course - Vital Signs Last Recorded V/S: Last Vital Signs Temp 36.4 C 07/31/21 10:04 Pulse 85 07/31/21 10:04 Resp 16 07/31/21 10:04 BP 137/91 H 07/31/21 10:04 Pulse Ox 95 07/31/21 10:04 - Orders/Labs/Meds Labs: Laboratory Tests 07/31/21 07/31/21 07/31/21 Range/Units 12:49 12:49 12:49 WBC 17.22 H (3.98-10.04) K/mm3 RBC 5.05 (3.98-5.22) M/mm3 Hgb 16.1 H (11.2-15.7) gm/dl Hct 46.8 H (34.1-44.9) % MCV 92.7 (79.4-94.8) fl MCH 31.9 (25.6-32.2) pg MCHC 34.4 (32.2-35.5) g/dl RDW Std Deviation 41.3 (36.4-46.3) fL Plt Count 241 (182-369) K/mm3 MPV 11.4 (9.4-12.3) fl Neut % (Auto) 76.7 H (34.0-71.1) % Lymph % (Auto) 17.1 L (19.3-51.7) % [place] % (Auto) 5.4 (4.7-12.5) % Eos % (Auto) 0.3 L (0.7-5.8) Baso % (Auto) 0.2 (0.1-1.2) % Neut # (Auto) 13.21 H (1.56-6.13) K/mm3 Lymph # (Auto) 2.94 (1.18-3.74) K/mm3 [place] # (Auto) 0.93 H (0.24-0.36) K/mm3 Eos # (Auto) 0.06 (0.04-0.36) K/mm3 Baso # (Auto) 0.03 (0.01-0.08) K/mm3 D-Dimer, Quantitative 0.25 (0.19-0.50) mg/L Sodium (136-145) mEq/L Potassium (3.5-5.1) mEq/L Chloride (98-107) mEq/L Carbon Dioxide (21-32) mEq/L Anion Gap (5-15) BUN (7-18) mg/dL Creatinine (0.55-1.02) mg/dL Est Cr Clr Drug Dosing mL/min Estimated GFR (MDRD) (>60) mL/min BUN/Creatinine Ratio (14-18) Glucose (70-99) mg/dL Calcium (8.5-10.1) mg/dL Ferritin (8-252) ng/ml Total Bilirubin (0.2-1.0) mg/dL AST (15-37) U/L ALT (14-59) U/L Alkaline Phosphatase (46-116) U/L Lactate Dehydrogenase (81-234) U/L C-Reactive Protein (<1.0) mg/dL Total Protein (6.4-8.2) g/dl Albumin (3.4-5.0) g/dl Globulin gm/dL Albumin/Globulin Ratio (1-2) Urine Color Yellow (Yellow) Urine Appearance Clear (Clear) Urine pH 6.5 (5.0-8.0) Ur Specific [place] > or = 1.030 (1.005-1.030) Urine Protein Trace H (Negative) Urine Glucose (UA) Negative (Negative) Urine Ketones Trace H (Negative) Urine Occult Blood Negative (Negative) Urine Nitrite Negative (Negative) Urine Bilirubin Negative (Negative) Urine Urobilinogen 0.2 (0.2-1.0) Ur Leukocyte Esterase Negative (Negative) Urine RBC 0-5 (0-5) /hpf Urine WBC 0-5 (0-5) /hpf Ur Squamous Epith Cells 0-5 (0-5) /hpf Urine Bacteria Few (FEW) /hpf Urine Mucus Few (FEW) /hpf 07/31/21 07/31/21 Range/Units 12:49 12:49 WBC (3.98-10.04) K/mm3 RBC (3.98-5.22) M/mm3 Hgb (11.2-15.7) gm/dl Hct (34.1-44.9) % MCV (79.4-94.8) fl MCH (25.6-32.2) pg MCHC (32.2-35.5) g/dl RDW Std Deviation (36.4-46.3) fL Plt Count (182-369) K/mm3 MPV (9.4-12.3) fl Neut % (Auto) (34.0-71.1) % Lymph % (Auto) (19.3-51.7) % [place] % (Auto) (4.7-12.5) % Eos % (Auto) (0.7-5.8) Baso % (Auto) (0.1-1.2) % Neut # (Auto) (1.56-6.13) K/mm3 Lymph # (Auto) (1.18-3.74) K/mm3 [place] # (Auto) (0.24-0.36) K/mm3 Eos # (Auto) (0.04-0.36) K/mm3 Baso # (Auto) (0.01-0.08) K/mm3 D-Dimer, Quantitative (0.19-0.50) mg/L Sodium 141 (136-145) mEq/L Potassium 3.8 (3.5-5.1) mEq/L Chloride 107 (98-107) mEq/L Carbon Dioxide 27 (21-32) mEq/L Anion Gap 10.8 (5-15) BUN 15 (7-18) mg/dL Creatinine 0.6 (0.55-1.02) mg/dL Est Cr Clr Drug Dosing 115.14 mL/min Estimated GFR (MDRD) > 60 (>60) mL/min BUN/Creatinine Ratio 25.0 H (14-18) Glucose 85 (70-99) mg/dL Calcium 9.0 (8.5-10.1) mg/dL Ferritin 240 (8-252) ng/ml Total Bilirubin 0.3 (0.2-1.0) mg/dL AST 42 H (15-37) U/L ALT 90 H (14-59) U/L Alkaline Phosphatase 200 H (46-116) U/L Lactate Dehydrogenase 163 (81-234) U/L C-Reactive Protein 2.0 H* (<1.0) mg/dL Total Protein 7.9 (6.4-8.2) g/dl Albumin 3.6 (3.4-5.0) g/dl Globulin 4.3 gm/dL Albumin/Globulin Ratio 0.8 L (1-2) Urine Color (Yellow) Urine Appearance (Clear) Urine pH (5.0-8.0) Ur Specific [place] (1.005-1.030) Urine Protein (Negative) Urine Glucose (UA) (Negative) Urine Ketones (Negative) Urine Occult Blood (Negative) Urine Nitrite (Negative) Urine Bilirubin (Negative) Urine Urobilinogen (0.2-1.0) Ur Leukocyte Esterase (Negative) Urine RBC (0-5) /hpf Urine WBC (0-5) /hpf Ur Squamous Epith Cells (0-5) /hpf Urine Bacteria (FEW) /hpf Urine Mucus (FEW) /hpf Meds: Medications Discontinued Medications Generic Name Dose Route Start Last Admin Trade Name Jamarq PRN Reason Stop Dose Admin Diphenhydramine HCl 50 mg 07/31/21 12:09 07/31/21 12:34 Diphenhydramine 50 Mg/Ml Sdv IVPUSH 07/31/21 12:10 50 mg ONETIME ONE Administration Hydromorphone HCl 0.5 mg 07/31/21 12:09 07/31/21 12:35 Hydromorphone 0.5 Mg/0.5 Ml Syringe IVPUSH 07/31/21 12:10 0.5 mg ONETIME ONE Administration Lactated Ringer's 1,000 mls @ 999 mls/hr 07/31/21 12:09 07/31/21 12:33 Ringers, Lactated IV 07/31/21 13:09 999 mls/hr .BOLUS ONE Administration Metoclopramide HCl 10 mg 07/31/21 12:09 07/31/21 12:34 Metoclopramide 10 Mg/2 Ml Sdv IVPUSH 07/31/21 12:10 10 mg ONETIME ONE Administration - Re-Assessments/Exams Free Text/Narrative Re-Assessment/Exam: 07/31/21 12:21 We will check labs and I will check a head CT with this change in vision. I wi ll treat her headache will give Dilaudid 0.5 also will not give Toradol as she is on dexamethasone we will give Benadryl 50 Reglan 10 and a liter of LR. I will check a urine to make sure this is not an issue for her as well. 07/31/21 13:53 Patient is doing much better on a headache standpoint however vision changes have not changed. She does give a history of having optic involvement with shingles in the past but this is not acting like that. Her peripheral vision changes are noted bilaterally pupil reacts normally bilaterally. Case was discussed with Dr. Ramírez, neurologist at [facility] [place] given that the only thing we can get today is of brain without we will go ahead and check this and this would demonstrate a demyelinating lesion or something large going on. There is a good possibility that this vision change is related to her migraines. We can do more fine detail images tomorrow if her symptoms do not improve. It would be difficult to get her in to see an carpenter refrigerator or miller head wet process with her positive Covid status. The patient understands that it is a difficult time with the Covid situation and there is just no hospital beds available for her at this time. 07/31/21 16:13 MRI does not show anything acute. At this point the patient feels a lot better her vision has not completely normalized. Patient agrees to return tomorrow if this does not occur or to follow-up with her regular healthcare provider. Departure - Departure Time of Disposition: 16:14 Disposition: Home, Self-Care 01 Clinical Impression: Vision changes Migraine headache Qualifiers: Migraine type: unspecified Status migrainosus presence: without status migrainosus Intractability: not intractable Qualified Code(s): G43.909 - Migraine, unspecified, not intractable, without status migrainosus - Discharge Information Referrals: Radha Olmos PA-C [Primary Care Provider] - Forms: ED Department Discharge Additional Instructions: Return to the emergency room with any questions problems or worsening symptoms. Follow-up in the clinic tomorrow for recheck. Go straight home and get some good sleep and rest. Sepsis Event Note (ED) - Focused Exam Vital Signs: Vital Signs Temp Pulse Resp BP Pulse Ox 07/31/21 10:04 36.4 C 85 16 137/91 H 95
[2021-07-31] MEDS ORDERED: Lactated Ringers 1,000 ML IV ONE (12:09)
[2021-07-31] MEDS ORDERED: diphenhydrAMINE 50 MG/ML SDV IVPUSH ONE (12:09)
[2021-07-31] MEDS ORDERED: Metoclopramide 10 MG/2 ML SDV IVPUSH ONE (12:09)
[2021-07-31] MEDS ORDERED: HYDROmorphone 0.5 MG/0.5 ML Syringe IVPUSH ONE (12:09)
--- NOTE | 2021-07-31 12:44 | CT ---
Head CT Technique: Multiple axial sections through the brain were obtained. Intravenous contrast was not utilized. Reconstructed coronal and sagittal images were obtained. Comparison: Prior head CT study of 03/08/21. Findings: Ventricles along with basal cisterns and sulci over the convexities are within normal limits for the patient's age. No abnormal parenchymal densities are seen. No evidence of intracranial hemorrhage is seen. No midline shift or mass-effect is seen. Bone window settings were reviewed. Minimal mucosal thickening is seen within the ethmoid sinuses. Mastoid sinuses are clear. No acute calvarial abnormality is appreciated. Impression: 1. Minimal mucosal thickening within the ethmoid sinuses which is felt to be incidental. 2. No acute intracranial abnormality is seen on noncontrast head CT study. Diagnostic code #2
--- NOTE | 2021-07-31 15:38 | MR ---
MRI brain Technique: T1 sagittal; T2, T2 FLAIR, T1 and diffusion axial; T1 and gradient echo coronal images were obtained. Comparison: Prior head CT study performed earlier on the same day (12:18 PM). Findings: Ventricles along with basal cisterns and sulci over the convexities are within normal limits. Mild areas of mucosal thickening are seen within the ethmoid sinuses. Normal signal void is seen within the major cerebral arteries within the skull base. There are no acute diffusion abnormalities being seen. Minimal areas of increased signal are seen on the FLAIR sequence in several areas within the subcortical white matter. No other abnormal signal is seen. No midline shift or mass-effect is seen. Impression: 1. Several minimal areas of increased signal within the subcortical white matter within both sides of the brain. These are most likely old. 2. Minimal mucosal thickening within the ethmoid sinuses. 3. Other portions of the MRI study of the brain appear unremarkable. Diagnostic code #2
== END 2021-07-31 16:35 | disposition home or self-care (01) ==
LOC: JD.ED 09:20
DX: G43.909 Migraine, unspecified, not intractable, without status migrainosus (principal); H53.9 Unspecified visual disturbance; I10 Essential (primary) hypertension; K21.9 Gastro-esophageal reflux disease without esophagitis; E66.9 Obesity, unspecified; Z72.0 Tobacco use; Z68.29 Body mass index [BMI] 29.0-29.9, adult; Z88.1 Allergy status to other antibiotic agents; Z88.8 Allergy status to other drugs, medicaments and biological substances; Z91.048 Other nonmedicinal substance allergy status; Z91.013 Allergy to seafood; Z79.899 Other long term (current) drug therapy
CPT/HCPCS: 36415; 70450; 70551; 80053; 81001; 82728; 83615; 85025; 85379; 86140; 96374; 96375; 99284; J1170; J1200; J2765; J7120

== ENCOUNTER 2021-08-04 13:26 | Emergency (ER) | payer MEDICAID ==
--- NOTE | 2021-08-04 14:23 | EDM.PDOC ---
ED HPI GENERAL MEDICAL PROBLEM - General Chief Complaint: Headache Stated Complaint: COVID +/HEADACHE Time Seen by Provider: 08/04/21 14:22 Source of Information: Reports: Patient History Limitations: Reports: No Limitations - History of Present Illness INITIAL COMMENTS - FREE TEXT/NARRATIVE: 45-year-old female presents to the ED with a severe headache aggravated by COVID-19 illness. She started with symptoms last Friday, July 28. She did receive monoclonal antibodies intravenously on July 31 while in the ED. She has generalized myalgias still does running a fever and a severe headache. She is prone to migraines in the Covid has really made things worse. Associated nausea and vomiting of dark coffee-ground like emesis. Questionable hematemesis. Sore throat nasal congestion. Paroxysmal cough nonproductive nausea vomiting starting this morning with mild diarrhea. She is unvaccinated. Last took acetaminophen at 1300 hrs. today. Patient states she suffered a syncopal event this morning she believes she was in the bathroom and found her lying in the hallway. She states she bumped her elbow but has full range of motion. Onset: Sudden Onset Date: 07/28/21 Duration: Day(s):, Constant, Getting Worse (8 days ago) Location: Reports: Head, Face (Severe headache), Chest (Minimally productive cough), Generalized (Generalized myalgia and persistent fever), Other (Nausea and vomiting with questionable hematemesis. Mild diarrhea) Quality: Reports: Ache (Generalized myalgia particularly neck and low back muscles.) Severity: Severe Improves with: Reports: Medication (Tylenol brings the fever down for short period of time) Worsens with: Reports: Movement Context: Reports: Other (Confirmed COVID-19 positive on Friday, July 30). Denies: Activity, Exercise, Lifting, Sick Contact, Trauma Associated Symptoms: Reports: Cough, cough w sputum, Fever/Chills, Headaches, Loss of Appetite, Malaise, Nausea/Vomiting, Shortness of Breath, Weakness, Other (X3 this morning mild diarrhea). Denies: Confusion, Chest Pain, Diaphoresis, Rash, Seizure, Syncope Treatments OFFICE CLINICIAN: Reports: Acetaminophen Other Treatments OFFICE CLINICIAN: Pt self administered APAP 1 gm each 0300, 0800, and 1330 today Generalized Pain Score (Numeric/FACES): 8 - Related Data Allergies Allergy/AdvReac Type Severity Reaction Status Date / Time cephalexin monohydrate Allergy Severe Hives Verified 07/31/21 10:08 [From Keflex] chlorhexidine Allergy Severe Hives Verified 07/31/21 10:08 shellfish derived Allergy Severe Anaphylactic Verified 07/31/21 10:08 Shock prochlorperazine edisylate AdvReac Severe Other Verified 07/31/21 10:08 [From Compazine] prochlorperazine maleate AdvReac Severe Other Verified 07/31/21 10:08 [From Compazine] Home Meds: Home Meds Ascorbate Calcium [Vitamin C] 500 mg PO DAILY 01/24/21 [History] Biotin 10 mg PO DAILY 01/24/21 [History] Cholecalciferol (Vitamin D3) [Vitamin D3] 2,000 unit PO DAILY 01/24/21 [History] FLUoxetine [PROzac] 40 mg PO DAILY 01/24/21 [History] Multivit-Min/Iron/Folic Acid/K [Bariatric Mv-Iron 45 mg Cap] 1 tab PO DAILY 01/24/21 [History] Pantoprazole Sodium [Protonix] 20 mg PO DAILY 01/24/21 [History] oxyCODONE 5 mg PO DAILY PRN #15 tab 05/18/21 [Rx] dexAMETHasone [Dexamethasone] 6 mg PO Q6H #12 tab 07/29/21 [Rx] Ondansetron [Zofran] 4 mg BUCCAL Q6H PRN #10 tab 08/04/21 [Rx] oxyCODONE HCl/Acetaminophen [Percocet 5-325 mg Tablet] 1 - 2 each PO Q4H PRN #20 tablet 08/04/21 [Rx] Past Medical History HEENT History: Reports: Impaired Vision Other HEENT History: Pharyngitis, sinus pressure, nasal congestion Cardiovascular History: Reports: Hypertension Respiratory History: Reports: Sleep Apnea Other Respiratory History: cough, snoring, wheezing, hemoptysis;uses C-PAP Gastrointestinal History: Reports: GERD, Hemorrhoids Other Gastrointestinal History: Hematochezia, external hemorrhoids, elevated LFTs, hematochezia, c diff Genitourinary History: Reports: Renal Calculus Other Genitourinary History: LGSIL, CINI, CINII, polydipsia, dense breasts, breast abcess and asymmetry, cloudy urine, dysuria 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 Other ROAD ENGINEER History: , SAB, breast asymmetry, CINI, CINII, heavy menses, LGSIL, vagina cuff granulation tissue Musculoskeletal History: Reports: Gout Other Musculoskeletal History: Myalgias, carpal tunnel syndrome, cubital tunnel syndrome, lumbago, right knee pain, weakness Neurological History: Reports: Migraines, Vertigo Other Neuro History: hand numbness Psychiatric History: Reports: Addiction, Anxiety, Depression, Panic Attack, PTSD, Other (See Below) Other Psychiatric History: Insomnia Endocrine/Metabolic History: Reports: Obesity/BMI 30+ Hematologic History: Reports: None Immunologic History: Reports: None Oncologic (Cancer) History: Reports: None Dermatologic History: Reports: Other (See Below) Other Dermatologic History: Hidradenitis suppurativa, open wound to foot, plantar wart to left foot, facial skin lesion, cold sores - Infectious Disease History Infectious Disease History: 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, Herpes, Novel Coronavirus Other Infectious Disease History: [id number] - Past Surgical History HEENT Surgical History: Reports: Oral Surgery GI Surgical History: Reports: Appendectomy, Bariatric Procedure, Cholecystectomy Other GI Surgeries/Procedures: gastric sleeve Female Surgical History: Reports: Hysterectomy, Other (See Below) Other Female Surgeries/Procedures: Unilateral salpingectomy Musculoskeletal Surgical History: Reports: Other (See Below) Other Musculoskeletal Surgeries/Procedures:: ulner transposition - History Comment History Comment: Apparently suffered a severe dystonic reaction to Compazine in the past. Social & Family History - Family History Family Medical History: No Pertinent Family History HEENT: Reports: None Cardiac: Reports: None Respiratory: Reports: None GI: Reports: None : Reports: None OBGYN: Reports: None Musculoskeletal: Reports: None Neurological: Reports: None Psychiatric: Reports: None Endocrine/Metabolic: Reports: Diabetes Mellitus, Type 3c Hematologic: Reports: None Oncologic: Reports: Breast - Caffeine Use Caffeine Use: Reports: Energy Drinks Other Caffeine Use: one monster daily Caffeine Use Comment: rarely - Living Situation & Occupation Living situation: Reports: , with Family (2 kids) Occupation: Unemployed ED ROS GENERAL - Review of Systems Review Of Systems: See Below Constitutional: Reports: Fever, Chills, Malaise, Weakness, Fatigue, Decreased Appetite HEENT: Reports: Sinus Problem, Throat Pain Respiratory: Reports: Cough Cardiovascular: Denies: Chest Pain, Blood Pressure Problem, Claudication, Edema, Lightheadedness, Orthopnea, Palpitations Endocrine: Reports: Fatigue GI/Abdominal: Reports: Diarrhea (mild ), Decreased Appetite. Denies: Nausea, Vomiting : Reports: No Symptoms Musculoskeletal: Reports: Neck Pain, Back Pain, Muscle Pain (generalized myalgia) Skin: Reports: No Symptoms Neurological: Reports: Dizziness, Headache Psychiatric: Reports: No Symptoms Hematologic/Lymphatic: Reports: No Symptoms Immunologic: Reports: No Symptoms - Physical Exam Exam: See Below Exam Limited By: No Limitations General Appearance: Alert, No Apparent Distress, Other ( temp of 36.1. heart rate of 75. respiratory rate of 16. 02 sats of 95% and BP is 138/92) Eye Exam: Bilateral Eye: Normal Inspection (No blepharal pallor or scleral icterus. ), PERRL (moderate photosensitivity. ) Throat/Mouth: Normal Inspection, Normal Lips, Normal Oropharynx Head Exam: Atraumatic, Normocephalic Neck: Normal Inspection, Supple, Non-Tender, Full Range of Motion. No: Carotid Bruit, Lymphadenopathy (L), Lymphadenopathy (R) Respiratory/Chest: No Respiratory Distress, Lungs Clear, Normal Breath Sounds, No Accessory Muscle Use Cardiovascular: Normal Peripheral Pulses, Regular Rate, Rhythm, No Edema, No Gallop, No Murmur, No Rub GI/Abdominal: Normal Bowel Sounds, Soft, Non-Tender, No Organomegaly, No Abnormal Bruit, No Mass, Pelvis Stable Neuro Exam (Abbreviated): Alert, Oriented, CN II-XII Intact, Normal Cognition, No Motor/Sensory Deficits Back Exam: Normal Inspection, Full Range of Motion. No: CVA Tenderness (L), CVA Tenderness (R) Extremities: Normal Inspection, Normal Range of Motion, Non-Tender, No Pedal Edema Psychiatric: Normal Affect, Normal Mood Skin Exam: Warm, Dry, Intact, Normal Color, No Rash Course - Vital Signs Last Recorded V/S: Last Vital Signs Temp 36.3 C 08/04/21 16:10 Pulse 76 08/04/21 16:10 Resp 20 08/04/21 16:10 BP 136/85 08/04/21 16:10 Pulse Ox 96 08/04/21 16:10 - Orders/Labs/Meds Meds: Medications Discontinued Medications Generic Name Dose Route Start Last Admin Trade Name Devorah PRN Reason Stop Dose Admin Diphenhydramine HCl 25 mg 08/04/21 14:35 08/04/21 14:58 Diphenhydramine 50 Mg/Ml Sdv IVPUSH 08/04/21 14:36 25 mg ONETIME ONE Administration Hydromorphone HCl 1 mg 08/04/21 14:35 08/04/21 15:02 Hydromorphone 1 Mg/Ml Syringe IVPUSH 08/04/21 14:36 1 mg ONETIME ONE Administration Dextrose/Sodium Chloride 1,000 mls @ 999 mls/hr 08/04/21 14:45 08/04/21 15:07 Dextrose 5%-Normal Saline IV 999 mls/hr ASDIRECTED LIOR Administration Ketorolac Tromethamine 30 mg 08/04/21 14:45 08/04/21 15:04 Ketorolac 30 Mg/Ml Sdv IVPUSH 30 mg ONETIME LIOR Administration Metoclopramide HCl 7.5 mg 08/04/21 14:35 08/04/21 15:00 Metoclopramide 10 Mg/2 Ml Sdv IVPUSH 08/04/21 14:36 7.5 mg ONETIME ONE Administration - Radiology Interpretation Free Text/Narrative:: 45-year-old female presents to the ED with a severe pounding throbbing headache. She is prone to migraine headaches. Since she has developed COVID- 19 illness July 28 she has had a headache almost continuously and today it is unbearable. It is causing nausea and vomiting of coffee-ground like emesis which is likely dark bile due to inability to eat. She is lightheaded dizzy and weak. She had a fainting episode at home walking out of the bathroom she awoke in the hallway this morning. She injured her right elbow but otherwise has full range of motion. She is still febrile. She did receive monoclonal antibody infusion on July 31. Diagnosed + July 30. Plan D5 normal saline at open. Dilaudid 1 mg IV with Reglan 10 mg IV and Benadryl 25 mg IV and Toradol 30 mg IV for headache and body ache relief. She did take Tylenol to 1 g approximately 1300 hrs. today. She will have a chest x-ray done to look for pneumonia. - Re-Assessments/Exams Free Text/Narrative Re-Assessment/Exam: 10/30/21 15:09 chest x-ray reveals normal cardiac silhouette and mediastinum. She does have mild Covid pneumonia involving the right middle lobe of lung field adjacent to the right heart border. 08/04/21 15:52 patient is feeling much better. She will finish up her IV fluids in about. Headache is down to a 2 out of 10. Going to discharge her home on Zofran 4 mg sublingual every 4 hours as needed for nausea relief. Percocet tabs 5/325 mg strength one or two every 4-6 hours necessary for pain relief including headache body ache and cough suppressant. Departure - Departure Time of Disposition: 15:53 Disposition: Home, Self-Care 01 Condition: Fair Clinical Impression: COVID-19 determined by clinical diagnostic criteria, Syncope and collapse Headache Qualifiers: Headache type: other headache syndrome Qualified Code(s): G44.89 - Other headache syndrome Fever Qualifiers: Fever type: unspecified Qualified Code(s): R50.9 - Fever, unspecified Nausea and vomiting Qualifiers: Vomiting type: unspecified Vomiting Intractability: non-intractable Qualified Code(s): R11.2 - Nausea with vomiting, unspecified - Discharge Information *PRESCRIPTION DRUG MONITORING PROGRAM REVIEWED*: Not Applicable *COPY OF PRESCRIPTION DRUG MONITORING REPORT IN PATIENT ALINA: Not Applicable Prescriptions: oxyCODONE HCl/Acetaminophen [Percocet 5-325 mg Tablet] 1 - 2 each PO Q4H PRN #20 tablet PRN Reason: pain relief. Ondansetron [Zofran] 4 mg BUCCAL Q6H PRN #10 tab PRN Reason: nausea or vomiting Instructions: COVID-19 Frequently Asked Questions, Migraine Headache, [id number], 10 Things You Can Do to Manage Your COVID-19 Symptoms at Home - [facility] (04/20/2021), Frequently Asked Questions About COVID-19 Vaccination - [facility] (03/20/2021), COVID-19: Quarantine vs. Isolation - [facility] (09/21/2020) Referrals: Radha Olmos PA-C [Primary Care Provider] - Forms: ED Department Discharge Additional Instructions: Evaluation in the emergency room today in regards to persistent symptoms of COVID-19 illness which started last week Friday. You would consider to be therefore on day eight of illness. Illness typically is worse between day eight and eleven. You have a primary problem with migraine headaches which is made much worse by the COVID-19 illness which causes headache is part of it syndrome as well as generalized muscle aches and pains with loss of appetite nausea vomiting diarrhea sore throat and paroxysmal cough. Associated mild nasal congestion. You received a liter of IV fluids in the emergency room to rehydrate you as you had a syncopal event or fainting spell at home this morning. You received a combination of medications Reglan, Dilaudid, Benadryl, and Toradol for headache relief. You have previously received monoclonal antibody therapy on Friday this week. Treatment at home is plenty of fluids such as Gatorade or Powerade which is very similar to IV fluids replacement. This will maintain hydration. Use Zofran 4 mg under the tongue every 4-6 hours necessary for nausea relief. Percocet tabs 5/325 mg strength one or two every 4-6 hours necessary for body ache and/or headache relief. Chest x-ray done today reveals very early mild pneumonia in the right lung base adjacent to the right heart border. This would be considered very mild illness at this time. You are considered contagious to others for at least another three and probably 4 days. Return to medical care as needed.
[2021-08-04] MEDS ORDERED: diphenhydrAMINE 50 MG/ML SDV IVPUSH ONE (14:35)
[2021-08-04] MEDS ORDERED: HYDROmorphone 1 MG/ML Syringe IVPUSH ONE (14:35)
[2021-08-04] MEDS ORDERED: Metoclopramide 10 MG/2 ML SDV IVPUSH ONE (14:35)
[2021-08-04] MEDS ORDERED: Dextrose 5%-0.9% NaCl 1,000 ML IV SCH (14:45)
[2021-08-04] MEDS ORDERED: Ketorolac 30 MG/ML SDV IVPUSH SCH (14:45)
[2021-08-04 16:18] VITALS: BP 136/85; PULSE 76
--- NOTE | 2021-08-05 07:55 | CR ---
Chest: Frontal view of the chest was obtained. Comparison: Prior chest x-ray of 07/28/21. Heart size and mediastinum are normal. Lungs are clear with no acute parenchymal change. Bony structures show nothing acute. Impression: 1. Nothing acute is seen on portable chest x-ray. Diagnostic code #1
== END 2021-08-04 16:15 | disposition home or self-care (01) ==
LOC: JD.ED 13:26
DX: U07.1 COVID-19 (principal); R55 Syncope and collapse; G44.89 Other headache syndrome; I10 Essential (primary) hypertension; K21.9 Gastro-esophageal reflux disease without esophagitis; E66.9 Obesity, unspecified; Z68.29 Body mass index [BMI] 29.0-29.9, adult; Z88.1 Allergy status to other antibiotic agents; Z88.8 Allergy status to other drugs, medicaments and biological substances; Z91.013 Allergy to seafood; Z79.899 Other long term (current) drug therapy
CPT/HCPCS: 71045; 96374; 96375; 99284; J1170; J1200; J1885; J2765; J7042

== ENCOUNTER 2021-10-01 21:09 | Emergency (ER) | payer MEDICAID ==
[2021-10-01 22:35] VITALS: BP 153/104; PULSE 71
[2021-10-02] MEDS ORDERED: Lactated Ringers 1,000 ML IV ONE (00:08)
[2021-10-02] MEDS ORDERED: diphenhydrAMINE 50 MG/ML SDV IVPUSH ONE (00:08)
[2021-10-02] MEDS ORDERED: Metoclopramide 10 MG/2 ML SDV IVPUSH ONE (00:08)
[2021-10-02] MEDS ORDERED: Ketorolac 15 MG/ML SDV IVPUSH ONE (00:08)
[2021-10-02] MEDS ORDERED: Morphine 4 MG/ML Syringe IVPUSH ONE (01:22)
--- NOTE | 2021-10-02 01:52 | EDM.PDOC ---
ED HPI GENERAL MEDICAL PROBLEM - General Chief Complaint: Headache Stated Complaint: HEADACHE Time Seen by Provider: 10/02/21 01:51 Source of Information: Reports: Patient History Limitations: Reports: No Limitations - History of Present Illness INITIAL COMMENTS - FREE TEXT/NARRATIVE: Patient is a 45-year-old female presenting to the emergency room with a chief complaint of headache. Headache is right-sided. Headache ongoing for several days now. Patient reports headache similar to prior. Patient reports photophobia and nausea. Similar to prior migraines. Patient reports [id number] medication at home does not help. She states only thing that helps is what is been given to her in the emergency room in the past. Denies any head trauma, neck pain, fevers. Treatments BOOT TRIMMER: Reports: Acetaminophen Right Headache Pain Score (Numeric/FACES): 9 - Related Data Allergies Allergy/AdvReac Type Severity Reaction Status Date / Time cephalexin monohydrate Allergy Severe Hives Verified 07/31/21 10:08 [From [employer]] chlorhexidine Allergy Severe Hives Verified 07/31/21 10:08 shellfish derived Allergy Severe Anaphylactic Verified 07/31/21 10:08 Shock prochlorperazine edisylate AdvReac Severe Other Verified 07/31/21 10:08 [From Compazine] prochlorperazine maleate AdvReac Severe Other Verified 07/31/21 10:08 [From Compazine] Home Meds: Home Meds Ascorbate Calcium [Vitamin C] 500 mg PO DAILY 01/24/21 [History] Biotin 10 mg PO DAILY 01/24/21 [History] Cholecalciferol (Vitamin D3) [Vitamin D3] 2,000 unit PO DAILY 01/24/21 [History] FLUoxetine [PROzac] 40 mg PO DAILY 01/24/21 [History] Multivit-Min/Iron/Folic Acid/K [Bariatric Mv-Iron 45 mg Cap] 1 tab PO DAILY 01/24/21 [History] Pantoprazole Sodium [Protonix] 20 mg PO DAILY 01/24/21 [History] oxyCODONE 5 mg PO DAILY PRN #15 tab 05/18/21 [Rx] Past Medical History HEENT History: Reports: Impaired Vision Other HEENT History: Pharyngitis, sinus pressure, nasal congestion Cardiovascular History: Reports: Hypertension Respiratory History: Reports: Sleep Apnea Other Respiratory History: cough, snoring, wheezing, hemoptysis;uses C-PAP Gastrointestinal History: Reports: GERD, Hemorrhoids Other Gastrointestinal History: Hematochezia, external hemorrhoids, elevated LFTs, hematochezia, c diff Genitourinary History: Reports: Renal Calculus Other Genitourinary History: LGSIL, CINI, CINII, polydipsia, dense breasts, breast abcess and asymmetry, cloudy urine, dysuria 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 CIRCULATION TECHNICIAN History: , SAB, breast asymmetry, CINI, CINII, heavy menses, LGSIL, vagina cuff granulation tissue Musculoskeletal History: Reports: Gout Other Musculoskeletal History: Myalgias, carpal tunnel syndrome, cubital tunnel syndrome, lumbago, right knee pain, weakness Neurological History: Reports: Migraines, Vertigo Other Neuro History: hand numbness Psychiatric History: Reports: Addiction, Anxiety, Depression, Panic Attack, PTSD, Other (See Below) Other Psychiatric History: Insomnia Endocrine/Metabolic History: Reports: Obesity/BMI 30+ Hematologic History: Reports: None Immunologic History: Reports: None Oncologic (Cancer) History: Reports: None Dermatologic History: Reports: Other (See Below) Other Dermatologic History: Hidradenitis suppurativa, open wound to foot, plantar wart to left foot, facial skin lesion, cold sores - Infectious Disease History Infectious Disease History: 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, Herpes, Novel Coronavirus Other Infectious Disease History: [id number] - Past Surgical History Head Surgeries/Procedures: Reports: None HEENT Surgical History: Reports: Oral Surgery Cardiovascular Surgical History: Reports: None Respiratory Surgical History: Reports: None GI Surgical History: Reports: Appendectomy, Bariatric Procedure, Cholecystectomy Other GI Surgeries/Procedures: gastric sleeve Female Surgical History: Reports: Hysterectomy, Other (See Below) Other Female Surgeries/Procedures: Unilateral salpingectomy Endocrine Surgical History: Reports: None Neurological Surgical History: Reports: None Musculoskeletal Surgical History: Reports: Other (See Below) Other Musculoskeletal Surgeries/Procedures:: ulner transposition Oncologic Surgical History: Reports: None Dermatological Surgical History: Reports: None - History Comment History Comment: Apparently suffered a severe dystonic reaction to Compazine in the past. Social & Family History - Family History Family Medical History: No Pertinent Family History HEENT: Reports: None Cardiac: Reports: None Respiratory: Reports: None GI: Reports: None : Reports: None OBGYN: Reports: None Musculoskeletal: Reports: None Neurological: Reports: None Psychiatric: Reports: None Endocrine/Metabolic: Reports: Diabetes Mellitus, Type 3c Hematologic: Reports: None Oncologic: Reports: Breast - Tobacco Use Tobacco Use Status *Q: Unknown Ever Used Tobacco - Caffeine Use Caffeine Use: Reports: None Other Caffeine Use: one monster daily Caffeine Use Comment: rarely - Living Situation & Occupation Living situation: Reports: , with Family (2 kids) Occupation: Unemployed ED ROS GENERAL - Review of Systems Review Of Systems: See Below Free Text/Narrative/Comment: In addition to that documented in the HPI above, the additional ROS was obtained: Constitutional: Denies fevers or chills Eyes: Denies vision changes ENMT: Denies sore throat CV: Denies chest pain Resp: Denies SOB GI: Denies vomiting or diarrhea : Denies painful urination MSK: Denies recent trauma Skin: Denies new rashes Neuro: Denies new numbness or tingling or weakness Endocrine: Denies unexpected weight loss Heme: Denies bleeding disorders - Physical Exam Exam: See Below Text/Narrative:: I have reviewed the triage vital signs Const: Well nourished, well developed, appears stated age Eyes: Pupils Equal and reactive to light bilaterally, no conjunctival injection HENT: No signs of trauma or swelling, Neck supple without meningismus CV: Regular Rate Rhythm, Warm, well-perfused extremities RESP: Unlabored respiratory effort GI: soft, non-tender, non-distended, no masses MSK: No gross deformities appreciated Skin: Warm, dry. No rashes Neuro: Alert, gold leaf gilder II-XII grossly intact. Sensation and motor function of extremities grossly intact. Psych: Appropriate mood and affect. Course - Vital Signs Last Recorded V/S: Last Vital Signs Temp 36.7 C 10/01/21 22:34 Pulse 71 10/01/21 22:34 Resp 20 10/01/21 22:34 BP 153/104 H 10/01/21 22:34 Pulse Ox 97 10/01/21 22:34 - Orders/Labs/Meds Meds: Medications Discontinued Medications Generic Name Dose Route Start Last Admin Trade Name Freq PRN Reason Stop Dose Admin Diphenhydramine HCl 25 mg 10/02/21 00:08 10/02/21 00:19 Diphenhydramine 50 Mg/Ml Sdv IVPUSH 10/02/21 00:09 25 mg ONETIME ONE Administration Lactated Ringer's 1,000 mls @ 1,000 mls/hr 10/02/21 00:08 10/02/21 00:18 Ringers, Lactated IV 10/02/21 01:07 1,000 mls/hr .BOLUS ONE Administration Ketorolac Tromethamine 15 mg 10/02/21 00:08 10/02/21 00:18 Ketorolac 15 Mg/Ml Sdv IVPUSH 10/02/21 00:09 15 mg ONETIME ONE Administration Metoclopramide HCl 10 mg 10/02/21 00:08 10/02/21 00:18 Metoclopramide 10 Mg/2 Ml Sdv IVPUSH 10/02/21 00:09 10 mg ONETIME ONE Administration Morphine Sulfate 4 mg 10/02/21 01:22 10/02/21 01:41 Morphine 4 Mg/Ml Syringe IVPUSH 10/02/21 01:23 4 mg ONETIME ONE Administration Departure - Departure Time of Disposition: 01:55 Disposition: Home, Self-Care 01 Clinical Impression: Migraine - Discharge Information Instructions: Migraine Headache, [id number] Referrals: Radha Olmos PA-C [Primary Care Provider] - Forms: ED Department Discharge Sepsis Event Note (ED) - Focused Exam Vital Signs: Vital Signs Temp Pulse Resp BP Pulse Ox 10/01/21 22:34 36.7 C 71 20 153/104 H 97 - Assessment/Plan Assessment:: Patient is a 45-year-old female presented to the emergency room with migraine headache. Typical migraine syndrome. Normal neurologic exam. No evidence of subarachnoid hemorrhage or infectious process. Patient feels entirely better with medication in the emergency room. She was to go home. No indication for emergent imaging or laboratory testing at this time. Patient be discharged in stable condition.
== END 2021-10-02 02:02 | disposition home or self-care (01) ==
LOC: JD.ED 21:09
DX: G43.909 Migraine, unspecified, not intractable, without status migrainosus (principal); I10 Essential (primary) hypertension; K21.9 Gastro-esophageal reflux disease without esophagitis; E66.9 Obesity, unspecified; Z68.34 Body mass index [BMI] 34.0-34.9, adult; Z86.16 Personal history of COVID-19; Z79.899 Other long term (current) drug therapy; Z88.1 Allergy status to other antibiotic agents; Z88.8 Allergy status to other drugs, medicaments and biological substances
CPT/HCPCS: 96374; 96375; 99283; J1200; J1885; J2270; J2765; J7120; 99284

== ENCOUNTER 2021-11-10 22:17 | Emergency (ER) | payer MEDICAID ==
[2021-11-10 22:31] VITALS: BP 168/107; PULSE 79
[2021-11-10] MEDS ORDERED: Metoclopramide 10 MG/2 ML SDV IM ONE (22:44)
[2021-11-10] MEDS ORDERED: diphenhydrAMINE 50 MG/ML SDV IM ONE (22:44)
[2021-11-10] MEDS ORDERED: Ketorolac 30 MG/ML SDV IM ONE (22:44)
[2021-11-10] MEDS ORDERED: Haloperidol Lactate 5 MG/ML SDV IM ONE (23:45)
== END 2021-11-11 00:30 | disposition home or self-care (01) ==
LOC: JD.ED 22:17
DX: G43.909 Migraine, unspecified, not intractable, without status migrainosus (principal); I10 Essential (primary) hypertension; K21.9 Gastro-esophageal reflux disease without esophagitis; E66.9 Obesity, unspecified; Z88.1 Allergy status to other antibiotic agents; Z88.8 Allergy status to other drugs, medicaments and biological substances; Z91.013 Allergy to seafood; Z79.899 Other long term (current) drug therapy; Z68.30 Body mass index [BMI] 30.0-30.9, adult
CPT/HCPCS: 96372; 99283; J1200; J1630; J1885; J2765; 99284

== ENCOUNTER 2021-12-23 12:07 | Emergency (ER) | payer MEDICAID ==
[2021-12-23 12:26] VITALS: BP 153/108; PULSE 68
[2021-12-23] MEDS ORDERED: Sodium Chloride 0.9% 1,000 ML IV STA (12:51)
[2021-12-23] MEDS ORDERED: HYDROmorphone 0.5 MG/0.5 ML Syringe IVPUSH ONE (12:51)
[2021-12-23] MEDS ORDERED: Metoclopramide 10 MG/2 ML SDV IVPUSH ONE (12:51)
[2021-12-23] MEDS ORDERED: diphenhydrAMINE 50 MG/ML SDV IVPUSH ONE (12:52)
[2021-12-23] MEDS ORDERED: Ketorolac 30 MG/ML SDV IVPUSH ONE (12:52)
== END 2021-12-23 14:35 | disposition home or self-care (01) ==
LOC: JD.ED 12:07
DX: G43.909 Migraine, unspecified, not intractable, without status migrainosus (principal); I10 Essential (primary) hypertension; K21.9 Gastro-esophageal reflux disease without esophagitis; E66.9 Obesity, unspecified; Z68.30 Body mass index [BMI] 30.0-30.9, adult; Z88.1 Allergy status to other antibiotic agents; Z91.013 Allergy to seafood; Z88.8 Allergy status to other drugs, medicaments and biological substances; Z72.0 Tobacco use
CPT/HCPCS: 96374; 96375; 99283; J1170; J1200; J1885; J2765; J7030; 99284

== ENCOUNTER 2021-12-28 17:10 | Emergency (ER) | payer MEDICAID ==
[2021-12-28 17:54] VITALS: BP 146/110; PULSE 86
[2021-12-28] MEDS ORDERED: Sodium Chloride 0.9% 10 ML Syringe FLUSH PRN (17:56)
[2021-12-28] MEDS ORDERED: HYDROmorphone 0.5 MG/0.5 ML Syringe IVPUSH ONE (18:02)
[2021-12-28] MEDS ORDERED: Ondansetron 4 MG/2 ML SDV IVPUSH ONE (18:02)
[2021-12-28 19:18] LABS: CORONAVIRUS COVID-19 NAA NEGATIVE (NEGATIVE)
== END 2021-12-28 19:40 | disposition home or self-care (01) ==
LOC: JD.ED 17:10
DX: R07.89 Other chest pain (principal); I10 Essential (primary) hypertension; E66.9 Obesity, unspecified; Z68.30 Body mass index [BMI] 30.0-30.9, adult; Z91.013 Allergy to seafood; Z88.1 Allergy status to other antibiotic agents; Z88.8 Allergy status to other drugs, medicaments and biological substances; Z20.822 Contact with and (suspected) exposure to COVID-19
CPT/HCPCS: 0240U; 36415; 71045; 80053; 83735; 83880; 84484; 85025; 85610; 85730; 93005; 96374; 96375; 99285; J1170; J2405; 93010

== ENCOUNTER 2022-02-24 21:20 | Emergency (ER) | payer MEDICAID ==
[2022-02-24 21:48] VITALS: BP 134/82; PULSE 83
[2022-02-24] MEDS ORDERED: Doxycycline 100 MG Cap PO STA (22:33)
[2022-02-24] MEDS ORDERED: HYDROmorphone 0.5 MG/0.5 ML Syringe IVPUSH ONE ×2 (22:35→23:59)
[2022-02-24] MEDS ORDERED: Sodium Chloride 0.9% 1,000 ML IV SCH (22:45)
[2022-02-25] MEDS ORDERED: Orphenadrine 100 MG Tab.ER PO STA (00:36)
== END 2022-02-25 00:59 | disposition home or self-care (01) ==
LOC: JD.ED 21:20
DX: T81.49XA Infection following a procedure, other surgical site, initial encounter (principal); M54.50 Low back pain, unspecified; I10 Essential (primary) hypertension; Z86.16 Personal history of COVID-19; Z90.49 Acquired absence of other specified parts of digestive tract; Z90.710 Acquired absence of both cervix and uterus; Z87.891 Personal history of nicotine dependence; Z91.013 Allergy to seafood; Z88.1 Allergy status to other antibiotic agents; Z88.2 Allergy status to sulfonamides; Z88.8 Allergy status to other drugs, medicaments and biological substances; Z79.899 Other long term (current) drug therapy
CPT/HCPCS: 36415; 71275; 85610; 85730; 96374; 96376; 99284; A9270; J1170; J7030

== ENCOUNTER 2022-03-03 12:39 | Emergency (ER) | payer MEDICAID ==
[2022-03-03] MEDS ORDERED: cefTRIAXone 2 GM in Sodium Chloride 0.9% 100 ML IV ONE (13:40)
[2022-03-03] MEDS ORDERED: Vancomycin 2 GM in Sodium Chloride 0.9% 500 ML IV ONE (13:41)
[2022-03-03] MEDS ORDERED: Ondansetron 4 MG/2 ML SDV IVPUSH ONE (13:42)
[2022-03-03] MEDS ORDERED: HYDROmorphone 0.5 MG/0.5 ML Syringe IVPUSH ONE (13:43)
[2022-03-03] MEDS ORDERED: Dextrose 5%-0.9% NaCl 1,000 ML IV SCH (13:45)
[2022-03-03 14:26] LABS: ESTIMATED GFR > 60 mL/min (>60)
[2022-03-03] MEDS ORDERED: HYDROmorphone 1 MG/ML Syringe IVPUSH ONE ×2 (16:17→18:56)
[2022-03-03] MEDS ORDERED: Iopamidol 612 MG/ML 100 ML Bottle IVPUSH ONE (16:44)
[2022-03-03] MEDS ORDERED: Sodium Chloride 0.9% 100 ML IV SCH (16:45)
[2022-03-03 19:18] VITALS: BP 114/68; PULSE 99
== END 2022-03-03 20:15 ==
LOC: JD.ED 12:39
DX: T81.49XA Infection following a procedure, other surgical site, initial encounter (principal); D72.829 Elevated white blood cell count, unspecified; I10 Essential (primary) hypertension; E66.9 Obesity, unspecified; Z68.29 Body mass index [BMI] 29.0-29.9, adult; Z86.16 Personal history of COVID-19; Z90.49 Acquired absence of other specified parts of digestive tract; Z90.710 Acquired absence of both cervix and uterus; Z87.891 Personal history of nicotine dependence; Z79.899 Other long term (current) drug therapy; Z91.013 Allergy to seafood; Z88.1 Allergy status to other antibiotic agents; Z88.8 Allergy status to other drugs, medicaments and biological substances
CPT/HCPCS: 36415; 74177; 80053; 81001; 83605; 83735; 85007; 85027; 85610; 85730; 86140; 87040; 87070; 87075; 87205; 96365; 96366; 96367; 96375; 96376; 99285; J0696; J1170; J2405; J3370; J7040; J7042; Q9967; 87077; 87186; 99284

== ENCOUNTER 2022-03-31 17:54 | Emergency (ER) | payer MEDICAID ==
[2022-03-31 18:17] VITALS: BP 150/101; PULSE 88
[2022-03-31] MEDS ORDERED: HYDROmorphone 0.5 MG/0.5 ML Syringe IVPUSH ONE (19:21)
[2022-03-31] MEDS ORDERED: Ketorolac 30 MG/ML SDV IVPUSH STA (19:21)
[2022-03-31 19:43] LABS: ESTIMATED GFR 92 mL/min (>60)
== END 2022-03-31 20:57 | disposition home or self-care (01) ==
LOC: JD.ED 17:54
DX: J06.9 Acute upper respiratory infection, unspecified (principal); G89.18 Other acute postprocedural pain; R10.30 Lower abdominal pain, unspecified; G44.89 Other headache syndrome; I10 Essential (primary) hypertension; K21.9 Gastro-esophageal reflux disease without esophagitis; Z28.310 Unvaccinated for COVID-19; Z91.013 Allergy to seafood; Z88.1 Allergy status to other antibiotic agents; Z86.16 Personal history of COVID-19; Z87.891 Personal history of nicotine dependence
CPT/HCPCS: 36415; 71046; 80053; 85007; 85027; 86140; 96374; 96375; 99284; J1170; J1885

== ENCOUNTER 2022-04-24 19:12 | Emergency (ER) | payer MEDICAID ==
[2022-04-24] MEDS ORDERED: Ondansetron 4 MG/2 ML SDV IVPUSH ONE (19:57)
[2022-04-24] MEDS ORDERED: Sodium Chloride 0.9% 10 ML Syringe FLUSH PRN ×2 (19:57→20:24)
[2022-04-24] MEDS ORDERED: HYDROmorphone 0.5 MG/0.5 ML Syringe IVPUSH ONE (19:57)
[2022-04-24] MEDS ORDERED: Sodium Chloride 0.9% 1,000 ML IV SCH (20:00)
[2022-04-24] MEDS ORDERED: Iopamidol 612 MG/ML 100 ML Bottle IVPUSH ONE (20:24)
[2022-04-24 22:04] VITALS: BP 163/104; PULSE 82
== END 2022-04-24 22:00 | disposition home or self-care (01) ==
LOC: JD.ED 19:12
DX: R10.10 Upper abdominal pain, unspecified (principal); I10 Essential (primary) hypertension; E66.9 Obesity, unspecified; Z68.30 Body mass index [BMI] 30.0-30.9, adult; Z91.013 Allergy to seafood; Z88.1 Allergy status to other antibiotic agents; Z88.8 Allergy status to other drugs, medicaments and biological substances; Z79.899 Other long term (current) drug therapy; Z86.16 Personal history of COVID-19; Z90.49 Acquired absence of other specified parts of digestive tract; Z90.710 Acquired absence of both cervix and uterus
CPT/HCPCS: 36415; 74177; 80053; 83690; 85025; 86140; 96361; 96374; 96375; 99284; J1170; J2405; J3490; J7030; Q9967

== ENCOUNTER 2022-06-27 21:24 | Emergency (ER) | payer MEDICAID ==
[2022-06-27 21:54] VITALS: BP 165/97; PULSE 75
[2022-06-27] MEDS ORDERED: Metoclopramide 10 MG/2 ML SDV IVPUSH ONE (21:56)
[2022-06-27] MEDS ORDERED: Sodium Chloride 0.9% 1,000 ML IV STA (21:56)
[2022-06-27] MEDS ORDERED: HYDROmorphone 0.5 MG/0.5 ML Syringe IVPUSH ONE (21:56)
[2022-06-27] MEDS ORDERED: diphenhydrAMINE 50 MG/ML SDV IVPUSH ONE (21:56)
[2022-06-27] MEDS ORDERED: Ketorolac 30 MG/ML SDV IVPUSH ONE (21:56)
== END 2022-06-27 23:15 | disposition home or self-care (01) ==
LOC: JD.ED 21:24
DX: G43.009 Migraine without aura, not intractable, without status migrainosus (principal); I10 Essential (primary) hypertension; F17.210 Nicotine dependence, cigarettes, uncomplicated; E66.9 Obesity, unspecified; Z68.29 Body mass index [BMI] 29.0-29.9, adult; Z91.013 Allergy to seafood; Z88.1 Allergy status to other antibiotic agents; Z88.8 Allergy status to other drugs, medicaments and biological substances; Z79.899 Other long term (current) drug therapy; Z86.16 Personal history of COVID-19; Z90.49 Acquired absence of other specified parts of digestive tract; Z90.710 Acquired absence of both cervix and uterus
CPT/HCPCS: 96361; 96374; 96375; 99283; J1170; J1200; J1885; J2765; J7030

== ENCOUNTER 2022-08-29 18:52 | Inpatient (IN) | payer MEDICAID ==
[2022-08-29] MEDS ORDERED: HYDROmorphone 0.5 MG/0.5 ML Syringe IVPUSH ONE (19:50)
[2022-08-29] MEDS ORDERED: Ondansetron 4 MG/2 ML SDV IVPUSH ONE (19:50)
[2022-08-29] MEDS ORDERED: Sodium Chloride 0.9% 10 ML Syringe FLUSH ONE (19:54)
[2022-08-29] MEDS ORDERED: Iopamidol 612 MG/ML 100 ML Bottle IVPUSH ONE (19:54)
[2022-08-29] MEDS ORDERED: Sodium Chloride 0.9% 1,000 ML IV SCH (20:00)
[2022-08-29] MEDS ORDERED: Sodium Chloride 0.9% 100 ML IV SCH (20:00)
[2022-08-29] MEDS ORDERED: HYDROmorphone 1 MG/ML Syringe IVPUSH ONE (20:56)
[2022-08-29] MEDS ORDERED: LORazepam 2 MG/ML SDV IVPUSH ONE (20:57)
[2022-08-29] MEDS ORDERED: Lidocaine 1% with EPINEPHrine 1:100,000 20 ML MDV INJECT ONE (20:57)
[2022-08-29] MEDS ORDERED: Lidocaine 1% with EPINEPHrine 1:100,000 10 ML MDV ONE (21:02)
[2022-08-29] MEDS ORDERED: Polyethylene Glycol 3350 Powder 17 GM Packet PO PRN (22:00)
[2022-08-29] MEDS ORDERED: Heparin Sodium 5,000 Units/ML Vial SUBCUT SCH (22:00)
[2022-08-29] MEDS ORDERED: Ondansetron 4 MG/2 ML SDV IV PRN (22:00)
[2022-08-29] MEDS ORDERED: HYDROmorphone 0.5 MG/0.5 ML Syringe IVPUSH PRN (22:05)
[2022-08-29] MEDS ORDERED: HYDROmorphone 1 MG/ML Syringe IVPUSH PRN (22:05)
[2022-08-29] MEDS ORDERED: Piperacillin/Tazobactam 4.5 GM in Sodium Chloride 0.9% 100 ML IV ONE (22:15)
[2022-08-29] MEDS ORDERED: VANCOmycin 1.25 GM/250 ML 1.25 GM in Premix Bag 1 BAG IV ONE (22:30)
[2022-08-29] MEDS ORDERED: Ketorolac 15 MG/ML SDV IVPUSH SCH (23:00)
[2022-08-30] MEDS: Ketorolac 15 MG/ML SDV IVPUSH SCH ×4 (01:43→20:01)
[2022-08-30] MEDS: Heparin Sodium 5,000 Units/ML Vial SUBCUT SCH ×4 (01:48→23:12)
[2022-08-30] MEDS ORDERED: Ketorolac 15 MG/ML SDV IVPUSH SCH (02:00)
[2022-08-30] MEDS ORDERED: Piperacillin/Tazobactam 4.5 GM in Sodium Chloride 0.9% 100 ML IV ONE (02:00)
[2022-08-30] MEDS ORDERED: VANCOmycin 1.25 GM/250 ML 1.25 GM in Premix Bag 1 BAG IV ONE (02:30)
[2022-08-30] MEDS: Pantoprazole 40 MG Tab.CR PO SCH (07:53)
[2022-08-30] MEDS: Acetaminophen 325 MG Tab PO SCH ×4 (08:46→20:02)
[2022-08-30] MEDS: amLODIPine 5 MG Tab PO SCH (08:47)
[2022-08-30] MEDS: Piperacillin/Tazobactam 4.5 GM in Sodium Chloride 0.9% 100 ML IV SCH ×3 (08:54→23:12)
[2022-08-30] MEDS ORDERED: Calcium Carbonate 500 MG Tab.Chew PO PRN (10:24)
[2022-08-30] MEDS: FLUoxetine 20 MG Cap PO SCH (13:32)
[2022-08-30] MEDS: Propranolol 60 MG Cap.ER PO SCH (13:32)
[2022-08-30] MEDS: Potassium Chloride 10 MEQ in Premix Bag 1 BAG IV SCH ×3 (13:33→16:33)
[2022-08-30] MEDS ORDERED: Sodium Chloride 0.9% 500 ML IV STA (13:54)
[2022-08-30] MEDS ORDERED: Sodium Chloride 0.9% 500 ML IV ONE (14:10)
[2022-08-30] MEDS: VANCOmycin 1.25 GM/250 ML 1.25 GM in Premix Bag 1 BAG IV SCH (14:41)
[2022-08-30] MEDS: oxyCODONE 5 MG Tab PO PRN (23:10)
[2022-08-31] MEDS ORDERED: ALPRAZolam 0.25 MG Tab PO PRN (01:25)
[2022-08-31] MEDS: Ketorolac 15 MG/ML SDV IVPUSH SCH ×3 (01:42→14:19)
[2022-08-31] MEDS: VANCOmycin 1.25 GM/250 ML 1.25 GM in Premix Bag 1 BAG IV SCH (03:00)
[2022-08-31] MEDS: Pantoprazole 40 MG Tab.CR PO SCH (05:54)
[2022-08-31] MEDS: Heparin Sodium 5,000 Units/ML Vial SUBCUT SCH ×2 (05:54→14:19)
[2022-08-31] MEDS: Piperacillin/Tazobactam 4.5 GM in Sodium Chloride 0.9% 100 ML IV SCH ×2 (08:08→16:43)
[2022-08-31] MEDS: Propranolol 60 MG Cap.ER PO SCH (08:08)
[2022-08-31] MEDS: Acetaminophen 325 MG Tab PO SCH (08:09)
[2022-08-31] MEDS: FLUoxetine 20 MG Cap PO SCH (08:09)
[2022-08-31] MEDS: amLODIPine 5 MG Tab PO SCH (08:09)
[2022-08-31] MEDS ORDERED: METHYLPHENIDATE 27 MG PO SCH (09:00)
[2022-08-31] MEDS ORDERED: VANCOmycin 1.5 GM/300 ML 1.5 GM in Premix Bag 1 BAG IV SCH (14:00)
[2022-08-31] MEDS: oxyCODONE 5 MG Tab PO PRN (14:18)
[2022-08-31] MEDS ORDERED: Lidocaine 1% 20 ML MDV INJECT ONE (15:49)
[2022-08-31] MEDS ORDERED: Lidocaine 1% 30 ML SDV ONE (16:00)
[2022-08-31 16:34] VITALS: BP 146/93; PULSE 65
== END 2022-08-31 17:37 | disposition home or self-care (01) | DRG 863 ==
LOC: JD.ED 18:52 → JD.MS 22:00
PROVIDERS: ADMIT Surgery; ATTEND Surgery
PROC: 0J980ZZ Drainage of Abdomen Subcutaneous Tissue and Fascia, Open Approach (ICD-10-PCS; principal; 2022-08-29)
DX: T81.41XA Infection following a procedure, superficial incisional surgical site, initial encounter (principal); L02.211 Cutaneous abscess of abdominal wall; F90.9 Attention-deficit hyperactivity disorder, unspecified type; F41.9 Anxiety disorder, unspecified; G43.009 Migraine without aura, not intractable, without status migrainosus; H54.7 Unspecified visual loss; I10 Essential (primary) hypertension; K21.9 Gastro-esophageal reflux disease without esophagitis; F17.210 Nicotine dependence, cigarettes, uncomplicated; G47.30 Sleep apnea, unspecified; F41.0 Panic disorder [episodic paroxysmal anxiety]; F43.10 Post-traumatic stress disorder, unspecified; M10.9 Gout, unspecified; Z86.16 Personal history of COVID-19; Z91.013 Allergy to seafood; Z88.1 Allergy status to other antibiotic agents; Z88.8 Allergy status to other drugs, medicaments and biological substances; Z79.899 Other long term (current) drug therapy; Z90.49 Acquired absence of other specified parts of digestive tract; Z98.84 Bariatric surgery status; Z90.710 Acquired absence of both cervix and uterus
CPT/HCPCS: 36415; 74177; 74177-26; 80053; 80202; 83735; 85007; 85025; 85027; 87040; 87070; 87075; 87077; 87186; 87205; 96374; 96375; 96376; 99284-25; A9270-GY; J1170; J1644; J1885; J2060; J2405; J2543; J3370; J3480; J3490; J7030; J7040; Q9967

== ENCOUNTER 2022-09-19 07:56 | Day surgery (SDC) | payer MEDICAID ==
[~2022-09-19 07:56] MED LIST changes: -Clindamycin Phosphate in D5W 900 MG in Premix Bag 1 BAG IV SCH; -Lidocaine 1% 4 ML ONE; +Lidocaine 1% 6 ML ONE; +Sodium Chloride 0.9% 10 ML Syringe FLUSH SCH
[2022-09-19] MEDS ORDERED: Midazolam 1 MG/ML 2 ML SDV ONE (08:09)
[2022-09-19] MEDS ORDERED: Bupivacaine 0.5%/EPINEPHrine 1:200,000 50 ML MDV ONE (08:25)
[2022-09-19] MEDS ORDERED: Lidocaine 1% 30 ML SDV ONE (08:25)
[2022-09-19] MEDS ORDERED: Ketamine 500 mg/10 ML MDV ONE (08:26)
[2022-09-19] MEDS ORDERED: Clindamycin Phosphate in D5W 50 ML IV ONE (08:52)
[2022-09-19] MEDS ORDERED: Lactated Ringers 1,000 ML ONE (08:53)
[2022-09-19] MEDS ORDERED: Propofol 200 MG/20 ML SDV ONE (09:17)
[2022-09-19] MEDS ORDERED: Gabapentin 300 MG Cap PO ONE (10:43)
[2022-09-19] MEDS ORDERED: Ketorolac 30 MG/ML SDV IVPUSH ONE ×2 (10:43)
[2022-09-19] MEDS ORDERED: Acetaminophen 325 MG Tab PO ONE (10:43)
[2022-09-19] MEDS ORDERED: oxyCODONE 5 MG Tab PO ONE (10:45)
[2022-09-19 11:49] VITALS: BP 124/86; PULSE 60
== END 2022-09-19 12:10 | disposition home or self-care (01) ==
LOC: JD.SDS 07:56
PROVIDERS: ATTEND Surgery
DX: K29.50 Unspecified chronic gastritis without bleeding (principal); F41.9 Anxiety disorder, unspecified; F90.9 Attention-deficit hyperactivity disorder, unspecified type; D64.9 Anemia, unspecified; F32.A Depression, unspecified; K21.9 Gastro-esophageal reflux disease without esophagitis; G47.33 Obstructive sleep apnea (adult) (pediatric); E66.01 Morbid (severe) obesity due to excess calories; I10 Essential (primary) hypertension; E87.6 Hypokalemia; G43.909 Migraine, unspecified, not intractable, without status migrainosus; Z79.899 Other long term (current) drug therapy; Z91.013 Allergy to seafood; Z88.4 Allergy status to anesthetic agent; Z88.6 Allergy status to analgesic agent; Z88.1 Allergy status to other antibiotic agents; Z90.710 Acquired absence of both cervix and uterus; Z87.891 Personal history of nicotine dependence; Z68.30 Body mass index [BMI] 30.0-30.9, adult
CPT/HCPCS: 20102; A9270; J1885; J2250; J2704; J3010; J3490; J7120; 00400

== ENCOUNTER 2022-10-27 13:36 | Emergency (ER) | payer MEDICAID ==
[2022-10-27 14:07] VITALS: BP 153/96; PULSE 93
[2022-10-27] MEDS ORDERED: HYDROmorphone 1 MG/ML Syringe IVPUSH STA (14:16)
[2022-10-27] MEDS ORDERED: Sodium Chloride 0.9% 1,000 ML IV ONE (14:16)
[2022-10-27] MEDS ORDERED: Sodium Chloride 0.9% 10 ML Syringe FLUSH PRN (14:16)
[2022-10-27] MEDS ORDERED: Ondansetron 4 MG/2 ML SDV IVPUSH ONE (14:16)
[2022-10-27 16:02] LABS: ESTIMATED GFR 108 mL/min (>60)
[2022-10-27] MEDS ORDERED: Clindamycin Phosphate in D5W 900 MG in Premix Bag 1 BAG IV ONE ×2 (16:42)
[2022-10-27] MEDS ORDERED: HYDROmorphone 0.5 MG/0.5 ML Syringe IVPUSH ONE (16:49)
== END 2022-10-27 17:45 | disposition home or self-care (01) ==
LOC: JD.ED 13:36
DX: L02.211 Cutaneous abscess of abdominal wall (principal); I10 Essential (primary) hypertension; F17.210 Nicotine dependence, cigarettes, uncomplicated; E66.9 Obesity, unspecified; Z68.30 Body mass index [BMI] 30.0-30.9, adult; Z91.013 Allergy to seafood; Z88.1 Allergy status to other antibiotic agents; Z86.16 Personal history of COVID-19
CPT/HCPCS: 36415; 80053; 85025; 86140; 96361; 96365; 96375; 96376; 99283; J1170; J2405; J3490; J7030

== ENCOUNTER 2022-12-02 15:57 | Day surgery (SDC) | payer MEDICAID ==
[2022-12-02] MEDS ORDERED: Sodium Chloride 0.9% 1,000 ML IV ONE (16:45)
[2022-12-02] MEDS ORDERED: Sodium Chloride 0.9% 10 ML Syringe FLUSH PRN (16:45)
[2022-12-02] MEDS ORDERED: HYDROmorphone 0.5 MG/0.5 ML Syringe IVPUSH ONE (16:47)
[2022-12-02] MEDS ORDERED: Acetaminophen 325 MG Tab PO ONE (16:48)
[2022-12-02] MEDS ORDERED: Ondansetron 4 MG/2 ML SDV IVPUSH ONE (17:22)
[2022-12-02 19:31] LABS: CORONAVIRUS COVID-19 NAA NEGATIVE (NEGATIVE)
[2022-12-02] MEDS ORDERED: Piperacillin/Tazobactam 4.5 GM in Sodium Chloride 0.9% 100 ML IV ONE (19:41)
[2022-12-02] MEDS ORDERED: Sodium Chloride 0.9% 1,000 ML IV SCH (21:00)
[2022-12-02] MEDS: Ondansetron 4 MG/2 ML SDV IVPUSH PRN (21:38)
[2022-12-02] MEDS: HYDROmorphone 1 MG/ML Syringe IVPUSH PRN (21:38)
[2022-12-02] MEDS ORDERED: metroNIDAZOLE/Normal Saline 500 MG in Premix Bag 1 BAG IV ONE (22:54)
[2022-12-03] MEDS: HYDROmorphone 1 MG/ML Syringe IVPUSH PRN ×3 (02:31→09:24)
[2022-12-03] MEDS ORDERED: SODIUM CHLORIDE 0.9% IV SCH (06:00)
[2022-12-03] MEDS ORDERED: PIPERACILLIN IV SCH (06:00)
[2022-12-03] MEDS ORDERED: TAZOBACTAM IV SCH (06:00)
[2022-12-03] MEDS: Ondansetron 4 MG/2 ML SDV IVPUSH PRN (06:54)
[2022-12-03] MEDS ORDERED: Pantoprazole 40 MG in Sodium Chloride 0.9% 100 ML IV ONE (07:34)
[2022-12-03] MEDS ORDERED: Pantoprazole 40 MG Vial IV ONE (08:00)
[2022-12-03] MEDS ORDERED: Scopolamine 1.5 MG Transdermal Patch TOP SCH (08:20)
[2022-12-03] MEDS ORDERED: Albuterol 0.083% 2.5 MG/3 ML Neb Soln NEB SCH (08:32)
[2022-12-03] MEDS ORDERED: Ondansetron 4 MG/2 ML SDV ONE ×2 (08:58→12:45)
[2022-12-03] MEDS ORDERED: Propofol 200 MG/20 ML SDV ONE (08:58)
[2022-12-03] MEDS ORDERED: Midazolam 1 MG/ML 2 ML SDV ONE ×2 (08:58→11:58)
[2022-12-03] MEDS ORDERED: fentaNYL 100 MCG/2 ML SDV ONE (08:58)
[2022-12-03] MEDS ORDERED: Lidocaine 1% 4 ML ONE (09:01)
[2022-12-03] MEDS ORDERED: VANCOmycin 1.5 GM/300 ML 1.5 GM in Premix Bag 1 BAG IV SCH (10:00)
[2022-12-03] MEDS ORDERED: HYDROmorphone 1 MG/ML Syringe IVPUSH ONE (10:07)
[2022-12-03] MEDS ORDERED: Rocuronium 50 MG/5 ML Vial ONE (10:29)
[2022-12-03] MEDS ORDERED: Dexamethasone 4 MG/ML 5 ML MDV ONE (10:29)
[2022-12-03] MEDS ORDERED: Lactated Ringers 1,000 ML IV ONE (12:30)
[2022-12-03] MEDS ORDERED: Ketorolac 30 MG/ML SDV ONE (12:45)
[2022-12-03] MEDS: Bupivacaine 0.5%/EPINEPHrine 1:200,000 50 ML MDV ONE ×2 (12:47→14:00)
[2022-12-03] MEDS ORDERED: Neostigmine Methylsulfate 10 MG/10 ML MDV ONE (12:51)
[2022-12-03] MEDS ORDERED: Ondansetron 4 MG/2 ML SDV IVPUSH PRN (12:56)
[2022-12-03] MEDS ORDERED: fentaNYL 100 MCG/2 ML SDV IVPUSH PRN (12:56)
[2022-12-03] MEDS: HYDROmorphone 0.5 MG/0.5 ML Syringe IVPUSH PRN ×2 (13:42→13:55)
[2022-12-03 14:17] VITALS: BP 129/79; PULSE 76
[2022-12-03] MEDS ORDERED: Vancomycin 125 MG Cap PO SCH (17:00)
[2022-12-04] MEDS ORDERED: Doxycycline Monohydrate 50 MG Tab PO SCH (09:00)
== END 2022-12-03 14:44 | disposition home or self-care (01) ==
LOC: JD.ED 15:57 → JD.SDS 12-03 06:40
PROVIDERS: ATTEND Surgery
DX: L02.211 Cutaneous abscess of abdominal wall (principal); I10 Essential (primary) hypertension; K21.9 Gastro-esophageal reflux disease without esophagitis; M10.9 Gout, unspecified; G43.909 Migraine, unspecified, not intractable, without status migrainosus; F41.0 Panic disorder [episodic paroxysmal anxiety]; F32.A Depression, unspecified; F43.10 Post-traumatic stress disorder, unspecified; G47.00 Insomnia, unspecified; E11.9 Type 2 diabetes mellitus without complications; F17.210 Nicotine dependence, cigarettes, uncomplicated; Z88.1 Allergy status to other antibiotic agents; Z91.013 Allergy to seafood; Z88.8 Allergy status to other drugs, medicaments and biological substances
CPT/HCPCS: 0241U; 10061; 36415; 76705; 80053; 81001; 83605; 85007; 85027; 85610; 86140; 87040; 87045; 87046; 87070; 87075; 87205; 87324; 87493; 87899; 96361; 96365; 96366; 96367; 96375; 96376; 99285; A9270; C9113; J1100; J1170; J1885; J2250; J2405; J2543; J2704; J2710; J3010; J3370; J3490; J7030; J7120; J7620-GY

== ENCOUNTER 2023-02-06 16:14 | Emergency (ER) | payer MEDICAID ==
[2023-02-06] MEDS ORDERED: Sodium Chloride 0.9% 10 ML Syringe FLUSH PRN (16:53)
[2023-02-06] MEDS ORDERED: Sodium Chloride 0.9% 1,000 ML IV STA (17:15)
[2023-02-06] MEDS ORDERED: HYDROmorphone 0.5 MG/0.5 ML Syringe IVPUSH ONE (17:15)
[2023-02-06] MEDS ORDERED: Ondansetron 4 MG/2 ML SDV IVPUSH ONE (17:15)
[2023-02-06] MEDS ORDERED: Iopamidol 612 MG/ML 100 ML Bottle IVPUSH ONE (17:52)
[2023-02-06 18:31] LABS: ESTIMATED GFR 91 mL/min (>60)
[2023-02-06] MEDS ORDERED: Acetaminophen/oxyCODONE 325-5 MG Tab PO ONE (18:41)
[2023-02-06 22:30] VITALS: BP 153/100; PULSE 84
== END 2023-02-06 19:27 | disposition home or self-care (01) ==
LOC: JD.ED 16:14
DX: R10.10 Upper abdominal pain, unspecified (principal); I10 Essential (primary) hypertension; E66.9 Obesity, unspecified; Z91.013 Allergy to seafood; Z88.1 Allergy status to other antibiotic agents; Z88.8 Allergy status to other drugs, medicaments and biological substances; Z79.899 Other long term (current) drug therapy; Z86.16 Personal history of COVID-19; W10.9XXA Fall (on) (from) unspecified stairs and steps, initial encounter
CPT/HCPCS: 36415; 74177; 80053; 85025; 86140; 96361; 96374; 96375; 99284; A9270; J1170; J2405; J3490; J7030; Q9967

== ENCOUNTER 2023-03-20 19:17 | Emergency (ER) | payer MEDICAID ==
[2023-03-20] MEDS ORDERED: Amoxicillin/Clavulanate K 875-125 MG Tab PO ONE (20:24)
[2023-03-20 20:47] VITALS: BP 156/94; PULSE 69
== END 2023-03-20 20:40 | disposition home or self-care (01) ==
LOC: JD.ED 19:17
DX: S61.257A Open bite of left little finger without damage to nail, initial encounter (principal); I10 Essential (primary) hypertension; E66.9 Obesity, unspecified; Z68.33 Body mass index [BMI] 33.0-33.9, adult; Z88.8 Allergy status to other drugs, medicaments and biological substances; Z91.013 Allergy to seafood; Z88.1 Allergy status to other antibiotic agents; Z79.899 Other long term (current) drug therapy; W54.0XXA Bitten by dog, initial encounter
CPT/HCPCS: 73140; 99283; A9270

== ENCOUNTER 2023-04-19 20:11 | Emergency (ER) | payer MEDICAID ==
[2023-04-19] MEDS ORDERED: HYDROmorphone 1 MG/ML Syringe IVPUSH ONE (21:25)
[2023-04-19] MEDS ORDERED: Sodium Chloride 0.9% 10 ML Syringe FLUSH PRN (21:25)
[2023-04-19] MEDS ORDERED: Sodium Chloride 0.9% 1,000 ML IV SCH (21:30)
[2023-04-19 23:08] VITALS: BP 165/99; PULSE 88
== END 2023-04-19 22:50 | disposition home or self-care (01) ==
LOC: JD.ED 20:11
DX: G56.21 Lesion of ulnar nerve, right upper limb (principal); M25.521 Pain in right elbow; I10 Essential (primary) hypertension; K21.9 Gastro-esophageal reflux disease without esophagitis; E66.9 Obesity, unspecified; Z86.16 Personal history of COVID-19; Z91.013 Allergy to seafood; Z88.1 Allergy status to other antibiotic agents; Z88.8 Allergy status to other drugs, medicaments and biological substances; Z79.899 Other long term (current) drug therapy
CPT/HCPCS: 36415; 85379; 96361; 96374; 99283; J1170; J3490; J7030

== ENCOUNTER 2023-07-16 18:28 | Emergency (ER) | payer MEDICAID ==
[2023-07-16] MEDS ORDERED: HYDROmorphone 0.5 MG/0.5 ML Syringe IVPUSH ONE (20:03)
[2023-07-16] MEDS ORDERED: Metoclopramide 10 MG/2 ML SDV IVPUSH ONE (20:04)
[2023-07-16] MEDS ORDERED: diphenhydrAMINE 50 MG/ML SDV IVPUSH ONE (20:04)
[2023-07-16] MEDS ORDERED: Sodium Chloride 0.9% 1,000 ML IV SCH (20:15)
[2023-07-16] MEDS ORDERED: Sodium Chloride 0.9% 1,000 ML IV ONE (20:15)
[2023-07-16] MEDS ORDERED: Ketorolac 15 MG/ML SDV IVPUSH ONE (21:40)
[2023-07-16 22:04] VITALS: BP 148/100; PULSE 67
== END 2023-07-16 22:35 | disposition home or self-care (01) ==
LOC: JD.ED 18:28
DX: G43.909 Migraine, unspecified, not intractable, without status migrainosus (principal); E66.9 Obesity, unspecified; I10 Essential (primary) hypertension; Z87.891 Personal history of nicotine dependence; Z86.16 Personal history of COVID-19; Z79.899 Other long term (current) drug therapy; Z88.1 Allergy status to other antibiotic agents; Z88.8 Allergy status to other drugs, medicaments and biological substances; Z91.013 Allergy to seafood; Z68.34 Body mass index [BMI] 34.0-34.9, adult
CPT/HCPCS: 96361; 96374; 96375; 99283; J1170; J1200; J1885; J2765; J7030; 99284

== ENCOUNTER 2023-09-29 15:10 | Emergency (ER) | payer MEDICAID ==
[2023-09-29] MEDS ORDERED: Ketorolac 30 MG/ML SDV IVPUSH ONE (15:53)
[2023-09-29] MEDS ORDERED: diphenhydrAMINE 50 MG/ML SDV IVPUSH ONE (15:53)
[2023-09-29] MEDS ORDERED: Metoclopramide 10 MG/2 ML SDV IVPUSH ONE (15:53)
[2023-09-29] MEDS ORDERED: Lactated Ringers 1,000 ML IV SCH (16:00)
[2023-09-29 16:22] LABS: CORONAVIRUS COVID-19 NAA NEGATIVE (NEGATIVE); INFLUENZA A NAA NEGATIVE (NEGATIVE); RESPIRATORY SYNCYTIAL VIR NAA NEGATIVE (NEGATIVE)
[2023-09-29] MEDS ORDERED: Naloxone 0.4 MG/ML SDV IVPUSH PRN (17:04)
[2023-09-29] MEDS ORDERED: HYDROmorphone 0.5 MG/0.5 ML Syringe IVPUSH ONE (17:04)
[2023-09-29] MEDS ORDERED: Amoxicillin/Clavulanate K 875-125 MG Tab PO ONE (18:13)
[2023-09-29 18:55] VITALS: BP 148/91; PULSE 81
== END 2023-09-29 18:50 | disposition home or self-care (01) ==
LOC: JD.ED 15:10
DX: G43.909 Migraine, unspecified, not intractable, without status migrainosus (principal); J01.90 Acute sinusitis, unspecified; I10 Essential (primary) hypertension; K21.9 Gastro-esophageal reflux disease without esophagitis; E66.9 Obesity, unspecified; Z90.49 Acquired absence of other specified parts of digestive tract; Z90.710 Acquired absence of both cervix and uterus; Z79.899 Other long term (current) drug therapy; Z91.013 Allergy to seafood; Z88.1 Allergy status to other antibiotic agents; Z88.8 Allergy status to other drugs, medicaments and biological substances
CPT/HCPCS: 0241U; 96361; 96374; 96375; 99283; A9270; J1170; J1200; J1885; J2765; J7120

== ENCOUNTER 2024-06-08 18:12 | Emergency (ER) | payer MEDICAID ==
[2024-06-08] MEDS: methylPREDNISolone Sodium Succinate 40 MG/1 ML SDV IVPUSH ONE (20:29)
[2024-06-08] MEDS: Ketorolac 30 MG/ML SDV IVPUSH ONE (20:29)
[2024-06-08] MEDS: Sodium Chloride 0.9% 1,000 ML IV ONE (20:29)
[2024-06-08 21:39] VITALS: BP 150/90; PULSE 88
[2024-06-08] MEDS: Acetaminophen/oxyCODONE 325-5 MG Tab PO ONE (21:48)
== END 2024-06-08 21:39 | disposition home or self-care (01) ==
LOC: JD.ED 18:12
DX: M54.50 Low back pain, unspecified (principal); R41.0 Disorientation, unspecified; M54.6 Pain in thoracic spine; I10 Essential (primary) hypertension; K21.9 Gastro-esophageal reflux disease without esophagitis; E66.9 Obesity, unspecified; Z79.899 Other long term (current) drug therapy; Z91.013 Allergy to seafood; Z88.1 Allergy status to other antibiotic agents; Z88.8 Allergy status to other drugs, medicaments and biological substances
CPT/HCPCS: 96361; 96374; 96375; 99283; A9270; J1885; J2919; J7030; 99284

== ENCOUNTER 2024-10-06 22:05 | Emergency (ER) | payer MEDICAID ==
[2024-10-06 22:22] VITALS: BP 136/79; PULSE 89
[2024-10-06 23:17] LABS: APPEARANCE,URINE CLEAR (Clear); BILIRUBIN,URINE NEGATIVE (Negative); COLOR,URINE YELLOW (Yellow); GLUCOSE,URINE NEGATIVE (Negative); KETONES,URINE NEGATIVE (Negative); LEUKOCYTE ESTERASE,URINE NEGATIVE (Negative); NITRITE,URINE NEGATIVE (Negative); OCCULT BLOOD,URINE TRACE-LYSED (Negative); PROTEIN,URINE TRACE (Negative); UROBILINOGEN,URINE 0.2 (0.2-1.0)
[2024-10-06 23:43] LABS: BASOPHILS PERCENT AUTO 0.4 % (0.0-1.0); EOSINOPHILS ABSOLUTE AUTO 0.1 K/mm3 (0.0-0.4); EOSINOPHILS PERCENT AUTO 1.2 % (0.0-6.0); HEMATOCRIT 39.9 % (37.0-47.0); HEMOGLOBIN 13.9 gm/dl (12.0-16.0); IMMATURE GRAN ABSOLUTE AUTO 0.03 K/mm3 (0.00-0.05); IMMATURE GRAN PERCENT AUTO 0.3 % (0.0-0.4); LYMPHOCYTES ABSOLUTE AUTO 1.9 K/mm3 (1.0-4.8); LYMPHOCYTES PERCENT AUTO 18.3 % (24.0-44.0); MEAN CORPUSCULAR HEMOGLOBIN 31.2 pg (28.0-32.0); MEAN CORPUSCULAR HGB CONC 34.8 g/dl (32.0-36.0); MEAN CORPUSCULAR VOLUME 89.5 fl (83.0-99.0); MONOCYTES ABSOLUTE AUTO 0.7 K/mm3 (0.0-0.8); MONOCYTES PERCENT AUTO 6.9 % (0.0-8.0); NEUTROPHILS ABSOLUTE AUTO 7.6 K/mm3 (1.8-7.7); NEUTROPHILS PERCENT AUTO 72.9 % (41.0-71.0); PLATELET COUNT,PLT 213 K/mm3 (150-400); RED BLOOD CELL COUNT 4.46 M/mm3 (4.10-5.30); WHITE BLOOD CELL COUNT,WBC 10.42 K/mm3 (3.9-11.3)
[2024-10-06 23:43] LABS: AMORPHOUS SEDIMENT,URINE MODERATE /hpf (NOT SEEN); BACTERIA,URINE FEW /hpf (FEW); EPITHELIAL CELLS,URINE 0-5 /hpf (0-5); MUCUS,URINE NOT SEEN /hpf (FEW); RBC,URINE 0-5 /hpf (0-5); WBC,URINE 0-5 /hpf (0-5)
[2024-10-07] MEDS: Sodium Chloride 0.9% 1,000 ML IV ONE
[2024-10-07] MEDS: Sodium Chloride 0.9% 10 ML Syringe FLUSH PRN (00:01)
[2024-10-07 00:16] LABS: A/G RATIO 1.1 (1-2); ALBUMIN 3.6 g/dl (3.4-5.0); ANION GAP 13.7 (5-15); BILIRUBIN TOTAL 0.3 mg/dL (0.2-1.0); BUN/CREATININE RATIO 17.5 (14-18); CREATININE 0.8 mg/dL (0.55-1.02); EST CRCL DRUG DOSING (CG) 83.63 mL/min; MAGNESIUM 1.7 mg/dL (1.8-2.4); POTASSIUM,K 3.7 mEq/L (3.5-5.1)
== END 2024-10-07 02:54 | disposition home or self-care (01) ==
LOC: JD.ED 22:05
DX: I95.9 Hypotension, unspecified (principal); R42 Dizziness and giddiness; I10 Essential (primary) hypertension; E66.9 Obesity, unspecified; Z88.1 Allergy status to other antibiotic agents; Z88.8 Allergy status to other drugs, medicaments and biological substances; Z79.899 Other long term (current) drug therapy; Z86.16 Personal history of COVID-19; Z90.49 Acquired absence of other specified parts of digestive tract; Z90.710 Acquired absence of both cervix and uterus
CPT/HCPCS: 36415; 80053; 81001; 83735; 84703; 85025; 93005; 96360; 99284; J7030; 93010

== ENCOUNTER 2024-12-26 17:55 | Emergency (ER) | payer MEDICAID ==
[2024-12-26 19:09] LABS: BASOPHILS PERCENT AUTO 0.1 % (0.0-1.0); EOSINOPHILS PERCENT AUTO 0.3 % (0.0-6.0); HEMOGLOBIN 15.1 gm/dl (12.0-16.0); IMMATURE GRAN ABSOLUTE AUTO 0.02 K/mm3 (0.00-0.05); IMMATURE GRAN PERCENT AUTO 0.3 % (0.0-0.4); LYMPHOCYTES ABSOLUTE AUTO 0.8 K/mm3 (1.0-4.8); LYMPHOCYTES PERCENT AUTO 10.5 % (24.0-44.0); MEAN CORPUSCULAR HEMOGLOBIN 31.9 pg (28.0-32.0); MEAN CORPUSCULAR HGB CONC 35.1 g/dl (32.0-36.0); MEAN CORPUSCULAR VOLUME 90.7 fl (83.0-99.0); MEAN PLATELET VOLUME 10.5 fl (9.4-12.3); MONOCYTES ABSOLUTE AUTO 0.5 K/mm3 (0.0-0.8); MONOCYTES PERCENT AUTO 6.3 % (0.0-8.0); NEUTROPHILS PERCENT AUTO 82.5 % (41.0-71.0); PLATELET COUNT,PLT 185 K/mm3 (150-400); RED BLOOD CELL COUNT 4.74 M/mm3 (4.10-5.30); WHITE BLOOD CELL COUNT,WBC 7.27 K/mm3 (3.9-11.3)
[2024-12-26] MEDS: Sodium Chloride 0.9% 1,000 ML IV ONE (19:23)
[2024-12-26] MEDS: Ketorolac 30 MG/ML SDV IVPUSH ONE (19:24)
[2024-12-26] MEDS: droPERidol 2.5 MG/ML SDV IV STA (19:24)
[2024-12-26] MEDS: Acetaminophen 325 MG Tab PO ONE (19:25)
[2024-12-26] MEDS: Ondansetron 4 MG/2 ML SDV IVPUSH ONE (19:25)
[2024-12-26 19:32] LABS: ALBUMIN 3.4 g/dl (3.4-5.0); BILIRUBIN TOTAL 0.6 mg/dL (0.2-1.0); BUN/CREATININE RATIO 18.8 (14-18); CALCIUM 8.5 mg/dL (8.5-10.1); CREATININE 0.8 mg/dL (0.55-1.02); EST CRCL DRUG DOSING (CG) 82.72 mL/min; MAGNESIUM 1.6 mg/dL (1.8-2.4); PROTEIN TOTAL,TP 6.9 g/dl (6.4-8.2)
[2024-12-26 19:46] LABS: BARBITURATE SCREEN,URINE NEGATIVE (CUTOFF=200); BENZODIAZEPINES SCREEN,URINE PRESUMPTIVE POSITIVE (CUTOFF=150); BUPRENORPHINE SCREEN,URINE NEGATIVE (CUTOFF=10); METHADONE SCREEN, URINE NEGATIVE (CUTOFF=200); METHAMPHETAMINES SCREEN, URINE NEGATIVE (CUTOFF=500); OXYCODONE SCREEN,URINE NEGATIVE (CUT0FF=100); THC SCREEN,URINE 20 NG/ML NEGATIVE (CUTOFF=50)
[2024-12-26 19:54] LABS: AMPHETAMINES SCREEN, URINE NEGATIVE (CUTOFF=500)
[2024-12-26] MEDS: diphenhydrAMINE 50 MG/ML SDV IVPUSH ONE (20:10)
[2024-12-26 22:23] VITALS: BP 118/82; PULSE 78
== END 2024-12-26 20:50 | disposition home or self-care (01) ==
LOC: JD.ED 17:55
DX: G43.909 Migraine, unspecified, not intractable, without status migrainosus (principal); I10 Essential (primary) hypertension; K21.9 Gastro-esophageal reflux disease without esophagitis; E66.9 Obesity, unspecified; Z86.16 Personal history of COVID-19; Z90.710 Acquired absence of both cervix and uterus; Z79.899 Other long term (current) drug therapy; Z91.013 Allergy to seafood; Z88.1 Allergy status to other antibiotic agents; Z88.8 Allergy status to other drugs, medicaments and biological substances
CPT/HCPCS: 36415; 80053; 80306; 82550; 83735; 85025; 96361; 96374; 96375; 99284; A9270; J1200; J1790; J1885; J2405; J7030

== ENCOUNTER 2025-05-03 08:49 | Emergency (ER) | payer SELFPAY ==
[2025-05-03] MEDS: Ondansetron 4 MG Tab.DIS PO ONE (09:29)
[2025-05-03 10:13] VITALS: BP 131/96; PULSE 70
== END 2025-05-03 10:13 | disposition home or self-care (01) ==
LOC: JD.ED 08:49
DX: S06.0X1A Concussion with loss of consciousness of 30 minutes or less, initial encounter (principal); S16.1XXA Strain of muscle, fascia and tendon at neck level, initial encounter; I10 Essential (primary) hypertension; E66.9 Obesity, unspecified; Z91.013 Allergy to seafood; Z88.8 Allergy status to other drugs, medicaments and biological substances; Z79.899 Other long term (current) drug therapy; Z86.16 Personal history of COVID-19; Z90.49 Acquired absence of other specified parts of digestive tract; Z68.22 Body mass index [BMI] 22.0-22.9, adult; W22.8XXA Striking against or struck by other objects, initial encounter
CPT/HCPCS: 70450; 99284; A9270; 99283

== ENCOUNTER 2025-06-10 21:11 | Emergency (ER) | payer SELFPAY ==
[2025-06-10 23:00] VITALS: BP 119/86; PULSE 64
== END 2025-06-10 22:59 | disposition home or self-care (01) ==
LOC: JD.ED 21:11
DX: M25.561 Pain in right knee (principal); I10 Essential (primary) hypertension; K21.9 Gastro-esophageal reflux disease without esophagitis; F17.210 Nicotine dependence, cigarettes, uncomplicated; Z86.16 Personal history of COVID-19; Z90.49 Acquired absence of other specified parts of digestive tract; Z91.013 Allergy to seafood; Z88.1 Allergy status to other antibiotic agents; Z88.8 Allergy status to other drugs, medicaments and biological substances; Z79.899 Other long term (current) drug therapy
CPT/HCPCS: 93971-26-RT; 93971-RT; 99283